=== PATIENT | male | born 1970 | race Caucasian/White ===

== ENCOUNTER 2019-10-30 21:35 | Emergency (ER) | payer OTHER, SELFPAY ==
[2019-10-30 22:17] VITALS: BP 149/93; PULSE 99; RESP 18; TEMP 36.9; O2SAT 96; BMI 24.0
--- NOTE | 2019-10-30 22:32 | W.ED.HA ---
HPI - Headache General: Chief Complaint: Headache Stated Complaint: ling/vomiting Time Seen by Provider: 10/30/19 22:31 History of Present Illness: Associated symptoms: Deny chest pain, fever(s), nausea, rash or vomiting Review of Systems Const: Denies: fever, chills or body aches Eyes: Denies: change in vision or blurry vision ENMT: Denies: throat pain or nasal congestion Card: Denies: chest pain or shortness of breath on exertion Resp: Denies: shortness of breath, productive cough or non-productive cough GI: Denies: abdominal pain, nausea or vomiting : Denies: difficulty urinating Musc: Reports: neck pain (chronic that leads to migranious type h/a); Denies: extremity pain Skin/Breast: Denies: rash Neuro: Reports: headache (has seen Dr. Wyman for these- usually shot and anti emetic/sleep med he); Denies: numbness in extremities or weakness in extremities Psych: Denies: anxiety or depression Elias/Lymph: Denies: easy bruising PFSH ED PFSH: Statuses (acute, chronic, etc) shown below reflect problem list status as previously entered and may not be historically accurate Social History Smoking and tobacco status: former smoker Physical Exam Const: COMMON NORMALS: no apparent distress, average body habitus and oriented x3 HENMT: COMMON NORMALS: normocephalic HEAD & SCALP: normal to inspection and normocephalic FACE & SINUS: normal facial exam Eye: COMMON NORMALS: conjunctivae normal GENERAL EYE: normal appearance of both eyes CONJUNCTIVA: Yes conjunctivae normal Neck/C-Spine: COMMON NORMALS: no JVD OTHER: tender to right side of neck Chest: COMMONS NORMALS: inspection of chest normal Resp: COMMON NORMALS: normal respiratory effort and clear to auscultation bilaterally AUSCULTATION: clear to auscultation bilaterally Cardio: COMMON NORMALS: no JVD, regular rate and regular rhythm RATE: regular rate RHYTHM: regular rhythm GI: COMMON NORMALS: normal to inspection, nondistended, normoactive bowel sounds Extremity: COMMON NORMALS: normal to inspection and full ROM Neuro: COMMON NORMALS: oriented x3 Course Vital Signs: Vital signs: Vital Signs Temperature 98.4 F 10/30/19 22:17 Pulse Rate 99 10/30/19 22:17 Respiratory Rate 18 10/30/19 22:17 Blood Pressure 149/93 10/30/19 22:17 Pulse Oximetry 96 10/30/19 22:17 Discharge Plan Discharge Patient Disposition: Home, Self-Care Clinical Impression: Headache, Tension headache Condition: Stable Prescriptions: No Action tramadol 50 mg Tablet 50 mg PO Q6H PRN (Reason: Pain) RF: 0 trazodone 100 mg Tablet 100 mg PO DAILY RF: 0 Referrals: Jamie Rebollar MD [Primary Care Provider] - Discharge Activity: Resume usual activity Patient Instructions: Acute Headache (ED) Activity Restrictions/Additional Instructions: zofran 8mg po prn Coding Level of Care Code ED Telephonic Nurse Case Manager for Alvarez Juárez
[2019-10-30] MEDS: ketorolac 60 mg/2 mL INJ IM (22:46)
[2019-10-30] MEDS: promethazine 25 mg Tablet PO (22:46)
== END 2019-10-30 22:52 | disposition home or self-care (01) ==
LOC: ER 23:58
PROVIDERS: Emergency Provider Nurse Practitioner Family; Family Provider Family Medicine; PCP Family Medicine
DX: G44.209 Tension-type headache, unspecified, not intractable (principal); Z87.891 Personal history of nicotine dependence
CPT/HCPCS: 96372; 99281; J1885; Q0169

== ENCOUNTER 2020-07-24 12:12 | Emergency (ER) | payer OTHER, SELFPAY ==
[2020-07-24] VITALS (14 sets, daily range): BP systolic 130–179; BP diastolic 79–113; PULSE 105–125; RESP 16–20; TEMP 36.7; O2SAT 95–99; BMI 24.0
--- NOTE | 2020-07-24 12:33 | CT_ITS ---
WS: [id number] CT ABDOMEN PELVIS TECHNIQUE: Contrast-enhanced CT of the abdomen and pelvis with coronal and sagittal reformatted image s. CLINICAL INFORMATION: abd pain COMPARISON: CT DLP: 576.[address] scans at [facility] use at least one of these dose optimization techniques: automat ed exposure control; mA and/or kV adjustment per patient size (includes targeted exams where dose is matched to clinical indication); or iterative reconstruction. FINDINGS: Slight hazy groundglass infiltrates in both lung bases is new since the CT July 30, 2019. Correlation for viral pneumonitis. No focal consolidation or significant pleural fluid. Mild diffuse thickening with induration and submucosal enhancement involving the entire colon extendi ng from the cecum to the sigmoid colon. This is more prominent involving the transverse colon diffuse ly. Findings likely due to colitis or inflammatory bowel disease. Terminal ileum appears normal. Mild diffuse fatty infiltration liver. Cholecystectomy clips. Normal portal vein and splenic vein. No rmal spleen. Small esophageal hiatal hernia. Thickening of the GE junction with submucosal enhancemen t involving the stomach. Findings can be seen with esophagitis and gastritis. Similar-appearing submu cosal enhancement involving the duodenal C-loop suspicious for duodenitis. Fatty atrophy of the pancreas.Normal caliber abdominal aorta. Normal renal parenchymal enhancement. N o hydronephrosis. Enlarged calcified prostate measuring 4.[address]/CT abdomen pelvis w con* [id number] IMPRESSION: 1. Slight hazy ground glass infiltrates in the lung bases. Recommend correlati on for viral pneumonitis. 2. Submucosal enhancement with mild thickening involving the distal esophagus, stomach and duodenum likely due to esophagitis/gastritis and duodenitis. 3. Mild diffuse thickening and induration with submucosal enhancement involvin g the colon worse involving the transverse colon suspicious for colitis or infl ammatory bowel disease. 4. Terminal ileum appears normal. 5. Normal renal parenchymal enhancement. No hydronephrosis. 6. Enlarged calcified prostate. Notified Jarrett Luis DO at 07/24/2020 2:07 PM.
[2020-07-24] MEDS: HYDROmorphone 1 mg/mL INJ 1 mL IVP (12:34)
--- NOTE | 2020-07-24 12:37 | ED_ITS ---
HPI - Abdominal Pain General: Chief Complaint: Abdominal Pain Stated Complaint: ABDOMINAL PAIN/ N/V Time Seen by Provider: 07/24/20 12:23 History of Present Illness: HPI narrative: 50-year-old male presents emergency room complaining of abdominal pain. Begins at the low back and radiates around to the suprapubic area he has had some dysuria urgency and frequency is also had subjective fever at home denies any respiratory problems complaining of severe pain pain does not radiate down into his legs. All began approximately 48 hours ago in addition to the dysuria is also having quite a bit of vomiting although he denies emesis or coffee-ground emesis. MD elicited complaint: abdominal pain Pertinent past history: other (Diabetes mellitus) Onset (ago): day(s) Pain Consistency: constant Location: Diffuse Severity: severe Quality: cramping Radiation: none Migration to: no migration Exacerbating factors: movement Relieving factors: rest Associated Symptoms: Reports anorexia, bloating, change in bowel habits, chills, GI cramping, diarrhea, fever(s), loose stools, nausea, poor appetite and vomi ting; Denies belching, change in stool character, coffee ground emesis, constipation, dyspepsia, dysuria, excessive flatus, heartburn, hematochezia, hematuria, hematemesis, fecal incontinence, melena and syncope Review of Systems Const: Reports: fever(s) and chills ENMT: Denies: throat pain, ear or mastoid pain, nasal discharge or nasal congestion Card: Denies: syncope Resp: Denies: dyspnea, productive cough or non-productive cough GI: Reports: nausea, vomiting, diarrhea, bloating, GI cramping and change in bowel habits; Denies: hematemesis, coffee ground emesis, heartburn, constipation, belching, excessive flatus, fecal incontinence, change in stool character, hematochezia or melena : Denies: dysuria or hematuria Skin/Breast: Denies: rash or pruritus PFSH ED PFSH: Medical History (Updated 07/26/20 @ 11:02 by Jarrett Luis DO) Diabetes mellitus Social History Smoking and tobacco status: former smoker Physical Exam Const: GENERAL APPEARANCE: cooperative HENMT: COMMON NORMALS: normocephalic, atraumatic and hearing grossly normal bilaterally HEAD & SCALP: normocephalic and atraumatic Eye: COMMON NORMALS: Equal, round and reactive pupils present, EOMs intact bilaterally, conjunctivae normal and no scleral icterus CONJUNCTIVA: Yes conjunctivae normal PUPIL: Yes Equal, round and reactive pupils present Neck/C-Spine: COMMON NORMALS: full ROM, no lymphadenopathy, supple and no JVD Lymph: LYMPHATIC: no lymphadenopathy noted and no lymphedema noted Resp: COMMON NORMALS: normal respiratory effort, No retractions and No use of accessory muscles AUSCULTATION: rhonchi Cardio: COMMON NORMALS: no JVD, regular rhythm and No murmurs present (Cardio) RATE: tachycardic RHYTHM: regular rhythm GI: COMMON NORMALS: Soft to palpation and No hepatosplenomegaly present AUSCULTATION: Yes normoactive bowel sounds PALPATION: Yes Soft to palpation, Yes Tenderness to palpation present (GI) (Diffuse nonspecific tenderness no guarding or rebound), No Guarding due to palpation present (GI) and Yes No hepatosplenomegaly present Extremity: COMMON NORMALS: normal to inspection, capillary refill normal, no clubbing, cyanosis or edema, no calf tenderness and no pedal edema Skin: COMMON NORMALS: no rashes or lesions noted GENERAL SKIN EXAM: no rashes or lesions noted Course Vital Signs: Vital signs: Vital Signs Temperature 98.1 F 07/24/20 12:14 Pulse Rate 109 H 07/24/20 18:45 Respiratory Rate 18 07/24/20 18:45 Blood Pressure 130/79 07/24/20 18:45 Pulse Oximetry 95 07/24/20 18:45 MDM - Abdominal Pain MDM Narrative: Medical decision making narrative: Patient is in DKA as well as having pulmonary emboli and COVID. We will go ahead and transfer him to a COVID unit we are unable to manage him at our facility because we do not have any beds available. Discussed with him and his . He was started on insulin drip and given IV fluids and bicarb due to his pH. We will anticoagulate as well. Lab Data: Attestation: I reviewed the patient's lab results. Labs: Lab Results 07/24/20 07/24/20 07/24/20 Range/Units 12:20 12:20 12:20 WBC 8.7 (4.0-10.0) 10^3/ uL RBC 5.32 H (4.1-5.3) 10^6/u L Hgb 16.3 (11.7-16.6) g/dL Hct 49.9 (42.0-52.0) % MCV 93.8 (80-94) fL MCH 30.6 (28.0-34.0) pg MCHC 32.7 (30.0-36.0) g/dL RDW 12.3 (12.1-15.1) % Plt Count 241 (130-400) 10^3/c mm MPV 10.2 (7.4-10.4) fL Neut % (Auto) 84.9 % Lymph % (Auto) 6.6 % Assumption % (Auto) 7.7 % Eos % (Auto) 0.0 % Baso % (Auto) 0.1 % Neut # (Auto) 7.38 (1.8-7.7) 10^3/u L Lymph # (Auto) 0.6 L (0.8-4.8) 10^3/u L Assumption # (Auto) 0.7 (0.2-0.9) 10^3/u L Eos # (Auto) 0.0 (0.0-0.8) 10^3/u L Baso # (Auto) 0.0 (0.0-0.1) 10^3/u L Nucleated RBC % (a uto) 0 % Nucleated RBCs # 0.0 /100WBC Fibrinogen 630 H (174-498) mg/dL D-Dimer 0.41 (0-0.59) ug/mIFE U Specimen Type Sample Site ABG pH (7.35-7.45) ABG pCO2 (35-45) mmHg ABG pO2 (80.0-100.0) mmH g ABG HCO3 (22-26) mmol/L ABG O2 Saturation ABG Base Excess (-2.0-2.0) mmol/ L Walter Test A-a O2 Gradient (5-10) mmHg Hematocrit (42-52) % Hgb O2 Saturation (95-100) % Carboxyhemoglobin (0.4-20.1) %THgb Methemoglobin (0.4-1.5) % Total Hemoglobin (14-18) g/dL Ionized Calcium (1.1-1.4) mmol/L O2 Delivery Device FiO2 % Train Dispatcher ID Sodium 135 L (136-145) mmol/L Potassium 4.5 (3.5-5.1) mmol/L Chloride 100 (98-107) mmol/L Carbon Dioxide 8 L* (22-29) mmol/L Anion Gap 31.5 H (5-19) BUN 13 (6-20) mg/dL Creatinine 1.1 (0.7-1.2) mg/dL GFR Calculation 70.9 L (90-130) mL/min Glucose 348 H (65-115) mg/dL POC Glucose (70-110) mg/dL Calculated Osmolal ity 294 (285-295) mOsm/k g Lactic Acid (0.5-2.2) mmol/L Calcium 9.3 (8.5-10.5) mg/dL Magnesium 2.0 (1.7-2.3) mg/dL Ferritin (30-400) ng/mL Total Bilirubin 0.5 (0.15-1.2) mg/dL AST 19 (0-40) U/L ALT 18 (0-41) U/L Alkaline Phosphata se 83 (40-130) IU/L Lactate Dehydrogen ase (135-225) U/L Creatine Kinase 37 L (39-308) U/L C-Reactive Protein (0.0-4.9) mg/L Total Protein 8.2 (6.6-8.7) g/dL Albumin 4.5 (3.5-5.2) g/dL Globulin 3.7 (1.3-4.6) g/dL Lipase 12 L (13-60) U/L Procalcitonin (0-0.5) ng/mL Urine Color (Yellow) Urine Appearance (CLEAR) Urine pH (5-7) Ur Specific Gravit y (1.005-1.030) Urine Protein (Negative) Urine Glucose (UA) (Normal) Urine Ketones (Negative) Urine Blood (Negative) Urine Nitrate (Negative) Urine Bilirubin (Negative) Urine Urobilinogen (Negative) mg/dL Ur Leukocyte Minerva ase (Negative) Urine RBC (0-2) /hpf Urine WBC (0-5) /hpf Ur Squamous Epith Cells (0-5) /hpf Amorphous Sediment Urine Bacteria (NONE) /hpf Salicylates (3-10) mg/dL Urine Opiates Scre en (Negative) ng/mL Acetaminophen (10-30) ug/mL Ur Barbiturates Sc reen (Negative) ng/mL Ur Phencyclidine S crn (Negative) ng/mL Ur Amphetamines Sc reen (Negative) ng/mL U Benzodiazepines Scrn (Negative) ng/mL Urine Cocaine Scre en (Negative) ng/mL U Marijuana (THC) Screen (Negative) ng/mL Ethyl Alcohol (0-10) mg/dL Serum Ketones Positive H (Negative) SARS-CoV-2 Ag (Rap id) (Negative) 07/24/20 07/24/20 07/24/20 Range/Units 12:20 12:20 12:53 WBC (4.0-10.0) 10^3/ uL RBC (4.1-5.3) 10^6/u L Hgb (11.7-16.6) g/dL Hct (42.0-52.0) % MCV (80-94) fL MCH (28.0-34.0) pg MCHC (30.0-36.0) g/dL RDW (12.1-15.1) % Plt Count (130-400) 10^3/c mm MPV (7.4-10.4) fL Neut % (Auto) % Lymph % (Auto) % Assumption % (Auto) % Eos % (Auto) % Baso % (Auto) % Neut # (Auto) (1.8-7.7) 10^3/u L Lymph # (Auto) (0.8-4.8) 10^3/u L Assumption # (Auto) (0.2-0.9) 10^3/u L Eos # (Auto) (0.0-0.8) 10^3/u L Baso # (Auto) (0.0-0.1) 10^3/u L Nucleated RBC % (a uto) % Nucleated RBCs # /100WBC Fibrinogen (174-498) mg/dL D-Dimer (0-0.59) ug/mIFE U Specimen Type Sample Site ABG pH (7.35-7.45) ABG pCO2 (35-45) mmHg ABG pO2 (80.0-100.0) mmH g ABG HCO3 (22-26) mmol/L ABG O2 Saturation ABG Base Excess (-2.0-2.0) mmol/ L Walter Test A-a O2 Gradient (5-10) mmHg Hematocrit (42-52) % Hgb O2 Saturation (95-100) % Carboxyhemoglobin (0.4-20.1) %THgb Methemoglobin (0.4-1.5) % Total Hemoglobin (14-18) g/dL Ionized Calcium (1.1-1.4) mmol/L O2 Delivery Device FiO2 % Train Dispatcher ID Sodium (136-145) mmol/L Potassium (3.5-5.1) mmol/L Chloride (98-107) mmol/L Carbon Dioxide (22-29) mmol/L Anion Gap (5-19) BUN (6-20) mg/dL Creatinine (0.7-1.2) mg/dL GFR Calculation (90-130) mL/min Glucose (65-115) mg/dL POC Glucose (70-110) mg/dL Calculated Osmolal ity (285-295) mOsm/k g Lactic Acid (0.5-2.2) mmol/L Calcium (8.5-10.5) mg/dL Magnesium (1.7-2.3) mg/dL Ferritin 1101 H (30-400) ng/mL Total Bilirubin (0.15-1.2) mg/dL AST (0-40) U/L ALT (0-41) U/L Alkaline Phosphata se (40-130) IU/L Lactate Dehydrogen ase 262 H (135-225) U/L Creatine Kinase (39-308) U/L C-Reactive Protein 54.0 H (0.0-4.9) mg/L Total Protein (6.6-8.7) g/dL Albumin (3.5-5.2) g/dL Globulin (1.3-4.6) g/dL Lipase (13-60) U/L Procalcitonin 0.11 (0-0.5) ng/mL Urine Color Straw (Yellow) Urine Appearance Clear (CLEAR) Urine pH 5 (5-7) Ur Specific Gravit y 1.025 (1.005-1.030) Urine Protein 1+ H (Negative) Urine Glucose (UA) 4+ H (Normal) Urine Ketones 3+ H (Negative) Urine Blood Neg (Negative) Urine Nitrate Negative (Negative) Urine Bilirubin Neg (Negative) Urine Urobilinogen Norm (Negative) mg/dL Ur Leukocyte Minerva ase Negative (Negative) Urine RBC Rare (0-2) /hpf Urine WBC Rare (0-5) /hpf Ur Squamous Epith Cells Rare (0-5) /hpf Amorphous Sediment Not Reportable Urine Bacteria Trace (NONE) /hpf Salicylates < 0.3 L (3-10) mg/dL Urine Opiates Scre en (Negative) ng/mL Acetaminophen < 5.0 L (10-30) ug/mL Ur Barbiturates Sc reen (Negative) ng/mL Ur Phencyclidine S crn (Negative) ng/mL Ur Amphetamines Sc reen (Negative) ng/mL U Benzodiazepines Scrn (Negative) ng/mL Urine Cocaine Scre en (Negative) ng/mL U Marijuana (THC) Screen (Negative) ng/mL Ethyl Alcohol < 10 (0-10) mg/dL Serum Ketones (Negative) SARS-CoV-2 Ag (Rap id) (Negative) 07/24/20 07/24/20 07/24/20 Range/Units 12:53 13:23 13:28 WBC (4.0-10.0) 10^3/ uL RBC (4.1-5.3) 10^6/u L Hgb (11.7-16.6) g/dL Hct (42.0-52.0) % MCV (80-94) fL MCH (28.0-34.0) pg MCHC (30.0-36.0) g/dL RDW (12.1-15.1) % Plt Count (130-400) 10^3/c mm MPV (7.4-10.4) fL Neut % (Auto) % Lymph % (Auto) % Assumption % (Auto) % Eos % (Auto) % Baso % (Auto) % Neut # (Auto) (1.8-7.7) 10^3/u L Lymph # (Auto) (0.8-4.8) 10^3/u L Assumption # (Auto) (0.2-0.9) 10^3/u L Eos # (Auto) (0.0-0.8) 10^3/u L Baso # (Auto) (0.0-0.1) 10^3/u L Nucleated RBC % (a uto) % Nucleated RBCs # /100WBC Fibrinogen (174-498) mg/dL D-Dimer (0-0.59) ug/mIFE U Specimen Type Arterial Sample Site Radial, right ABG pH 7.13 L* (7.35-7.45) ABG pCO2 17.1 L* (35-45) mmHg ABG pO2 109.0 H (80.0-100.0) mmH g ABG HCO3 5.6 L (22-26) mmol/L ABG O2 Saturation 97.9 ABG Base Excess -21.4 L (-2.0-2.0) mmol/ L Walter Test Pos A-a O2 Gradient 2.1 L (5-10) mmHg Hematocrit 48.4 (42-52) % Hgb O2 Saturation 97.0 (95-100) % Carboxyhemoglobin 0.4 (0.4-20.1) %THgb Methemoglobin 0.5 (0.4-1.5) % Total Hemoglobin 15.8 (14-18) g/dL Ionized Calcium 1.2 (1.1-1.4) mmol/L O2 Delivery Device Room air FiO2 21.0 % Train Dispatcher ID glc Sodium 138.0 (136-145) mmol/L Potassium 4.5 (3.5-5.1) mmol/L Chloride (98-107) mmol/L Carbon Dioxide (22-29) mmol/L Anion Gap (5-19) BUN (6-20) mg/dL Creatinine (0.7-1.2) mg/dL GFR Calculation (90-130) mL/min Glucose 336.0 H (65-115) mg/dL POC Glucose (70-110) mg/dL Calculated Osmolal ity (285-295) mOsm/k g Lactic Acid 1.9 (0.5-2.2) mmol/L Calcium (8.5-10.5) mg/dL Magnesium (1.7-2.3) mg/dL Ferritin (30-400) ng/mL Total Bilirubin (0.15-1.2) mg/dL AST (0-40) U/L ALT (0-41) U/L Alkaline Phosphata se (40-130) IU/L Lactate Dehydrogen ase (135-225) U/L Creatine Kinase (39-308) U/L C-Reactive Protein (0.0-4.9) mg/L Total Protein (6.6-8.7) g/dL Albumin (3.5-5.2) g/dL Globulin (1.3-4.6) g/dL Lipase (13-60) U/L Procalcitonin (0-0.5) ng/mL Urine Color (Yellow) Urine Appearance (CLEAR) Urine pH (5-7) Ur Specific Gravit y (1.005-1.030) Urine Protein (Negative) Urine Glucose (UA) (Normal) Urine Ketones (Negative) Urine Blood (Negative) Urine Nitrate (Negative) Urine Bilirubin (Negative) Urine Urobilinogen (Negative) mg/dL Ur Leukocyte Minerva ase (Negative) Urine RBC (0-2) /hpf Urine WBC (0-5) /hpf Ur Squamous Epith Cells (0-5) /hpf Amorphous Sediment Urine Bacteria (NONE) /hpf Salicylates (3-10) mg/dL Urine Opiates Scre en Negative (Negative) ng/mL Acetaminophen (10-30) ug/mL Ur Barbiturates Sc reen Negative (Negative) ng/mL Ur Phencyclidine S crn Negative (Negative) ng/mL Ur Amphetamines Sc reen Negative (Negative) ng/mL U Benzodiazepines Scrn Negative (Negative) ng/mL Urine Cocaine Scre en Negative (Negative) ng/mL U Marijuana (THC) Screen Negative (Negative) ng/mL Ethyl Alcohol (0-10) mg/dL Serum Ketones (Negative) SARS-CoV-2 Ag (Rap id) (Negative) 07/24/20 07/24/20 07/24/20 Range/Units 14:31 18:02 18:41 WBC (4.0-10.0) 10^3/ uL RBC (4.1-5.3) 10^6/u L Hgb (11.7-16.6) g/dL Hct (42.0-52.0) % MCV (80-94) fL MCH (28.0-34.0) pg MCHC (30.0-36.0) g/dL RDW (12.1-15.1) % Plt Count (130-400) 10^3/c mm MPV (7.4-10.4) fL Neut % (Auto) % Lymph % (Auto) % Assumption % (Auto) % Eos % (Auto) % Baso % (Auto) % Neut # (Auto) (1.8-7.7) 10^3/u L Lymph # (Auto) (0.8-4.8) 10^3/u L Assumption # (Auto) (0.2-0.9) 10^3/u L Eos # (Auto) (0.0-0.8) 10^3/u L Baso # (Auto) (0.0-0.1) 10^3/u L Nucleated RBC % (a uto) % Nucleated RBCs # /100WBC Fibrinogen (174-498) mg/dL D-Dimer (0-0.59) ug/mIFE U Specimen Type Sample Site ABG pH (7.35-7.45) ABG pCO2 (35-45) mmHg ABG pO2 (80.0-100.0) mmH g ABG HCO3 (22-26) mmol/L ABG O2 Saturation ABG Base Excess (-2.0-2.0) mmol/ L Walter Test A-a O2 Gradient (5-10) mmHg Hematocrit (42-52) % Hgb O2 Saturation (95-100) % Carboxyhemoglobin (0.4-20.1) %THgb Methemoglobin (0.4-1.5) % Total Hemoglobin (14-18) g/dL Ionized Calcium (1.1-1.4) mmol/L O2 Delivery Device FiO2 % Train Dispatcher ID Sodium (136-145) mmol/L Potassium (3.5-5.1) mmol/L Chloride (98-107) mmol/L Carbon Dioxide (22-29) mmol/L Anion Gap (5-19) BUN (6-20) mg/dL Creatinine (0.7-1.2) mg/dL GFR Calculation (90-130) mL/min Glucose (65-115) mg/dL POC Glucose 262 267 (70-110) mg/dL Calculated Osmolal ity (285-295) mOsm/k g Lactic Acid (0.5-2.2) mmol/L Calcium (8.5-10.5) mg/dL Magnesium (1.7-2.3) mg/dL Ferritin (30-400) ng/mL Total Bilirubin (0.15-1.2) mg/dL AST (0-40) U/L ALT (0-41) U/L Alkaline Phosphata se (40-130) IU/L Lactate Dehydrogen ase (135-225) U/L Creatine Kinase (39-308) U/L C-Reactive Protein (0.0-4.9) mg/L Total Protein (6.6-8.7) g/dL Albumin (3.5-5.2) g/dL Globulin (1.3-4.6) g/dL Lipase (13-60) U/L Procalcitonin (0-0.5) ng/mL Urine Color (Yellow) Urine Appearance (CLEAR) Urine pH (5-7) Ur Specific Gravit y (1.005-1.030) Urine Protein (Negative) Urine Glucose (UA) (Normal) Urine Ketones (Negative) Urine Blood (Negative) Urine Nitrate (Negative) Urine Bilirubin (Negative) Urine Urobilinogen (Negative) mg/dL Ur Leukocyte Minerva ase (Negative) Urine RBC (0-2) /hpf Urine WBC (0-5) /hpf Ur Squamous Epith Cells (0-5) /hpf Amorphous Sediment Urine Bacteria (NONE) /hpf Salicylates (3-10) mg/dL Urine Opiates Scre en (Negative) ng/mL Acetaminophen (10-30) ug/mL Ur Barbiturates Sc reen (Negative) ng/mL Ur Phencyclidine S crn (Negative) ng/mL Ur Amphetamines Sc reen (Negative) ng/mL U Benzodiazepines Scrn (Negative) ng/mL Urine Cocaine Scre en (Negative) ng/mL U Marijuana (THC) Screen (Negative) ng/mL Ethyl Alcohol (0-10) mg/dL Serum Ketones (Negative) SARS-CoV-2 Ag (Rap id) Positive H (Negative) Discharge Plan Discharge Patient Disposition: Xfer Other Clinical Impression: COVID-19 virus infection, Diabetes mellitus, DKA (diabetic ketoacidoses), Pulm onary embolism Referrals: Jamie Rebollar MD [Primary Care Provider] - Interventions: ED Discharge Assessment Last Done: 07/24/20 18:45 ED Charges Last Done: 07/24/20 18:45 Discharge Date/Time: 07/24/20 18:58 Coding Level of Care Code ED Skilled Nursing Professional for Alvarez Juárez
--- NOTE | 2020-07-24 12:40 | PC.NURSE ---
Pt given call light, placed on registered nurse cardiac telemetry and instructed to give urine sample when able. Pt at bedside.
[2020-07-24 12:47] LABS: Basophils % 0.1 %; Hematocrit 49.9 % (42.0-52.0); Hemoglobin 16.3 g/dL (11.7-16.6); Lymphocytes # 0.6 10^3/uL (0.8-4.8); Lymphocytes % 6.6 %; Mean Corpuscular HGB Conc 32.7 g/dL (30.0-36.0); Mean Corpuscular Hemoglobin 30.6 pg (28.0-34.0); Mean Corpuscular Volume 93.8 fL (80-94); Mean Platelet Volume 10.2 fL (7.4-10.4); Monocytes # 0.7 10^3/uL (0.2-0.9); Monocytes % 7.7 %; Neutrophils # 7.38 10^3/uL (1.8-7.7); Neutrophils % 84.9 %; Nucleated Red Blood Cells % 0 %; Platelet Count 241 10^3/cmm (130-400); Red Blood Count 5.32 10^6/uL (4.1-5.3); Red Cell Distribution Width 12.3 % (12.1-15.1); White Blood Count 8.7 10^3/uL (4.0-10.0)
[2020-07-24 12:58] LABS: Ketone (Acetest) Serum Positive (Negative)
[2020-07-24 13:06] LABS: Alanine Aminotransferase 18 U/L (0-41); Albumin Level 4.5 g/dL (3.5-5.2); Alkaline Phosphatase 83 IU/L (40-130); Anion Gap 31.5 (5-19); Aspartate Amino Transferase 19 U/L (0-40); Blood Urea Nitrogen 13 mg/dL (6-20); Calcium 9.3 mg/dL (8.5-10.5); Chloride 100 mmol/L (98-107); Creatine Phosphokinase 37 U/L (39-308); Globulin 3.7 g/dL (1.3-4.6); Glomerular Filtration Rate 70.9 mL/min (90-130); Glucose 348 mg/dL (65-115); Lipase 12 U/L (13-60); Osmolality Calculated 294 mOsm/kg (285-295); Potassium 4.5 mmol/L (3.5-5.1); Sodium 135 mmol/L (136-145); Total Bilirubin 0.5 mg/dL (0.15-1.2); Total Protein 8.2 g/dL (6.6-8.7)
[2020-07-24 13:10] LABS: Carbon Dioxide 8 mmol/L (22-29)
[2020-07-24] MEDS: sodium chloride 0.9% 1,000 ML 999 ML IV ×2 (13:25→14:45)
--- NOTE | 2020-07-24 13:25 | PC.NURSE ---
RT at bedside to draw ABG
[2020-07-24 13:38] LABS: Alveolar-Arterial Oxygen Gradi 2.1 mmHg (5-10); Arterial Blood Gas Hematocrit 48.4 % (42-52); Base Excess ABG -21.4 mmol/L (-2.0-2.0); Blood Gas Allen Test Pos; Blood Gas Operator Identificat glc; Blood Gas Sample Site Radial, right; Blood Gas Sample Type Arterial; Carboxyhemoglobin 0.4 %THgb (0.4-20.1); HCO3 ABG 5.6 mmol/L (22-26); Ionized Calcium Level - ABG 1.2 mmol/L (1.1-1.4); Methemoglobin 0.5 % (0.4-1.5); Oxygen Device ROOM AIR; Oxygen Saturation ABG 97.9; Potassium Level - ABG 4.5 mmol/L (3.5-5.0); Total Hemoglobin 15.8 g/dL (14-18)
[2020-07-24 13:39] LABS: ABG PCO2 17.1 mmHg (35-45); ABG PH Result 7.13 (7.35-7.45)
[2020-07-24 13:41] LABS: Specific Gravity, Urine 1.025 (1.005-1.030); Urine Appearance Clear (CLEAR); Urine Color Straw (Yellow); pH Urine 5 (5-7)
[2020-07-24 13:42] LABS: Add Urine Microscopic? YES; Bilirubin Urine Neg (Negative); Blood Urine Neg (Negative); Glucose Urine UA 4+ (Normal); Ketones Urine 3+ (Negative); Leukocyte Esterase Urine Negative (Negative); Nitrate Urine Negative (Negative); Protein Urine 1+ (Negative); Urobilinogen Urine Norm (Negative)
[2020-07-24 13:43] LABS: Bacteria Urine TRACE /hpf; RBC Urine RARE /hpf (0-2); Squamous Epithelial Cell Urine RARE /hpf (0-5); WBC Urine RARE /hpf (0-5)
[2020-07-24] MEDS: iohexol 300 mg/mL 100 mL Btl IV (13:43)
[2020-07-24 13:44] LABS: Add Urine Culture? No
--- NOTE | 2020-07-24 13:47 | PC.NURSE ---
Pt to CT
[2020-07-24 13:50] LABS: Lactic Sepsis W/Reflex 1.9 mmol/L (0.5-2.2)
--- NOTE | 2020-07-24 14:25 | PC.NURSE ---
Pt placed on COVID precautions pending rapid antigen test.
--- NOTE | 2020-07-24 14:26 | CT_ITS ---
WS: [id number] CTA OF THE CHEST WITH PULMONARY EMBOLISM PROTOCOL TECHNIQUE: High-resolution contrast enhanced CTA of the chest with coronal and sagittal reformatted i mages with pulmonary embolism protocol. MIP images are also reviewed. CLINICAL INFORMATION: dyspnea/tachypnea COMPARISON: None. DLP: 609.[address] scans at [facility] use at least one of these dose optimization techniques: automat ed exposure control; mA and/or kV adjustment per patient size (includes targeted exams where dose is matched to clinical indication); or iterative reconstruction. FINDINGS: Proximal main pulmonary arteries are normal. Filling defects in the left lateral upper lobe segmental and subsegmental pulmonary arteries consistent with pulmonary embolus. Normal caliber thoracic aorta. No mediastinal or hilar lymphadenopathy. Mild chronic emphysematous ch anges. Groundglass patchy infiltrates in both lower lobe suspicious for viral pneumonitis. No focal p neumonia or pleural fluid. Upper lungs are well aerated. Adrenal glands are normal. Cholecystectomy clips. Thickening at the GE junction and proximal stomach consistent with esophagitis and gastritis described on the CT abdomen pelvis. CT/CT angio chest PE protcl [id number] IMPRESSION: 1. Poor filling with filling defects in the segmental and subsegmental left up per lobe pulmonary artery consistent with acute pulmonary embolus. 2. Proximal main pulmonary arteries are normal. 3. Slight hazy ground glass infiltrates in both lower lobes suspicious for vir al pneumonitis. No focal consolidation or pleural fluid. 4. Prior cholecystectomy. 5. No mediastinal or hilar lymphadenopathy. Notified Jarrett Luis DO at 07/24/2020 3:21 PM.
[2020-07-24 14:29] LABS: D Dimer 0.41 ug/mIFEU (0-0.59)
[2020-07-24 14:33] LABS: Procalcitonin 0.11 ng/mL (0-0.5)
[2020-07-24] MEDS: morphine 4 mg/mL SDV 1 mL IVP (14:34)
[2020-07-24 14:37] LABS: Amphetamines Screen Urine Negative (Negative); Barbiturates Screen Urine Negative (Negative); Benzodiazepines Screen Urine Negative (Negative); Cocaine Screen Urine Negative (Negative); Opiate Screen Urine Negative (Negative); PCP Screen Urine Negative (Negative); THC Screen Urine Negative (Negative)
--- NOTE | 2020-07-24 14:43 | PC.NURSE ---
Pt swabbed for COVID.
[2020-07-24 14:44] LABS: Lactate Dehydrogenase 262 U/L (135-225)
[2020-07-24 14:47] LABS: Acetaminophen < 5.0 ug/mL (10-30); Alcohol Level < 10 mg/dL (0-10); Salicylate < 0.3 mg/dL (3-10)
[2020-07-24 14:49] LABS: Fibrinogen 630 mg/dL (174-498)
--- NOTE | 2020-07-24 14:52 | PC.NURSE ---
Pt to CT
[2020-07-24 14:56] LABS: Ferritin 1101 ng/mL (30-400)
[2020-07-24] MEDS: iodixanol 320 mg/mL 100mL Btl IV (14:59)
[2020-07-24 15:08] LABS: SARS Covid-2 Antigen Positive (Negative)
[2020-07-24] MEDS: heparin drip 25,000 UNIT/500 ML PREMIX 21.6 UNIT IV (16:25)
[2020-07-24] MEDS: sodium bicarbonate 150 MEQ in dextrose 5% 1,000 ML 100 MEQ IV (16:25)
[2020-07-24] MEDS: insulin regular-human 250 UNIT in sodium chloride 0.9% 250 ML IV (16:26)
[2020-07-24] MEDS: heparin 5,000 unit/mL INJ 1 mL 4000 UNIT IVP (16:27)
[2020-07-24] MEDS: insulin regular-human 100 units/1 mL 5 UNIT IVP (16:27)
--- NOTE | 2020-07-24 17:58 | PC.NURSE ---
Attempted to call report to Christy Benítez, was told nurse could not take report d/t recent pt admission. Was told nurse with call back.
[2020-07-24 18:06] LABS: Glucose Point of Care 262 mg/dL (70-110)
[2020-07-24 18:45] LABS: Glucose Point of Care 267 mg/dL (70-110)
== END 2020-07-24 18:58 | disposition other institution (70) ==
PROVIDERS: Emergency Provider Family Medicine; PCP Family Medicine
DX: U07.1 COVID-19 (principal); E11.10 Type 2 diabetes mellitus with ketoacidosis without coma; I26.99 Other pulmonary embolism without acute cor pulmonale; Z87.891 Personal history of nicotine dependence
CPT/HCPCS: 12345; 36415; 36416; 51702; 71275; 74177; 80051; 80053; 80306; 80307; 81001; 82009; 82550; 82728; 82810; 82962; 83605; 83615; 83690; 83735; 83986; 84145; 85025; 85378; 85384; 86140; 87040; 87426; 96365; 96366; 96367; 96368; 96375; 99284; 99285; J1170; J1644; J1815; J2270; J7030; J7050; Q9967

== ENCOUNTER → 2020-09-17 08:06 | Outpatient (BNVA) | payer OTHER, SELFPAY | PROVIDERS: PCP Family Medicine; Visit Provider Specialist | DX: R56.9 Unspecified convulsions (principal); Z87.891 Personal history of nicotine dependence | CPT/HCPCS: 95816 ==

== ENCOUNTER 2020-09-27 10:44 | Emergency (ER) | payer OTHER, SELFPAY ==
[2020-09-27 10:51] VITALS: BP 144/87; PULSE 102; RESP 20; TEMP 36.7; O2SAT 97; BMI 25.1
[2020-09-27 11:12] LABS: Basophils % 0.5 %; Eosinophils # 0.1 10^3/uL (0.0-0.8); Eosinophils % 1.8 %; Hematocrit 44.3 % (42.0-52.0); Hemoglobin 14.7 g/dL (11.7-16.6); Lymphocytes # 2.3 10^3/uL (0.8-4.8); Lymphocytes % 35.6 %; Mean Corpuscular HGB Conc 33.2 g/dL (30.0-36.0); Mean Corpuscular Hemoglobin 30.4 pg (28.0-34.0); Mean Corpuscular Volume 91.5 fL (80-94); Mean Platelet Volume 9.2 fL (7.4-10.4); Monocytes # 0.5 10^3/uL (0.2-0.9); Monocytes % 8.2 %; Neutrophils # 3.54 10^3/uL (1.8-7.7); Neutrophils % 53.7 %; Nucleated Red Blood Cells % 0 %; Platelet Count 304 10^3/cmm (130-400); Red Blood Count 4.84 10^6/uL (4.1-5.3); Red Cell Distribution Width 12.9 % (12.1-15.1); White Blood Count 6.6 10^3/uL (4.0-10.0)
--- NOTE | 2020-09-27 11:12 | CTR_ITS ---
PROCEDURE INFORMATION: Exam: CT Abdomen And Pelvis With Contrast Exam date and time: 09/27/2020 11:59 AM Age: 50 years old Clinical indication: Abdominal pain; Generalized; Additional info: HX colitis, severe ruq pain, recent covid infection TECHNIQUE: Imaging protocol: Computed tomography of the abdomen and pelvis with intravenous contrast. Radiation optimization: All CT scans at this facility use at least one of these dose optimization techniques: automated exposure control; mA and/or kV adjustment per patient size (includes targeted exams where dose is matched to clinical indication); or iterative reconstruction. Contrast material: VISI 320; Contrast volume: 95 ml; Contrast route: INTRAVENOUS (IV); COMPARISON: CT ABDOMEN/PELVIS 07/24/2020 1:36 PM RADIATION DOSE METRICS: Total DLP (mGy-cm): 568.23 FINDINGS: Liver: The liver is homogeneous and is not enlarged. Gallbladder and bile ducts: Prior cholecystectomy. No biliary ductal dilatation allowing for that. Pancreas: No pancreatic mass. No peripancreatic inflammation. No pancreatic ductal dilation. Spleen: The spleen is homogeneous and is not enlarged. Adrenal glands: No adrenal mass. Kidneys and ureters: No hydronephrosis, nephrolithiasis, or renal mass. Stomach and bowel: No bowel obstruction. There is wall thickening involving the ascending colon which could be due to colitis given the history. No diverticulitis. Appendix: The appendix has a normal caliber with no wall thickening. No periappendiceal stranding. Intraperitoneal space: No ascites or pneumoperitoneum. Vasculature: No abdominal aortic aneurysm. The mesenteric arteries are patent. The mesenteric, portal, and hepatic veins are patent. Lymph nodes: No pathologically enlarged lymph nodes. Urinary bladder: No urinary bladder calculus or wall thickening. Reproductive: The prostate is enlarged and indents/elevates the base of the urinary bladder. There is calcification of both vas deferens which can be associated with diabetes mellitus. Bones/joints: No acute osseous abnormality. Soft tissues: No acute soft tissue abnormality. CT/CT abdomen pelvis w con* [id number] IMPRESSION: 1. Possible colitis affecting the ascending colon. 2. Prior cholecystectomy. No biliary ductal dilatation. 3. No urinary tract calculus or obstruction. 4. Normal appendix. Radiation Dose CTDIVOL = (mGy): DLP = 568.23 (mGy-cm)
--- NOTE | 2020-09-27 11:14 | ED_ITS ---
HPI - Abdominal Pain General: Chief Complaint: Nausea/Vomiting/Diarrhea Stated Complaint: Nausea/Sent from for intestinal blockage Time Seen by Provider: 09/27/20 11:04 History of Present Illness: HPI narrative: Mr. Bhavesh Llanos 50-year-old pleasant gentleman who presents with right upper quadrant pain severe since this morning. Patient has been on the care of Dr. Rebollar since his Covid diagnosis and recent bout with colitis. Patient relates that over the last month he has had very unusual bowel movements more pellet-like than anything. Has had generalized abdominal pain but definitely worse this morning. He also has chills and does not feel good. Pain does go through to his back on the right side. Has just recently finished a course of metronidazole and ciprofloxacin. Blood sugars have been doing well since returning home from the hospital. He has had no higher than 150. MD elicited complaint: abdominal pain Pertinent past history: other (Colitis and Covid infection) Onset (ago): week(s) Pain Consistency: constant Location: RUQ Severity: severe Quality: stabbing and aching Migration to: no migration Context: recent antibiotic use Associated Symptoms: Reports change in stool character (Have become more pellet- like in shape), chills and nausea Review of Systems Narrative: Recent Covid infection and colitis. Patient was also in ketoacidosis during his hospital stay. Patient's pain in his abdomen is been progressively worsening over the last month and woke up this morning and very severe in the right upper quadrant of his abdomen. Patient states he also has had chills and changes bowel movements Const: Reports: chills Eyes: Denies: change in vision or blurry vision ENMT: Denies: throat pain or nasal congestion Card: Denies: chest pain or dyspnea on exertion Resp: Denies: dyspnea, productive cough or non-productive cough GI: Reports: nausea and change in stool character (Have become more pellet- like in shape) : Denies: difficulty urinating Musc: Denies: extremity pain Skin/Breast: Denies: rash Neuro: Denies: headache(s) Psych: Denies: anxiety or depression Elias/Lymph: Denies: easy bruising PFSH ED PFSH: Medical History (Updated 09/27/20 @ 13:21 by SUPRIYA Brock) Diabetes mellitus Social History Smoking and tobacco status: former smoker Second hand smoke exposure: No Smoking risk assessment/counseling performed?: No Alcohol intake: current Alcohol intake frequency: holidays/special occasions only Lives independently: Yes Household members: spouse Housing: House Marital status: service: No Current occupational status: employed History of recent travel: No Current gender identity: Male Physical Exam Const: COMMON NORMALS: no acute distress, average body habitus and patient oriented x3 HENMT: COMMON NORMALS: normocephalic HEAD & SCALP: normal to inspection and normocephalic FACE & SINUS: normal facial exam Eye: COMMON NORMALS: conjunctivae normal GENERAL EYE: appearance normal, both eyes and all related structures CONJUNCTIVA: Yes conjunctivae normal Neck/C-Spine: COMMON NORMALS: no JVD Chest: COMMONS NORMALS: normal inspection of the chest Resp: COMMON NORMALS: normal respiratory effort Cardio: COMMON NORMALS: no JVD, regular rate and regular rhythm RATE: regular rate RHYTHM: regular rhythm GI: COMMON NORMALS: Normal to inspection, nondistended, normoactive bowel sounds present PALPATION: Yes Tenderness to palpation present (GI) Details: RUQ Extremity: COMMON NORMALS: normal to inspection and full ROM Neuro: COMMON NORMALS: patient oriented x3 Psych: COMMON NORMALS: mental status grossly normal Course Vital Signs: Vital signs: Vital Signs Temperature 98.1 F 09/27/20 10:51 Pulse Rate 102 H 09/27/20 10:51 Respiratory Rate 18 09/27/20 11:25 Blood Pressure 144/87 09/27/20 10:51 Pulse Oximetry 97 09/27/20 10:51 MDM - Abdominal Pain MDM Narrative: Medical decision making narrative: Discussed case Dr. Mcgraw. Went over lab results and allergy results with patient. Discussed need for possible fiber in diet. Also discussed that could be related to the medications steroids and antibiotics he has been on he could have some gastritis going on that I would recommend doing [id number] Prilosec or Nexium which patient said he will do. Patient will follow-up Dr. Rebollar in 2 weeks. Differential Diagnosis: Differential diagnosis abdominal pain: Likely abdominal pain, constipation and gastroenteritis Lab Data: Labs: Lab Results 09/27/20 09/27/20 09/27/20 Range/Units 11:00 11:00 11:28 WBC 6.6 (4.0-10.0) 10^3/ uL RBC 4.84 (4.1-5.3) 10^6/u L Hgb 14.7 (11.7-16.6) g/dL Hct 44.3 (42.0-52.0) % MCV 91.5 (80-94) fL MCH 30.4 (28.0-34.0) pg MCHC 33.2 (30.0-36.0) g/dL RDW 12.9 (12.1-15.1) % Plt Count 304 (130-400) 10^3/c mm MPV 9.2 (7.4-10.4) fL Neut % (Auto) 53.7 % Lymph % (Auto) 35.6 % [place] % (Auto) 8.2 % Eos % (Auto) 1.8 % Baso % (Auto) 0.5 % Neut # (Auto) 3.54 (1.8-7.7) 10^3/u L Lymph # (Auto) 2.3 (0.8-4.8) 10^3/u L [place] # (Auto) 0.5 (0.2-0.9) 10^3/u L Eos # (Auto) 0.1 (0.0-0.8) 10^3/u L Baso # (Auto) 0.0 (0.0-0.1) 10^3/u L Nucleated RBC % (a uto) 0 % Nucleated RBCs # 0.0 /100WBC Sodium 139 (136-145) mmol/L Potassium 4.2 (3.5-5.1) mmol/L Chloride 102 (98-107) mmol/L Carbon Dioxide 26 (22-29) mmol/L Anion Gap 15.2 (5-19) BUN 9 (6-20) mg/dL Creatinine 0.7 (0.7-1.2) mg/dL GFR Calculation 119.4 (90-130) mL/min Glucose 137 H (65-115) mg/dL Calculated Osmolal ity 289 (285-295) mOsm/k g Calcium 9.5 (8.5-10.5) mg/dL Total Bilirubin 1.0 (0.15-1.2) mg/dL AST 20 (0-40) U/L ALT 22 (0-41) U/L Alkaline Phosphata se 48 (40-130) IU/L Total Protein 7.3 (6.6-8.7) g/dL Albumin 4.2 (3.5-5.2) g/dL Globulin 3.1 (1.3-4.6) g/dL Lipase 14 (13-60) U/L Urine Color Yellow (Yellow) Urine Appearance Clear (CLEAR) Urine pH 5 (5-7) Ur Specific Gravit y 1.010 (1.005-1.030) Urine Protein Neg (Negative) Urine Glucose (UA) Norm (Normal) Urine Ketones Negative (Negative) Urine Blood Neg (Negative) Urine Nitrate Negative (Negative) Urine Bilirubin Neg (Negative) Urine Urobilinogen Norm (Negative) mg/dL Ur Leukocyte Minerva ase Negative (Negative) Discharge Plan Discharge Patient Disposition: Home Clinical Impression: Abdominal pain Qualifiers: Abdominal location: right upper quadrant Qualified Code(s): R10.11 - Right upper quadrant pain Condition: Stable Prescriptions: New Zofran 4 mg tablet 4 mg PO TID PRN (Reason: nausea and vomiting) 3 Days Qty: 10 RF: 0 No Action metronidazole 500 mg tablet 500 mg PO TID RF: 0 ciprofloxacin HCl 250 mg tablet 200 mg PO BID RF: 0 insulin lispro [Humalog KwikPen Insulin] 100 unit/mL insulin pen 8 unit SUBCUT TID PRN (Reason: blood sugar) RF: 0 Basaglar KwikPen U-100 Insulin 100 unit/mL (3 mL) insulin pen 46 unit SUBCUT DAILY RF: 0 Eliquis 5 mg tablet 5 mg PO BID RF: 0 multivitamin Tablet 1 tab PO DAILY RF: 0 Ambien 10 mg Tablet 10 mg PO BEDTIME PRN (Reason: Sleep) RF: 0 Vitamin D3 25 mcg (1,000 unit) Tablet 25 mcg PO DAILY RF: 0 Discharge Orders: Discharge Order (Routine); Ordered 09/27/20 Ordered By: Amol Eason Referrals: Jamie Rebollar MD [Primary Care Provider] - Discharge Diet: Regular and Diabetic Discharge Activity: Increase activity as tolerated Patient Instructions: Abdominal Pain (ED) Activity Restrictions/Additional Instructions: Follow-up with medical provider as directed. Take medications as prescribed. Return to the ER or your medical provider if condition worsens. Please read and understand discharge instructions. If any questions ask please. I recommend trying fiber Gummies to help with bowel movements. To recommend trying Nexium or Prilosec for next couple weeks and follow-up with Dr. Rebollar after that. Did lon ferraro or Sen post symptoms with patient Coding Level of Care Code ED Patent Prosecution [employer] for [employer] Fwd Exam Comprehensive
[2020-09-27 11:25] VITALS: RESP 18
[2020-09-27] MEDS: morphine 4 mg/mL SDV 1 mL IVP (11:25)
[2020-09-27] MEDS: ondansetron 2 mg/ML SDV 2 mL 4 MG IVP (11:26)
[2020-09-27 11:47] LABS: Add Urine Microscopic? NO
[2020-09-27 11:52] LABS: Bilirubin Urine Neg (Negative); Blood Urine Neg (Negative); Glucose Urine UA Norm (Normal); Ketones Urine Negative (Negative); Leukocyte Esterase Urine Negative (Negative); Nitrate Urine Negative (Negative); Protein Urine Neg (Negative); Urine Appearance Clear (CLEAR); Urine Color Yellow (Yellow); Urobilinogen Urine Norm (Negative); pH Urine 5 (5-7)
[2020-09-27 12:01] LABS: Alanine Aminotransferase 22 U/L (0-41); Albumin Level 4.2 g/dL (3.5-5.2); Alkaline Phosphatase 48 IU/L (40-130); Anion Gap 15.2 (5-19); Aspartate Amino Transferase 20 U/L (0-40); Blood Urea Nitrogen 9 mg/dL (6-20); Calcium 9.5 mg/dL (8.5-10.5); Carbon Dioxide 26 mmol/L (22-29); Chloride 102 mmol/L (98-107); Globulin 3.1 g/dL (1.3-4.6); Glomerular Filtration Rate 119.4 mL/min (90-130); Glucose 137 mg/dL (65-115); Lipase 14 U/L (13-60); Osmolality Calculated 289 mOsm/kg (285-295); Potassium 4.2 mmol/L (3.5-5.1); Sodium 139 mmol/L (136-145); Total Protein 7.3 g/dL (6.6-8.7)
[2020-09-27] MEDS: iodixanol 320 mg/mL 100mL Btl IV (12:41)
--- NOTE | 2020-09-27 13:00 | PC.NURSE ---
patient ambulated with assist patient unsteady on feet
[2020-09-27 13:51] VITALS: BP 106/71; PULSE 99; RESP 16; O2SAT 94
== END 2020-09-27 13:51 | disposition home or self-care (01) ==
PROVIDERS: Emergency Medicine; Emergency Provider Nurse Practitioner Family; PCP Family Medicine
DX: R10.11 Right upper quadrant pain (principal); Z79.01 Long term (current) use of anticoagulants; Z79.4 Long term (current) use of insulin; E11.9 Type 2 diabetes mellitus without complications; Z87.891 Personal history of nicotine dependence
CPT/HCPCS: 12345; 74177; 80053; 81003; 83690; 85025; 96374; 96375; 99282; 99283; J2270; J2405; Q9967

== ENCOUNTER 2020-10-09 08:17 | Outpatient (CLI) | payer OTHER, SELFPAY ==
--- NOTE | 2020-10-09 | CT_ITS ---
WS: [id number] CT ABDOMEN CONTRAST TECHNIQUE: Contrast enhanced CT of the abdomen with coronal and sagittal reformatted images. CLINICAL INFORMATION: HX OF COLITIS COMPARISON: CT September 27, 2020, July 24, 2020, and July 30, 2019 DLP: 863.[address] scans at [facility] use at least one of these dose optimization techniques: automat ed exposure control; mA and/or kV adjustment per patient size (includes targeted exams where dose is matched to clinical indication); or iterative reconstruction. FINDINGS: Normal liver. Cholecystectomy clips. Spleen is normal. Lung bases are well aerated. Normal renal pare nchymal enhancement. Adrenal glands are normal. Normal renal parenchymal enhancement. No hydronephros is. Normal caliber abdominal aorta. Mild submucosal enhancement involving the terminal ileum and cecum can be seen with infectious or inf lammatory etiologies ileitis and colitis. Dense impacted stool in the cecum. Mild enhancement involvi ng the ascending colon is unchanged from previous. No other interval changes. CT/CT abdomen w con* [id number] IMPRESSION: 1. Mild submucosal enhancement involving the terminal ileum and cecum can be s een with infectious or inflammatory terminal ileitis and colitis. Dense impacte d stool in the cecum. 2. Previously described mild enhancement of the ascending colon is similar in appearance suspicious for mild colitis. 3. No other significant interval changes. 4. Prior cholecystectomy. 5. Normal caliber abdominal aorta.
[2020-10-09] MEDS: iohexol 300 mg/mL 50 mL Btl PO (09:30)
[2020-10-09] MEDS: iohexol 300 mg/mL 100 mL Btl IV (09:47)
== END 2020-10-09 08:18 | disposition home or self-care (01) ==
LOC: RADWPI 08:20
PROVIDERS: PCP Family Medicine; Visit Provider Nurse Practitioner Family
DX: Z87.19 Personal history of other diseases of the digestive system (principal); Z90.49 Acquired absence of other specified parts of digestive tract
CPT/HCPCS: 74160; Q9967

== ENCOUNTER 2020-10-28 09:14 | Outpatient (CLI) | payer OTHER, SELFPAY ==
--- NOTE | 2020-10-28 09:00 | CT_ITS ---
WS: [id number] Exam: CT angio chest PE protcl [id number] Date/Time of Exam: 10/28/2020 9:37 AM Reason For Exam: RESOLUTION OF PE DLP: 770.[address] scans at [facility] use at least one of these dose optimization techniques: automat ed exposure control; mA and/or kV adjustment per patient size (includes targeted exams where dose is matched to clinical indication); or iterative reconstruction. Comparison made to prior study 07/24/2020. Previously noted left upper lobe pulmonary emboli have resolved. No sign of acute pulmonary emboli. T he central pulmonary arteries are clear. The thoracic aorta is normal in caliber. The lungs are clear and fully expanded. No pleural or pericardial effusion. No significant lymphadenopathy in the chest. Bony structures are intact intact. The chest wall is unremarkable in appearance. CT/CT angio chest PE protcl [id number] IMPRESSION: 1. Resolved left upper lobe pulmonary emboli since previous exam. No acute or c hronic emboli identified on today's exam. 2. No pulmonary infiltrate, mass or lymphadenopathy.
[2020-10-28] MEDS: iohexol 350 mg/mL 100 mL Btl IV (10:00)
== END 2020-10-28 09:15 | disposition home or self-care (01) ==
LOC: RADWPI 09:20
PROVIDERS: PCP Family Medicine; Visit Provider Internal Medicine Pulmonary Disease
DX: G93.3 Postviral and related fatigue syndromes (principal); R42 Dizziness and giddiness; R53.81 Other malaise; U07.1 COVID-19
CPT/HCPCS: 71275; Q9967

== ENCOUNTER 2020-12-21 22:44 | Emergency (ER) | payer OTHER, SELFPAY ==
[2020-12-21 22:51] VITALS: BP 144/93; PULSE 103; RESP 25; TEMP 36.3; O2SAT 100; BMI 23.0
--- NOTE | 2020-12-21 23:04 | CTR_ITS ---
PROCEDURE INFORMATION: Exam: CT Head Without Contrast Exam date and time: 12/21/2020 11:08 PM Age: 50 years old Clinical indication: Altered mental status/memory loss; Confusion or disorientation TECHNIQUE: Imaging protocol: Computed tomography of the head without contrast. Radiation optimization: All CT scans at this facility use at least one of these dose optimization techniques: automated exposure control; mA and/or kV adjustment per patient size (includes targeted exams where dose is matched to clinical indication); or iterative reconstruction. COMPARISON: CT head wo con* [id number] 06/04/2018 9:37 AM RADIATION DOSE METRICS: Total DLP (mGy-cm): 774.86 FINDINGS: Brain: No evidence of acute infarct. No mass or mass effect. No intra axial hemorrhage. No extra axial fluid collection or hemorrhage. Cerebral ventricles: Symmetric and without enlargement. Bones/joints: No acute fracture. Paranasal sinuses: Visualized sinuses are well aerated. Mastoid air cells: Visualized mastoid air cells are well aerated. Soft tissues: No concerning abnormalities. CT/CT head wo con* [id number] IMPRESSION: No acute intracranial abnormality. Radiation Dose CTDIVOL = (mGy): DLP = 774.86 (mGy-cm)
--- NOTE | 2020-12-21 23:04 | XR_ITS ---
WS: [id number] Exam: XR chest 1V portable [id number] Date/Time of Exam: 12/21/2020 11:08 PM Reason For Exam: sob Comparison 03/31/2017. The lungs are clear and fully inflated. Normal cardiomediastinal structures and bony elements. Operat sherita fusion of the lower cervical spine with plate and screw fixation noted. XR/XR chest 1V portable [id number] IMPRESSION: 1. No acute cardiopulmonary finding. No change.
--- NOTE | 2020-12-21 23:05 | ECG_ITS ---
[facility] Test Date: 2020-12-21 Pat Name: Phi Perez Department: Room: Gender: Male [employer]: : 1970 Requested By: Apollo Thomas Order Number: [id number] Luis Daniel MD: Felecia Phillips M.D. Measurements Intervals [place] Rate: 82 P: 53 OR: 147 QRS: 43 QRSD: 98 T: 42 QT: 376 QTc: 440 Interpretive Statements SINUS RHYTHM Compared to ECG 06/05/2018 21:28:08 No significant changes Electronically Signed On 12-22-2020 5:49:46 METAL CHECKER by Felecia Phillips M.D. [id number]
--- NOTE | 2020-12-21 23:11 | ED_ITS ---
HPI - General Adult General: Chief complaint: General Medical Stated complaint: HYPERGLYCEMIA/CONFUSION Time Seen by Provider: 12/21/20 22:46 Source: patient Mode of arrival: ambulatory Limitations: no limitations History of Present Illness: HPI narrative: 50-year-old male that has a history of diabetes. Patient states that his blood sugars been running in the 400s today and has had some dyspnea along with some slight confusion. Patient is able answer all my questions. He has no altered mental status. He states he just has not felt well has had some dyspnea. Denies any chest pain or fever. Denies any vomiting but has had some nausea. Associated symptoms: Reports confusion, dyspnea and nausea; Deny chest pain or rash Review of Systems Const: Denies: fever(s), chills, body aches or change in appetite Eyes: Denies: blurry vision or eye discomfort ENMT: Denies: throat pain or dental pain Card: Denies: chest pain Resp: Reports: dyspnea GI: Reports: nausea : Denies: dysuria Musc: Denies: neck pain or back pain Skin/Breast: Denies: rash Neuro: Reports: confusion Psych: Denies: depression Elias/Lymph: Denies: easy bruising All/Imm: Denies: urticaria PFSH ED PFSH: Medical History (Updated 12/22/20 @ 00:25 by Apollo Thomas MD) Diabetes mellitus Social History Smoking and tobacco status: former smoker Second hand smoke exposure: No Smoking risk assessment/counseling performed?: No Alcohol intake: current Alcohol intake frequency: holidays/special occasions only Lives independently: Yes Household members: spouse Housing: House Marital status: service: No Current occupational status: employed History of recent travel: No Current gender identity: Male Physical Exam Const: COMMON NORMALS: no acute distress, patient oriented x3 and healthy ministerio earing HENMT: COMMON NORMALS: normocephalic and atraumatic HEAD & SCALP: normocephalic and atraumatic Eye: COMMON NORMALS: Equal, round and reactive pupils present and EOMs intact bilaterally PUPIL: Yes Equal, round and reactive pupils present Neck/C-Spine: COMMON NORMALS: full ROM and supple Chest: COMMONS NORMALS: normal inspection of the chest and normal palpation of entire chest wall Resp: COMMON NORMALS: normal respiratory effort, No retractions, No use of accessory muscles and clear to auscultation bilaterally AUSCULTATION: clear to auscultation bilaterally Cardio: COMMON NORMALS: regular rate, regular rhythm and No murmurs present (Cardio) RATE: regular rate RHYTHM: regular rhythm GI: COMMON NORMALS: Normal to inspection, nondistended, normoactive bowel sounds present, Soft to palpation, non-tender and no masses PALPATION: Yes Soft to palpation Extremity: COMMON NORMALS: normal to inspection and full ROM Neuro: COMMON NORMALS: patient oriented x3, moves all extremities and no focal motor deficits Psych: COMMON NORMALS: mental status grossly normal, Normal thought process present and cooperative THOUGHT PROCESS: Normal thought process present Skin: COMMON NORMALS: no rashes or lesions noted and no wounds GENERAL SKIN EXAM: no rashes or lesions noted Course Vital Signs: Vital signs: Vital Signs Temperature 97.3 F L 12/21/20 22:51 Pulse Rate 89 12/22/20 00:36 Respiratory Rate 18 12/22/20 00:36 Blood Pressure 135/86 12/22/20 00:36 Pulse Oximetry 97 12/22/20 00:36 MDM - General Adult MDM Narrative: Medical decision making narrative: Patient presents here with hyperglycemia. Patient's blood sugar is much improved after fluids. He feels improved as well. He states his breathing is improved and his confusion is resolved. His head CT and blood work otherwise here are all normal. He is stable for discharge and is to follow-up his PCP in 3 to 5 days return if worsening. Lab Data: Labs: Lab Results 12/21/20 12/21/20 12/21/20 Range/Units 23:10 23:10 23:10 WBC 6.1 (4.0-10.0) 10^3/ uL RBC 4.89 (4.1-5.3) 10^6/u L Hgb 14.6 (11.7-16.6) g/dL Hct 43.5 (42.0-52.0) % MCV 89.0 (80-94) fL MCH 29.9 (28.0-34.0) pg MCHC 33.6 (30.0-36.0) g/dL RDW 12.0 L (12.1-15.1) % Plt Count 289 (130-400) 10^3/c mm MPV 9.5 (7.4-10.4) fL Neut % (Auto) 45.5 % Lymph % (Auto) 41.7 % [place] % (Auto) 9.9 % Eos % (Auto) 1.8 % Baso % (Auto) 0.8 % Neut # (Auto) 2.75 (1.8-7.7) 10^3/u L Lymph # (Auto) 2.5 (0.8-4.8) 10^3/u L [place] # (Auto) 0.6 (0.2-0.9) 10^3/u L Eos # (Auto) 0.1 (0.0-0.8) 10^3/u L Baso # (Auto) 0.1 (0.0-0.1) 10^3/u L Nucleated RBC % (a uto) 0 % Nucleated RBCs # 0.0 /100WBC PT 14.50 (12.1-14.9) SECO NDS INR 1.09 (0.8-1.2) Sodium 136 (136-145) mmol/L Potassium 3.8 (3.5-5.1) mmol/L Chloride 99 (98-107) mmol/L Carbon Dioxide 26 (22-29) mmol/L Anion Gap 14.8 (5-19) BUN 17 (6-20) mg/dL Creatinine 0.7 (0.7-1.2) mg/dL GFR Calculation 119.4 (90-130) mL/min Glucose 300 H (65-115) mg/dL POC Glucose (70-110) mg/dL Calculated Osmolal ity 295 (285-295) mOsm/k g Calcium 9.1 (8.5-10.5) mg/dL Total Bilirubin 1.2 (0.15-1.2) mg/dL AST 10 (0-40) U/L ALT 12 (0-41) U/L Alkaline Phosphata se 64 (40-130) IU/L Total Protein 7.0 (6.6-8.7) g/dL Albumin 4.0 (3.5-5.2) g/dL Globulin 3.0 (1.3-4.6) g/dL Serum Ketones (Negative) 12/21/20 12/21/20 12/22/20 Range/Units 23:10 23:10 00:10 WBC (4.0-10.0) 10^3/ uL RBC (4.1-5.3) 10^6/u L Hgb (11.7-16.6) g/dL Hct (42.0-52.0) % MCV (80-94) fL MCH (28.0-34.0) pg MCHC (30.0-36.0) g/dL RDW (12.1-15.1) % Plt Count (130-400) 10^3/c mm MPV (7.4-10.4) fL Neut % (Auto) % Lymph % (Auto) % [place] % (Auto) % Eos % (Auto) % Baso % (Auto) % Neut # (Auto) (1.8-7.7) 10^3/u L Lymph # (Auto) (0.8-4.8) 10^3/u L [place] # (Auto) (0.2-0.9) 10^3/u L Eos # (Auto) (0.0-0.8) 10^3/u L Baso # (Auto) (0.0-0.1) 10^3/u L Nucleated RBC % (a uto) % Nucleated RBCs # /100WBC PT (12.1-14.9) SECO NDS INR (0.8-1.2) Sodium (136-145) mmol/L Potassium (3.5-5.1) mmol/L Chloride (98-107) mmol/L Carbon Dioxide (22-29) mmol/L Anion Gap (5-19) BUN (6-20) mg/dL Creatinine (0.7-1.2) mg/dL GFR Calculation (90-130) mL/min Glucose (65-115) mg/dL POC Glucose 328 H 197 H (70-110) mg/dL Calculated Osmolal ity (285-295) mOsm/k g Calcium (8.5-10.5) mg/dL Total Bilirubin (0.15-1.2) mg/dL AST (0-40) U/L ALT (0-41) U/L Alkaline Phosphata se (40-130) IU/L Total Protein (6.6-8.7) g/dL Albumin (3.5-5.2) g/dL Globulin (1.3-4.6) g/dL Serum Ketones Negative (Negative) Imaging Data^: CXR: Attestation: I personally reviewed and interpreted this imaging study as follows: Radiologist's impression: no acute abnormality CT Head: Attestation: I personally reviewed and interpreted this imaging study as follows: Radiologist's impression: [address] [address] [address] Scan Report Signed Patient: Phi Perez Unit #: [id number] : 1970 Age/Sex: 50 / M ADM Date: 12/21/20 Loc: ER Room/Bed: Attending Dr: Ordering Provider/Ordering MD: Apollo Thomas MD Date of Service: 12/21/20 Procedure(s): CT head wo con* [id number] Accession Number(s): [id number] Report Number: [id number] PROCEDURE INFORMATION: Exam: CT Head Without Contrast Exam date and time: 12/21/2020 11:08 PM Age: 50 years old Clinical indication: Altered mental status/memory loss; Confusion or disorientation TECHNIQUE: Imaging protocol: Computed tomography of the head without contrast. Radiation optimization: All CT scans at this facility use at least one of these dose optimization techniques: automated exposure control; mA and/or kV adjustment per patient size (includes targeted exams where dose is matched to clinical indication); or iterative reconstruction. COMPARISON: CT head wo con* [id number] 06/04/2018 9:37 AM RADIATION DOSE METRICS: Total DLP (mGy-cm): 774.86 FINDINGS: Brain: No evidence of acute infarct. No mass or mass effect. No intra axial hemorrhage. No extra axial fluid collection or hemorrhage. Cerebral ventricles: Symmetric and without enlargement. Bones/joints: No acute fracture. Paranasal sinuses: Visualized sinuses are well aerated. Mastoid air cells: Visualized mastoid air cells are well aerated. Soft tissues: No concerning abnormalities. CT/CT head wo con* [id number] IMPRESSION: No acute intracranial abnormality. EKG Data^: EKG 1: Attestation: I personally reviewed and interpreted this EKG as follows: EKG interpretation date: 12/21/20 EKG interpretation time: 23:25 Interpretation: nsr hr [address] or t wave abnormalities qrs 98 qtc 415 Computer generated interpretation: Head CT 12/21/20 23:04 IMPRESSION: No acute intracranial abnormality. Radiation Dose CTDIVOL = (mGy): DLP = 774.86 (mGy-cm) Discharge Plan Discharge Patient Disposition: Home Clinical Impression: Hyperglycemia, Confusion Condition: Stable Prescriptions: No Action prednisone 20 mg tablet 20 mg PO BID RF: 0 gabapentin 100 mg capsule 100 mg PO BID RF: 0 oxycodone-acetaminophen 10-325 mg tablet 1 tab PO Q4H PRNRF: 0 insulin lispro [Humalog KwikPen Insulin] 100 unit/mL insulin pen 8 unit SUBCUT TID PRN (Reason: blood sugar) RF: 0 Basaglar KwikPen U-100 Insulin 100 unit/mL (3 mL) insulin pen 46 unit SUBCUT DAILY RF: 0 Eliquis 5 mg tablet 5 mg PO BID RF: 0 multivitamin Tablet 1 tab PO DAILY RF: 0 Vitamin D3 25 mcg (1,000 unit) Tablet 25 mcg PO DAILY RF: 0 Discharge Orders: Discharge ED (Routine); Ordered 12/22/20 Ordered By: Apollo Thomas Referrals: Jamie Rebollar MD [Primary Care Provider] - 1-3 days Discharge Diet: Advance as tolerated Discharge Activity: Resume usual activity Patient Instructions: Diabetic Hyperglycemia (ED), Opioid Safety Coding Level of Care Code ED Chaser Helper for Chg Fwd Exam Comprehensive
[2020-12-21 23:16] VITALS: BP 151/101; PULSE 88; RESP 18; O2SAT 100
[2020-12-21 23:18] LABS: Basophils # 0.1 10^3/uL (0.0-0.1); Basophils % 0.8 %; Eosinophils # 0.1 10^3/uL (0.0-0.8); Eosinophils % 1.8 %; Hematocrit 43.5 % (42.0-52.0); Hemoglobin 14.6 g/dL (11.7-16.6); Lymphocytes # 2.5 10^3/uL (0.8-4.8); Lymphocytes % 41.7 %; Mean Corpuscular HGB Conc 33.6 g/dL (30.0-36.0); Mean Corpuscular Hemoglobin 29.9 pg (28.0-34.0); Mean Platelet Volume 9.5 fL (7.4-10.4); Monocytes # 0.6 10^3/uL (0.2-0.9); Monocytes % 9.9 %; Neutrophils # 2.75 10^3/uL (1.8-7.7); Neutrophils % 45.5 %; Nucleated Red Blood Cells % 0 %; Platelet Count 289 10^3/cmm (130-400); Red Blood Count 4.89 10^6/uL (4.1-5.3); White Blood Count 6.1 10^3/uL (4.0-10.0)
[2020-12-21 23:19] LABS: Glucose Point of Care 328 mg/dL (70-110)
[2020-12-21] MEDS: sodium chloride 0.9% 1,000 ML 999 ML IV (23:19)
[2020-12-21 23:27] LABS: INR 1.09 (0.8-1.2)
[2020-12-21 23:28] LABS: Ketone (Acetest) Serum Negative (Negative)
[2020-12-21 23:32] LABS: Alanine Aminotransferase 12 U/L (0-41); Alkaline Phosphatase 64 IU/L (40-130); Anion Gap 14.8 (5-19); Aspartate Amino Transferase 10 U/L (0-40); Blood Urea Nitrogen 17 mg/dL (6-20); Calcium 9.1 mg/dL (8.5-10.5); Carbon Dioxide 26 mmol/L (22-29); Chloride 99 mmol/L (98-107); Glomerular Filtration Rate 119.4 mL/min (90-130); Glucose 300 mg/dL (65-115); Osmolality Calculated 295 mOsm/kg (285-295); Potassium 3.8 mmol/L (3.5-5.1); Sodium 136 mmol/L (136-145); Total Bilirubin 1.2 mg/dL (0.15-1.2)
[2020-12-22 00:10] VITALS: BP 150/86; PULSE 92; RESP 18; O2SAT 98
[2020-12-22 00:20] LABS: Glucose Point of Care 197 mg/dL (70-110)
--- NOTE | 2020-12-22 00:29 | PC.NURSE ---
glucose 197
[2020-12-22 00:36] VITALS: BP 135/86; PULSE 89; RESP 18; O2SAT 97
== END 2020-12-22 00:39 | disposition home or self-care (01) ==
PROVIDERS: Emergency Provider Emergency Medicine; PCP Family Medicine
DX: R41.0 Disorientation, unspecified (principal); E11.65 Type 2 diabetes mellitus with hyperglycemia; Z79.4 Long term (current) use of insulin; Z79.01 Long term (current) use of anticoagulants; Z87.891 Personal history of nicotine dependence
CPT/HCPCS: 36416; 70450; 71045; 80053; 82009; 82962; 85025; 85610; 93005; 96360; 99284; J7030

== ENCOUNTER 2021-04-06 10:00 | Outpatient (CLI) | payer OTHER, SELFPAY ==
--- NOTE | 2021-04-06 10:28 | CT_ITS ---
WS: [id number] CT ABDOMEN PELVIS TECHNIQUE: Contrast-enhanced CT of the abdomen and pelvis with coronal and sagittal reformatted image s. CLINICAL INFORMATION: ABDOMINAL PAIN, LOOKING FOR AN ABSCESS COMPARISON: CT October 09, 2020 DLP: 1153.[address] scans at [facility] use at least one of these dose optimization techniques: automat ed exposure control; mA and/or kV adjustment per patient size (includes targeted exams where dose is matched to clinical indication); or iterative reconstruction. FINDINGS:Interval placement of biliary and pancreatic stents. Dilatation of proximal common bile duct measuring 10 mm with peripheral enhancement progressed compared to previous.. Recommend correlation for cholangitis and stent patency. Stent appears in good position. No evidence of acute pancreatitis. Prior cholecystectomy. Mild diffuse fatty infiltration liver. Normal portal vein and splenic vein. No rmal spleen. Small esophageal hiatal hernia. Lung bases are well aerated. Adrenal glands are normal. Normal renal parenchymal enhancement. No hydronephrosis. Normal caliber abdominal aorta. Sigmoid diverticulosis. No evidence of acute diverticulitis. No evidence of small or large bowel obst ruction. No evidence of pelvic or intra-abdominal abscess. Enlarged calcified prostate measuring 4.[address]/CT abdomen pelvis w con* [id number] IMPRESSION: 1. Prior cholecystectomy with interval placement of common bile duct and pancr eatic head stent. 2. Common bile duct dilatation measures 10 mm proximal to the stent with perip heral enhancement. This is progressed compared to previous and suspicious for o bstruction with cholangitis. Recommend gastroenterology stent evaluation for pa tency 3. No evidence of intra-abdominal abscess or drainable fluid collection. 4. Sigmoid diverticulosis. No evidence of acute diverticulitis. 5. Prominent enlarged prostate measuring 4.3 x 4.9 CM. Recommend correlation P SA. 6. Small esophageal hiatal hernia.
[2021-04-06] MEDS: iohexol 300 mg/mL 100 mL Btl IV (10:55)
== END 2021-04-06 10:01 | disposition home or self-care (01) ==
PROVIDERS: PCP Family Medicine; Visit Provider Family Medicine
DX: R10.11 Right upper quadrant pain (principal); D50.0 Iron deficiency anemia secondary to blood loss (chronic); K59.00 Constipation, unspecified; R63.4 Abnormal weight loss; K80.50 Calculus of bile duct without cholangitis or cholecystitis without obstruction; Z90.49 Acquired absence of other specified parts of digestive tract; N40.0 Benign prostatic hyperplasia without lower urinary tract symptoms; K57.30 Diverticulosis of large intestine without perforation or abscess without bleeding
CPT/HCPCS: 74177; Q9967

== ENCOUNTER → 2021-06-29 11:40 | Outpatient (BNVA) | payer OTHER, SELFPAY | PROVIDERS: PCP Family Medicine; Visit Provider Orthopaedic Surgery | DX: M54.2 Cervicalgia (principal); M54.9 Dorsalgia, unspecified | CPT/HCPCS: 72050; 73610 ==

== ENCOUNTER → 2021-07-28 12:05 | Outpatient (BNVA) | payer OTHER, SELFPAY | PROVIDERS: PCP Family Medicine; Referring Provider Orthopaedic Surgery; Visit Provider Specialist | DX: G56.03 Carpal tunnel syndrome, bilateral upper limbs (principal); R20.0 Anesthesia of skin; R20.2 Paresthesia of skin | CPT/HCPCS: 95910 ==

== ENCOUNTER → 2021-08-02 16:03 | Outpatient (BNVA) | payer OTHER, SELFPAY | PROVIDERS: PCP Family Medicine; Visit Provider Internal Medicine | DX: B94.8 Sequelae of other specified infectious and parasitic diseases (principal); E11.69 Type 2 diabetes mellitus with other specified complication; K86.9 Disease of pancreas, unspecified; R53.81 Other malaise | CPT/HCPCS: 80053; 82607; 82746; 83036; 83550; 84403; 84443; 84681; 85651; 86140 ==

== ENCOUNTER → 2021-09-30 09:28 | Outpatient (BNVA) | payer OTHER, SELFPAY | PROVIDERS: PCP Family Medicine; Visit Provider Internal Medicine | DX: Z01.812 Encounter for preprocedural laboratory examination (principal); Z20.822 Contact with and (suspected) exposure to COVID-19 | CPT/HCPCS: 87635 ==

== ENCOUNTER 2021-10-06 09:39 | Outpatient (CLI) | payer OTHER, SELFPAY ==
--- NOTE | 2021-10-06 09:51 | USCV_ITS ---
Phi Perez Age: 51 Gender: M : 1970 Exam Date: 10/06/2021 10:02 Ordering Phys: Pranay Mora MD Technologist: Exam Location: [facility] [place] Indication: POST COVID 19 CONDITION BP: 125 / 70 HR: 82 Rhythm: Sinus Technical Quality: Adequate MEASUREMENTS (Male / Female) Normal Values 2D ECHO LV Diastolic Diameter PLAX 4.2 cm 4.2 - 5.9 / 3.9 - 5.3 cm LV Systolic Diameter PLAX 2.5 cm IVS Diastolic Thickness 1.1 cm 0.6 - 1.0 / 0.6 - 0.9 cm IVS Systolic Thickness 1.5 cm LVPW Diastolic Thickness 1.1 cm 0.6 - 1.0 / 0.6 - 0.9 cm LVPW Systolic Thickness 1.4 cm LVOT Diameter 2.1 cm LV Ejection Fraction 2D Teich 72.9 % LV Ejection Fraction MOD 2C 66.3 % LV Ejection Fraction 2C AL 64.9 % LA Diameter 3.5 cm LA Width 3.3 cm LA Height 4.1 cm RA Width 3.4 cm RA Height 4.5 cm M-MODE Aortic Annulus Diameter 3.5 cm LA Ao Ratio MM 0.9 MV E Point Septal Separation 1.4 cm DOPPLER AV Peak Velocity 99.0 cm/s LVOT Peak Velocity 77.0 cm/s AV Area Cont Eq vti 2.5 cm squared AV Area Cont Eq pk 2.6 cm squared MV Area PHT 5.0 cm squared Mitral E to A Ratio 1.0 MV E' Velocity 34.5 cm/s Mitral E to MV E' Ratio 5.8 Mitral E to LV E' Lateral Ratio 5.6 Mitral E to LV E' Septal Ratio 5.9 TR Peak Velocity 103.0 cm/s TR Peak Gradient 4.2 mmHg TV Peak E Velocity 64.0 cm/s Right Atrial Pressure 3.0 mmHg Pulmonary Artery Systolic Pressu 7.2 mmHg FINDINGS Left Ventricle Normal left ventricular cavity size. Normal left ventricular systolic function. No regional wall motion abnormalities. Left ventricular ejection fraction is estimated at 65 %. Right Ventricle The right ventricle is normal in size and function. Right Atrium The right atrium is normal in size. Left Atrium The left atrium is normal in size. Mitral Valve Structurally normal mitral valve without significant stenosis or prolapse. There is no mitral regurgitation. Aortic Valve Structurally normal aortic valve without significant sclerosis or stenosis. There is no aortic regurgitation. Tricuspid Valve Structurally normal tricuspid valve without significant stenosis or regurgitation. Pulmonary artery systolic pressure is normal. Pulmonic Valve Structurally normal pulmonic valve without significant stenosis. There is no pulmonic regurgitation. Pericardium Normal pericardium without effusion. Aorta Normal ascending aorta dimension. CONCLUSIONS 1-Normal left ventricular cavity size. Normal left ventricular systolic function. No regional wall motion abnormalities. Left ventricular ejection fraction is estimated at 65 %. 2-No significant valve abnormalities. 3-There is no pericardial effusion. 4-Pulmonary artery systolic pressure is within normal limits. 5-Right atrial pressure is around 5 mm of mercury. 6-There are no prior echocardiogram studies to compare. Vinay Steward MD (Electronically Signed) Final Date: 06 October 2021 23:26 S
--- NOTE | 2021-10-06 13:19 | PFTS_ITS ---
Date of Study:10/06/21 Date of Dictation: 10/06/2021 MECHANICS: Postbronchodilator forced vital capacity (FVC) is reduced. Postbronchodilator forced expiratory volume in one second (FEV1) is moderately reduced. FEV1/FVC is reduced. There is no significant response to bronchodilators. FLOW VOLUME LOOP: Sloping of expiratory limb suggestive of airway obstruction . LUNG VOLUMES: Total lung capacity (TLC) is normal. Residual volume (RV) is normal. DIFFUSING CAPACITY FOR CARBON MONOXIDE: Normal . INTERPRETATION: The postbronchodilator spirometry is consistent with moderate obstruction. Lung volumes are normal. Gas transfer is normal. Clinical correlation is strongly recommended. MTDD
== END 2021-10-06 09:40 | disposition home or self-care (01) ==
LOC: RAD 09:45
PROVIDERS: PCP Internal Medicine; Visit Provider Internal Medicine
DX: B94.8 Sequelae of other specified infectious and parasitic diseases (principal)
CPT/HCPCS: 93306; 94060; 94726; 94729; J7611

== ENCOUNTER 2021-11-08 08:53 | Outpatient (CLI) | payer OTHER, SELFPAY ==
--- NOTE | 2021-11-08 08:45 | MR_ITS ---
WS: [id number] MRI CERVICAL SPINE NONCONTRAST TECHNIQUE: Sagittal T1, T2 and STIR imaging. Axial T2, gradient, and fiesta imaging. CLINICAL INFORMATION: M54.2 - Cervicalgia COMPARISON: MRI cervical FINDINGS: Prior postoperative changes C4-C6 anterior cervical fusion with C5 interbody fusion with corpectomy a nd strut graft. No high-grade central canal stenosis. Cord signal is normal. C2-C3: Mild left and no significant right foraminal narrowing. Spinal canal is patent. C3-C4: Tiny shallow central protrusion. Mild central canal stenosis. Slight contact of the cervical c ord. Mild left foraminal narrowing. Mild facet arthropathy. C4-C5: Postoperative changes ACDF. Mild bilateral bony foraminal narrowing. Spinal canal is patent. M ild facet arthropathy. C5-C6: Postoperative changes ACDF. Moderate left and mild right bony foraminal narrowing. Moderate fa cet arthropathy. Mild central canal stenosis. C6-C7: Minimal disc bulging with slight effacement of ventral thecal sac. Mild central canal stenosis . Mild left foraminal narrowing. C7-T1: Normal. Visualized brain stem structures: Normal. Prevertebral soft tissues: Normal. MR/MR cervical spin wo con* [id number] IMPRESSION: 1. Straightening of the normal cervical lordosis with stable appearing ACDF C4 -C6 with corpectomy at C5. 2. Disc bulging at C3-C4 with a shallow central protrusion slightly progressed compared to previous with mild central canal stenosis. No other significant in terval changes. 3. Mild central canal stenosis C3-C4, C5-C6, and C6-C7 unchanged from previous . 4. Mild to moderate bony foraminal narrowing worse at left C3-C4, left C5-C6, and left C6-C7.
== END 2021-11-08 08:54 | disposition home or self-care (01) ==
LOC: RADSHAW 08:57
PROVIDERS: PCP Internal Medicine; Visit Provider Orthopaedic Surgery
DX: M50.21 Other cervical disc displacement, high cervical region (principal); M48.02 Spinal stenosis, cervical region
CPT/HCPCS: 72141

== ENCOUNTER → 2021-11-25 11:07 | Outpatient (BNVA) | payer OTHER, SELFPAY | PROVIDERS: PCP Internal Medicine; Visit Provider Nurse Practitioner Family | DX: Z20.822 Contact with and (suspected) exposure to COVID-19 (principal); R68.89 Other general symptoms and signs | CPT/HCPCS: 87635; 87804 ==

== ENCOUNTER → 2022-01-19 10:14 | Outpatient (BNVA) | payer OTHER, SELFPAY | PROVIDERS: PCP Internal Medicine; Visit Provider Internal Medicine | DX: Z01.818 Encounter for other preprocedural examination (principal) | CPT/HCPCS: 87635 ==

== ENCOUNTER 2022-01-21 08:11 | Outpatient (CLI) | payer OTHER, SELFPAY ==
[2022-01-21 08:15] VITALS: BMI 23.7
--- NOTE | 2022-01-21 08:31 | NMCV_ITS ---
NM tristan perf SPECT r/s* [id number] Phi Perez Age: 51 Gender: M : 1970 Exam Date: 01/21/2022 08:31 Ordering Phys: Pranay Mora MD Technologist: SIOBHAN Garcia Exam Location: [facility] Indications: SYNCOPE STRESS TEST Please see separate stress test report in [facility] for full findings IMAGE PROTOCOL Rest/Stress 1 Lexiscan Day Radiopharmaceutical Dose (mCi) Administration Site Administered by Rest: Tc-99m 11.0 IV SIOBHAN Bartlett Sestamibi Stress:Tc-99m 32.6 IV SIOBHAN Bartlett Sestamibi Rest: 21-Jan-2022 60 Discovery 630 Stress: 21-Jan-2022 30 Discovery 630 0.4mg Lexiscan. Supine position only as patient was unable to lay prone. SPECT RESULTS Technical Quality: Excellent Raw Data Analysis: Normal Image Corrections: No attenuation or motion correction applied Summed Stress Score: 0 Summed Rest Score: 1 Summed Difference Score: 0 PERFUSION FINDINGS Very small sized perfusion abnormality of mild severity of mid inferior wall on rest images with improved tracer uptake in stress images. This is suggestive of attenuation artifact. FUNCTIONAL RESULTS (calculated via Gated SPECT) Stress Image LV EF (%): 50 Stress EDV (mL):126 TID: 1.09 Stress ESV (mL):63 FUNCTIONAL FINDINGS: The left ventricle is normal in size. Transient Ischemia Dilatation of 1.1. The left ventricular ejection fraction is mildly reduced with a value of 50%. There is mild reduced left ventricular wall thickening. No regional wall motion abnormality. IMPRESSIONS 1. Myocardial perfusion imaging is normal. 2. The left ventricular ejection fraction is mildly reduced with a value of 50%. 3. Mild global hypokinesis with no regional wall motion abnormality. 4. Normal EKG response to Lexiscan infusion. Refer to separate report for details. Felecia Phillips MD (Electronically Signed) Final Date: 22 January 2022 13:42 S
--- NOTE | 2022-01-21 08:31 | ECG_ITS ---
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 Interpretive Statements Name of study: Lexiscan stress test Indication: Syncope PROCEDURE: At the baseline, the blood pressure was 149/89 mmHg with a heart rate of 80 bpm. The electrocardiogram showed normal sinus rhythm, normal axis with normal ST and T's. The Lexiscan was infused over a period of 20 seconds. A total of 0.4 milligrams of Lexiscan was infused. The stress phase was continued for a total of 5 minutes. Heart rate at the end of the stress phase was 96 bpm with a blood pressure of 134/74 mmHg. The EKG at the peak infusion revealed sinus rhythm with no significant ST-T wave changes. Sestamibi was injected 20 seconds after the Lexiscan infusion. Blood pressure at the end of the recovery phase was 137/74 mmHg with a heart rate of 92 beats per minute. CONCLUSION: 1. Normal EKG response to LexiScan infusion. 2. No LexiScan induced chest pain or cardiac arrhythmia. 3. Normal blood pressure and heart rate response. 4. Sestamibi/sestamibi perfusion scan pending; see separate report. Electronically Signed On 01-22-2022 13:42:25 CDT by Felecia Phillips M.D. [id number]
[2022-01-21 10:16] VITALS: BP 137/74; PULSE 91
[2022-01-21] MEDS: regadenoson 0.4 Mg/5 ml Syringe IVP (10:16)
== END 2022-01-21 08:12 | disposition home or self-care (01) ==
LOC: CDL 08:11
PROVIDERS: PCP Internal Medicine; Visit Provider Internal Medicine
DX: R07.9 Chest pain, unspecified (principal); R55 Syncope and collapse
CPT/HCPCS: 78452; 93017; A9500; J2785

== ENCOUNTER 2022-02-08 06:54 | Emergency (ER) | payer OTHER, SELFPAY ==
[2022-02-08] VITALS (7 sets, daily range): BP systolic 118–145; BP diastolic 74–92; PULSE 70–82; RESP 15–96; TEMP 36.6; O2SAT 96–99; BMI 23.4
--- NOTE | 2022-02-08 07:00 | ECG_ITS ---
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 Measurements Intervals [place] Rate: 80 P: 18 [place]: 128 QRS: 30 QRSD: 93 T: 38 QT: 361 QTc: 418 Interpretive Statements SINUS RHYTHM Compared to ECG 12/21/2020 23:25:52 No significant changes Electronically Signed On 02-08-2022 18:38:36 CDT by Felecia Phillips M.D. [id number] f
--- NOTE | 2022-02-08 07:00 | XR_ITS ---
WS: [id number] PORTABLE CHEST HISTORY: chest pain COMPARISON: 12/19/2020 Lungs are clear and well expanded. No pleural effusion or pneumothorax. Cardiac size: Normal. Mediastinum/Aorta: Normal mediastinum. No osseous abnormality seen. Several surgical clips are noted within the RIGHT upper quadrant. XR/XR chest 1V portable [id number] IMPRESSION: Unremarkable portable chest.
--- NOTE | 2022-02-08 07:10 | ED_ITS ---
HPI - Chest Pain General: Chief Complaint: Chest Pain Stated Complaint: Chest pain/SOB Time Seen by Provider: 02/08/22 06:59 Source: patient Mode of arrival: ambulatory Limitations: no limitations History of Present Illness: 51-year-old male presents to the emergency room with complaints of chest discomfort. He said around 2 AM area have a shortness of breath with rapid heart rate. This is been an ongoing issue for some time he had a work-up through his primary care physician is also seen a flavor tank tender. 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 Approximately 3 weeks ago the patient had a Lexiscan sestamibi stress test which shows some attenuation artifact but no reversible ischemia, slightly reduced ejection fraction at 50%. Time patient is seen he is not tachycardic his oxygen sat arm percent on room air he actually appears to be hyperventilating he is otherwise stable. MD complaint: chest pain Onset (ago): hour(s) Timing of current episode: episodic Prior episodes: Yes Onset: during rest Pain location: left chest Pain radiation: none Severity: moderate Quality: aching and heaviness Relieving factors: nothing Context: history of DVT/PE Associated symptoms: Reports dyspnea, nausea and palpitations; Deny abdominal pain, diaphoresis, fever(s), leg edema, sense of impending doom, syncope or vomiting Treatment prior to arrival: none Risk Factors: Coronary artery disease risk factors: diabetes Review of Systems Const: Denies: fever(s) or diaphoresis ENMT: Denies: throat pain, ear or mastoid pain, nasal discharge or nasal congestion Card: Reports: palpitations; Denies: syncope Resp: Reports: dyspnea GI: Reports: nausea; Denies: abdominal pain or vomiting : Denies: flank pain, dysuria, urinary frequency or urinary urgency Skin/Breast: Denies: rash or pruritus PFSH ED PFSH: Medical History Diabetes mellitus Social History Smoking and tobacco status: never smoked Second hand smoke exposure: No Smoking risk assessment/counseling performed?: No Alcohol intake: current Alcohol intake frequency: holidays/special occasions only Lives independently: Yes Household members: spouse Housing: House Marital status: service: No Current occupational status: employed History of recent travel: No Current gender identity: Male Physical Exam Const: COMMON NORMALS: average body habitus, patient oriented x3 and healthy appearing GENERAL APPEARANCE: cooperative, comfortable and anxious ORIENTATION/CONSCIOUSNESS: Yes awake, Yes oriented to person, Yes oriented to place and Yes oriented to time HENMT: COMMON NORMALS: normocephalic, atraumatic and hearing grossly normal bilaterally HEAD & SCALP: normocephalic and atraumatic Neck/C-Spine: COMMON NORMALS: no JVD Resp: COMMON NORMALS: normal respiratory effort, No retractions, No use of accessory muscles and clear to auscultation bilaterally AUSCULTATION: clear to auscultation bilaterally Cardio: COMMON NORMALS: no JVD, regular rate, regular rhythm and No murmurs present (Cardio) RATE: regular rate RHYTHM: regular rhythm GI: COMMON NORMALS: Soft to palpation and No hepatosplenomegaly present AUSCULTATION: Yes normoactive bowel sounds PALPATION: Yes Soft to palpation, No Tenderness to palpation present (GI), No Guarding due to palpation present (GI) and Yes No hepatosplenomegaly present Extremity: COMMON NORMALS: normal to inspection, capillary refill normal, no clubbing, cyanosis or edema, no calf tenderness and no pedal edema Neuro: COMMON NORMALS: patient oriented x3 SENSORIUM/ORIENTATION: Yes oriented to person, Yes oriented to place and Yes oriented to time Skin: COMMON NORMALS: no rashes or lesions noted GENERAL SKIN EXAM: no rashes or lesions noted Course Vital Signs: Vital signs: Vital Signs Temperature 97.8 F 02/08/22 07:28 Pulse Rate 71 02/08/22 10:52 Respiratory Rate 18 02/08/22 10:52 Blood Pressure 138/81 02/08/22 10:52 Pulse Oximetry 96 02/08/22 10:52 MDM - Chest Pain Medical Decision Making EKG reviewed, shows a normal sinus rhythm with no signs of acute changes. Called and discussed with patient's primary Dr. Mora he has had extensive work-up on similar complaint. The only thing doing fine today at this point is that he has been hyperventilating on arrival was a hyperventilation is resolved his symptoms have resolved. CTA of his chest was negative recommend he stop the Eliquis given Ativan to use as needed follow-up with Dr. Mora. Medical Records I reviewed the patient's medical records. Lab Data I reviewed the patient's lab results. : 02/08/22 07:10 02/08/22 07:40 Radiology Impressions Chest X-Ray 02/08/22 07:00 IMPRESSION: Unremarkable portable chest. Chest CTA 02/08/22 07:17 IMPRESSION: 1. No pulmonary embolism. 2. No pneumonia. 3. Very mildly circumferentially thickened esophagus may be from esophagitis. 4. Air in the central liver. This is probably pneumobilia and related to prior cholecystectomy and prior common bile duct stent placement. 5. Mild LEFT heart enlargement. Laboratory Results WBC 6.0 10^3/uL (4.0-10.0) 02/08/22 07:10 RBC 4.93 10^6/uL (4.1-5.3) 02/08/22 07:10 Hgb 15.0 g/dL (11.7-16.6) 02/08/22 07:10 Hct 43.6 % (42.0-52.0) 02/08/22 07:10 MCV 88.4 fl (80-94) 02/08/22 07:10 MCH 30.4 pg (28.0-34.0) 02/08/22 07:10 MCHC 34.4 g/dL (30.0-36.0) 02/08/22 07:10 RDW 12.7 % (12.1-15.1) 02/08/22 07:10 Plt Count 301 10^3/cmm (130-400) 02/08/22 07:10 MPV 10.0 fL (7.4-10.4) 02/08/22 07:10 Neut % (Auto) 47.0 % 02/08/22 07:10 Lymph % (Auto) 40.6 % 02/08/22 07:10 Sauk % (Auto) 9.0 % 02/08/22 07:10 Eos % (Auto) 2.3 % 02/08/22 07:10 Baso % (Auto) 0.8 % 02/08/22 07:10 Neut # (Auto) 2.80 10^3/uL (1.8-7.7) 02/08/22 07:10 Lymph # (Auto) 2.4 10^3/uL (0.8-4.8) 02/08/22 07:10 [place] # (Auto) 0.5 10^3/uL (0.2-0.9) 02/08/22 07:10 Eos # (Auto) 0.1 10^3/uL (0.0-0.8) 02/08/22 07:10 Baso # (Auto) 0.1 10^3/uL (0.0-0.1) 02/08/22 07:10 Nucleated RBC % (auto) 0 % 02/08/22 07:10 Nucleated RBCs # 0.0 /100WBC 02/08/22 07:10 Specimen Type Arterial 02/08/22 07:19 Sample Site Radial, right 02/08/22 07:19 ABG pH 7.55 (7.35-7.45) H 02/08/22 07:19 ABG pCO2 25.5 mmHg (35-45) L 02/08/22 07:19 ABG pO2 101.0 mmHg (80.0-100.0) H 02/08/22 07:19 ABG HCO3 22.1 mmol/L (22-26) 02/08/22 07:19 ABG O2 Saturation 98.2 02/08/22 07:19 ABG Base Excess 1.3 mmol/L (-2.0-2.0) 02/08/22 07:19 Walter Test Pos 02/08/22 07:19 A-a O2 Gradient 1.9 mmHg (5-10) L 02/08/22 07:19 Hematocrit 45.6 % (42-52) 02/08/22 07:19 Hgb O2 Saturation 97.1 % (95-100) 02/08/22 07:19 Carboxyhemoglobin 0.5 %THgb (0.4-20.1) 02/08/22 07:19 Methemoglobin 0.6 % (0.4-1.5) 02/08/22 07:19 Total Hemoglobin 14.9 g/dL (14-18) 02/08/22 07:19 Sodium 137.0 mmol/L (131-143) 02/08/22 07:19 Potassium 4.0 mmol/L (3.5-5.0) 02/08/22 07:19 Glucose 362.0 mg/dL (70-115) H 02/08/22 07:19 Ionized Calcium 1.2 mmol/L (1.1-1.4) 02/08/22 07:19 O2 Delivery Device Room air 02/08/22 07:19 FiO2 21.0 % 02/08/22 07:19 Environmental Test Technician ID Ed 02/08/22 07:19 Sodium 135 mmol/L (136-145) L 02/08/22 07:40 Potassium 4.0 mmol/L (3.5-5.1) 02/08/22 07:40 Chloride 101 mmol/L (98-107) 02/08/22 07:40 Carbon Dioxide 23 mmol/L (22-29) 02/08/22 07:40 Anion Gap 15.0 (5-19) 02/08/22 07:40 BUN 12 mg/dL (6-20) 02/08/22 07:40 Creatinine 0.8 mg/dL (0.7-1.2) 02/08/22 07:40 GFR Calculation 101.9 mL/min (90-130) 02/08/22 07:40 Glucose 377 mg/dL (65-115) H 02/08/22 07:40 POC Glucose 343 mg/dL (70-110) H 02/08/22 07:16 Calculated Osmolality 295 mOsm/kg (285-295) 02/08/22 07:40 Calcium 9.0 mg/dL (8.5-10.5) 02/08/22 07:40 Total Bilirubin 1.2 mg/dL (0.15-1.2) 02/08/22 07:40 AST 16 U/L (0-40) 02/08/22 07:40 ALT 25 U/L (0-41) 02/08/22 07:40 Alkaline Phosphatase 75 IU/L (40-130) 02/08/22 07:40 Troponin T Baseline 14 ng/L (0-15) 02/08/22 07:40 Troponin T 120 Minute 12.64 ng/L (0-15) 02/08/22 09:37 Delta Troponin T -1.36 ABS# (0-10) L 02/08/22 09:37 Total Protein 6.6 g/dL (6.6-8.7) 02/08/22 07:40 Albumin 4.0 g/dL (3.5-5.2) 02/08/22 07:40 Globulin 2.6 g/dL (1.3-4.6) 02/08/22 07:40 Discharge Plan Discharge Patient Disposition: Home Clinical Impression: Acute hyperventilation syndrome Condition: Stable Prescriptions: New Ativan 1 mg tablet 1 mg PO Q6H PRN (Reason: anxiety) Qty: 14 0RF No Action Basaglar KwikPen U-100 Insulin 100 unit/mL (3 mL) insulin pen 20 unit SUBCUT BEDTIME 0RF celecoxib [Celebrex] 200 mg capsule 200 mg PO BID Qty: 60 0RF fluticasone propion-salmeterol [Advair Diskus] 500-50 mcg/dose blister with device 1 inh inhalation BID Qty: 60 6RF (DME) FreeStyle Kirill 2 Sensor Kit See Rx Instructions .Route Qty: 6 3RF Rx Instructions: As directed multivitamin Tablet 1 tab PO DAILY 0RF Humalog KwikPen Insulin 100 unit/mL insulin pen 5 unit SUBCUT BID PRN (Reason: blood sugar) 0RF metoprolol tartrate 25 mg tablet 25 mg PO .ONCE 0RF Discharge Orders: Discharge ED (Routine); Ordered 02/08/22 Ordered By: Jarrett Luis Referrals: Pranay Mora MD [Primary Care Provider] - Discharge Diet: Usual diet Discharge Activity: Resume usual activity Patient Instructions: Opioid Safety Coding Level of Care Code ED Outside Plant Engineer for Yvonneg Fwd Exam Comprehensive
[2022-02-08 07:14] LABS: Basophils # 0.1 10^3/uL (0.0-0.1); Basophils % 0.8 %; Eosinophils # 0.1 10^3/uL (0.0-0.8); Eosinophils % 2.3 %; Hematocrit 43.6 % (42.0-52.0); Lymphocytes # 2.4 10^3/uL (0.8-4.8); Lymphocytes % 40.6 %; Mean Corpuscular HGB Conc 34.4 g/dL (30.0-36.0); Mean Corpuscular Hemoglobin 30.4 pg (28.0-34.0); Mean Corpuscular Volume 88.4 fl (80-94); Monocytes # 0.5 10^3/uL (0.2-0.9); Nucleated Red Blood Cells % 0 %; Platelet Count 301 10^3/cmm (130-400); Red Blood Count 4.93 10^6/uL (4.1-5.3); Red Cell Distribution Width 12.7 % (12.1-15.1)
--- NOTE | 2022-02-08 07:17 | CT_ITS ---
WS: [id number] CT CHEST ANGIOGRAPHY WITH REFORMATS HISTORY: dyspnea TECHNIQUE: Contiguous axial images are obtained through the chest during arterial injection of intrav enous contrast. Images are reconstructed to evaluate the pulmonary arteries. MIP imaging also reviewe d. All CT scans at [facility] use at least one of these dose optimization techniques: automat ed exposure control; mA and/or kV adjustment per patient size (includes targeted exams where dose is matched to clinical indication); or iterative reconstruction. CONTRAST: Omnipaque 350; 79 mL IV. DLP: 568.72 mGy.cm COMPARISON: 10/28/2020 Excellent opacification of the pulmonary arteries. Normal size pulmonary artery. There are no filling defects. Very minimal atherosclerosis within the thoracic aorta. No aneurysm. There is slight enlarg ement of the LEFT heart chambers. No filling defect in the LEFT atrial appendage. No effusion. No per icardial or pleural effusion. Minimal groundglass attenuation posteriorly are dependent. No suspiciou s mass, pneumonia or nodule. Mildly thickened esophagus. Small mediastinal and hilar lymph nodes with out progression. Bilateral gynecomastia. Air within the central liver. This is probably probably pneumobilia. Patient is undergone prior devonte cystectomy and stents have been noted on a prior CT in the common bile duct and the pancreatic head. Very mildly thickened adrenal glands. Bone island in what is probably the T11 vertebral body. CT/CT angio chest PE protcl [id number] IMPRESSION: 1. No pulmonary embolism. 2. No pneumonia. 3. Very mildly circumferentially thickened esophagus may be from esophagitis. 4. Air in the central liver. This is probably pneumobilia and related to prior cholecystectomy and prior common bile duct stent placement. 5. Mild LEFT heart enlargement.
[2022-02-08 07:18] LABS: Glucose Point of Care 343 mg/dL (70-110)
[2022-02-08] MEDS: aspirin 81 mg Chew Tablet 324 MG PO (07:19)
[2022-02-08 07:29] LABS: ABG PCO2 25.5 mmHg (35-45); ABG PH Result 7.55 (7.35-7.45); Alveolar-Arterial Oxygen Gradi 1.9 mmHg (5-10); Arterial Blood Gas Hematocrit 45.6 % (42-52); Base Excess ABG 1.3 mmol/L (-2.0-2.0); Blood Gas Allen Test Pos; Blood Gas Sample Type Arterial; Carboxyhemoglobin 0.5 %THgb (0.4-20.1); HCO3 ABG 22.1 mmol/L (22-26); HGB O2 Sat 97.1 % (95-100); Ionized Calcium Level - ABG 1.2 mmol/L (1.1-1.4); Methemoglobin 0.6 % (0.4-1.5); Oxygen Saturation ABG 98.2; Total Hemoglobin 14.9 g/dL (14-18)
[2022-02-08 07:30] LABS: Blood Gas Operator Identificat ED; Blood Gas Sample Site Radial, right; Oxygen Device ROOM AIR
--- NOTE | 2022-02-08 07:34 | PC.NURSE ---
PCO2 low, placed NRB mask w/o flow per Dr. Luis request.
[2022-02-08] MEDS: iohexol 350 mg/mL 100 mL Btl IV (07:59)
[2022-02-08 08:11] LABS: Alanine Aminotransferase 25 U/L (0-41); Alkaline Phosphatase 75 IU/L (40-130); Aspartate Amino Transferase 16 U/L (0-40); Blood Urea Nitrogen 12 mg/dL (6-20); Carbon Dioxide 23 mmol/L (22-29); Chloride 101 mmol/L (98-107); Globulin 2.6 g/dL (1.3-4.6); Glomerular Filtration Rate 101.9 mL/min (90-130); Glucose 377 mg/dL (65-115); Osmolality Calculated 295 mOsm/kg (285-295); Sodium 135 mmol/L (136-145); Total Bilirubin 1.2 mg/dL (0.15-1.2); Total Protein 6.6 g/dL (6.6-8.7)
[2022-02-08 08:12] LABS: Troponin(5th) Baseline 14 ng/L (0-15)
--- NOTE | 2022-02-08 09:00 | ECG_ITS ---
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 Measurements Intervals [place] Rate: 69 P: 43 TX: 156 QRS: 26 QRSD: 102 T: 37 QT: 384 QTc: 412 Interpretive Statements SINUS RHYTHM Compared to ECG 02/08/2022 07:04:03 No significant changes Electronically Signed On 02-08-2022 18:43:04 CDT by Felecia Phillips M.D. [id number]
[2022-02-08 10:14] LABS: Troponin 5 2HR 12.64 ng/L (0-15)
[2022-02-08 10:23] LABS: Troponin 5 2HR Delta -1.36 ABS# (0-10)
--- NOTE | 2022-02-08 13:00 | ECG_ITS ---
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 Measurements Intervals [place] Rate: 70 P: 34 [place]: 157 QRS: 12 QRSD: 96 T: 33 QT: 385 QTc: 417 Interpretive Statements SINUS RHYTHM Compared to ECG 02/08/2022 08:52:24 No significant changes Electronically Signed On 02-08-2022 18:42:54 CDT by Felecia Phillips M.D. [id number]
== END 2022-02-08 11:00 | disposition home or self-care (01) ==
PROVIDERS: Emergency Provider Family Medicine; PCP Internal Medicine
DX: F45.8 Other somatoform disorders (principal); E11.9 Type 2 diabetes mellitus without complications; Z79.4 Long term (current) use of insulin; Z86.16 Personal history of COVID-19
CPT/HCPCS: 36415; 36416; 36600; 71045; 71275; 80051; 80053; 82330; 82805; 82962; 84484; 85025; 93005; 99284; Q9967

== ENCOUNTER 2022-11-22 09:30 | Emergency (ER) | payer OTHER, SELFPAY ==
[2022-11-22] VITALS (10 sets, daily range): BP systolic 126–145; BP diastolic 82–85; PULSE 99; RESP 16–20; TEMP 36.4; O2SAT 94–100
--- NOTE | 2022-11-22 10:25 | CT_ITS ---
WS: [id number] CT LUMBAR SPINE TECHNIQUE: Noncontrast CT of the lumbar spine with coronal and sagittal reformatted images. CLINICAL INFORMATION: low back pain going down left leg, left leg weakness COMPARISON: MRI 7 16,019 DLP: 600.[address] scans at [facility] use at least one of these dose optimization techniques: automated e xposure control; mA and/or kV adjustment per patient size (includes targeted exams where dose is matc hed to clinical indication); or iterative reconstruction. FINDINGS: Minimal lumbar curve. No acute compression. No high-grade central canal stenosis. Slight anterolisthe sis L4 on L5. Mild annular bulging L3-L4 and L4-L5. This is unchanged since MRI 2019. L1-L2: Normal. L2-L3: Normal. L3-L4: Mild annular bulging. Slight effacement of ventral thecal sac. Spinal canal foramen are patent . Mild facet arthropathy. Small LEFT foraminal protrusion slightly contacts the exiting LEFT L3 nerve root. L4-L5: Shallow RIGHT pericentral protrusion impinges the RIGHT articular recess and traversing RIGHT L5 nerve root. Mild RIGHT greater than LEFT L4-L5 foraminal narrowing impinges the exiting L4 nerve r oots bilaterally. This appears unchanged since the prior MRI. Shallow RIGHT pericentral protrusion ap pears slightly progressed compared to 2019. L5-S1: Normal. Visualized pelvic bony structures: Normal. Paravertebral soft tissues: Normal. Partially visualized sigmoid diverticulosis. CT/CT lumbar spine wo con* [id number] IMPRESSION: 1. Small LEFT foraminal protrusion L3-L4 slightly contacts the exiting LEFT L3 nerve root. Recommend correlation LEFT L3 nerve symptoms. This appears slightl y progressed since 2019. 2. Slightly progressed shallow RIGHT pericentral protrusion impinges the RIGHT subarticular recess and traversing RIGHT L5 nerve root. Mild RIGHT greater jurgen n LEFT L4-L5 foraminal narrowing impinges the exiting L4 nerve roots bilaterall y.
--- NOTE | 2022-11-22 10:26 | ED_ITS ---
HPI - Neck Pain/Injury General: Chief Complaint: Neck Pain/Injury Stated Complaint: low back pain/legs numb Time Seen by Provider: 11/22/22 09:48 History of Present Illness: Patient is a 52-year-old male that comes to the ED with low back pain and bilateral leg weakness. Past medical history of diabetes. Symptoms started approximately a week ago. Denies any recent falls, trauma or injuries. Symptoms initially started with some lower back pain that he thought were muscle spasms. His pain continued to progress. Last night his pain was worse and he was unable to get any sleep. Today he started developing a burning type sensation into his left leg. He then tried standing up this morning and he was having weakness and was struggling to ambulate. He noticed his right leg was weak as well and says he was having trouble pushing the gas and brake pedal on his car because of the weakness in his right leg. Pain worsens with certain movements and when he tries to ambulate. Denies any bladder or bowel incontinence. 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 Associated symptoms: Denies headache(s) or nausea Review of Systems Const: Denies: fever(s), chills or fatigue Eyes: Denies: change in vision or eye discomfort ENMT: Denies: throat pain, odynophagia, nasal discharge or nasal congestion Card: Denies: chest pain, palpitations, edema, swelling of feet/ankles, dyspnea on exertion or orthopnea Resp: Denies: dyspnea, productive cough or non-productive cough GI: Denies: abdominal pain, nausea, vomiting, diarrhea, constipation or hematochezia : Denies: flank pain, difficulty urinating, dysuria or hematuria Musc: Reports: back pain; Denies: neck pain or extremity swelling Skin/Breast: Denies: rash or new lesions Neuro: Denies: headache(s), numbness in extremities or weakness in extremities PFSH ED PFSH: Medical History (Updated 11/22/22 @ 12:48 by KIMBERLY Ashley) Cervical spondylosis with radiculopathy Diabetes mellitus Social History Smoking and tobacco status: never smoked Second hand smoke exposure: No Smoking risk assessment/counseling performed?: No Alcohol intake: current Alcohol intake frequency: holidays/special occasions only Lives independently: Yes Household members: spouse Housing: House Marital status: service: No Current occupational status: employed History of recent travel: No Current gender identity: Male Physical Exam Const: COMMON NORMALS: patient oriented x3 and alert GENERAL APPEARANCE: cooperative; not comfortable (Patient appears uncomfortable and in some pain.) HENMT: COMMON NORMALS: normocephalic HEAD & SCALP: normocephalic MOUTH: Normal oral and palatal mucosa present THROAT: posterior oropharynx normal and uvula midline Neck/C-Spine: COMMON NORMALS: supple GENERAL: Yes normal visual inspection Resp: COMMON NORMALS: normal respiratory effort, No retractions, No use of accessory muscles and clear to auscultation bilaterally AUSCULTATION: clear to auscultation bilaterally Cardio: COMMON NORMALS: regular rate, regular rhythm, S1 normal heart sound pr esent, S2 normal heart sound present, No gallops present (Cardio), No clicks present (Cardio), No murmurs present (Cardio) and Peripheral pulses 2+ throughout RATE: regular rate RHYTHM: regular rhythm HEART SOUNDS: S1 n ormal heart sound present and S2 normal heart sound present PERIPHERAL PULSES: Peripheral pulses 2+ throughout GI: COMMON NORMALS: Normal to inspection, nondistended, normoactive bowel sounds present, Soft to palpation, non-tender and no masses PALPATION: Yes Soft to palpation : COMMON NORMALS: Yes no CVA tenderness BLADDER/KIDNEY EXAM: Yes no CVA tenderness Back/Pelvis: COMMON NORMALS: no CVA tenderness LUMBAR SPINE/LOWER BACK: Yes paraspinal muscle tenderness Lumbar paraspinal muscle tenderness: bilateral, Yes straight leg raise positive right and Yes straight leg raise positive left OTHER: Patient's strength in bilateral legs is 5 out of 5. Extremity: COMMON NORMALS: normal to inspection Neuro: COMMON NORMALS: patient oriented x3 SENSORIUM/ORIENTATION: Yes alert GAIT: Yes Normal gait present Skin: GENERAL SKIN EXAM: dry skin Course Vital Signs: Vital signs: Vital Signs Temperature 97.6 F 11/22/22 09:41 Pulse Rate 99 11/22/22 09:41 Respiratory Rate 16 11/22/22 13:08 Blood Pressure 145/82 11/22/22 11:30 Pulse Oximetry 94 11/22/22 13:00 Oxygen Delivery Me thod 11/22/22 10:04 MDM - Neck Pain/Injury Medical Decision Making Patient is a 52-year-old male that comes to the ED with low back pain and bilateral leg weakness. Symptoms started approximately a week ago. Denies any recent falls, trauma or injuries. Symptoms initially started with some lower back pain that he thought were muscle spasms. His pain continued to progress. Last night his pain was worse and he was unable to get any sleep. Today he started developing a burning type sensation into his left leg. He then tried standing up this morning and he was having weakness and was struggling to ambu late. He noticed his right leg was weak as well and says he was having trouble pushing the gas and brake pedal on his car because of the weakness in his right leg. Pain worsens with certain movements and when he tries to ambulate. Denies any bladder or bowel incontinence. Vitals are stable. Patient's strength in the bilateral legs is 5 out of 5. He has positive straight leg raise bilaterally with paraspinal muscle tenderness bilaterally. Rest of exam is benign. Patient's blood glucose level was 485 and serum ketones are negative. Rest of CBC and CMP were unremarkable. CT lumbar spine shows some left and right foraminal protrusion around L3 and L4 nerve roots. These findings have s lightly progressed compared to MRI back in 2019. Patient's symptoms improved after giving IV morphine, muscle relaxer and steroid. Patient was also given a dose of insulin here in the ED. After IV insulin patient's blood glucose went down to 190. I placed an order with case management for patient referred to Dr. Nix for follow-up. He was given strict return to ED precautions. He was diagnosed with hyperglycemia, protrusion of intervertebral disc of lumbar sacral region and lumbar radiculopathy. He was discharged home with a muscle relaxer, NSAID and hydrocodone for acute pain. Patient understood and agreed with plan Lab Data I reviewed the patient's lab results. 11/22/22 10:00 11/22/22 10:00 Radiology Impressions Lumbar Spine CT 11/22/22 10:25 IMPRESSION: 1. Small LEFT foraminal protrusion L3-L4 slightly contacts the exiting LEFT L3 nerve root. Recommend correlation LEFT L3 nerve symptoms. This appears slightly progressed since 2019. 2. Slightly progressed shallow RIGHT pericentral protrusion impinges the RIGHT subarticular recess and traversing RIGHT L5 nerve root. Mild RIGHT greater than LEFT L4-L5 foraminal narrowing impinges the exiting L4 nerve roots bilaterally. Laboratory Results WBC 6.4 10^3/uL (4.0-10.0) 11/22/22 10:00 RBC 4.70 10^6/uL (4.1-5.3) 11/22/22 10:00 Hgb 14.1 g/dL (11.7-16.6) 11/22/22 10:00 Hct 42.4 % (42.0-52.0) 11/22/22 10:00 MCV 90.2 fl (80-94) 11/22/22 10:00 MCH 30.0 pg (28.0-34.0) 11/22/22 10:00 MCHC 33.3 g/dL (30.0-36.0) 11/22/22 10:00 RDW 12.3 % (12.1-15.1) 11/22/22 10:00 Plt Count 262 10^3/cmm (130-400) 11/22/22 10:00 MPV 10.2 fL (7.4-10.4) 11/22/22 10:00 Neut % (Auto) 59.0 % 11/22/22 10:00 Lymph % (Auto) 28.1 % 11/22/22 10:00 [place] % (Auto) 9.8 % 11/22/22 10:00 Eos % (Auto) 2.0 % 11/22/22 10:00 Baso % (Auto) 0.8 % 11/22/22 10:00 Neut # (Auto) 3.77 10^3/uL (1.8-7.7) 11/22/22 10:00 Lymph # (Auto) 1.8 10^3/uL (0.8-4.8) 11/22/22 10:00 [place] # (Auto) 0.6 10^3/uL (0.2-0.9) 11/22/22 10:00 Eos # (Auto) 0.1 10^3/uL (0.0-0.8) 11/22/22 10:00 Baso # (Auto) 0.1 10^3/uL (0.0-0.1) 11/22/22 10:00 Nucleated RBC % (auto) 0 % 11/22/22 10:00 Nucleated RBCs # 0.0 /100WBC 11/22/22 10:00 Sodium 135 mmol/L (136-145) L 11/22/22 10:00 Potassium 4.1 mmol/L (3.5-5.1) 11/22/22 10:00 Chloride 99 mmol/L (98-107) 11/22/22 10:00 Carbon Dioxide 25 mmol/L (22-29) 11/22/22 10:00 Anion Gap 15.1 (5-19) 11/22/22 10:00 BUN 14 mg/dL (6-20) 11/22/22 10:00 Creatinine 0.9 mg/dL (0.7-1.2) 11/22/22 10:00 GFR Calculation 88.6 mL/min (90-130) L 11/22/22 10:00 Glucose 485 mg/dL (65-115) H 11/22/22 10:00 POC Glucose 190 mg/dL (70-110) H 11/22/22 12:13 Calculated Osmolality 302 mOsm/kg (285-295) H 11/22/22 10:00 Calcium 8.8 mg/dL (8.5-10.5) 11/22/22 10:00 Serum Ketones Negative (Negative) 11/22/22 10:00 Discharge Plan Discharge Patient Disposition: Home Clinical Impression: Protrusion of intervertebral disc of lumbosacral region, Hyperglycemia, Lumbar radiculopathy Condition: Stable Prescriptions: New cyclobenzaprine 10 mg tablet 10 mg PO BID PRN (Reason: muscle spasm) Qty: 30 0RF Naprosyn 500 mg tablet 500 mg PO BID PRN (Reason: pain) Qty: 30 0RF No Action Basaglar KwikPen U-100 Insulin 100 unit/mL (3 mL) insulin pen 20 unit SUBCUT BEDTIME fluticasone propion-salmeterol [Advair Diskus] 500-50 mcg/dose blister with device 1 inh inhalation BID Qty: 60 6RF Proair Digihaler 90 mcg/actuation aero powdr breath act w/sensor 2 inh inhalation .Ut dictum Qty: 1 3RF Rx Instructions: 2 puffs immediately prior to exercise. valacyclovir [Valtrex] 1 gram tablet 1,000 mg PO Q8H Qty: 21 0RF (DME) FreeStyle Kirill 2 Sensor Kit See Rx Instructions .Route Qty: 6 3RF Rx Instructions: As directed celecoxib [Celebrex] 200 mg capsule 200 mg PO BID Qty: 60 0RF multivitamin Tablet 1 tab PO DAILY Humalog KwikPen Insulin 100 unit/mL insulin pen 5 unit SUBCUT BID PRN (Reason: blood sugar) Discharge Orders: Discharge ED (Routine); Ordered 11/22/22 Ordered By: Vicente Welsh Referrals: Saravanan Fuchs DO [Primary Care Provider] - Discharge Diet: Regular Discharge Activity: Limit activity as instructed Patient Instructions: Lumbar Radiculopathy (ED), Opioid Safety Activity Restrictions/Additional Instructions: Follow-up with medical provider as directed. Case management should be contacting you in the next several days to set up an appointment with Dr. Nix the orthospine specialist for follow-up. take medications as prescribed. Return to the ED immediately if symptoms worsen or you are having loss of control of bladder or bowels. Please read and understand discharge instructions. Thank you for choosing [facility] for your healthcare needs today. Ple ase realize this is an emergency room and that we are providing you with a medical screening exam and this may not be complete and all inclusive of all the testing and or work up that you may need to determine your ailment or severity of your illness. It is very important that you follow up as instructed or that you return to the Emergency Department should you have concerns or if your condition changes or worsens in any way. Coding Level of Care Code ED [employer] for [facility] Exam Comprehensive
[2022-11-22] MEDS: ondansetron 2 mg/ML SDV 2 mL 4 MG IVP (10:33)
[2022-11-22] MEDS: orphenadrine 30 mg/mL Inj 2 mL 60 MG IVP (10:33)
[2022-11-22] MEDS: morphine 4 mg/mL SDV 1 mL IVP ×2 (10:33→13:08)
[2022-11-22 10:36] LABS: Basophils # 0.1 10^3/uL (0.0-0.1); Basophils % 0.8 %; Eosinophils # 0.1 10^3/uL (0.0-0.8); Hematocrit 42.4 % (42.0-52.0); Hemoglobin 14.1 g/dL (11.7-16.6); Lymphocytes # 1.8 10^3/uL (0.8-4.8); Lymphocytes % 28.1 %; Mean Corpuscular HGB Conc 33.3 g/dL (30.0-36.0); Mean Corpuscular Volume 90.2 fl (80-94); Mean Platelet Volume 10.2 fL (7.4-10.4); Monocytes # 0.6 10^3/uL (0.2-0.9); Monocytes % 9.8 %; Neutrophils # 3.77 10^3/uL (1.8-7.7); Nucleated Red Blood Cells % 0 %; Platelet Count 262 10^3/cmm (130-400); Red Cell Distribution Width 12.3 % (12.1-15.1); White Blood Count 6.4 10^3/uL (4.0-10.0)
[2022-11-22 10:47] LABS: Anion Gap 15.1 (5-19); Blood Urea Nitrogen 14 mg/dL (6-20); Calcium 8.8 mg/dL (8.5-10.5); Carbon Dioxide 25 mmol/L (22-29); Chloride 99 mmol/L (98-107); Glomerular Filtration Rate 88.6 mL/min (90-130); Glucose 485 mg/dL (65-115); Osmolality Calculated 302 mOsm/kg (285-295); Potassium 4.1 mmol/L (3.5-5.1); Sodium 135 mmol/L (136-145)
[2022-11-22] MEDS: insulin regular-human 100 units/1 mL 10 UNIT IVP (11:01)
[2022-11-22 11:03] LABS: Ketone (Acetest) Serum Negative (Negative)
[2022-11-22 12:17] LABS: Glucose Point of Care 190 mg/dL (70-110)
--- NOTE | 2022-11-22 14:01 | DCPLANNER ---
Addendum entered by Naomi Gaytan 11/24/22 15:19: Patient had a follow up appointment scheduled with ortho - patient did attend appointment. Original Note: statistics manager had message to schedule a follow up appointment for patient with ortho. statistics manager sent patients information to the front office staff at ortho. patients information will be printed and reviewed. Clinic will call patient with appointment information.
== END 2022-11-22 13:15 | disposition home or self-care (01) ==
PROVIDERS: Emergency Provider Physician Assistant; PCP Family Medicine
DX: M51.16 Intervertebral disc disorders with radiculopathy, lumbar region (principal); E11.65 Type 2 diabetes mellitus with hyperglycemia; Z79.4 Long term (current) use of insulin
CPT/HCPCS: 36416; 72131; 80048; 82009; 82962; 85025; 96374; 96375; 96376; 99285; J1815; J2270; J2360; J2405; J2930

== ENCOUNTER → 2022-11-24 13:10 | Outpatient (BNVA) | payer OTHER, SELFPAY | PROVIDERS: PCP Family Medicine; Referring Provider Physician Assistant; Visit Provider Orthopaedic Surgery | DX: M54.50 Low back pain, unspecified (principal) | CPT/HCPCS: 72110 ==

== ENCOUNTER 2022-12-08 08:42 | Outpatient (CLI) | payer OTHER, SELFPAY ==
--- NOTE | 2022-12-08 08:45 | MR_ITS ---
WS: [id number] MRI LUMBAR SPINE NONCONTRAST HISTORY: pain and leg weakness, chronic low back pain with occasional LEFT leg numbness. COMPARISON: 05/14/2019, CT 11/22/2022 TECHNIQUE: Sagittal and axial multisequence imaging is submitted. Cervical fusion hardware. No cord compression. Normal lumbar alignment with no compression fractures or marrow edema. Mild disc desiccation at L3-4 and L4-5. Conus terminates normally at L1. L1-L2: Normal. L2-L3: Mild ligamentum flavum hypertrophy. Very mild narrowing of the LEFT foramen. No significant st enosis. L3-L4: Mild annular disc bulge with a central fissure. There is a very small central disc protrusion similar to the prior study. Mild effacement of the ventral thecal sac. Mild ligamentum flavum and fac et arthritis. Mild bilateral foraminal stenosis, LEFT greater than RIGHT with mild encroachment upon the LEFT exiting L3 nerve root. L4-L5: Mild to moderate annular disc bulging. RIGHT paracentral disc protrusion with asymmetric encro achment upon the thecal sac and traversing L5 nerve roots. Slightly greater contact on the RIGHT L5 n erve root as compared to the prior study. Mild bilateral foraminal stenosis. L5-S1: Normal. No paravertebral abnormality. MR/MR lumbar spine wo con* [id number] IMPRESSION: 1. No high-grade central or foraminal stenosis. 2. Small central disc protrusion at L3-4 is unchanged. 3. Bilateral foraminal stenosis at L3-4 is mild, slightly greater on the LEFT than the RIGHT with encroachment upon the LEFT exiting L3 nerve root. Minimal p rogression since the prior study. 4. RIGHT paracentral disc protrusion at L4-5 with mild progression of encroach ment on the RIGHT thecal sac and traversing RIGHT L5 nerve root. There is also mild bilateral foraminal stenosis at L4-5. 5. Very mild LEFT foraminal narrowing at L2-3.
== END 2022-12-08 08:43 | disposition home or self-care (01) ==
LOC: RAD 08:43
PROVIDERS: PCP Family Medicine; Visit Provider Orthopaedic Surgery
DX: R53.1 Weakness (principal); M51.26 Other intervertebral disc displacement, lumbar region; M48.061 Spinal stenosis, lumbar region without neurogenic claudication
CPT/HCPCS: 72148

== ENCOUNTER 2023-05-09 09:30 | Outpatient (CLI) | payer OTHER, SELFPAY | END 2023-05-09 09:31 | disposition home or self-care (01) | LOC: SLEEP 05-10 11:19 | PROVIDERS: PCP Family Medicine; Visit Provider Nurse Practitioner Family | DX: G47.10 Hypersomnia, unspecified (principal); G47.33 Obstructive sleep apnea (adult) (pediatric); G47.36 Sleep related hypoventilation in conditions classified elsewhere | CPT/HCPCS: G0399 ==

== ENCOUNTER 2023-05-28 15:17 | Observation (INO) | payer OTHER, SELFPAY ==
[2023-05-28 15:26] VITALS: BP 150/91; PULSE 101; RESP 16; TEMP 36.6; O2SAT 95; BMI 23.1
--- NOTE | 2023-05-28 15:28 | ECG_ITS ---
[facility] Test Date: 2023-05-28 Pat Name: Phi Perez Department: Room: Gender: Male [place] In: : 1970 Requested By: Alejo Gil Order Number: [id number] Luis Daniel MD: Jason Amaya M.D. Measurements Intervals [place] Rate: 101 P: 50 IA: 148 QRS: 6 QRSD: 106 T: 30 QT: 349 QTc: 453 Interpretive Statements SINUS TACHYCARDIA POSSIBLE LEFT ATRIAL ENLARGEMENT [-0.1mV P-WAVE IN V1/V2] Compared to ECG 02/08/2022 09:42:33 Sinus rhythm no longer present Electronically Signed On 05-29-2023 8:30:43 CDT by Jason Amaya M.D. [email or web address]
--- NOTE | 2023-05-28 15:30 | ED_ITS ---
HPI - General Adult General: Chief complaint: Headache Stated complaint: headache, chest pain Time Seen by Provider: 05/28/23 15:30 History of Present Illness: Mr. Perez is a 53-year-old gentleman with history of migraines and diabetes presenting to the emergency department for headache and chest pain. He reports noticing symptoms this morning with headache and left facial numbness. He has had nausea and unsteady feeling. He notes associated substernal chest pain as well. Overall course of symptoms has worsened. Worse when sitting upright and ambulating. No other specific changes in health, exacerbating, or alleviating factors identified. Onset (ago): hour(s) Severity: severe Relieving factors: none Associated symptoms: Reports chest pain, confusion, headache(s), malaise, nausea and vomiting Review of Systems General: Reports: 10 or more systems reviewed and unremarkable except in HPI and below Const: Reports: malaise Card: Reports: chest pain GI: Reports: nausea and vomiting Neuro: Reports: headache(s) and confusion PFSH ED PFSH: Medical History Cervical spondylosis with radiculopathy Diabetes mellitus Surgical History History of cholecystectomy Family History Mother Obesity Father Diabetes Obesity Social History Smoking and tobacco status: never smoked Second hand smoke exposure: No Smoking risk assessment/counseling performed?: No Alcohol intake: current Alcohol intake frequency: holidays/special occasions only Substance/Drug Use: never Lives independently: Yes Household members: spouse Housing: House Marital status: service: No Current occupational status: employed Do you think of yourself as: Straight/Heterosexual Current gender identity: Male Physical Exam Const: COMMON NORMALS: alert GENERAL APPEARANCE: cooperative, well developed and ill appearing HENMT: COMMON NORMALS: normocephalic and atraumatic HEAD & SCALP: normocephalic and atraumatic THROAT: posterior oropharynx normal Eye: COMMON NORMALS: conjunctivae normal CONJUNCTIVA: Yes conjunctivae normal SCLERA: sclerae normal Neck/C-Spine: COMMON NORMALS: supple GENERAL: Yes trachea midline Resp: COMMON NORMALS: clear to auscultation bilaterally EFFORT & INSPECTION: Yes able to speak in complete sentences AUSCULTATION: clear to auscultation bilaterally Cardio: COMMON NORMALS: regular rate and regular rhythm RATE: regular rate RHYTHM: regular rhythm GI: COMMON NORMALS: Soft to palpation PALPATION: Yes Soft to palpation and No Tenderness to palpation present (GI) Extremity: GENERAL: Yes normal exam except as noted and No edema Neuro: COMMON NORMALS: moves all extremities SENSORIUM/ORIENTATION: Yes alert and No Orientation impaired OTHER: Subjective left facial numbness, dysarthric speech and word finding difficulty as well as generalized instability. Chronic left-sided weakness with history of neck injury. Psych: COMMON NORMALS: mental status grossly normal and Normal thought process present THOUGHT PROCESS: Normal thought process present Course Vital Signs: Vital signs: Vital Signs Temperature 98.0 F 05/29/23 16:29 Pulse Rate 82 05/29/23 16:29 Respiratory Rate 17 05/29/23 16:29 Blood Pressure 148/89 05/29/23 16:29 Pulse Oximetry 96 05/29/23 16:29 Oxygen Delivery Me thod Room Air 05/29/23 15:41 MDM - General Adult Medical Decision Making 53-year-old gentleman presenting with headache and associated neurologic symptoms. Stroke activation called upon initial evaluation. Outside of tPA window. CT head with no hemorrhage or mass. CTA negative for large vessel occlusion. Discussed with [facility] stroke neurology and images were reviewed by them. EKG demonstrates sinus tachycardia with normal axis and intervals, no STEMI. Chest x-ray with no lobar consolidation or pneumothorax. Patient treated with medications for headache and IV fluids however only has mild resolution of some symptoms and not complete resolution of symptoms on milana ssessment. [facility] and my assessment are concerning for stroke outside of tPA window, patient requires further inpatient evaluation. The results of ED evaluation were discussed with the patient including plan for admission due to requirement for level of care not available if discharged to prevent significant worsening/deterioration. Patient agreeable with plan. Discussed with hospitalist service who was agreeable to admit patient. Medical Records I reviewed the patient's medical records. Lab Data I reviewed the patient's lab results. 05/28/23 17:00 05/28/23 17:00 Radiology Impressions Chest X-Ray 05/28/23 15:46 IMPRESSION: No acute findings. Head/Neck CTA 05/28/23 15:46 IMPRESSION: 1. Age appropriate supratentorial and infratentorial atrophy. 2. Mild chronic white matter microvascular ischemic disease. 3. No acute intracranial abnormality identified. 4. No acute intracranial vascular abnormality identified. ASSESSMENT: ASPECTS ([place] Stroke Program Early CT Score) is 10. IMPRESSION: 1. No acute extracranial vascular abnormality identified. 2. Postoperative changes as above. REFERENCES: NASCET CRITERIA. The degree of stenosis in the cervical segment of the internal carotid artery is based on NASCET criteria. Normal is no stenosis. Mild is less than 50% stenosis. Moderate is 50-69% stenosis. Severe is 70% to 99% stenosis. Total occlusion is no detectable patent lumen. ADDENDUM: 05/28/23 [id number] THIS REPORT CONTAINS FINDINGS THAT MAY BE CRITICAL TO PATIENT CARE. The findings were verbally communicated by me to Dr. Malvin Figueroa, via telephone conference at 5:03 PM CDT on 05/28/2023. The findings were acknowledged and understood. Head MRI 05/29/23 10:00 IMPRESSION: Some images degraded by motion artifact 1. No evidence of restricted diffusion to suggest acute ischemia. 2. Mild small vessel changes with mild parenchymal volume loss progressed compared to 2012. 3. No hemosiderin on susceptibly weighted images. 4. No other suspicious findings. Laboratory Results WBC 7.9 10^3/uL (4.0-10.0) 05/28/23 17:00 RBC 4.42 10^6/uL (4.1-5.3) 05/28/23 17:00 Hgb 13.4 g/dL (11.7-16.6) 05/28/23 17:00 Hct 39.4 % (42.0-52.0) L 05/28/23 17:00 MCV 89.1 fl (80-94) 05/28/23 17:00 MCH 30.3 pg (28.0-34.0) 05/28/23 17:00 MCHC 34.0 g/dL (30.0-36.0) 05/28/23 17:00 RDW 12.4 % (12.1-15.1) 05/28/23 17:00 Plt Count 251 10^3/cmm (130-400) 05/28/23 17:00 MPV 9.7 fL (7.4-10.4) 05/28/23 17:00 Neut % (Auto) 79.3 % 05/28/23 17:00 Lymph % (Auto) 12.3 % 05/28/23 17:00 Page % (Auto) 7.0 % 05/28/23 17:00 Eos % (Auto) 0.4 % 05/28/23 17:00 Baso % (Auto) 0.5 % 05/28/23 17:00 Neut # (Auto) 6.25 10^3/uL (1.8-7.7) 05/28/23 17:00 Lymph # (Auto) 1.0 10^3/uL (0.8-4.8) 05/28/23 17:00 Page # (Auto) 0.6 10^3/uL (0.2-0.9) 05/28/23 17:00 Eos # (Auto) 0.0 10^3/uL (0.0-0.8) 05/28/23 17:00 Baso # (Auto) 0.0 10^3/uL (0.0-0.1) 05/28/23 17:00 Nucleated RBC % (auto) 0 % 05/28/23 17:00 Nucleated RBCs # 0.0 /100WBC 05/28/23 17:00 PT 12.70 SECONDS (12.1-14.9) 05/28/23 17:00 INR 0.93 (0.8-1.2) 05/28/23 17:00 APTT 25.4 SECONDS (23.9-36.7) 05/28/23 17:00 Sodium 138 mmol/L (136-145) 05/28/23 17:00 Potassium 4.0 mmol/L (3.5-5.1) 05/28/23 17:00 Chloride 102 mmol/L (98-107) 05/28/23 17:00 Carbon Dioxide 23 mmol/L (22-29) 05/28/23 17:00 Anion Gap 17.0 (5-19) 05/28/23 17:00 BUN 14 mg/dL (6-20) 05/28/23 17:00 Creatinine 0.8 mg/dL (0.7-1.2) 05/28/23 17:00 GFR Calculation 101.1 mL/min (90-130) 05/28/23 17:00 Glucose 284 mg/dL (65-115) H 05/28/23 17:00 POC Glucose 261 mg/dL (70-110) H 05/28/23 16:37 Estimat Average Glucose 344 05/28/23 17:00 Hemoglobin A1c 13.6 % (4.0-6.0) H 05/28/23 17:00 Calculated Osmolality 297 mOsm/kg (285-295) H 05/28/23 17:00 Calcium 8.7 mg/dL (8.5-10.5) 05/28/23 17:00 Total Bilirubin 0.8 mg/dL (0.15-1.2) 05/28/23 17:00 AST 13 U/L (0-40) 05/28/23 17:00 ALT 15 U/L (0-41) 05/28/23 17:00 Alkaline Phosphatase 58 U/L (40-130) 05/28/23 17:00 Troponin T Baseline 21 ng/L (0-15) H 05/28/23 17:31 Total Protein 6.0 g/dL (6.6-8.7) L 05/28/23 17:00 Albumin 3.6 g/dL (3.5-5.2) 05/28/23 17:00 Globulin 2.4 g/dL (1.3-4.6) 05/28/23 17:00 Urine Color Straw (Yellow) 05/28/23 17:20 Urine Appearance Clear (CLEAR) 05/28/23 17:20 Urine pH 5 (5-7) 05/28/23 17:20 Ur Specific [place] 1.005 (1.005-1.030) 05/28/23 17:20 Urine Protein 1+ (Negative) H 05/28/23 17:20 Urine Glucose (UA) 4+ (Normal) H 05/28/23 17:20 Urine Ketones 2+ (Negative) H 05/28/23 17:20 Urine Blood Neg (Negative) 05/28/23 17:20 Urine Nitrate Negative (Negative) 05/28/23 17:20 Urine Bilirubin Neg (Negative) 05/28/23 17:20 Urine Urobilinogen Norm mg/dL (Negative) 05/28/23 17:20 Ur Leukocyte Esterase Negative (Negative) 05/28/23 17:20 Urine RBC None /hpf (0-2) 05/28/23 17:20 Urine WBC Rare /hpf (0-5) 05/28/23 17:20 Ur Squamous Epith Cells None /hpf (0-5) 05/28/23 17:20 Amorphous Sediment Not Reportable 05/28/23 17:20 Urine Bacteria Trace /hpf (NONE) 05/28/23 17:20 Nasal Influ A H1 2009 PCR Not detected (NOT DETECT) 05/28/23 17:32 Urine Opiates Screen Negative ng/mL (Negative) 05/28/23 17:20 Ur Barbiturates Screen Negative ng/mL (Negative) 05/28/23 17:20 Ur Phencyclidine Scrn Negative ng/mL (Negative) 05/28/23 17:20 Ur Amphetamines Screen Negative ng/mL (Negative) 05/28/23 17:20 U Benzodiazepines Scrn Negative ng/mL (Negative) 05/28/23 17:20 Urine Cocaine Screen Negative ng/mL (Negative) 05/28/23 17:20 U Marijuana (THC) Screen Negative ng/mL (Negative) 05/28/23 17:20 Ethyl Alcohol < 10 mg/dL (0-10) 05/28/23 17:00 Adenovirus (PCR) Not detected (NOT DETECT) 05/28/23 17:32 C. pneumoniae DNA (PCR) Not detected (NOT DETECT) 05/28/23 17:32 Coronavirus 229E (PCR) Not detected (NOT DETECT) 05/28/23 17:32 Human Metapneumovir PCR Not detected (NOT DETECT) 05/28/23 17:32 Influenza A (H1) PCR Not detected (NOT DETECT) 05/28/23 17:32 Influenza A (H3) PCR Not detected (NOT DETECT) 05/28/23 17:32 Influenza Type A (PCR) Not detected (NOT DETECT) 05/28/23 17:32 Influenza Type B (PCR) Not detected (NOT DETECT) 05/28/23 17:32 M. pneumoniae (PCR) Not detected (NOT DETECT) 05/28/23 17:32 Parainfluenza 1 (PCR) Not detected (NOT DETECT) 05/28/23 17:32 Parainfluenza 2 (PCR) Not detected (NOT DETECT) 05/28/23 17:32 Parainfluenza 3 (PCR) Not detected (NOT DETECT) 05/28/23 17:32 Parainfluenza 4 (PCR) Not detected (NOT DETECT) 05/28/23 17:32 RSV Type A (PCR) Not detected (NOT DETECT) 05/28/23 17:32 RSV Type B (PCR) Not detected (NOT DETECT) 05/28/23 17:32 Entero/Rhino (PCR) Not detected (NOT DETECT) 05/28/23 17:32 SARS-CoV-2 (PCR) Not detected (NOT DETECT) 05/28/23 17:32 Discharge Plan Discharge Patient Disposition: Admitted As Inpatient Admit Provider: Javy Hartley Clinical Impression: Suspected cerebrovascular accident (CVA) Condition: Stable Discharge Diet: Cardiac and Diabetic Discharge Activity: As per PT/OT instructions Coding Level of Care Code ED Digital Media Coordinator for Alvarez Juárez
--- NOTE | 2023-05-28 15:46 | XRR_ITS ---
PROCEDURE INFORMATION: Exam: XR Chest Exam date and time: 05/28/2023 4:20 PM Age: 53 years old Clinical indication: Pain; Chest pressure; Additional info: Cp TECHNIQUE: Imaging protocol: Radiologic exam of the chest. Views: 1 view. COMPARISON: CR XR chest 1V portable [id number] 02/08/2022 7:14 AM FINDINGS: Lungs: Unremarkable. No consolidation. Pleural spaces: Unremarkable. No pleural effusion. No pneumothorax. Heart/Mediastinum: Unremarkable. No cardiomegaly. Bones/joints: Unremarkable. XR/XR chest 1V portable [id number] IMPRESSION: No acute findings.
--- NOTE | 2023-05-28 15:46 | CTR_ITS ---
PROCEDURE INFORMATION: Exam: CTA Head Without And With Contrast, Arteriography Exam date and time: 05/28/2023 3:59 PM Age: 53 years old Clinical indication: Stroke-like symptoms; Other: Headache, L facial numbness TECHNIQUE: Imaging protocol: Computed tomographic angiography of the head without and with contrast. Exam focused on the arteries. 3D rendering (Not supervised by radiologist): MIP reconstructed images were created by the technologist. Radiation optimization: All CT scans at this facility use at least one of these dose optimization techniques: automated exposure control; mA and/or kV adjustment per patient size (includes targeted exams where dose is matched to clinical indication); or iterative reconstruction. Contrast material: OMNI 350; Contrast volume: 100 ml; Contrast route: INTRAVENOUS (IV); Other technique: STROKE PROTOCOL was implemented. REPORTING DATA: Count of CT and Cardiac NM exams in prior 12 months: This patient has received [address] and 0 known cardiac nuclear medicine studies in the 12 months prior to the current study. COMPARISON: CT head wo con* [id number] 12/21/2020 11:51 PM RADIATION DOSE METRICS: Total DLP (mGy-cm): 1102.96 FINDINGS: ANTERIOR CIRCULATION: Right internal carotid artery: Intracranial segment is patent with no significant stenosis or occlusion. No aneurysm. Right middle cerebral artery: No occlusion or significant stenosis. No aneurysm. Right anterior cerebral artery: No occlusion or significant stenosis. No aneurysm. Left internal carotid artery: Intracranial segment is patent with no significant stenosis. No aneurysm. Left middle cerebral artery: No occlusion or significant stenosis. No aneurysm. Left anterior cerebral artery: No occlusion or significant stenosis. No aneurysm. POSTERIOR CIRCULATION: Right vertebral artery: No occlusion or significant stenosis. No aneurysm. Left vertebral artery: No occlusion or significant stenosis. No aneurysm. Basilar artery: Small basilar artery secondary to bilateral predominately embryonic origin of the posterior cerebral arteries. No stenosis/occlusion. Right posterior cerebral artery: Predominately embryonic origin of the right posterior cerebral artery, normal variant. No stenosis/occlusion. Left posterior cerebral artery: Predominately embryonic origin of the left posterior cerebral artery, normal variant. No stenosis/occlusion. HEAD: Brain: Mild hypoattenuating foci are noted in the anterior lateral ventricular periventricular white matter bilaterally. No intracranial hemorrhage. No mass or acute cortical infarction identified. Ventricles: Prominence of the ventricular system and subarachnoid spaces is consistent with the patient's age of 53 years. Bones/joints: No acute abnormality. No acute fracture. Paranasal sinuses: Visualized sinuses are normal. No fluid levels. Mastoid air cells: Visualized mastoids are normal. No mastoid effusion. Soft tissues: Unremarkable. PROCEDURE INFORMATION: Exam: CTA Neck With Contrast Exam date and time: 05/28/2023 3:59 PM Age: 53 years old Clinical indication: Stroke-like symptoms; Other: Headache, L facial numbness TECHNIQUE: Imaging protocol: Computed tomographic angiography of the neck with contrast. 3D rendering (Not supervised by radiologist): MIP reconstructed images were created by the technologist. Radiation optimization: All CT scans at this facility use at least one of these dose optimization techniques: automated exposure control; mA and/or kV adjustment per patient size (includes targeted exams where dose is matched to clinical indication); or iterative reconstruction. Contrast material: OMNI 350; Contrast volume: 100 ml; Contrast route: INTRAVENOUS (IV); REPORTING DATA: Count of CT and Cardiac NM exams in prior 12 months: This patient has received [address] and 0 known cardiac nuclear medicine studies in the 12 months prior to the current study. COMPARISON: MR cervical spin wo con* [id number] 11/08/2021 9:23 AM RADIATION DOSE METRICS: Total DLP (mGy-cm): 1102.96 FINDINGS: Right common carotid artery: Right common carotid artery bifurcation calcified and noncalcified smooth plaque, less than 20% stenosis. Right internal carotid artery: Mild proximal right internal carotid artery smooth calcified and noncalcified plaque, less than 20% stenosis. Right external carotid artery: No occlusion or stenosis of the origin. Left common carotid artery: Mild left common carotid artery bifurcation calcified smooth plaque, less than 10% stenosis. Left internal carotid artery: No stenosis of the extracranial segment. No dissection or occlusion. Left external carotid artery: No occlusion or stenosis of the origin. Right vertebral artery: Small caliber right vertebral artery, normal variant. No occlusion. Left vertebral artery: Left vertebral artery dominance, a normal variant, no stenosis/occlusion. Soft tissues: Normal. No significant soft tissue swelling. Bones/joints: Anterior cervical discectomy and fusion has been performed at the C4-C5 and C5-C6 levels, with C5 vertebral body graft. The intervertebral body grafts are in good position. The metallic hardware appears intact and in good position. CT/CT angio headneck* [id number] IMPRESSION: 1. Age appropriate supratentorial and infratentorial atrophy. 2. Mild chronic white matter microvascular ischemic disease. 3. No acute intracranial abnormality identified. 4. No acute intracranial vascular abnormality identified. ASSESSMENT: ASPECTS ([place] Stroke Program Early CT Score) is 10. IMPRESSION: 1. No acute extracranial vascular abnormality identified. 2. Postoperative changes as above. REFERENCES: NASCET CRITERIA. The degree of stenosis in the cervical segment of the internal carotid artery is based on NASCET criteria. Normal is no stenosis. Mild is less than 50% stenosis. Moderate is 50-69% stenosis. Severe is 70% to 99% stenosis. Total occlusion is no detectable patent lumen.
[2023-05-28] MEDS: metoclopramide 5 mg/mL SDV 2 mL 10 MG IVP (15:58)
[2023-05-28] MEDS: iohexol 350 mg/mL 500 mL Btl (per mL) IV (16:29)
[2023-05-28 16:42] LABS: Glucose Point of Care 261 mg/dL (70-110)
[2023-05-28] MEDS: diphenhydrAMINE 50 mg/mL SDV 1mL 25 MG IVP (16:52)
[2023-05-28] MEDS: sodium chloride 0.9% 1,000 ML 999 ML IV (16:52)
[2023-05-28] MEDS: ketorolac 30 mg/mL INJ 15 MG IVP (16:53)
[2023-05-28 16:55] VITALS: BP 150/79; PULSE 90; RESP 14; O2SAT 97
[2023-05-28 17:14] LABS: Basophils % 0.5 %; Eosinophils % 0.4 %; Hematocrit 39.4 % (42.0-52.0); Hemoglobin 13.4 g/dL (11.7-16.6); Lymphocytes % 12.3 %; Mean Corpuscular Hemoglobin 30.3 pg (28.0-34.0); Mean Corpuscular Volume 89.1 fl (80-94); Mean Platelet Volume 9.7 fL (7.4-10.4); Monocytes # 0.6 10^3/uL (0.2-0.9); Neutrophils # 6.25 10^3/uL (1.8-7.7); Neutrophils % 79.3 %; Nucleated Red Blood Cells % 0 %; Platelet Count 251 10^3/cmm (130-400); Red Blood Count 4.42 10^6/uL (4.1-5.3); Red Cell Distribution Width 12.4 % (12.1-15.1); White Blood Count 7.9 10^3/uL (4.0-10.0)
--- NOTE | 2023-05-28 17:29 | ECG_ITS ---
[facility] Test Date: 2023-05-28 Pat Name: Phi Perez Department: Room: Gender: Male Mathematical Technician: : 1970 Requested By: Malvin Figueroa Order Number: [id number] Luis Daniel MD: Jason Amaya M.D. Measurements Intervals [place] Rate: 84 P: 59 W[place]: 156 QRS: 52 QRSD: 102 T: 12 QT: 385 QTc: 456 Interpretive Statements SINUS RHYTHM Compared to ECG 05/28/2023 15:24:14 Sinus tachycardia no longer present Electronically Signed On 05-29-2023 8:36:13 CDT by Jason Amaya M.D. [email or web address]
[2023-05-28 17:31] LABS: INR 0.93 (0.8-1.2)
[2023-05-28 17:32] LABS: Partial Thromboplastin Time 25.4 SECONDS (23.9-36.7)
[2023-05-28 17:40] LABS: Alanine Aminotransferase 15 U/L (0-41); Albumin Level 3.6 g/dL (3.5-5.2); Alkaline Phosphatase 58 U/L (40-130); Aspartate Amino Transferase 13 U/L (0-40); Blood Urea Nitrogen 14 mg/dL (6-20); Calcium 8.7 mg/dL (8.5-10.5); Carbon Dioxide 23 mmol/L (22-29); Chloride 102 mmol/L (98-107); Globulin 2.4 g/dL (1.3-4.6); Glomerular Filtration Rate 101.1 mL/min (90-130); Glucose 284 mg/dL (65-115); Osmolality Calculated 297 mOsm/kg (285-295); Sodium 138 mmol/L (136-145); Total Bilirubin 0.8 mg/dL (0.15-1.2)
[2023-05-28 17:49] LABS: Amphetamines Screen Urine Negative (Negative); Barbiturates Screen Urine Negative (Negative); Benzodiazepines Screen Urine Negative (Negative); Cocaine Screen Urine Negative (Negative); Opiate Screen Urine Negative (Negative); PCP Screen Urine Negative (Negative); THC Screen Urine Negative (Negative)
[2023-05-28 17:50] LABS: Add Urine Microscopic? YES; Bilirubin Urine Neg (Negative); Blood Urine Neg (Negative); Glucose Urine UA 4+ (Normal); Ketones Urine 2+ (Negative); Leukocyte Esterase Urine Negative (Negative); Nitrate Urine Negative (Negative); Protein Urine 1+ (Negative); Specific Gravity, Urine 1.005 (1.005-1.030); Urine Appearance Clear (CLEAR); Urine Color Straw (Yellow); Urobilinogen Urine Norm (Negative); WBC Urine RARE /hpf (0-5); pH Urine 5 (5-7)
[2023-05-28 17:51] LABS: Add Urine Culture? No; Bacteria Urine TRACE /hpf
[2023-05-28 17:54] LABS: Alcohol Level < 10 mg/dL (0-10)
[2023-05-28 18:03] LABS: Troponin(5th) Baseline 21 ng/L (0-15)
--- NOTE | 2023-05-28 18:47 | P.HP_ITS ---
Providers/Chief Complaint Admitting Physician: Javy Hartley MD Primary Care Provider: Saravanan Fuchs DO Chief Complaint: headache, chest pain History of Present Illness Phi Perez is a 53 year old male with a past medical history of insulin- dependent type 2 diabetes mellitus, history of migraine headaches, history of chronic cervical radiculopathy, who presents to [facility] due to left facial numbness, word finding difficulties, favoring the left side of his body. Patient tells me that this morning he woke up with a migraine, his migraine was quite severe, with his migraine he started noticing that he was having some word finding difficulty, some blurry vision, at times tunnel vision, he did not go to [employer], he tells me he stayed in bed almost all day, at roughly 2:30 PM start to notice that he had left facial numbness, so he decided to come to the emergency room, he actually drove to the hospital, he tells me that he was backing up traffic, as he was driving slow, he actually walked into the emergency room he tells me he felt unsteady on his feet, felt that he was leaning to the left, he also described nausea and episode of emesis with his headache, he denies any IV drug use, no history of NSAID use, is not on any blood thinners, he is NIH stroke scale on admission was 6, he was deemed outside of tPA window, Lesa was called neurology, his CTA CT head and neck had no acute findings, hospitalist team was called for admission, currently is alert oriented x3, his only complaint right now is a headache still to some degree has some word finding difficulty no slurring of words no facial droop, some numbness persists of the left side, he has not gotten up out of bed, but does have cerebellar signs, [id number] abnormal on the left, at bedside he tells me has type 2 diabetes mellitus but he rarely uses insulin, no history of hypertension, no history of CAD, no history of strokes in the past, he tells me he has chronic paresthesias, and twitching of his bilateral extremities, from his chronic neck pain, chronic back pain, but he has not noticed anything new in his lower extremities or in his arms, except that when he walked he felt like he was leaning to the left he felt unsteady on his feet, no new numbness Review of Systems Const: Denies: fever(s) or chills Eyes: Reports: blurry vision ENMT: Denies: throat pain Card: Denies: chest pain or palpitations Resp: Denies: dyspnea GI: Reports: nausea and vomiting; Denies: abdominal pain : Denies: flank pain or difficulty urinating Musc: Reports: neck pain and back pain Skin/Breast: Denies: rash Neuro: Reports: headache(s), lack of coordination, difficulty walking and difficulty communicating thoughts; Denies: numbness in extremities, weakness in extremities, dizziness or Slurred speech present Psych: Denies: anxiety Endo: Denies: polyuria or polydipsia Medications/Allergies Home Medications Medication Instructions Recorded Confirmed Last Taken Type multivitamin 1 tab PO DAILY 09/27/20 11/24/22 09/26/20 History flash glucose sensor (FreeStyle #6 ea 10/21/21 11/24/22 Unknown Rx Kirill 2 Sensor kit) insulin glargine 100 unit/mL (3 20 unit SUBCUT BEDTIME 11/25/21 11/24/22 02/07/22 History mL) subcutaneous pen (Basaglar KwikPen U-100 Insulin) fluticasone 500 mcg-salmeterol 50 1 inh inhalation BID #60 ea 12/27/21 11/24/22 Unknown Rx mcg/dose blistr powdr for inhalation (Advair Diskus) insulin lispro 100 unit/mL 5 unit SUBCUT BID PRN blood sugar 02/08/22 11/24/22 02/07/22 History subcutaneous pen (Humalog KwikPen (U-100) Insulin) celecoxib 200 mg capsule (Celebrex) 200 mg PO BID #60 caps 03/14/22 11/24/22 Unknown Rx albuterol sulfate 90 mcg/actuation 2 inh inhalation .Ut dictum #1 ea 07/14/22 11/24/22 Unknown Rx breath activated powder inhaler,sensor (Proair Digihaler) valacyclovir 1 gram tablet 1,000 mg PO Q8H #21 tabs 09/29/22 11/24/22 Unknown Rx (Valtrex) cyclobenzaprine 10 mg tablet 10 mg PO BID PRN muscle spasm #30 11/22/22 11/24/22 Unknown Rx tabs naproxen 500 mg tablet (Naprosyn) 500 mg PO BID PRN pain #30 tabs 11/22/22 11/24/22 Unknown Rx prednisone 20 mg tablet 20 mg PO DAILY #15 tabs 11/24/22 11/24/22 Unknown Rx Allergies Allergy/AdvReac Type Severity Reaction Status Date / Time No Known Allergies Allergy Verified 05/28/23 15:25 PFSH Acute PFSH: Medical History (Updated 05/28/23 @ 18:55 by Javy Hartley MD) Cervical spondylosis with radiculopathy Diabetes mellitus Surgical History (Updated 05/28/23 @ 18:53 by Javy Hartley MD) History of cholecystectomy Family History (Updated 05/28/23 @ 18:53 by Javy Hartley MD) Mother Obesity Father Diabetes Obesity Social History Smoking and tobacco status: never smoked Second hand smoke exposure: No Smoking risk assessment/counseling performed?: No Alcohol intake: current Alcohol intake frequency: holidays/special occasions only Substance/Drug Use: never Lives independently: Yes Household members: spouse Housing: House Marital status: service: No Current occupational status: employed Do you think of yourself as: Straight/Heterosexual Current gender identity: Male Vitals/I&O/Wt Last Vital Signs Temp 97.9 F 05/28/23 15:26 Pulse 90 05/28/23 16:55 Resp 14 05/28/23 16:55 BP 150/79 05/28/23 16:55 Pulse Ox 97 05/28/23 16:55 O2 Del Method Room Air 05/28/23 16:55 Weight last 48 hrs Weight 75.296 kg Physical Exam Const: COMMON NORMALS: no acute distress and patient oriented x3 GENERAL APPEARANCE: cooperative, well kempt and well developed HENMT: COMMON NORMALS: normocephalic and Normal external nose present HEAD & SCALP: normocephalic FACE & SINUS: normal facial exam NOSE: Normal external nose present Eye: COMMON NORMALS: EOMs intact bilaterally, conjunctivae normal and no scleral icterus CONJUNCTIVA: Yes conjunctivae normal PUPIL: Yes Equal, round and reactive pupils present Neck/C-Spine: COMMON NORMALS: full ROM, no lymphadenopathy, no meningeal sign s, no JVD, Thyroid normal and No carotid bruits THYROID: Thyroid normal Lymph: LYMPHATIC: no lymphadenopathy noted Chest: COMMONS NORMALS: normal inspection of the chest Resp: COMMON NORMALS: normal respiratory effort, No retractions, No use of accessory muscles and clear to auscultation bilaterally AUSCULTATION: clear to auscultation bilaterally Cardio: COMMON NORMALS: regular rate, regular rhythm, S1 normal heart sound present, S2 normal heart sound present, No murmurs present (Cardio) and Peripheral pulses 2+ throughout RATE: regular rate RHYTHM: regular rhythm HEART SOUNDS: S1 normal heart sound present and S2 normal heart sound present PERIPHERAL PULSES: Peripheral pulses 2+ throughout GI: COMMON NORMALS: Normal to inspection, nondistended, normoactive bowel sounds present, Soft to palpation and non-tender : BLADDER/KIDNEY EXAM: Yes no CVA tenderness Back/Pelvis: COMMON NORMALS: no CVA tenderness Extremity: COMMON NORMALS: normal to inspection, no calf tenderness and no pedal edema Neuro: COMMON NORMALS: patient oriented x3, CN's II-XII intact bilaterally, moves all extremities, no focal motor deficits and no sensory deficits noted OTHER: Does have word finding difficulties, left [id number] abnormal, reported paresthesias left face Psych: COMMON NORMALS: mental status grossly normal, cooperative and speech normal APPEARANCE: Yes well kempt SPEECH: Yes normal speech Skin: COMMON NORMALS: turgor normal and no jaundice GENERAL SKIN EXAM: turgor normal Data 05/28/23 17:00 05/28/23 17:00 A&P Assessment and plan (1) CVA (cerebral vascular accident): (2) Migraine: (3) Lumbar stenosis with neurogenic claudication: (4) Cervical spondylosis with radiculopathy: (5) Diabetes mellitus: Plan Acute CVA -[facility] -NIH stroke scale of admission 6 -Out of tPA window -Have significantly improved, still having migraine -CTA CT head and neck no acute findings Plan -Admit to [facility] -Neuro checks. ? NIH stroke scale. ? Aspirin, statin, IV fluids ? A1c, TSH, lipid panel. ? Telemetry monitoring. ? MRI of the head. ? Migraine improving, treat as needed. -PT OT, speech therapy eval, bedside swallow -Cardiac echo ? Full code. ? Lovenox for DVT prophylaxis. ? Type 2 diabetes mellitus, A1c, low-dose sliding scale. Attestations Medical Necessity Statement*: Patient requires hospitalization, outpatient with observation, for CVA, migraine Diagnoses CVA (cerebral vascular accident) I63.9 Migraine G43.909 Lumbar stenosis with neurogenic claudication M48.062 Cervical spondylosis with radiculopathy M47.22 Diabetes mellitus E11.9
[2023-05-28 19:28] LABS: Adenovirus Not Detected (NOT DETECT); Chlamydia Pneumoniae Not Detected (NOT DETECT); Coronavirus 229E,HKU1,NL63,OC4 Not Detected (NOT DETECT); Human Metapneumovirus Not Detected (NOT DETECT); Human Rhinovirus/Enterovirus Not Detected (NOT DETECT); Influenza A Not Detected (NOT DETECT); Influenza A H1 Not Detected (NOT DETECT); Influenza A H1-2009 Not Detected (NOT DETECT); Influenza A H3 Not Detected (NOT DETECT); Influenza B Not Detected (NOT DETECT); Mycoplasma Pneumoniae Not Detected (NOT DETECT); Parainfluenza Virus Type 1 Not Detected (NOT DETECT); Parainfluenza Virus Type 2 Not Detected (NOT DETECT); Parainfluenza Virus Type 3 Not Detected (NOT DETECT); Parainfluenza Virus Type 4 Not Detected (NOT DETECT); Respiratory Syncytial Virus A Not Detected (NOT DETECT); Respiratory Syncytial Virus B Not Detected (NOT DETECT); SARS-COV-2 Not Detected (NOT DETECT)
[2023-05-28 19:30] VITALS: BP 150/79; PULSE 90; RESP 14; TEMP 36.6; O2SAT 97
[2023-05-28 19:34] VITALS: BP 150/88; PULSE 90; RESP 16; TEMP 36.7; O2SAT 95
[2023-05-28 20:11] LABS: Troponin 5 2HR 20.93 ng/L (0-15); Troponin 5 2HR Delta -0.07 ABS# (0-10)
[2023-05-28] MEDS: ondansetron 2 mg/ML SDV 2 mL 4 MG IVP (20:12)
[2023-05-28] MEDS: pantoprazole 40 mg SDV IVP (20:16)
[2023-05-28] MEDS: sodium chloride 0.9% 1,000 ML 75 ML IV (20:16)
[2023-05-28 21:11] LABS: Cholesterol 8 mg/dL (0-200); Triglycerides 9 mg/dL (0-150)
[2023-05-28 21:26] LABS: Glucose Point of Care 221 mg/dL (70-110)
[2023-05-28] MEDS: enoxaparin 40 mg/0.4 mL Syringe SUBCUT (21:37)
[2023-05-28] MEDS: atorvastatin 40 mg Tablet PO (21:38)
[2023-05-28] MEDS: aspirin 81 mg EC Tablet PO (21:38)
[2023-05-28 21:47] LABS: Chol HDL Ratio 0.12 mg/dL (1.0-5.00); HDL Cholesterol 67 mg/dL (60-100); LDL Cholesterol Calculated -61 mg/dL (50-129); Thyroid Stimulating Hormone 0.84 uIU/mL (0.27-4.20)
--- NOTE | 2023-05-28 21:47 | ECG_ITS ---
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 Measurements Intervals [place] Rate: 86 P: 46 CT: 159 QRS: 9 QRSD: 105 T: 32 QT: 377 QTc: 453 Interpretive Statements SINUS RHYTHM Compared to ECG 05/28/2023 17:29:09 No significant changes Electronically Signed On 05-29-2023 8:35:53 CDT by Jason Amaya M.D. [id number]
[2023-05-28 21:48] LABS: LDL HDL Ratio -0.91 RATIO (0.00-3.22)
[2023-05-28 22:00] VITALS: PULSE 85
[2023-05-28 23:39] VITALS: O2SAT 95
[2023-05-29] VITALS (7 sets, daily range): BP systolic 119–151; BP diastolic 64–93; PULSE 82–89; RESP 16–19; TEMP 36.4–37.1; O2SAT 94–98
[2023-05-29 00:28] LABS: Troponin 5 6HR 19.92 ng/L (0-15)
[2023-05-29 00:30] LABS: Troponin 5 6HR Delta -1.08 ng/L (0-12)
[2023-05-29 00:44] LABS: Estmated Average Glucose 344; Hemoglobin A1C 13.6 % (4.0-6.0)
[2023-05-29 06:42] LABS: Glucose Point of Care 222 mg/dL (70-110)
[2023-05-29] MEDS: aspirin 81 mg EC Tablet PO (08:46)
[2023-05-29] MEDS: sodium chloride 0.9% 1,000 ML 75 ML IV (08:46)
[2023-05-29] MEDS: insulin lispro 100 unit/1 mL SUBCUT ×2 (08:46→11:44)
--- NOTE | 2023-05-29 10:00 | MR_ITS ---
WS: [id number] MRI HEAD WITHOUT CONTRAST TECHNIQUE: Sagittal T1, T2 axial, T2 axial FLAIR, axial and coronal T1 images, axial susceptibility w eighted imaging, axial diffusion weighted images, and coronal T2 images were obtained. CLINICAL INFORMATION: cva COMPARISON: CT December 21, 2020 and MRI 2012 FINDINGS: No evidence of restricted diffusion to suggest acute ischemia. Ventricular system and basal cisterns are patent. Mild small vessel changes. Mild parenchymal volume loss. Normal posterior fossa. Normal v ascular flow voids at the skull base. No extra-axial fluid collections. No evidence of mass or mass e ffect. Paranasal sinuses are well aerated. Mastoid air cells well aerated. Normal posterior nasopharynx and parapharyngeal fat. Normal optic chiasm and pituitary infundibulum. Mild symmetric atrophy temporal lobes and hippocampal formations. No hemosiderin on the susceptibly weighted images. MR/MR head wo con* [id number] IMPRESSION: Some images degraded by motion artifact 1. No evidence of restricted diffusion to suggest acute ischemia. 2. Mild small vessel changes with mild parenchymal volume loss progressed comp ared to 2012. 3. No hemosiderin on susceptibly weighted images. 4. No other suspicious findings.
[2023-05-29 11:06] LABS: Glucose Point of Care 246 mg/dL (70-110)
[2023-05-29 11:20] LABS: Magnesium 1.9 mg/dL (1.7-2.3)
--- NOTE | 2023-05-29 13:56 | PM.DCS ---
Discharge Providers Date of Admission: 05/28/23 17:59 Date of Discharge: May 29, 2023 Attending Provider at Admission: Javy Hartley MD Attending Provider at Discharge: Wilfred Mckeon Primary Care Provider: Saravanan Fuchs DO Diagnoses at Discharge Discharge Diagnosis (1) CVA (cerebral vascular accident): Status: Acute (2) Migraine: Status: Acute (3) Lumbar stenosis with neurogenic claudication: Status: Acute (4) Cervical spondylosis with radiculopathy: Status: Acute (5) Diabetes mellitus: Status: Acute Reason for Visit Reason for Visit: headache, chest pain Hospital Course Hospital Course Pleasant 53-year-old gentleman with history of insulin dependent diabetes, complex migraine, chronic cervical radiculopathy, was placed in observation after presenting with left-sided facial numbness, word finding difficulty, favoring left side of his body. He woke up with a migraine which reportedly was quite severe but he has had worse in the past, noticed word finding difficulty, blurry vision, at times tunnel vision, stated home, in the afternoon started experiencing left-sided facial numbness so decided to come into emergency department. [place] unsteady on his feet when he was walking into the emergency department. Was assessed for possible CVA, found outside tPA window. CT head without bleed or large CVA. CTA head and neck unremarkable. While in the hospital assessed additionally with noncontrast MRI brain, which showed no evidence of CVA. Mild parenchymal volume loss. Overnight treated symptomatically also for his migraine, received Zofran, Reglan, Toradol, Benadryl, magnesium, IV hydration. Today he is feeling better with resolving headache, still mild hazy feeling and mild residual headache, resolving left-sided facial numbness but with some still lingering left cheek paresthesia, improved now only minimally blurry vision, slightly worse on the right which she states is also his weaker I usually. Minimal residual word finding difficulty, otherwise is fluent and eloquent. Reports minimal worsening usual weakness on the left side. Reports chronic weakness historically, but this was slightly worse for the episode yesterday. Discussed with him cannot exclude TIA, although suspected hemiplegic migraine, which still increases his risk of CVA. Discussed consideration of continuing aspirin, statin for now. He also has diabetes would benefit from statin continuation. A1c noted 13.6, will need additional optimization of diabetes control. Blood pressures noted intermittently elevated, up to 151/93 early afternoon. He is started on losartan in addition due to diabetes and to help control blood pressures. Asked to continue monitoring glucose, blood pressures to help with continued optimization of control. 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 Asked to see an crossing watchman for additional assessment due to underlying diabetes, worse visual acuity in the right eye. Insulin dose is adjusted up, please follow-up continue to adjust to obtain better glycemic control. Echocardiogram was obtained as part of routine work-up, results pending, please follow-up with him. Please also follow-up his renal function. Physical Exam Narrative: Awake, alert. Symptoms significantly improved. Feeling of mild haze . Resolving left-sided headache. Slightly worse than usual weakness left lower extremity. Improving now minimal word finding difficulty. Resolving left-sided facial numbness, mild paresthesia on the left cheek. Nausea resolved. No vomiting. Const: COMMON NORMALS: patient oriented x3 and alert GENERAL APPEARANCE: cooperative ORIENTATION/CONSCIOUSNESS: Yes awake HENMT: COMMON NORMALS: oropharynx normal Neck/C-Spine: COMMON NORMALS: no JVD Resp: COMMON NORMALS: normal respiratory effort and clear to auscultation bilaterally AUSCULTATION: clear to auscultation bilaterally Cardio: COMMON NORMALS: no JVD, regular rhythm, S1 normal heart sound present, S2 normal heart sound present and No murmurs present (Cardio) RHYTHM: regular rhythm HEART SOUNDS: S1 normal heart sound present and S2 normal heart sound present GI: COMMON NORMALS: Normal to inspection, nondistended, normoactive bowel sounds present, Soft to palpation and non-tender PALPATION: Yes Soft to palpation Extremity: COMMON NORMALS: no joint enlargement and no pedal edema Neuro: COMMON NORMALS: patient oriented x3 and moves all extremities SENSORIUM/ORIENTATION: Yes alert OTHER: He is awake and alert, readily responsive. Eloquent, fluent speech, minimal word finding difficulty (1 episode). No difficulty following directions. No difficulty tracking. No nystagmus. Visual contreras intact to confrontation. States right eye is his weak eye . Skin: COMMON NORMALS: no rashes or lesions noted GENERAL SKIN EXAM: no rashes or lesions noted Discharge Data Studies Completed and Pending Completed Studies During Hospitalization Category Date Time Status CT angio headneck* [id number] Stat Cat Scan 05/28/23 15:46 Completed XR chest 1V portable [id number] Stat Exams 05/28/23 15:46 Completed MR head wo con* [id number] Routine MRI 05/29/23 10:00 Completed Pending at discharge Category Date Time Status CV. echo complete* [id number] Routine Ultrasound 05/29/23 19:58 Taken Radiology Impressions Chest X-Ray 05/28/23 15:46 IMPRESSION: No acute findings. Head/Neck CTA 05/28/23 15:46 IMPRESSION: 1. Age appropriate supratentorial and infratentorial atrophy. 2. Mild chronic white matter microvascular ischemic disease. 3. No acute intracranial abnormality identified. 4. No acute intracranial vascular abnormality identified. ASSESSMENT: ASPECTS ([place] Stroke Program Early CT Score) is 10. IMPRESSION: 1. No acute extracranial vascular abnormality identified. 2. Postoperative changes as above. REFERENCES: NASCET CRITERIA. The degree of stenosis in the cervical segment of the internal carotid artery is based on NASCET criteria. Normal is no stenosis. Mild is less than 50% stenosis. Moderate is 50-69% stenosis. Severe is 70% to 99% stenosis. Total occlusion is no detectable patent lumen. ADDENDUM: 05/28/23 [id number] THIS REPORT CONTAINS FINDINGS THAT MAY BE CRITICAL TO PATIENT CARE. The findings were verbally communicated by me to Dr. Malvin Figueroa, via telephone conference at 5:03 PM CDT on 05/28/2023. The findings were acknowledged and understood. Head MRI 05/29/23 10:00 IMPRESSION: Some images degraded by motion artifact 1. No evidence of restricted diffusion to suggest acute ischemia. 2. Mild small vessel changes with mild parenchymal volume loss progressed compared to 2012. 3. No hemosiderin on susceptibly weighted images. 4. No other suspicious findings. Laboratory Results WBC 7.9 10^3/uL (4.0-10.0) 05/28/23 17:00 RBC 4.42 10^6/uL (4.1-5.3) 05/28/23 17:00 Hgb 13.4 g/dL (11.7-16.6) 05/28/23 17:00 Hct 39.4 % (42.0-52.0) L 05/28/23 17:00 MCV 89.1 fl (80-94) 05/28/23 17:00 MCH 30.3 pg (28.0-34.0) 05/28/23 17:00 MCHC 34.0 g/dL (30.0-36.0) 05/28/23 17:00 RDW 12.4 % (12.1-15.1) 05/28/23 17:00 Plt Count 251 10^3/cmm (130-400) 05/28/23 17:00 MPV 9.7 fL (7.4-10.4) 05/28/23 17:00 Neut % (Auto) 79.3 % 05/28/23 17:00 Lymph % (Auto) 12.3 % 05/28/23 17:00 Sully % (Auto) 7.0 % 05/28/23 17:00 Eos % (Auto) 0.4 % 05/28/23 17:00 Baso % (Auto) 0.5 % 05/28/23 17:00 Neut # (Auto) 6.25 10^3/uL (1.8-7.7) 05/28/23 17:00 Lymph # (Auto) 1.0 10^3/uL (0.8-4.8) 05/28/23 17:00 Sully # (Auto) 0.6 10^3/uL (0.2-0.9) 05/28/23 17:00 Eos # (Auto) 0.0 10^3/uL (0.0-0.8) 05/28/23 17:00 Baso # (Auto) 0.0 10^3/uL (0.0-0.1) 05/28/23 17:00 Nucleated RBC % (auto) 0 % 05/28/23 17:00 Nucleated RBCs # 0.0 /100WBC 05/28/23 17:00 PT 12.70 SECONDS (12.1-14.9) 05/28/23 17:00 INR 0.93 (0.8-1.2) 05/28/23 17:00 APTT 25.4 SECONDS (23.9-36.7) 05/28/23 17:00 Sodium 138 mmol/L (136-145) 05/28/23 17:00 Potassium 4.0 mmol/L (3.5-5.1) 05/28/23 17:00 Chloride 102 mmol/L (98-107) 05/28/23 17:00 Carbon Dioxide 23 mmol/L (22-29) 05/28/23 17:00 Anion Gap 17.0 (5-19) 05/28/23 17:00 BUN 14 mg/dL (6-20) 05/28/23 17:00 Creatinine 0.8 mg/dL (0.7-1.2) 05/28/23 17:00 GFR Calculation 101.1 mL/min (90-130) 05/28/23 17:00 Glucose 284 mg/dL (65-115) H 05/28/23 17:00 POC Glucose 246 mg/dL (70-110) H 05/29/23 11:02 Estimat Average Glucose 344 05/28/23 17:00 Hemoglobin A1c 13.6 % (4.0-6.0) H 05/28/23 17:00 Calculated Osmolality 297 mOsm/kg (285-295) H 05/28/23 17:00 Calcium 8.7 mg/dL (8.5-10.5) 05/28/23 17:00 Magnesium 1.9 mg/dL (1.7-2.3) 05/29/23 10:41 Total Bilirubin 0.8 mg/dL (0.15-1.2) 05/28/23 17:00 AST 13 U/L (0-40) 05/28/23 17:00 ALT 15 U/L (0-41) 05/28/23 17:00 Alkaline Phosphatase 58 U/L (40-130) 05/28/23 17:00 Troponin T Baseline 21 ng/L (0-15) H 05/28/23 17:31 Troponin T 120 Minute 20.93 ng/L (0-15) H 05/28/23 19:42 Delta Troponin T -0.07 ABS# (0-10) L 05/28/23 19:42 Troponin T Hi Sens 6Hr 19.92 ng/L (0-15) H 05/28/23 23:58 Troponin T Hi Sens 6Hr Delta -1.08 ng/L (0-12) L 05/28/23 23:58 Total Protein 6.0 g/dL (6.6-8.7) L 05/28/23 17:00 Albumin 3.6 g/dL (3.5-5.2) 05/28/23 17:00 Globulin 2.4 g/dL (1.3-4.6) 05/28/23 17:00 Triglycerides 9 mg/dL (0-150) 05/28/23 19:42 Cholesterol 8 mg/dL (0-200) 05/28/23 19:42 LDL Cholesterol, Calc -61 mg/dL (50-129) L 05/28/23 19:42 HDL Cholesterol 67 mg/dL (60-100) 05/28/23 19:42 LDL/HDL Ratio -0.91 RATIO (0.00-3.22) L 05/28/23 19:42 Cholesterol/HDL Ratio 0.12 mg/dL (1.0-5.00) L 05/28/23 19:42 TSH 0.84 uIU/mL (0.27-4.20) 05/28/23 19:42 Urine Color Straw (Yellow) 05/28/23 17:20 Urine Appearance Clear (CLEAR) 05/28/23 17:20 Urine pH 5 (5-7) 05/28/23 17:20 Ur Specific [place] 1.005 (1.005-1.030) 05/28/23 17:20 Urine Protein 1+ (Negative) H 05/28/23 17:20 Urine Glucose (UA) 4+ (Normal) H 05/28/23 17:20 Urine Ketones 2+ (Negative) H 05/28/23 17:20 Urine Blood Neg (Negative) 05/28/23 17:20 Urine Nitrate Negative (Negative) 05/28/23 17:20 Urine Bilirubin Neg (Negative) 05/28/23 17:20 Urine Urobilinogen Norm mg/dL (Negative) 05/28/23 17:20 Ur Leukocyte Esterase Negative (Negative) 05/28/23 17:20 Urine RBC None /hpf (0-2) 05/28/23 17:20 Urine WBC Rare /hpf (0-5) 05/28/23 17:20 Ur Squamous Epith Cells None /hpf (0-5) 05/28/23 17:20 Amorphous Sediment Not Reportable 05/28/23 17:20 Urine Bacteria Trace /hpf (NONE) 05/28/23 17:20 Nasal Influ A H1 2009 PCR Not detected (NOT DETECT) 05/28/23 17:32 Urine Opiates Screen Negative ng/mL (Negative) 05/28/23 17:20 Ur Barbiturates Screen Negative ng/mL (Negative) 05/28/23 17:20 Ur Phencyclidine Scrn Negative ng/mL (Negative) 05/28/23 17:20 Ur Amphetamines Screen Negative ng/mL (Negative) 05/28/23 17:20 U Benzodiazepines Scrn Negative ng/mL (Negative) 05/28/23 17:20 Urine Cocaine Screen Negative ng/mL (Negative) 05/28/23 17:20 U Marijuana (THC) Screen Negative ng/mL (Negative) 05/28/23 17:20 Ethyl Alcohol < 10 mg/dL (0-10) 05/28/23 17:00 Adenovirus (PCR) Not detected (NOT DETECT) 05/28/23 17:32 C. pneumoniae DNA (PCR) Not detected (NOT DETECT) 05/28/23 17:32 Coronavirus 229E (PCR) Not detected (NOT DETECT) 05/28/23 17:32 Human Metapneumovir PCR Not detected (NOT DETECT) 05/28/23 17:32 Influenza A (H1) PCR Not detected (NOT DETECT) 05/28/23 17:32 Influenza A (H3) PCR Not detected (NOT DETECT) 05/28/23 17:32 Influenza Type A (PCR) Not detected (NOT DETECT) 05/28/23 17:32 Influenza Type B (PCR) Not detected (NOT DETECT) 05/28/23 17:32 M. pneumoniae (PCR) Not detected (NOT DETECT) 05/28/23 17:32 Parainfluenza 1 (PCR) Not detected (NOT DETECT) 05/28/23 17:32 Parainfluenza 2 (PCR) Not detected (NOT DETECT) 05/28/23 17:32 Parainfluenza 3 (PCR) Not detected (NOT DETECT) 05/28/23 17:32 Parainfluenza 4 (PCR) Not detected (NOT DETECT) 05/28/23 17:32 RSV Type A (PCR) Not detected (NOT DETECT) 05/28/23 17:32 RSV Type B (PCR) Not detected (NOT DETECT) 07/30/23 17:32 Entero/Rhino (PCR) Not detected (NOT DETECT) 05/28/23 17:32 SARS-CoV-2 (PCR) Not detected (NOT DETECT) 05/28/23 17:32 Vitals Last Vital Signs Temp 97.5 F L 05/29/23 11:40 Pulse 89 05/29/23 11:40 Resp 16 05/29/23 11:40 BP 151/93 05/29/23 11:40 Pulse Ox 98 05/29/23 11:40 O2 Del Method Room Air 05/29/23 11:40 Discharge Plan Discharge Patient Disposition: Home Condition: Stable Prescriptions: New losartan 25 mg tablet 25 mg PO DAILY Qty: 90 0RF aspirin 81 mg Tablet,Delayed Release (Dr/Ec) 81 mg PO DAILY Qty: 90 0RF atorvastatin 40 mg Tablet 40 mg PO BEDTIME Qty: 90 0RF Continued (DME) FreeStyle Kirill 2 Sensor Kit See Rx Instructions .Route Qty: 6 3RF Rx Instructions: As directed Changed Basaglar KwikPen U-100 Insulin 100 unit/mL (3 mL) insulin pen 22 unit SUBCUT BEDTIME Qty: 15 0RF insulin lispro [Humalog KwikPen Insulin] 100 unit/mL insulin pen 7 unit SUBCUT BID PRN (Reason: blood sugar) Qty: 15 0RF Discharge Orders: Discharge Order (Routine); Ordered 05/29/23 Ordered By: Wilfred Mckeon Referrals: [facility] [Provider Group] - 1 week (DM, R eye decreased acuity) Steffi Jimenez MD [Physician] - 1 week (Hemiplegic migraine, poss TIA, focal abnormalities) Riley Flanagan MD [Physician] - 06/08/23 3:45 pm Saravanan Fuchs DO [Primary Care Provider] - 4-7 days Discharge Diet: Cardiac and Diabetic Discharge Activity: As per PT/OT instructions Patient Instructions: Losartan (By mouth), Insulin Glargine (By injection), Insulin Lispro (By injection), Transient Ischemic Attack (GEN), Migraine Headache (GEN), Hypertension (GEN), What to Do if Your Blood Sugar is Low (GEN), Diabetes and Nutrition (GEN) Activity Restrictions/Additional Instructions: Please follow-up with your primary doctor for reassessment after an episode with focal neurologic abnormalities, possible TIA, 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 Please note as discussed hemiplegic migraine increases your risk of stroke as well. Please continue to optimize risk factors of cardiovascular disease. Your diabetes is not optimally controlled, hemoglobin A1c is 13.6. Please continue to work with your primary doctor to optimize control. Maintain consistent carbohydrate diet. Your insulin dose for now is increased mildly to 22 units long-acting insulin and up to 7 units short acting. Continue to monitor blood glucose, increase long-acting insulin gradually by no more than 1-2 units/day to target blood glucose levels of around 150 for now. Avoid glucose levels less than 100. If blood glucose in the morning is less than 80, decrease long-acting insulin dose by 30-50%. If your blood sugar is less than 70 at any point, please take sugary snacks, recheck every 15 minutes until it starts to improve above 100. If not improving after several rechecks, or if you are feeling faint, sleepy, or any other concerning symptoms seek medical attention immediately. Continue to monitor blood pressures 3 times daily, write down values to help optimize control of hypertension. You are started on losartan to help control blood pressures and protect your kidneys with diabetes. Continue to work with your primary doctor to optimize blood pressure control. Have your primary doctor follow-up your kidney function at next visit to assess for transient increase in creatinine which may occur with ARB or SUAD inhibitors. Please follow-up with ophthalmology for assessment of your eyes especially with poorly controlled diabetes and decreased visual acuity in your right eye. Seek attention of crossing watchman immediately in case experiencing any progressive loss of vision, flashing lights, eye pain or any other concerning symptoms. Your echocardiogram has been taken but results are not available yet. Please follow-up with your primary doctor to review the results of the echo. Similarly in case of recurrence of migraine with focal neurologic deficit seek medical attention without delay since as discussed it may be difficult to tell it from a stroke requiring treatment within the short window. Please follow-up with neurology. Avoiding NSAIDs as they may increase your risk of stroke, including naproxen, meloxicam, etc. Discharge Attestations Time Spent in Discharge Care*: greater than 30 min Quality Metrics Clinical Quality Measures [ Cerebrovascular Accident { Contraindication to Antithrombotic: None; antithrombotic prescribed; Contraindication to Anticoagulation: Overlap treatment not indicated; Contraindication to Statin: None; Statin prescribed;}] Coding Level of Care Code 04680 Total time (in minutes) for Discharge: 60 Diagnoses CVA (cerebral vascular accident) I63.9 Migraine G43.909 Lumbar stenosis with neurogenic claudication M48.062 Cervical spondylosis with radiculopathy M47.22 Diabetes mellitus E11.9
--- NOTE | 2023-05-29 19:58 | USCV_ITS ---
Phi Perez Age: 53 Gender: M : 1970 Exam Date: 05/29/2023 06:31 Ordering Phys: Javy Hartley MD Technologist: UCHE Exam Location: [facility] – [place] Indication: CVSA BP: 138 / 86 HR: 86 Rhythm: Sinus Technical Quality: Adequate MEASUREMENTS (Male / Female) Normal Values 2D ECHO LVOT Diameter 2.0 cm LV Ejection Fraction MOD 2C 60.9 % LV Ejection Fraction 2C AL 60.6 % LA Diameter 2.6 cm LA Width 3.3 cm LA Height 3.7 cm RA Width 2.6 cm RA Height 4.3 cm Aorta at Sinotubular Diameter 2.9 cm IVC Diameter 1.4 cm M-MODE Aortic Annulus Diameter 3.6 cm LA Ao Ratio MM 0.6 MV E Point Septal Separation 0.7 cm DOPPLER AV Peak Velocity 108.0 cm/s LVOT Peak Velocity 90.0 cm/s AV Area Cont Eq vti 3.2 cm squared AV Area Cont Eq pk 2.7 cm squared MV Peak Velocity 84.0 cm/s MV Area PHT 3.3 cm squared Mitral E to A Ratio 1.1 MV E' Velocity 48.0 cm/s Mitral E to MV E' Ratio 8.0 Mitral E to LV E' Lateral Ratio 6.9 Mitral E to LV E' Septal Ratio 9.4 TR Peak Velocity 153.5 cm/s TR Peak Gradient 9.4 mmHg TR Mean Velocity 118.3 cm/s TR Mean Gradient 6.3 mmHg TR Velocity Time Integral 39.9 cm TV Peak E Velocity 54.0 cm/s Right Atrial Pressure 3.0 mmHg Pulmonary Artery Systolic Pressu 12.4 mmHg PV Peak Velocity 101.0 cm/s RV Acceleration Time 0.1 s RV Ejection Time 0.3 s RV AcT/ET 0.5 FINDINGS Left Ventricle Normal left ventricular size and systolic function, EF 61 %. No regional wall motion abnormalities. Right Ventricle The right ventricle is normal in size and function. Right Atrium The right atrium is normal in size. Left Atrium The left atrium is normal in size. Mitral Valve No gross abnormalities noted Aortic Valve No gross abnormalities noted Tricuspid Valve No gross abnormalities noted Pulmonic Valve No gross abnormalities noted Pericardium No pericardial effusion. Aorta The ascending aorta, upper limit of normal size IVC The inferior vena cava appears normal. CONCLUSIONS Normal left ventricular size and systolic function, EF 61 %. No regional wall motion abnormalities. Normal cardiac chamber sizes No gross valvular abnormalities. No intracardiac masses. No pericardial effusion. Compared to the study from 10/06/2021, there may not be a significant change. Dr Pretty Cortes MD FAC (Electronically Signed) Final Date: 29 May 2023 19:55 S
== END 2023-05-29 16:00 | disposition home or self-care (01) ==
LOC: ER 18:28 → MEDSURG 05-29 07:07
PROVIDERS: Admitting Provider Family Medicine; Emergency Provider Emergency Medicine; PCP Family Medicine; Visit Provider Internal Medicine
DX: G43.909 Migraine, unspecified, not intractable, without status migrainosus (principal); M48.062 Spinal stenosis, lumbar region with neurogenic claudication; M47.22 Other spondylosis with radiculopathy, cervical region; E11.9 Type 2 diabetes mellitus without complications; Z79.4 Long term (current) use of insulin; R00.0 Tachycardia, unspecified; R20.0 Anesthesia of skin; R07.9 Chest pain, unspecified
CPT/HCPCS: 36415; 36416; 70496; 70498; 70551; 71045; 80053; 80061; 80306; 80307; 81001; 82962; 83036; 83735; 84443; 84484; 85025; 85610; 85730; 87486; 87581; 87633; 92523; 92610; 93005; 93306; 94664; 96361; 96372; 96374; 96375; 97110; 97161; 97165; 97530; 99285; C9113; G0378; J1200; J1650; J1815; J1885; J2405; J2765; J3475; J7030; Q9967

== ENCOUNTER → 2023-06-07 11:17 | Outpatient (BNVA) | payer OTHER, SELFPAY | PROVIDERS: PCP Family Medicine; Referring Provider Internal Medicine; Visit Provider Specialist | DX: H53.8 Other visual disturbances (principal); R41.89 Other symptoms and signs involving cognitive functions and awareness; R51.9 Headache, unspecified; E11.65 Type 2 diabetes mellitus with hyperglycemia; Z79.4 Long term (current) use of insulin; G47.33 Obstructive sleep apnea (adult) (pediatric); I10 Essential (primary) hypertension; Z82.3 Family history of stroke | CPT/HCPCS: 99205 ==

== ENCOUNTER 2024-01-30 19:18 | Emergency (ER) | payer OTHER, SELFPAY ==
[2024-01-30 19:21] VITALS: BP 160/96; PULSE 124; RESP 16; TEMP 36.9; O2SAT 98; BMI 23.4
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
[2024-01-30 20:05] VITALS: BP 150/85; PULSE 113; O2SAT 95
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
[2024-01-30] MEDS: ondansetron 4 MG Tablet PO (20:19)
[2024-01-30] MEDS: promethazine 25 mg Tablet PO (21:04)
[2024-01-30 21:08] VITALS: BP 150/85; RESP 18
== END 2024-01-30 21:00 | disposition home or self-care (01) ==
PROVIDERS: Emergency Provider Emergency Medicine; PCP Family Medicine
DX: S00.83XA Contusion of other part of head, initial encounter (principal); S80.02XA Contusion of left knee, initial encounter; Z79.82 Long term (current) use of aspirin; Z79.4 Long term (current) use of insulin; E11.9 Type 2 diabetes mellitus without complications; V03.90XA Pedestrian on foot injured in collision with car, pick-up truck or van, unspecified whether traffic or nontraffic accident, initial encounter
CPT/HCPCS: 70450; 70486; 73562; 99284; Q0162; Q0169

== ENCOUNTER → 2024-07-04 08:51 | Outpatient (BNVA) | payer OTHER, SELFPAY | PROVIDERS: PCP Family Medicine; Visit Provider Family Medicine | DX: R07.9 Chest pain, unspecified (principal); R06.00 Dyspnea, unspecified; E11.69 Type 2 diabetes mellitus with other specified complication; K86.9 Disease of pancreas, unspecified; R53.81 Other malaise; R07.89 Other chest pain; R60.9 Edema, unspecified; E03.9 Hypothyroidism, unspecified; M19.90 Unspecified osteoarthritis, unspecified site | CPT/HCPCS: 80053; 82607; 83036; 84156; 84443; 85025; 85651 ==

== ENCOUNTER 2024-09-28 05:37 | Emergency (ER) | payer OTHER, SELFPAY ==
[2024-09-28] VITALS (10 sets, daily range): BP systolic 148–187; BP diastolic 90–114; PULSE 77–94; RESP 20; TEMP 36.6; O2SAT 93–98; BMI 22.3
--- NOTE | 2024-09-28 05:57 | CTR_ITS ---
PROCEDURE INFORMATION: Exam: CT Head Without Contrast Exam date and time: 09/28/2024 6:15 AM Age: 54 years old Clinical indication: Stroke-like symptoms; Lt upper extremity and lt lower extremity weakness; Additional info: Symptoms of acute stroke TECHNIQUE: Imaging protocol: Computed tomography of the head without contrast. Radiation optimization: All CT scans at this facility use at least one of these dose optimization techniques: automated exposure control; mA and/or kV adjustment per patient size (includes targeted exams where dose is matched to clinical indication); or iterative reconstruction. Other technique: STROKE PROTOCOL was implemented. COMPARISON: CT head wo con* [id number] 01/30/2024 7:46 PM RADIATION DOSE METRICS: Total DLP (mGy-cm): 1055.38 FINDINGS: Brain: Normal. No hemorrhage. Unremarkable white matter. No mass effect. Cerebral ventricles: Stable prominence of the ventricles. Paranasal sinuses: Visualized sinuses are unremarkable. No fluid levels. Mastoid air cells: Visualized mastoid air cells are well aerated. Bones: Unremarkable. No acute fracture. Soft tissues: Unremarkable. CT/CT head thrombolytic [id number] IMPRESSION: No acute intracranial findings. ASSESSMENT: ASPECTS ([place] Stroke Program Early CT Score) is 10.
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
[2024-09-28 06:28] LABS: Basophils # 0.1 10^3/uL (0.0-0.1); Basophils % 0.9 %; Eosinophils # 0.1 10^3/uL (0.0-0.8); Eosinophils % 2.2 %; Lymphocytes # 1.8 10^3/uL (0.8-4.8); Lymphocytes % 31.5 %; Mean Corpuscular HGB Conc 34.5 g/dL (30-55); Mean Corpuscular Hemoglobin 30.2 pg (27-33); Mean Corpuscular Volume 87.6 fl (82-101); Mean Platelet Volume 10.3 fL (7.4-10.4); Monocytes # 0.6 10^3/uL (0.2-0.9); Monocytes % 10.2 %; Neutrophils # 3.17 10^3/uL (1.8-7.7); Neutrophils % 54.9 %; Nucleated Red Blood Cells % 0 %; Platelet Count 271 10^3/cmm (157-399); Red Blood Count 4.34 10^6/uL (3.85-5.65); Red Cell Distribution Width 11.9 % (12.1-15.1); White Blood Count 5.78 10^3/uL (3.29-11.43)
[2024-09-28 06:42] LABS: Alanine Aminotransferase 14 U/L (0-41); Albumin Level 3.6 g/dL (3.5-5.2); Alkaline Phosphatase 61 U/L (40-130); Aspartate Amino Transferase 14 U/L (0-40); Blood Urea Nitrogen 30 mg/dL (6-20); Calcium 8.7 mg/dL (8.5-10.5); Carbon Dioxide 23 mmol/L (22-29); Chloride 99 mmol/L (98-107); Creatinine Clr Calc Pharmacy 80.5816; Globulin 2.7 g/dL (1.3-4.6); Glomerular Filtration Rate 69.8 mL/min (90-130); Glucose 370 mg/dL (65-115); Osmolality Calculated 299 mOsm/kg (285-295); Sodium 134 mmol/L (136-145); Total Bilirubin 0.6 mg/dL (0.15-1.2); Total Protein 6.3 g/dL (6.6-8.7)
[2024-09-28 06:45] LABS: Partial Thromboplastin Time 26.9 SECONDS (23.9-36.7)
[2024-09-28 07:10] LABS: Glucose Point of Care 411 mg/dL (70-110)
[2024-09-28] MEDS: ondansetron 2 mg/ML SDV 2 mL 4 MG IVP (07:10)
[2024-09-28] MEDS: dexamethasone 10 mg/mL INJ IVP (07:10)
[2024-09-28] MEDS: ketorolac 30 mg/mL INJ IVP (07:10)
[2024-09-28] MEDS: orphenadrine 30 mg/mL Inj 2 mL 60 MG IVP (07:10)
--- NOTE | 2024-09-28 07:21 | PC.NURSE ---
Took over patient's care at 7am from AKOSUA Turner assistant shift supervisor nurse.
[2024-09-28 07:33] LABS: Bilirubin Urine Negative (Negative); Blood Urine Negative (Negative); Glucose Urine UA 3+ (Normal); Ketones Urine Trace (Negative); Leukocyte Esterase Urine Negative (Negative); Nitrate Urine Negative (Negative); Protein Urine 2+ (Negative); Specific Gravity, Urine 1.029 (1.005-1.030); Urine Appearance Clear (CLEAR); Urine Color Yellow (Yellow); Urobilinogen Urine 0.2 mg/dL (Negative); pH Urine 5.5 (5-7)
--- NOTE | 2024-09-28 07:35 | ECG_ITS ---
[facility] Test Date: 2024-09-28 Pat Name: Phi Perez Department: Room: Gender: Male Client Program Manager: : 1970 Requested By: Isaias Zhang Order Number: [id number] Cary MD: Jason Amaya M.D. Measurements Intervals [place] Rate: 82 P: 70 AR: 149 QRS: 46 QRSD: 102 T: 57 QT: 383 QTc: 448 Interpretive Statements SINUS RHYTHM Compared to ECG 05/28/2023 22:00:08 No significant changes Electronically Signed On 09-28-2024 10:23:02 INVOICE CONTROL CLERK by Jason Amaya M.D. [email or web address]
[2024-09-28 07:36] LABS: Add Urine Microscopic? YES; Bacteria Urine None Seen /hpf; Hyaline Casts Urine 3.27 /lpf; RBC Urine 0-2 /hpf (0-2); Squamous Epithelial Cell Urine 0-5 /hpf (0-5); WBC Urine 0-5 /hpf (0-5)
[2024-09-28 07:39] LABS: Amphetamines Screen Urine Negative (Negative); Barbiturates Screen Urine Negative (Negative); Benzodiazepines Screen Urine Negative (Negative); Cocaine Screen Urine Negative (Negative); Opiate Screen Urine Negative (Negative); PCP Screen Urine Negative (Negative); THC Screen Urine Negative (Negative)
[2024-09-28] MEDS: insulin lispro 100 unit/1 mL 7 UNIT SUBCUT (07:52)
[2024-09-28] MEDS: insulin glargine 100 units/1 mL 40 UNIT SUBCUT (07:58)
[2024-09-28 08:32] LABS: Glucose Point of Care 342 mg/dL (70-110)
== END 2024-09-28 09:11 | disposition home or self-care (01) ==
PROVIDERS: Emergency Medicine; Emergency Provider Family Medicine; PCP Family Medicine
DX: M54.2 Cervicalgia (principal); M79.602 Pain in left arm; M79.605 Pain in left leg; V89.2XXA Person injured in unspecified motor-vehicle accident, traffic, initial encounter; Z79.4 Long term (current) use of insulin; E11.9 Type 2 diabetes mellitus without complications
CPT/HCPCS: 36416; 70450; 72125; 80053; 80306; 81001; 82962; 85025; 85610; 85730; 93005; 96372; 96374; 96375; 99285; J1100; J1815; J1885; J2360; J2405

== ENCOUNTER 2024-10-14 15:23 | Outpatient (CLI) | payer OTHER, SELFPAY ==
[2024-10-14 15:51] LABS: Basophils # 0.1 10^3/uL (0.0-0.1); Basophils % 0.7 %; Eosinophils # 0.1 10^3/uL (0.0-0.8); Eosinophils % 0.9 %; Hematocrit 40.9 % (37-53); Lymphocytes # 1.5 10^3/uL (0.8-4.8); Lymphocytes % 19.2 %; Mean Corpuscular HGB Conc 34.2 g/dL (30-55); Mean Corpuscular Hemoglobin 29.9 pg (27-33); Mean Corpuscular Volume 87.4 fl (82-101); Monocytes # 0.5 10^3/uL (0.2-0.9); Monocytes % 6.6 %; Neutrophils # 5.53 10^3/uL (1.8-7.7); Neutrophils % 71.9 %; Nucleated Red Blood Cells % 0 %; Platelet Count 302 10^3/cmm (157-399); Red Blood Count 4.68 10^6/uL (3.85-5.65); Red Cell Distribution Width 12.2 % (12.1-15.1); White Blood Count 7.69 10^3/uL (3.29-11.43)
[2024-10-14 16:27] LABS: Alanine Aminotransferase 18 U/L (0-41); Albumin Level 3.7 g/dL (3.5-5.2); Alkaline Phosphatase 74 U/L (40-130); Anion Gap 16.3 (5-19); Aspartate Amino Transferase 14 U/L (0-40); Blood Urea Nitrogen 28 mg/dL (6-20); Calcium 8.8 mg/dL (8.5-10.5); Carbon Dioxide 24 mmol/L (22-29); Chloride 97 mmol/L (98-107); Chol HDL Ratio 4.18 mg/dL (1.0-5.00); Cholesterol 284 mg/dL (0-200); Globulin 2.9 g/dL (1.3-4.6); Glomerular Filtration Rate 45.3 mL/min (90-130); HDL Cholesterol 68 mg/dL (60-100); LDL Cholesterol Calculated 173 mg/dL (50-129); LDL HDL Ratio 2.54 RATIO (0.00-3.22); Osmolality Calculated 305 mOsm/kg (285-295); Potassium 4.3 mmol/L (3.5-5.1); Prostate Specific Antigen Scr 2.93 ng/mL (0-4); Sodium 133 mmol/L (136-145); Testosterone Total 479.5 ng/dL (193-740); Total Bilirubin 1.1 mg/dL (0.15-1.2); Total Protein 6.6 g/dL (6.6-8.7); Triglycerides 215 mg/dL (0-150)
[2024-10-14 16:35] LABS: Estmated Average Glucose 338; Hemoglobin A1C 13.4 % (4.0-6.0)
[2024-10-14 16:40] LABS: Glucose 526 mg/dL (65-115)
[2024-10-14 17:42] LABS: Follicle Stimulating Hormone 5.7 mIU/mL (1.5-12.4); Luteinizing Hormone 7.5 mIU/mL (1.7-8.6)
[2024-10-15 10:24] LABS: C-Peptide 3.07 ng/mL (0.80-3.85)
[2024-10-17 14:04] LABS: Vit D 1,25 (Oh)2, Total 31 pg/mL (18-72); Vit D2 1,25 (Oh)2 <8 pg/mL; Vit D3 1,25 (Oh)2 31 pg/mL
== END 2024-10-14 15:24 | disposition home or self-care (01) ==
LOC: LAB 15:26
PROVIDERS: PCP Family Medicine; Visit Provider Internal Medicine
DX: R79.89 Other specified abnormal findings of blood chemistry (principal); E11.69 Type 2 diabetes mellitus with other specified complication
CPT/HCPCS: 36415; 80053; 80061; 82652; 83001; 83002; 83036; 84402; 84403; 84446; 84590; 84597; 84681; 85025; 86337; 86341; G0103

== ENCOUNTER 2025-01-01 08:09 | Emergency (ER) | payer OTHER, SELFPAY ==
--- NOTE | 2025-01-01 08:11 | XR_ITS ---
WS: [id number] XR chest 1V portable [id number] REASON FOR EXAM: sob FINDINGS: Considering the difference in inspiratory effort, mild current examination is unchanged compared to 05/28/2023. There is mild to moderate tortuosity and ectasia of the thoracic aorta. Normal heart size. Calcified granulomatous disease bilaterally. No acute pulmonary parenchymal or pleural abnormality. XR/XR chest 1V portable [id number] IMPRESSION: Stable chest without acute abnormality.
--- NOTE | 2025-01-01 08:13 | ECG_ITS ---
[facility] Test Date: 2025-01-01 Pat Name: Phi Perez Department: Room: Gender: Male Sales Vice President: : 1970 Requested By: Apollo Thomas Order Number: [id number] Luis Daniel MD: Jason Amaya M.D. Measurements Intervals [place] Rate: 89 P: 1 ME: 161 QRS: 48 QRSD: 106 T: 3 QT: 398 QTc: 486 Interpretive Statements SINUS RHYTHM PROBABLE INFERIOR MYOCARDIAL INFARCTION , PROBABLY OLD [35 ms Q WAVE IN II/aVF] Compared to ECG 09/28/2024 07:35:13 Myocardial infarct finding now present Electronically Signed On 01-04-2025 18:09:25 VAMP CUT OUT WORKER by Jason Amaya M.D. [id number] [id number]
[2025-01-01 08:18] VITALS: BP 192/118; PULSE 89; RESP 18; TEMP 36.8; O2SAT 99; BMI 23.7
--- NOTE | 2025-01-01 08:20 | PC.NURSE ---
glucose 47 via FS, Dr. Thomas notified. pt provided sandwich and orange juice. verbal orders for D10.
--- NOTE | 2025-01-01 08:22 | ED_ITS ---
HPI - General Adult 2 General: Chief complaint: General Medical Stated complaint: low blood sugar, SOB, confusion, sweating Time Seen by Provider: 01/01/25 08:10 Source: patient Mode of arrival: ambulatory Limitations: no limitations History of Present Illness: 54-year-old male has a history of diabet es states that he has been have a hard time keeping his blood sugar at a normal level it has been running low states woke up this morning very short of breath diaphoretic with some altered mental status. Patient's blood sugar here is 46. He has not eaten this morning. Able answer some questions but is lethargic Associated symptoms: Reports dyspnea; Deny chest pain, headache(s), nausea, rash or vomiting Related Data Home Medications ?Medication ?Instructions ?Recorded ?Confirmed amoxicillin 875 mg-potassium 1 tab PO BID 01/01/2503/23 clavulanate 125 mg tablet Previous Rx's ?Medication ?Instructions ?Recorded insulin degludec 100 unit/mL (3 100 unit SUBCUT DAILY #90 mL 11/05/24 mL) subcutaneous pen (Tresiba FlexTouch U-100 insulin) insulin lispro 100 unit/mL 30 unit (0.3 mL) SUBCUT TID #30 mL 11/08/24 subcutaneous pen (Humalog KwikPen (U-100) Insulin) apixaban 5 mg tablet (Eliquis) 5 mg PO BID #60 tabs apixaban 5 mg tablet (Eliquis) 10 mg (2 x 5 mg) PO BID 7 days #28 01/01/25 tabs Allergies Allergy/AdvReac Type Severity Reaction Status Date / Time No Known Allergies Allergy Verified 11/19/24 13:12 Review of Systems 2 Const: Reports: fatigue; Denies: fever(s), chills, body aches or change in appetite Eyes: Denies: blurry vision or eye discomfort ENMT: Denies: throat pain or dental pain Card: Denies: chest pain Resp: Reports: dyspnea GI: Denies: abdominal pain, nausea, vomiting or diarrhea Musc: Denies: neck pain or back pain Skin/Breast: Denies: rash Neuro: Denies: headache(s) PFSH ED 2 PFSH: Medical History Cervical spondylosis with radiculopathy Diabetes mellitus Surgical History History of cholecystectomy Family History Mother Obesity Father Diabetes Obesity Social History Smoking and tobacco/nicotine status: never used tobacco/nicotine Second hand smoke exposure: No Alcohol intake: current Alcohol intake frequency: holidays/special occasions only Substance/Drug Use: never Lives independently: Yes Household members: spouse Housing: House Marital status: service: No Current occupational status: employed Do you think of yourself as: Straight/Heterosexual Current gender identity: Male Physical Exam 2 Const: COMMON NORMALS: no acute distress, patient oriented x3 and healthy appearing HENMT: COMMON NORMALS: normocephalic and atraumatic HEAD & SCALP: n ormocephalic and atraumatic Eye: COMMON NORMALS: Equal, round and reactive pupils present and EOMs intact bilaterally PUPIL: Yes Equal, round and reactive pupils present Neck/C-Spine: COMMON NORMALS: full ROM and supple Chest: COMMONS NORMALS: normal inspection of the chest Resp: COMMON NORMALS: normal respiratory effort, No retractions, No use of accessory muscles and clear to auscultation bilaterally AUSCULTATION: clear to auscultation bilaterally Cardio: COMMON NORMALS: regular rate, regular rhythm and No murmurs present (Cardio) RATE: regular rate RHYTHM: regular rhythm GI: COMMON NORMALS: Normal to inspection, nondistended, normoactive bowel sounds present, Soft to palpation, non-tender and no masses PALPATION: Yes Soft to palpation Extremity: COMMON NORMALS: normal to inspection and full ROM Neuro: COMMON NORMALS: patient oriented x3, moves all extremities and no focal motor deficits Psych: COMMON NORMALS: mental status grossly normal, Normal thought process present and cooperative THOUGHT PROCESS: Normal thought process present Skin: COMMON NORMALS: no rashes or lesions noted and no wounds GENERAL SKIN EXAM: no rashes or lesions noted Course 2 Vital Signs: Vital signs: Vital Signs Temperature 98.2 F 01/01/25 08:18 Pulse Rate 98 01/01/25 12:03 Respiratory Rate 18 01/01/25 08:18 Blood Pressure 148/82 01/01/25 12:03 Pulse Oximetry 98 01/01/25 12:03 Oxygen Delivery Me thod Room Air 01/01/25 11:30 MDM - General Adult Medical Decision Making Patient presents here with hypoglycemia he is much improved here after blood sugar stabilized and did observe him he has had stable glucose here he had some dyspnea CTA did show some small pulm emboli he has a history of this but is no longer on thinners we will restart his blood thinners he has no signs of heart strain he stable for discharge and form needs to follow-up with PCP within a week. Return if worsening. Medical Records I reviewed the patient's medical records. Lab Data I reviewed the patient's lab results. 01/01/25 08:23 01/01/25 08:23 Radiology Impressions Chest X-Ray 01/01/25 08:11 IMPRESSION: Stable chest without acute abnormality. Chest CTA 01/01/25 08:59 IMPRESSION: 1. A few scattered bilateral subsegmental lower lobe pulmonary emboli. No central pulmonary emboli. 2. No pneumonia. 3. Mild LEFT heart enlargement. LEFT ventricle enlargement appears greater as compared to 2021. 4. Prior cholecystectomy with pneumobilia. 5. Mildly reactive hilar lymphadenopathy. Laboratory Results WBC 6.12 10^3/uL (3.29-11.43) 01/01/25 08:23 RBC 4.64 10^6/uL (3.85-5.65) 01/01/25 08:23 Hgb 13.90 g/dL (11.27-16.99) 01/01/25 08:23 Hct 42.4 % (37-53) 01/01/25 08:23 MCV 91.4 fl (82-101) 01/01/25 08:23 MCH 30.0 pg (27-33) 01/01/25 08:23 MCHC 32.8 g/dL (30-55) 01/01/25 08:23 RDW 13.1 % (12.1-15.1) 01/01/25 08:23 Plt Count 346 10^3/cmm (157-399) 01/01/25 08:23 MPV 9.3 fL (7.4-10.4) 01/01/25 08:23 Neut % (Auto) 58.5 % 01/01/25 08:23 Lymph % (Auto) 29.7 % 01/01/25 08:23 [place] % (Auto) 9.5 % 01/01/25 08:23 Eos % (Auto) 1.6 % 01/01/25 08:23 Baso % (Auto) 0.5 % 01/01/25 08:23 Neut # (Auto) 3.58 10^3/uL (1.8-7.7) 01/01/25 08:23 Lymph # (Auto) 1.8 10^3/uL (0.8-4.8) 01/01/25 08:23 [place] # (Auto) 0.6 10^3/uL (0.2-0.9) 01/01/25 08:23 Eos # (Auto) 0.1 10^3/uL (0.0-0.8) 01/01/25 08:23 Baso # (Auto) 0.0 10^3/uL (0.0-0.1) 01/01/25 08:23 Nucleated RBC % (auto) 0 % 01/01/25 08: Nucleated RBCs # 0.0 /100WBC 01/01/25 08:23 Sodium 143 mmol/L (136-145) 01/01/25 08:23 Potassium 3.6 mmol/L (3.5-5.1) 01/01/25 08:23 Chloride 105 mmol/L (98-107) 01/01/25 08:23 Carbon Dioxide 27 mmol/L (22-29) 01/01/25 08:23 Anion Gap 14.6 (5-19) 01/01/25 08:23 BUN 25 mg/dL (6-20) H 01/01/25 08:23 Creatinine 1.1 mg/dL (0.7-1.2) 01/01/25 08:23 GFR Calculation 69.8 mL/min (90-130) L 01/01/25 08:23 Glucose 44 mg/dL (65-115) L 01/01/25 08:23 POC Glucose 121 mg/dL (70-110) H 01/01/25 11:31 Calculated Osmolality 297 mOsm/kg (285-295) H 01/01/25 08:23 Calcium 9.5 mg/dL (8.5-10.5) 01/01/25 08:23 Total Bilirubin 0.7 mg/dL (0.15-1.2) 01/01/25 08:23 AST 20 U/L (0-40) 01/01/25 08:23 ALT 18 U/L (0-41) 01/01/25 08:23 Alkaline Phosphatase 63 U/L (40-130) 01/01/25 08:23 Troponin T Baseline 24 ng/L (0-15) H 01/01/25 08:23 Troponin T 120 Minute 21.74 ng/L (0-15) H 01/01/25 10:50 Delta Troponin T -2.26 ABS# (0-10) L 01/01/25 10:50 Total Protein 6.5 g/dL (6.6-8.7) L 01/01/25 08:23 Albumin 4.0 g/dL (3.5-5.2) 01/01/25 08:23 Globulin 2.5 g/dL (1.3-4.6) 01/01/25 08:23 No radiology studies performed this visit EKG Data EKG 1: I personally reviewed and interpreted this EKG as follows: EKG interpretation date: 01/01/25 EKG interpretation time: 08:13 Interpretation: nsr hr [address] elevation qrs 106 qtc 445 Computer generated interpretation: Chest X-Ray 01/01/25 08:11 IMPRESSION: Stable chest without acute abnormality. Chest CTA 01/01/25 08:59 IMPRESSION: 1. A few scattered bilateral subsegmental lower lobe pulmonary emboli. No central pulmonary emboli. 2. No pneumonia. 3. Mild LEFT heart enlargement. LEFT ventricle enlargement appears greater as compared to 2021. 4. Prior cholecystectomy with pneumobilia. 5. Mildly reactive hilar lymphadenopathy. Discharge Plan Discharge Patient Disposition: Home Clinical Impression: Hyperglycemia, Pulmonary emboli Condition: Stable Prescriptions: New Eliquis 5 mg tablet 10 mg PO BID 7 Days Qty: 28 0RF Eliquis 5 mg tablet 5 mg PO BID Qty: 60 0RF Rx Instructions: start after first week loading dose No Action insulin degludec [Tresiba FlexTouch U-100] 100 unit/mL (3 mL) insulin pen 100 unit SUBCUT DAILY Qty: 90 1RF Rx Instructions: follow Dr Pillai recommendation insulin lispro [Humalog KwikPen Insulin] 100 unit/mL insulin pen 30 unit SUBCUT TID Qty: 30 1RF amoxicillin-pot clavulanate 875-125 mg tablet 1 tab PO BID Discharge Orders: Discharge ED (Routine); Ordered 01/01/25 Ordered By: Apollo Thomas Referrals: Riley Flanagan MD [Primary Care Provider] - 1-3 days Discharge Diet: Advance as tolerated Discharge Activity: Resume usual activity Patient Instructions: Hypoglycemia, Pulmonary Embolism (ED) Print Language: Citizen Of [place] Coding Level of Care Code ED 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
[2025-01-01] MEDS: dextrose 10% 250 ML 1000 ML IV (08:24)
--- NOTE | 2025-01-01 08:40 | PC.NURSE ---
glucose 135 via FS
--- NOTE | 2025-01-01 08:40 | PC.NURSE ---
fsbs @ 0801 reads 135
[2025-01-01 08:42] LABS: Basophils % 0.5 %; Eosinophils # 0.1 10^3/uL (0.0-0.8); Eosinophils % 1.6 %; Hematocrit 42.4 % (37-53); Lymphocytes # 1.8 10^3/uL (0.8-4.8); Lymphocytes % 29.7 %; Mean Corpuscular HGB Conc 32.8 g/dL (30-55); Mean Corpuscular Volume 91.4 fl (82-101); Mean Platelet Volume 9.3 fL (7.4-10.4); Monocytes # 0.6 10^3/uL (0.2-0.9); Monocytes % 9.5 %; Neutrophils # 3.58 10^3/uL (1.8-7.7); Neutrophils % 58.5 %; Nucleated Red Blood Cells % 0 %; Platelet Count 346 10^3/cmm (157-399); Red Blood Count 4.64 10^6/uL (3.85-5.65); Red Cell Distribution Width 13.1 % (12.1-15.1); White Blood Count 6.12 10^3/uL (3.29-11.43)
--- NOTE | 2025-01-01 08:59 | CT_ITS ---
WS: [id number] CT CHEST ANGIOGRAPHY WITH REFORMATS HISTORY: sob TECHNIQUE: Contiguous axial images are obtained through the chest during arterial injection of intravenous contrast. Images are reconstructed to evaluate the pulmonary arteries. MIP imaging also reviewed. All CT scans at [facility] use at least one of these dose optimization techniques: automated exposure control; mA and/or kV adjustment per patient size (includes targeted exams where dose is matched to clinical indication); or iterative reconstruction. CONTRAST: Omnipaque 350; 100 mL IV. DLP: 338.15 mGy.cm COMPARISON: 02/08/2022 Good opacification of the central pulmonary arteries. Beginning in the segmental branches and the subsegmental branches the opacification is limited. There are several filling defects in the pulmonary arteries beginning in the subsegmental branches of the lower lobes. The exact extent of the embolic disease is difficult to determine due to the poor opacification. Lung volumes are decreased. No pulmonary infarct. No pneumonia, mass or nodule. No mediastinal or hilar adenopathy. Mild LEFT heart enlargement. No RIGHT heart strain. No pericardial or pleural effusion. Mildly prominent and probably reactive hilar lymph nodes measuring up to 9 mm. Mild bilateral gynecomastia. Small hiatal hernia. Reidentified is pneumobilia which was seen on the prior CT also. Prior cholecystectomy. T12 sclerotic focus is stable. This is likely a bone island. CT/CT angio chest PE protcl [id number] IMPRESSION: 1. A few scattered bilateral subsegmental lower lobe pulmonary emboli. No cent ral pulmonary emboli. 2. No pneumonia. 3. Mild LEFT heart enlargement. LEFT ventricle enlargement appears greater as compared to 2021. 4. Prior cholecystectomy with pneumobilia. 5. Mildly reactive hilar lymphadenopathy.
[2025-01-01 09:08] LABS: Glucose Point of Care 135 mg/dL (70-110)
[2025-01-01 09:09] LABS: Alanine Aminotransferase 18 U/L (0-41); Alkaline Phosphatase 63 U/L (40-130); Anion Gap 14.6 (5-19); Aspartate Amino Transferase 20 U/L (0-40); Blood Urea Nitrogen 25 mg/dL (6-20); Calcium 9.5 mg/dL (8.5-10.5); Carbon Dioxide 27 mmol/L (22-29); Chloride 105 mmol/L (98-107); Creatinine Clr Calc Pharmacy 82.5517; Globulin 2.5 g/dL (1.3-4.6); Glomerular Filtration Rate 69.8 mL/min (90-130); Glucose 44 mg/dL (65-115); Osmolality Calculated 297 mOsm/kg (285-295); Potassium 3.6 mmol/L (3.5-5.1); Sodium 143 mmol/L (136-145); Total Bilirubin 0.7 mg/dL (0.15-1.2); Total Protein 6.5 g/dL (6.6-8.7); Troponin(5th) Baseline 24 ng/L (0-15)
[2025-01-01 09:21] VITALS: BP 148/84; PULSE 96; O2SAT 96
[2025-01-01] MEDS: hyDRALAzine 20 mg/mL INJ 1 mL 10 MG IVP (09:28)
[2025-01-01 09:55] LABS: Glucose Point of Care 85 mg/dL (70-110)
--- NOTE | 2025-01-01 10:18 | ECG_ITS ---
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 [email or web address]
[2025-01-01 10:29] LABS: Glucose Point of Care 86 mg/dL (70-110)
[2025-01-01 11:23] LABS: Troponin 5 2HR 21.74 ng/L (0-15)
[2025-01-01 11:24] LABS: Troponin 5 2HR Delta -2.26 ABS# (0-10)
[2025-01-01 11:30] VITALS: BP 122/78; PULSE 98; O2SAT 96
[2025-01-01 11:37] LABS: Glucose Point of Care 121 mg/dL (70-110)
--- NOTE | 2025-01-01 11:37 | PC.NURSE ---
glucose 121 via FS @1130
[2025-01-01 12:03] VITALS: BP 148/82; PULSE 98; O2SAT 98
== END 2025-01-01 12:04 | disposition home or self-care (01) ==
PROVIDERS: Emergency Provider Emergency Medicine; PCP Family Medicine
DX: E11.65 Type 2 diabetes mellitus with hyperglycemia (principal); I26.99 Other pulmonary embolism without acute cor pulmonale; Z79.4 Long term (current) use of insulin
CPT/HCPCS: 36415; 36416; 71045; 71275; 80053; 82962; 84484; 85025; 93005; 96374; 99285; J0360; J7799

== ENCOUNTER 2025-03-25 09:19 | Outpatient (CLI) | payer OTHER, SELFPAY ==
--- NOTE | 2025-03-25 09:31 | USCV_ITS ---
Phi Perez Age: 54 Gender: M : 1970 Exam Date: 03/25/2025 09:53 Ordering Phys: Riley Flanagan MD Technologist: [place] [facility] [place]: cardio myopathy BP: 150 / 80 HR: 86 Rhythm: Sinus Technical Quality: Adequate MEASUREMENTS (Male / Female) Normal Values 2D ECHO LV Diastolic Diameter PLAX 5.2 cm 4.2 - 5.9 / 3.9 - 5.3 cm IVS Diastolic Thickness 1.3 cm 0.6 - 1.0 / 0.6 - 0.9 cm IVS Systolic Thickness 1.9 cm LVPW Diastolic Thickness 1.4 cm 0.6 - 1.0 / 0.6 - 0.9 cm LVPW Systolic Thickness 1.9 cm LVOT Diameter 2.0 cm LV Ejection Fraction 2D Teich 45.5 % LV Ejection Fraction MOD 4C 35.7 % LV Ejection Fraction MOD 2C 53.1 % LV Ejection Fraction 2C AL 54.3 % LA Diameter 3.9 cm RA Systolic Volume 4C AL 42.6 ml RA Systolic Volume 4C MOD 38.5 ml Aorta at Sinotubular Diameter 3.1 cm IVC Diameter 1.5 cm M-MODE LA Ao Ratio MM 1.4 AV Cusp Separation MM 2.8 cm DOPPLER AV Peak Velocity 96.0 cm/s LVOT Peak Velocity 65.0 cm/s AV Area Cont Eq vti 2.5 cm squared AV Area Cont Eq pk 2.1 cm squared MV Peak Velocity 101.0 cm/s MV Area PHT 6.3 cm squared Mitral E to A Ratio 0.7 TV Peak Velocity 174.5 cm/s TR Peak Velocity 190.0 cm/s TR Peak Gradient 14.4 mmHg TV Peak E Velocity 75.0 cm/s PV Peak Velocity 91.0 cm/s FINDINGS Left Ventricle Moderately increased left ventricular cavity size. Severely decreased left ventricular systolic function. Left ventricular ejection fraction is estimated at 35 %. Global left ventricular hypokinesis.Grade III/IV diastolic dysfunction (restrictive filling pattern), severely elevated filling pressures. Right Ventricle The right ventricle is normal in size and function. Right Atrium The right atrium is normal in size. Left Atrium The left atrium is normal in size. Mitral Valve Structurally normal mitral valve without significant stenosis or prolapse. There is no mitral regurgitation. Aortic Valve Structurally normal aortic valve without significant sclerosis or stenosis. There is no aortic regurgitation. Tricuspid Valve Structurally normal tricuspid valve without significant stenosis or regurgitation. Pulmonary artery systolic pressure is normal. Pulmonic Valve Structurally normal pulmonic valve without significant stenosis. There is no pulmonic regurgitation. Pericardium Normal pericardium without effusion. Aorta Normal ascending aorta dimension. IVC The inferior vena cava appears normal. CONCLUSIONS Moderately increased left ventricular cavity size. Severely decreased left ventricular systolic function. Left ventricular ejection fraction is estimated at 35 %. Global left ventricular hypokinesis.Grade III/IV diastolic dysfunction (restrictive filling pattern), severely elevated filling pressures. There is no pericardial effusion. No significant valve abnormalities. Right atrial pressure is around 5 mm of mercury. Vinay Steward MD (Electronically Signed) Final Date: 26 Mar 2025 18:35 S
== END 2025-03-25 09:20 | disposition home or self-care (01) ==
LOC: RAD 09:23
PROVIDERS: PCP Family Medicine; Visit Provider Electrodiagnostic Medicine
DX: I11.9 Hypertensive heart disease without heart failure (principal); R93.1 Abnormal findings on diagnostic imaging of heart and coronary circulation
CPT/HCPCS: 93306

== ENCOUNTER 2025-06-19 07:07 | Emergency (ER) | payer OTHER, SELFPAY ==
[2025-06-19 07:28] VITALS: BP 159/91; PULSE 87; RESP 18; TEMP 36.4; O2SAT 99
--- NOTE | 2025-06-19 07:40 | ED_ITS ---
HPI - Abdominal Pain 2 General: Chief Complaint: Abdominal Pain Stated Complaint: L Upper ABD Extreme Pain Liver area Time Seen by Provider: 06/19/25 07:10 History of Present Illness: 55 yo male presents to the ED with LUQ a bdominal pain that started yesterday around 6 PM. He states he has experienced associated nausea and vomiting. He denies diarrhea, constipation, fever, chills, dysuria, blood in his stool or vomit. The pain does not radiate anywhere. He has not taken anything for the pain. He states that he had similar episodes of LUQ pain in 2019 and 2020; he underwent ERCP in 2019 and had stents placed both times. Associated Symptoms: Denies chills, dysuria and fever(s) Related Data Home Medications ?Medication ?Instructions ?Recorded ?Confirmed metoprolol succinate 25 mg mg PO 03/14/25 06/12/25 tablet,extended release 24 hr Previous Rx's ?Medication ?Instructions ?Recorded apixaban 5 mg tablet (Eliquis) 5 mg PO BID #60 tabs blood-glucose sensor (Dexcom G7 #9 ea 01/20/25 Sensor device) insulin degludec 100 unit/mL (3 45 unit (0.45 mL) SUBC UT DAILY #15 05/12/25 mL) subcutaneous pen (Tresiba mL FlexTouch U-100 insulin) empagliflozin 10 mg tablet 10 mg PO DAILY #90 tabs (Jardiance) Allergies Allergy/AdvReac Type Severity Reaction Status Date / Time No Known Allergies Allergy Verified 03/13/25 14:18 Review of Systems 2 Const: Denies: fever(s) or chills Card: Denies: chest pain Resp: Denies: dyspnea GI: Denies: abdominal pain : Denies: dysuria, urinary frequency or urinary urgency Musc: Denies: neck pain or back pain Skin/Breast: Denies: rash PFSH ED 2 PFSH: Medical History Cervical spondylosis with radiculopathy Diabetes mellitus Surgical History History of cholecystectomy Family History Mother Obesity Father Diabetes Obesity Social History Smoking and tobacco/nicotine status: never used tobacco/nicotine Second hand smoke exposure: No Alcohol intake: current Alcohol intake frequency: holidays/special occasions only Substance/Drug Use: never Lives independently: Yes Household members: spouse Housing: House Marital status: service: No Current occupational status: employed Do you think of yourself as: Straight/Heterosexual Current gender identity: Male Physical Exam 2 Const: GENERAL APPEARANCE: cooperative ORIENTATION/CONSCIOUSNESS: Yes awake, Yes oriented to person, Yes oriented to place and Yes oriented to time HENMT: COMMON NORMALS: normocephalic, atraumatic and hearing grossly normal bilaterally HEAD & SCALP: normocephalic and atraumatic Resp: COMMON NORMALS: normal respiratory effort, No retractions, No use of accessory muscles and clear to auscultation bilaterally AUSCULTATION: clear to auscultation bilaterally Cardio: COMMON NORMALS: regular rate, regular rhythm and No murmurs present (Cardio) RATE: regular rate RHYTHM: regular rhythm GI: COMMON NORMALS: Soft to palpation and No hepatosplenomegaly present A USCULTATION: Yes normoactive bowel sounds PALPATION: Yes Soft to palpation, No Tenderness to palpation present (GI), No Guarding due to palpation present (GI) and Yes No hepatosplenomegaly present Extremity: COMMON NORMALS: normal to inspection, capillary refill normal, no clubbing, cyanosis or edema, no calf tenderness and no pedal edema Neuro: SENSORIUM/ORIENTATION: Yes oriented to person, Yes oriented to place and Yes oriented to time Skin: COMMON NORMALS: no rashes or lesions noted GENERAL SKIN EXAM: no rashes or lesions noted Course 2 Vital Signs: Vital signs: Vital Signs Temperature 97.5 F L 06/19/25 07:28 Pulse Rate 84 06/19/25 11:06 Respiratory Rate 16 06/19/25 10:28 Blood Pressure 172/81 06/19/25 11:06 Pulse Oximetry 98 06/19/25 11:06 Oxygen Delivery Me thod Room Air 06/19/25 09:25 MDM - Abdominal Pain Medical Decision Making CT does not show any signs of acute pathology. Gallbladder ultrasound did not show any dilation of the common bile duct liver and pancreas were normal on the CT. No leukocytosis no hyperbilirubinemia or transaminitis. He does have a large amount of retained stool suspect a lot of his symptoms are from constipation recommend laxatives until has adequate results. Offered prescription laxatives (lactulose) patient states he had other medicines at home he would use. Medical Records I reviewed the patient's medical records. Lab Data I reviewed the patient's lab results. 06/19/25 07:44 06/19/25 07:44 Labs/Radiology: Radiology Impressions Abdomen Ultrasound 06/19/25 08:21 IMPRESSION: Prior cholecystectomy. Normal common bile duct. No abnormality identified. Abdomen/Pelvis CT 06/19/25 09:20 IMPRESSION: 1. No acute abdominal or pelvic abnormalities identified. 2. Pneumobilia, status post cholecystectomy. 3. Previously noted common bile duct and pancreatic duct stents have been removed. 4. No common bile duct dilatation. 5. Moderate diffuse constipation with more inspissated fecal material in the distal colon. 6. Prostate gland enlargement. 7. No renal obstruction. 8. Mild cardiomegaly. Laboratory Results WBC 6.13 10^3/uL (3.29-11.43) 06/19/25 07:44 RBC 3.80 10^6/uL (3.85-5.65) L 06/19/25 07:44 Hgb 11.50 g/dL (11.27-16.99) 06/19/25 07:44 Hct 34.3 % (37-53) L 06/19/25 07:44 MCV 90.3 fl (82-101) 06/19/25 07:44 MCH 30.3 pg (27-33) 06/19/25 07:44 MCHC 33.5 g/dL (30-55) 06/19/25 07:44 RDW 13.0 % (12.1-15.1) 06/19/25 07:44 Plt Count 281 10^3/cmm (157-399) 06/19/25 07:44 MPV 9.5 fL (7.4-10.4) 06/19/25 07:44 Neut % (Auto) 55.2 % 06/19/25 07:44 Lymph % (Auto) 29.9 % 06/19/25 07:44 [place] % (Auto) 10.3 % 06/19/25 07:44 Eos % (Auto) 3.3 % 06/19/25 07:44 Baso % (Auto) 1.0 % 06/19/25 07:44 Neut # (Auto) 3.39 10^3/uL (1.8-7.7) 06/19/25 07:44 Lymph # (Auto) 1.8 10^3/uL (0.8-4.8) 06/19/25 07:44 [place] # (Auto) 0.6 10^3/uL (0.2-0.9) 06/19/25 07:44 Eos # (Auto) 0.2 10^3/uL (0.0-0.8) 06/19/25 07:44 Baso # (Auto) 0.1 10^3/uL (0.0-0.1) 06/19/25 07:44 Nucleated RBC % (auto) 0 % 06/19/25 07:44 Nucleated RBCs # 0.0 /100WBC 06/19/25 07:44 Sodium 143 mmol/L (136-145) 06/19/25 07:44 Potassium 4.0 mmol/L (3.5-5.1) 06/19/25 07:44 Chloride 109 mmol/L (98-107) H 06/19/25 07:44 Carbon Dioxide 25 mmol/L (22-29) 06/19/25 07:44 Anion Gap 13.0 (5-19) 06/19/25 07:44 BUN 29 mg/dL (6-20) H 06/19/25 07:44 Creatinine 1.5 mg/dL (0.7-1.2) H 06/19/25 07:44 GFR Calculation 48.6 mL/min (90-130) L 06/19/25 07:44 Glucose 79 mg/dL (65-115) 06/19/25 07:44 Calculated Osmolality 301 mOsm/kg (285-295) H 06/19/25 07:44 Calcium 8.6 mg/dL (8.5-10.5) 06/19/25 07:44 Total Bilirubin 0.6 mg/dL (0.15-1.2) 06/19/25 07:44 AST 20 U/L (0-40) 06/19/25 07:44 ALT 20 U/L (0-41) 06/19/25 07:44 Alkaline Phosphatase 52 U/L (40-130) 06/19/25 07:44 Total Protein 6.2 g/dL (6.6-8.7) L 06/19/25 07:44 Albumin 3.5 g/dL (3.5-5.2) 06/19/25 07:44 Globulin 2.7 g/dL (1.3-4.6) 06/19/25 07:44 Lipase 22 U/L (13-60) 06/19/25 07:44 Urine Color Yellow (Yellow) 06/19/25 07:49 Urine Appearance Clear (CLEAR) 06/19/25 07:49 Urine pH 5.5 (5-7) 06/19/25 07:49 Ur Specific [place] 1.019 (1.005-1.030) 06/19/25 07:49 Urine Protein 3+ (Negative) A 06/19/25 07:49 Urine Glucose (UA) Trace (Normal) H 06/19/25 07:49 Urine Ketones Negative (Negative) 06/19/25 07:49 Urine Blood Trace (Negative) A 06/19/25 07:49 Urine Nitrate Negative (Negative) 06/19/25 07:49 Urine Bilirubin Negative (Negative) 06/19/25 07:49 Urine Urobilinogen 0.2 mg/dL (Negative) 06/19/25 07:49 Ur Leukocyte Esterase Negative (Negative) 06/19/25 07:49 Urine RBC 0-2 /hpf (0-2) 06/19/25 07:49 Urine WBC 0-5 /hpf (0-5) 06/19/25 07:49 Ur Squamous Epith Cells 0-5 /hpf (0-5) 06/19/25 07:49 Amorphous Sediment Not Reportable 06/19/25 07:49 Urine Bacteria None seen /hpf (NONE) 06/19/25 07:49 Hyaline Casts 3.30 /lpf 06/19/25 07:49 All radiology interpretation(s) finalized by discharge Discharge Plan Discharge Patient Disposition: Home Clinical Impression: Constipation, Abdominal pain Condition: Stable Prescriptions: No Action Jardiance 10 mg tablet 10 mg PO DAILY Qty: 90 0RF metoprolol succinate 25 mg tablet extended release 24 hr PO (DME) Dexcom G7 Sensor Device See Rx Instructions .Route Qty: 9 1RF Rx Instructions: change sensor every 10 days insulin degludec [Tresiba FlexTouch U-100] 100 unit/mL (3 mL) insulin pen 45 unit SUBCUT DAILY Qty: 15 0RF Rx Instructions: follow Dr Pillai recommendation Eliquis 5 mg tablet 5 mg PO BID Qty: 60 0RF Rx Instructions: start after first week loading dose Discharge Orders: Discharge ED (Routine); Ordered 06/19/25 Ordered By: Jarrett Luis Referrals: Riley Flanagan MD [Primary Care Provider, Family Practice] Patient Instructions: Abdominal Pain (ED), Opioid Safety, Pain Management, Patient Portal & Kinza Instructions Activity Restrictions/Additional Instructions: [facility] It is very important that you follow up as instructed or that you return to the Emergency Department should you have concerns or if your condition changes or worsens in any way. You were seen in the emergency room with complaints of abdominal pain there is no sign of dilation of the common bile duct on either the ultrasound or the CT. The CT showed a large amount of retained stool in the colon but no other acute abnormalities. Incidentally noted your creatinine is mildly elevated it has been slightly elevated in the past you should follow-up with your primary care doctor and they can monitor this. 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
[2025-06-19 07:43] VITALS: BP 157/88; PULSE 83; RESP 16; O2SAT 98
[2025-06-19 07:56] LABS: Hematocrit 34.3 % (37-53); Hemoglobin 11.50 g/dL (11.27-16.99); Mean Corpuscular HGB Conc 33.5 g/dL (30-55); Mean Corpuscular Hemoglobin 30.3 pg (27-33); Mean Corpuscular Volume 90.3 fl (82-101); Nucleated Red Blood Cells % 0 %; Platelet Count 281 10^3/cmm (157-399); Red Blood Count 3.80 10^6/uL (3.85-5.65); White Blood Count 6.13 10^3/uL (3.29-11.43)
[2025-06-19 08:01] LABS: Glucose Urine UA Trace (Normal); Nitrate Urine Negative (Negative); Specific Gravity, Urine 1.019 (1.005-1.030)
[2025-06-19 08:06] LABS: Add Urine Microscopic? YES
[2025-06-19 08:16] LABS: Alanine Aminotransferase 20 U/L (0-41); Albumin Level 3.5 g/dL (3.5-5.2); Alkaline Phosphatase 52 U/L (40-130); Anion Gap 13.0 (5-19); Aspartate Amino Transferase 20 U/L (0-40); Blood Urea Nitrogen 29 mg/dL (6-20); Calcium 8.6 mg/dL (8.5-10.5); Carbon Dioxide 25 mmol/L (22-29); Chloride 109 mmol/L (98-107); Creatinine Clr Calc Pharmacy 62.8326; Globulin 2.7 g/dL (1.3-4.6); Glucose 79 mg/dL (65-115); Lipase 22 U/L (13-60); Osmolality Calculated 301 mOsm/kg (285-295); Potassium 4.0 mmol/L (3.5-5.1); Sodium 143 mmol/L (136-145); Total Protein 6.2 g/dL (6.6-8.7)
--- NOTE | 2025-06-19 08:21 | US_ITS ---
WS: [id number] RIGHT UPPER QUADRANT ULTRASOUND HISTORY: Abdominal pain history of common bile duct stenosis COMPARISON: 09/22/2020 Liver: 14.0 cm in length. Normal size liver and echogenicity. No bile duct dilatation or mass. Portal Vein: Normal hepatopetal flow with monophasic waveform. Gallbladder: Prior cholecystectomy. CBD: 0.3 cm Pancreas: Partially described by bowel gas. Head and tail are not visualized. Right kidney: 10.2 cm in length. Normal size and echogenicity. No hydronephrosis or mass. Aorta and IVC: Unremarkable abdominal aorta and IVC. No ascites. US/US abdomen limited [id number] IMPRESSION: Prior cholecystectomy. Normal common bile duct. No abnormality identified.
--- NOTE | 2025-06-19 09:20 | CT_ITS ---
WS: [id number] CT ABDOMEN AND PELVIS NONCONTRAST HISTORY: Abdominal pain, LEFT lower quadrant pain. TECHNIQUE: Imaging performed through the abdomen and pelvis. Coronal and sagittal reformats are submitted. All CT scans at [facility] use at least one of these dose optimization techniques: automated exposure control; mA and/or kV adjustment per patient size (includes targeted exams where dose is matched to clinical indication); or iterative reconstruction. DLP: 612.23 mGy.cm COMPARISON: 04/06/2021 Lower thorax: Lung bases are clear. Mild cardiomegaly. Small hiatal hernia. Liver: Normal size liver. Pneumobilia. Previously described pancreatic duct and common bile duct stent has been removed. Gallbladder: Gallbladder has been surgically removed. Surgical clips are noted in the gallbladder fossa. Pancreas: Normal size and attenuation. Normal pancreatic duct. No pancreatitis or mass. Spleen: Normal. Adrenal glands: Normal. No mass. Right kidney: Normal size kidney with no mass or hydronephrosis. Left kidney: Normal size kidney with no mass or hydronephrosis. Aorta: Mild atherosclerosis abdominal aorta with no aneurysm. No free fluid, intraperitoneal air or significant lymphadenopathy. GI tract: Nondistended stomach. No small bowel obstruction. Moderate diffuse constipation. Normal appendix. Inspissated fecal material towards the rectum. No diverticulitis. Abdominal wall: Negative. No hernia. Pelvis: Nondistended bladder. Prostate gland is slightly enlarged encroaching into the bladder with central and peripheral calcifications. Osseous structures: Unremarkable. CT/CT abdomen pelvis wo con [id number] IMPRESSION: 1. No acute abdominal or pelvic abnormalities identified. 2. Pneumobilia, status post cholecystectomy. 3. Previously noted common bile duct and pancreatic duct stents have been sandy josselin. 4. No common bile duct dilatation. 5. Moderate diffuse constipation with more inspissated fecal material in the d istal colon. 6. Prostate gland enlargement. 7. No renal obstruction. 8. Mild cardiomegaly.
[2025-06-19 09:25] VITALS: BP 174/94; PULSE 84; RESP 16; O2SAT 99
--- NOTE | 2025-06-19 10:08 | DCPLANNER ---
faxed urology referral and pushed images to christine sim
[2025-06-19 10:28] VITALS: BP 179/80; PULSE 80; RESP 16; O2SAT 93
[2025-06-19 11:06] VITALS: BP 172/81; PULSE 84; O2SAT 98
== END 2025-06-19 11:07 | disposition home or self-care (01) ==
PROVIDERS: Emergency Provider Family Medicine; PCP Family Medicine
DX: K59.00 Constipation, unspecified (principal); R10.12 Left upper quadrant pain; Z79.01 Long term (current) use of anticoagulants; Z79.82 Long term (current) use of aspirin; E11.9 Type 2 diabetes mellitus without complications
CPT/HCPCS: 74176; 76705; 80053; 81001; 83690; 85025; 99284

== ENCOUNTER 2025-06-25 08:08 | Outpatient (CLI) | payer OTHER, SELFPAY ==
--- NOTE | 2025-06-25 08:15 | US_ITS ---
WS: [id number] RENAL ULTRASOUND HISTORY: kidney disease COMPARISON: 06/19/2025 and 09/22/2020 TECHNIQUE: 2-D and color Doppler imaging of the kidney submitted. Right kidney: 10.0 cm x 6.5 cm x 5.5 cm. Cortex: 1.3 cm Normal echogenicity with no hydronephrosis or mass. Left kidney: 9.7 cm x 4.6 cm x 5.5 cm. Cortex: 1.4 cm Normal echogenicity with no hydronephrosis or mass. Aorta: Normal. Urinary Bladder: Normal distention. Mildly enlarged prostate gland measures 3.8 x 2.8 x 2.7 cm. US/US renal BI* [id number] IMPRESSION: 1. Normal size kidneys. 2. No hydronephrosis or renal mass.
== END 2025-06-25 08:09 | disposition home or self-care (01) ==
LOC: RAD 08:10
PROVIDERS: PCP Family Medicine; Visit Provider Internal Medicine
DX: Z86.39 Personal history of other endocrine, nutritional and metabolic disease (principal); E11.9 Type 2 diabetes mellitus without complications; N40.0 Benign prostatic hyperplasia without lower urinary tract symptoms
CPT/HCPCS: 76770

== ENCOUNTER 2025-10-16 06:12 | Inpatient (IN) | payer OTHER, SELFPAY ==
[2025-10-16] VITALS (36 sets, daily range): BP systolic 105–172; BP diastolic 69–103; PULSE 74–81; RESP 15–35; TEMP 36.4–36.7; O2SAT 91–99; BMI 24.8
--- OUTSIDE RECORDS SUMMARY | 2025-10-16 06:16 | XMS_ITS | Continuity of Care Document ---
Author Organization ASHLEY Nash Kapoor [facility], [place], [facility] ([facility]) Address [address] [place] [address] Care Team Providers Care Air Operations Manager Name Role Phone TED FLANAGAN Primary Care Provider Unavailabl e Assessment No assessment recorded. Plan of Treatment Reminders Order Date Submit Date Provider Last Modified By Organization Details Last Modified Time Details Appointments None recorded. Lab None recorded. Referral None recorded. Procedures None recorded. Surgeries None recorded. Imaging None recorded. Medication Orders doxycycline hyclate 100 mg capsule 2024 025 [facility], [address], [place], [address], 16:38:04 prednisone 20 mg tablet 2024 025 [facility], [address], [place], [address], 16:41:20 benzonatate 200 mg capsule 2024 025 [facility], [address], [place], [address], 10:38:56 Patient TargetsNo targets recorded. Patient InstructionsNo instructions recorded. Reason for Referral None Reported. Results Created Date Observation Date Name Description Value Unit Range Abnormal Flag Note LastModifiedBy Organization Detail LastModifiedTime 09/08/20 25 09/08/2025 CBC WBC 7.1 x10 4.5-10 .5 Not Available [facility] [address] [facility] [address], [place], [address], 09/08/2025 10:35:11 09/08/20 25 09/08/2025 CBC RBC 4.10 x10 4.30-5 .90 low Not Available [facility] [address] [facility] [address], [place], [address], 09/08/2025 10:35:11 09/08/20 25 09/08/2025 CBC HGB 12.2 g/dL 13.5-1 8.0 low Not Available [facility] [address] [facility] [address], [place], [address], 09/08/2025 10:35:11 09/08/20 25 09/08/2025 CBC HCT 37.6 % 35.0-6 0.0 Not Available [facility] [address] [facility] [address], [place], [address], 09/08/2025 10:35:11 09/08/20 25 09/08/2025 CBC MCV 91.7 fL 80.0-9 9.9 Not Available [facility] [address] [facility] [address], [place], [address], 09/08/2025 10:35:11 09/08/20 25 09/08/2025 CBC MCH 29.7 pg 27.0-3 2.0 Not Available [facility] [address] [facility], [place], [address], 09/08/2025 10:35:11 09/08/20 25 09/08/2025 CBC MCHC 32.4 g/dL 32.0-3 6.0 Not Available [facility] [address] [facility], [place], [address], 09/08/2025 10:35:11 09/08/20 25 09/08/2025 CBC RDW 13.8 % 11.5-1 4.5 Not Available [facility] [address] [facility], [place], [address], 09/08/2025 10:35:11 09/08/20 25 09/08/2025 CBC plt 289.1 x10 150.0- 451.0 Not Available [facility] [address] [facility] [address], [place], [address], 09/08/2025 10:35:11 09/08/20 25 09/08/2025 CBC lymphocytes % 25.4 % 20.0-5 0.0 Not Available [facility] [address] [facility] [address], [place], [address], 09/08/2025 10:35:11 09/08/20 25 09/08/2025 CBC granulcytes % 61.7 % 30.0-7 0.0 Not Available [facility] [address] [facility], [place], [address], 09/08/2025 10:35:11 09/08/20 25 09/08/2025 CBC monocytes % 9.4 % 2.0-16 .0 Not Available [facility] [address] [facility], [place], [address], 09/08/2025 10:35:11 09/08/20 25 09/08/2025 CBC granulcytes# 4.4 x10 Not Elvia ilable [facility] [address] [facility] [address], [place], [address], 09/08/2025 10:35:11 09/08/20 25 09/08/2025 CBC lymphocytes # 1.8 x10 Not Available [facility] [address] [facility] 1, [place], [address], 09/08/2025 10:35:11 09/08/20 25 09/08/2025 CBC monocytes # 0.7 x10 Not Avai lable [facility] [address] [facility], [place], [address], 09/08/2025 10:35:11 09/08/20 25 09/08/2025 CMP (MALE ) glucose 107.0 mg/dL 60.0-9 9.0 high Not Available [facility] [address] [facility], [place], [address], 09/08/2025 11:28:07 09/08/20 25 09/08/2025 CMP (MALE ) BUN (blood urea nitrogen) 33.0 mg/dL 10.0-2 6.0 high Not Available [facility] [address] [facility], [place], [address], 09/08/2025 11:28:07 09/08/20 25 09/08/2025 CMP (MALE ) creatinine (serum) 1.9 mg/dL 0.4-1. 5 high Not Available [facility] [address] [facility], [place], [address], 09/08/2025 11:28:07 09/08/20 25 09/08/2025 CMP (MALE ) BUN/creatini ne ratio 17.37 ratio Not Available [facility] [address] [facility], [place], [address], 09/08/2025 11:28:07 09/08/20 25 09/08/2025 CMP (MALE ) eGFR calculated 39.3 Not Available [facility] [address] [facility], [place], [address], 09/08/2025 11:28:07 09/08/20 25 09/08/2025 CMP (MALE ) total protein 6.5 g/dL 6.0-8. 5 Not Available [facility] [address] [facility] [address], [place], [address], 09/08/2025 11:28:07 09/08/20 25 09/08/2025 CMP (MALE ) total bilirubin 1.0 mg/dL 0.2-1. 3 Not Available [facility] [address] [facility] [address], [place], [address], 09/08/2025 11:28:07 09/08/20 25 09/08/2025 CMP (MALE ) albumin 3.3 g/dL 3.5-5. 5 low Not Available [facility] [address] [facility] [address], [place], [address], 09/08/2025 11:28:07 09/08/20 25 09/08/2025 CMP (MALE ) globulin 3.2 calc Not Available [facility] [address] [facility] [address], [place], [address], 09/08/2025 11:28:07 09/08/20 25 09/08/2025 CMP (MALE ) AST (SGOT) 27.0 U/L 0.0-46 .0 Not Available [facility] [address] [facility] [address], [place], [address], 09/08/2025 11:28:07 09/08/20 25 09/08/2025 CMP (MALE ) altv (SGPT) 19.0 U/L 13.0-6 9.0 normal Not Available [facility] [address] [facility] [address], [place], [address], 09/08/2025 11:28:07 09/08/20 25 09/08/2025 CMP (MALE ) A/G ratio 1.0 ratio Not Available [facility] [address] [facility] [address], [place], [address], 09/08/2025 11:28:07 09/08/20 25 09/08/2025 CMP (MALE ) ALP phos 50.0 U/L 30.0-1 40.0 normal Not Available [facility] [address] [facility] [address], [place], [address], 09/08/2025 11:28:07 09/08/20 25 09/08/2025 CMP (MALE ) calcium 9.1 mg/dL 8.4-10 .5 Not Available [facility] [address] [facility] [address], [place], [address], 09/08/2025 11:28:07 09/08/20 25 09/08/2025 CMP (MALE ) sodium 140.0 mmol/ L 136.0- 145.0 Not Available [facility] [address] [facility] 1, [place], [address], 09/08/2025 11:28:07 09/08/20 25 09/08/2025 CMP (MALE ) potassium 4.3 mmol/ L 3.5-5. 1 Not Available [facility] [address] [facility] 1, [place], [address], 09/08/2025 11:28:07 09/08/20 25 09/08/2025 CMP (MALE ) chloride 109.0 mmol/ L 98.0-1 10.0 normal Not Available [facility] [address] [facility] [address], [place], [address], 09/08/2025 11:28:07 09/08/20 25 09/08/2025 CMP (MALE ) C02 29.0 mmol/ L 22.0-3 1.0 Not Available [facility] [address] [facility] [address], [place], [address], 09/08/2025 11:28:07 09/08/20 25 09/08/2025 CMP (MALE ) anion gap 2.0 calc Not Available [facility] [address] [facility], [place], [address], 09/08/2025 11:28:07 09/08/2009/08/2025 CMP (MALE ) osmolality 296.4 calc Not Available [facility] [address] [facility] 1, [place], [address], 09/08/2025 11:28:07 09/08/2009/08/2025 respi rator y patho gens DNA and RNA panel , PCR, nasop haryn x Covid negati ve Not Available [facility] ([facility]) [address] [place] [address], [phone], 09/08/2025 09:59:51 09/08/20 25 09/08/2025 respi rator y patho gens DNA and RNA panel , PCR, nasop haryn x Rhinovirus negati ve Not Available [facility] ([facility]) [address] [place] [address], [phone], 09/08/2025 09:59:51 09/08/20 25 09/08/2025 respi rator y patho gens DNA and RNA panel , PCR, nasop haryn x Influenza A negati ve Not Available [facility] ([facility]) [address] [place] [address], [phone], 09/08/2025 09:59:51 09/08/2009/08/2025 respi rator y patho gens DNA and RNA panel , PCR, nasop haryn x Influenza B negati ve Not Available [facility] ([facility]) [address] [place] [address], [phone], 09/08/2025 09:59:51 09/08/20 25 09/08/2025 respi rator y patho gens DNA and RNA panel , PCR, nasop haryn x RSV negati ve Not Available [facility] ([facility]) [address] [place], [address], 09/08/2025 09:59:51 09/05/20 25 09/05/2025 XR, chest , 2 view No observ ation record ed. [facility] ([facility]) [address] [place], [address], 09/06/2025 11:24:49 09/09/20 25 09/05/2025 XR, chest , 2 view No observ ation record ed. [facility] ([facility]) [address] [place], [address], 09/09/2025 12:09:17 Result Notes None recorded. Problems Name Problem SNOMED Code Status Onset Date Resolution Date Notes Provider Name and Address Organization Details Recorded Time History of surgery 375777032 Active 2019 Eye surgery; Correct vision; 09/30/20 20 10:49AM by Bhumika Sharma, Office Visit; Promoted ; acuity set as *; [facility] 3 14:22:00 Disorder due to type 2 diabetes mellitus 538222917 Completed 201906/07/2023 DM II; 09/30/20 20 10:49AM by Bhumika Sharma, Office Visit; Promoted ; acuity set as *; [facility] heart [facility] 3 14:22:07 Type 2 diabetes mellitus 52153880 Active 2022 H[facility] heart [facility] 3 15:31:13 Migraine 76177212 Active 2022 [facility]DEN heart [facility] 3 15:31:22 Opioid dependen ce 02996439 Active 2022 HAYDEN heart [facility] 3 17:31:26 Pulmonar y embolism 53213156 Active 2022 HAYDEN heart, [facility] 3 17:32:01 Insomnia 052735408 Active 2022 HAYDEN heart, [facility] 3 17:32:13 Chronic neck pain 61637435484 07 Active 2022 Ted Flanagan MD [address] [place] [address], [address], [facility] 3 14:10:48 Fatigue 61960830 Active 2022 HAYDEN heart, [facility] 3 15:31:26 Cervical radiculo stephanie 24736910 Active 2022 HAYDEN heart [facility] 3 14:22:37 Cardiome fide due to hyperten zack 716002653 Active 2024 Julio heart [facility] 5 13:25:55 [facility] hyperten zack 21174112 Active 2024 Julio heart [facility] 5 13:25:59 Near syncope 621921705 Active 2024 Julio heart [facility] 5 13:26:14 Chronic kidney disease stage 3A 314705662 Active 2024 Ted Flanagan MD [address] [place] [address], [address], [facility] 5 09:57:18 Posterio r rhinorrh ea 71375759 Active 2024 Ted Flanagan MD [address] [place] [address], [address], [facility] 09:57:39 Anemia 830633700 Active 2024 Ted Flanagan MD [address] [place] [address], [address], [facility] 09:58:10 Acute pharyngi tis 865656081 Active 2024 Ted Flanagan MD [address] [place] [address], [address], [facility], [place] 09:59:40 Melena 7994004 Active 2024 Ted Flanagan MD [address] [place] [address], [address], [facility] [place] 10:05:20 Obstruct sherita sleep apnea syndrome 12914839 Active 2024 Ted Flanagan MD [address] [place] [address], [address], [facility] 10:57:21 Problem Notes None recorded. Procedures Surgical History Date Name Laterality Status Provider Name and Address Organization Details Recorded Time 03/25/20 25 echocardiography completed SAULO BOWMAN [facility] [place] 10/08/2025 15:00:58 10/30/19 21 exploratory laparotomy completed Julio Quiros [facility] [place] 01/27/2025 09:56:05 10/30/19 18 procedure on neck [facility]/27[facility]2025 09:55:44 10/30/19 08 cholecystectomy completed Julio Quiros [facility] [place] 01/28/2025 13:26:51 Imaging Results None recorded. Procedure Notes None recorded. Medical Equipment None Reported. Allergies No known drug allergies Medications Name Sig Start Date Stop Date Status Note LastModified by Organization Details LastModified Time cyclobenz aprine 10 mg tablet TAKE 1 TABLET BY MOUTH THREE TIMES DAILY 01/27 completed Not Available Not Available Not Available amoxicill in 500 mg capsule TAKE 1 CAPSULE BY MOUTH THREE TIMES DAILY TIL GONE 01/27 completed Not Available Not Available Not Available atorvasta tin 40 mg tablet TAKE ONE TABLET BY MOUTH at bedtime 01/27 completed Not Available Not Available Not Available doxycycli ne hyclate 100 mg capsule TAKE 1 CAPSULE BY MOUTH TWICE DAILY FOR 10 DAYS 10/14 completed Not Available Not Available Not Available benzonata te 200 mg capsule TAKE 1 CAPSULE BY MOUTH THREE TIMES DAILY NEEDED active Not Available Not Available No t Available metoprolo l succinate ER 50 mg tablet,ex tended release 24 hr Take 1 tablet every day by oral route. 2024 active Not Available Not Available Not Avai lable valacyclo vir 1 gram tablet TAKE 1 TABLET BY MOUTH EVERY 8 HOURS 03/16 completed Not Available Not Available Not Available prednison e 20 mg tablet TAKE 2 TABLETS BY MOUTH ONCE DAILY FOR 5 DAYS 10/14 completed Not Available Not Available Not Available aspirin 81 mg tablet,de layed release TAKE ONE TABLET BY MOUTH DAILY 01/27 completed Not Available Not Available Not Available meloxicam 7.5 mg tablet TAKE 1 TABLET BY MOUTH EVERY DAY NEEDED 01/27 completed Not Available Not Available Not Available alprazola m 0.25 mg tablet Take 1 tablet twice a day by oral route. 03/20 completed Not Available Not Available Not Available trazodone 100 mg tablet Take 1 tablet every day by oral route at bedtime. 03/16 completed Not Available Not Available Not Available hydrocodo ne 7.5 mg-acetam inophen 325 mg tablet 03/16 completed Not Available Not Available Not Available pantopraz ole 40 mg tablet,de layed release Take 1 tablet every day by oral route for 30 days. 09/08 completed Not Available Not Available Not Available losartan 25 mg tablet TAKE ONE TABLET BY MOUTH DAILY 01/27 completed Not Available Not Available Not Available metoprolo l succinate ER 25 mg tablet,ex tended release 24 hr TAKE 1 TABLET BY MOUTH EVERY DAY active Not Available Not Available No t Available zolpidem 10 mg tablet Take 1 tablet every day by oral route at bedtime. 03/20 completed Not Available Not Available Not Available albuterol sulfate HFA 90 mcg/actua tion aerosol inhaler Inhale 2 puffs every 4 hours by inhalati on route as needed for 7 days. 09/28 completed Not Available Not Available Not Available naproxen 500 mg tablet TAKE 1 TABLET BY MOUTH TWICE DAILY NEEDED 03/16 completed Not Available Not Available Not Available amoxicill in 875 mg-potass ium clavulana te 125 mg tablet TAKE 1 TABLET BY MOUTH TWICE DAILY 10/05 completed Not Available Not Available Not Available oxycodone 5 mg tablet TAKE 1 TABLET BY MOUTH EVERY 4 HOURS NEEDED 04/09 completed Not Available Not Available Not Available insulin lispro (U-100) 100 unit/mL subcutane ous pen INJECT 30 UNITS SUBCUTAN EOUSLY THREE TIMES DAILY; Follow doctors recomend ations 10/14 completed Not Available Not Available Not Available lactulose 10 gram/15 mL oral solution two times daily 01/27 completed Recorded 09/30/20 20 11:53AM by Jamie Rebollar MD, Office Visit; Refill Quantity : 1800; Millilit er; Not Available Not Available Not Available insulin lispro 4 units in the evening 09/05 completed Not Available Not Available Not Available Augmentin 10/08 completed Not Available Not Available Not Available alprazola m two times daily, as needed 06/02 completed Recorded 02/13/20 21 12:56PM by Jamie Rebollar MD, Refill Request; Refill Quantity : 40; Tablet; Not Available Not Available Not Available prednison e 10/08 completed Not Available Not Available Not Available Trazodone at bedtime 01/27 completed Recorded 08/19/20 20 8:27AM by Bhumika Sharma, Office Visit; Refill Quantity : 30; Tablet; Not Available Not Available Not Available Pen Needle as directed with prefille d insulin pens 09/08 completed RM/CC; 9; Recorded 08/31/20 20 3:55PM by Justina Arroyo LPN (Authori gilma through Jamie Rebollar MD), Annotsarah on/Adden dum; Refill Quantity : 100; QS; Not Available Not Available Not Available quetiapin e 50 mg tablet Take 1 tablet every day by oral route at bedtime for 90 days. 09/08 completed Not Available Not Available Not Available FeroSul 325 mg (65 mg iron) tablet TAKE 1 TABLET BY MOUTH every other DAY 10/14 completed Not Available Not Available Not Available Lantus Solostar U-100 Insulin 100 unit/mL (3 mL) subcutane ous pen Inject 45 units every day by subcutan eous route. 2024 active 22 units daily 10/14/20 25,tresi ba generic not availabl e- tresiba brand not covered by [employer] Not Available Not Available Not Available OneTouch Verio test strips three times daily 09/14 completed RM/CC; 9; Recorded 01/28/20 21 10:26AM by Justina Arroyo LPN (Authori gilma through Jamie Rebollar MD), Ricardo on/Adden dum; Refill Quantity : 100; Strip; Not Available Not Available Not Available lactulose 10 gram/15 mL (15 mL) oral solution Take 30 mL twice a day by oral route. 03/16 completed Not Available Not Available Not Available Eliquis 5 mg tablet TAKE 1 TABLET BY MOUTH TWICE DAILY active Not Available Not Available No t Available Eliquis two times daily 06/02 completed RM/CC; 9; Recorded 12/31/19 21 8:24AM by Justina Arroyo LPN (Authori gilma through Jamie Rebollar MD), Ricardo on/Adden dum; Refill Quantity : 60; Tablet; Not Available Not Available Not Available Jardiance 10 mg tablet TAKE 1 TABLET BY MOUTH EVERY DAY active Not Available Not Available No t Available Tresiba FlexTouch U-100 insulin 100 unit/mL (3 mL) subcutane ous pen INJECT 45 UNITS SUBCUTAN EOUSLY DAILY 04/09 completed Not Available Not Available Not Available Basaglar KwikPen U-100 Insulin daily 10/08 completed Please supply pen needles and alcohol swabs.; Recorded 08/19/20 20 8:27AM by Bhumika Sharma, Office Visit; Refill Quantity : 5; Pre-fill ed Pen Syringe; Not Available Not Available Not Available Dexcom G7 Fire Control Technician B USE DIRECTED TO CHECK BLOOD GLUCOSE active Not Available Not Available No t Available Dexcom G7 Sensor device CHANGE SENSOR EVERY 10 DAYS active Not Available Not Available No t Available Vitals Date Recorded Body height Body mass index (BMI) Body weight Oxygen saturation Heart rate Body temperature Systolic And Diastolic Provider Name and Address Organization Details Last Updated DateTime 5 180.34 cm 26.8 kg/m2 78442.7 4 g 98 % 88 /min 98.1 [degF] 142/80 mm[Hg] Saulo Bruner [facility] 5 10:03:01 Social History Question Answer Notes LastModified by Path.To Details LastModified Time Tobacco Smoking Status Never Smoker Julio heart [facility] 01/27/2025 09:52:03 What Is Your Level Of Caffeine Consumption? Heavy Information not available 09/08/2025 Do You Or Have You Ever Used Marijuana? Never Used [email or web address] Information not available 09/08/2025 What Was The Date Of Your Most Recent Tobacco Screening? 10/05/2025 [email or web address] Information not available 10/05/2025 Sex: Unknown Functional Status Question Answer Note LastModified by Path.To Details LastModified Time Do you use any illicit or recreational drugs? No [email or web address] Information not available 01/27/2025 What is your level of alcohol consumption? None [email or web address] Information not available 01/27/2025 Mental Status None recorded. Family History Relationship Description Onset Age of this Age Resolved Age Notes LastModified by Organization Details LastModified Time Father Diabetes mellitus Not available 2024 09:57:07 Father Heart disease [email or web address] Not available 2024 09:57:15 Medical History No medical history recorded. Immunizations Vaccine Type Date Status Note Provider Nam e and Address Organization Details Recorded Time Tdap 5 completed Wendy heart, [facility] 04/09/2025 11:21:21 COVID-19, mRNA, LNP-S, PF, 30 mcg/0.3 mL dose 1 completed HAYDEN heart, [facility] 06/08/2023 09:28:48 COVID-19, mRNA, LNP-S, PF, 30 mcg/0.3 mL dose 1 completed HAYDEN CHICASG una [facility] 06/08/2023 09:28:48 Influenza, split virus, trivalent, PF 5 completed Not Available [facility] 10/14/2025 15:24:50 zoster recombinant 5 completed Not Available [facility] 10/14/2025 15:24:50 Tdap 3 completed Golden Paulino MD [address] [place] [address], [phone], [facility] 03/18/2023 17:05:01 Past Encounters Encounter ID Performer Location Encounter Start Date Encounter Closed Date Diagnosis/Indication Diagnosis SNOMED-CT Code Diagnosis ICD10 Code Diagnosis IMO Codes Diagnosis Note [id number] SUPRIYA FLETCHER [facility] ([facility]) [address] [place] [phone] 09/05/2025 08:36:02 09/05/2025 13:51:08 Hemoglobin below reference range 026550795 D64.9 [id number] Will request lab results. Discussed needing GI workup due to issues. Follow up with Dr Flanagan on Monday. Dyspnea 409451459 R06.02 [id number] Will send to radiology. Follow up on Monday with Dr Flanagan. If patient has shortness of breath over the weekend, go to ER for further evaluation and treatment. [id number] Ted Flanagan MD [facility] ([facility]) [address] [place] [phone] 09/08/2025 09:26:48 09/08/2025 10:11:48 Chronic kidney disease stage 3A 102810637 N18.31 61613238 - Recheck renal function. - Monitor blood pressure. - Avoid nephrotoxi c agents. Posterior rhinorrhea 758 13521 R09.82 876727 - Evaluate for allergies; consider antihistam ine. Anemia 760042769 D64.9 [id number] - Obtain repeat CBC. - Continue iron supplement ation. Acute pharyngitis 790359 003 J02.9 [id number] Melena 4443309 K92.1 7672 - Consider gastroente rological investigat ion. - Stool occult blood testing. Obstructiv e sleep apnea syndrome 65072013 G47.33 - Discuss Inspire device with Dr. Ramirez- Follow sleep specialist linsey montilla. [id number] DIEGO RUBY APRN [facility] ([facility]) [address] [place] [id number] 09/14/2025 17:31:08 09/15/2025 16:59:15 Wheezing 72371752 R06.2 19881 Post-infec tious disorder 731487418 G93.31 [id number] SUPRIYA FLETCHER [facility] ([facility]) [address] [place] [id number] 10/05/2025 09:56:58 10/06/2025 11:51:11 Acute bronchitis 36600747 J20.9 65565006 Increase po fluids. Rest. Return to clinic with any new or worsening symptoms. Health Concerns Section Related Observation LastModified by Organization Detai ls LastModified Time None Recorded Concern Status LastModified by Organization Details LastModified Time None Recorded Payers Encounter Date Sequence Insurance Name Policy Number Policy Dhaliwal Covered Member ID Dhaliwal Member ID Guarantor Name 10/05/2025 1 [id number] - [facility] - [employer] ([employer]) [id number] Rhonda Perez [id number] Phi Perez Notes Date Note Type Note Provider Name and Address Organization Details Recorded Time 10/05/2025 text/html ROS as noted in the HPI Walk inAugmentin prescribed on 09/21 & prednisone have not helped his symptoms x2-3 weeks. Patient complains of continued SOB, and coughing. Patient states that the prednisone helped more than anything. Has been having a productive cough with brown sputum. Was given albuterol inhaler at time of last visit. ALLAN BECK MILL CRANE OPERATOR [address] [place] [address], [phone], [facility], [place] 10/05/2025 14:45:24
--- OUTSIDE RECORDS SUMMARY | 2025-10-16 06:17 | XMS_ITS | Encounter Summary ---
Author Organization [facility] Address [address] [place] [address] Care Team Providers Care Leaf Conditioner Helper Name Role Phone Edwin Ugalde MD Primary Care Provider Atilio smith Encounter Details Date Type Department Care Team (Late st Contact Info) Description 09/27/[address] 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
--- OUTSIDE RECORDS SUMMARY | 2025-10-16 06:17 | XMS_ITS | Continuity of Care Document ---
Author Organization [facility] [place], [place], [facility] ([facility]) Address [address] [place] [address] Care Team Providers Care Assistant Fitness Manager Name Role Phone TED FLANAGAN Primary Care Provider Unavailabl e Assessment No assessment recorded. Plan of Treatment Reminders Order Date Submit Date Provider Last Modified By Organization Details Last Modified Time Details Appointments None recorded. Lab None recorded. Referral None recorded. Procedures None recorded. Surgeries None recorded. Imaging XR, chest, 2 view [address] ([facility]), [address] [place], [address], 13:51:08 Medication Orders ferrous sulfate 325 mg (65 mg iron) tablet [address], [address], 16:21:23 pantoprazol e 40 mg tablet,nahomy yed release [address] [facility], [address] [place] [address], [address], 10:53:13 Patient TargetsNo targets recorded. Patient InstructionsNo instructions recorded. Reason for Referral None Reported. Results Created Date Observation Date Name Description Value Unit Range Abnormal Flag Note LastModifiedBy Organization Detail LastModifiedTime 09/05/20 25 09/05/2025 XR, chest , 2 view No observ ation record ed. [facility] ([facility]) [address] [place], [address], 09/06/2025 11:24:49 09/09/20 25 09/05/2025 XR, chest , 2 view No observ ation record ed. [facility] ([facility]) [address] [place], [address], 09/09/2025 12:09:17 Result Notes None recorded. Problems Name Problem SNOMED Code Status Onset Date Resolution Date Notes Provider Name and Address Organization Details Recorded Time History of surgery 301076532 Active 2019 Eye surgery; Correct vision; 09/30/20 10:49AM by Bhumika Sharma, Office Visit; Promoted ; acuity set as *; HAYDEN heart [facility] 3 14:22:00 Disorder due to type 2 diabetes mellitus 170384610 Completed 201906/07/2023 DM II; 09/30/20 20 10:49AM by Bhumika Sharma, Office Visit; Promoted ; acuity set as *; [facility]DEN heart [facility] 3 14:22:07 Type 2 diabetes mellitus 19583443 Active 2022 [facility] 3 15:31:13 Migraine 05451320 Active 2022 HAYDEN heart [facility] 3 15:31:22 Opioid dependen ce 38943871 Active 2022 [facility]DEN heart [facility] 3 17:31:26 Pulmonar y embolism 59946378 Active 2022 [facility]AYDEN heart [facility] 3 17:32:01 Insomnia 453663981 Active 2022 [facility]DEN heart, [facility] 3 17:32:13 Chronic neck pain 49447134150 07 Active 2022 Ted Flanagan MD [address] [place] [address], [phone], [facility] 3 14:10:48 Fatigue 42120159 Active 2022 [facility], [facility] 3 15:31:26 Cervical radiculo stephanie 93108468 Active 2022 [facility], [facility] 3 14:22:37 Cardiome fide due to hyperten zack 383886690 Active 2024 Julio heart [facility] 5 13:25:55 [facility] hyperten zack 22945647 Active 2024 Julio heart [facility] 5 13:25:59 Near syncope 173289942 Active 2024 Julio heart [facility] 5 13:26:14 Chronic kidney disease stage 3A 106767586 Active 2024 Ted Flanagan MD [address] [place] [address], [phone], [facility] 5 09:57:18 Posterio r rhinorrh ea 62646194 Active 2024 Ted Flanagan MD [address] [place] [address], [phone], [facility] 5 09:57:39 Anemia 669598086 Active 2024 Ted Flanagan MD [address] [place] [address], [phone], [facility], [place] 09:58:10 Acute pharyngi tis 161009785 Active 2024 Ted Flanagan MD [address] [place] [address], [phone], [facility], [place] 09:59:40 Melena 9208623 Active 2024 Ted Flanagan MD [address] [place] [address], [phone], [facility], [place] 10:05:20 Obstruct sherita sleep apnea syndrome 37674773 Active 2024 Ted Flanagan MD [address] [place] [address], [phone], [facility] 10:57:21 Problem Notes None recorded. Procedures Surgical History Date Name Laterality Status Provider Name and Address Organization Details Recorded Time 03/25/20 25 echocardiography completed [facility] 10/08/2025 15:00:58 10/30/19 21 [facility] 09:56:05 10/30/19 18 [facility]25 09:55:44 10/30/19 08 [facility]/28[facility]2025 13:26:51 Imaging Results None recorded. Procedure [...] two times daily 01/27 completed Recorded 09/30/20 11:53AM by Jamie Rebollar MD, Office Visit; [...] pens 09/08 completed RM/CC; 9; Recorded 08/31/20 3:55PM by Justina Arroyo LPN (Authori gilma through Jamie Rebollar MD), Annotati on/Adden dum; Refill Quantity : 100; QS; [...] availabl e- tresiba brand not covered by [employer] e Not Available Not Available Not Available OneTouch Verio test strips three times daily 09/14 completed RM/CC; 9; Recorded 01/28/20 21 10:26AM by Justina Arroyo LPN (Authori gilma through Jamie Rebollar MD), Annotati on/Adden dum; Refill Quantity : 100; Strip; [...] daily 06/02 completed RM/CC; 9; Recorded 12/31/19 8:24AM by Justina Arroyo LPN (Authori gilma through Jamie Rebollar MD), Annotati on/Adden dum; Refill Quantity : 60; Tablet; [...] pen needles and alcohol swabs.; Recorded 08/19/20 8:27AM by Bhumika Sharma, Office Visit; Refill Quantity : 5; Pre-fill ed Pen Syringe; Not Available Not Available Not Available Dexcom G7 Hogshead Wrecker USE DIRECTED TO CHECK BLOOD GLUCOSE active Not Available Not Available No t Available Dexcom G7 Sensor device CHANGE SENSOR EVERY 10 DAYS active Not Available Not Available No t Available Vitals Date Recorded Body height Body mass index (BMI) Body weight Oxygen saturation Heart rate Respiratory rate Body temperature Systolic And Diastolic Provider Name and Address Organization Details Last Updated DateTime 5 180.34 cm 26.9 kg/m2 44924.3 3 g 96 % 80 /min 16 /min 98.2 [degF] 130/70 mm[Hg] Lauryn Wilson [facility] 5 08:44:05 Social History Question Answer Notes LastModified by [employer] Details LastModified Time Tobacco Smoking Status Never [facility]oker [facility] 01/27/2025 09:52:03 What Is Your Level Of Caffeine Consumption? Heavy [email or web address] Information not available 09/08/2025 Do You Or Have You Ever Used Marijuana? Never Used [email or web address] Information not available 09/08/2025 What Was The Date Of Your Most Recent Tobacco Screening? 10/05/2025 [email or web address] Information not available 10/05/2025 Sex: Unknown Functional Status Question Answer Note LastModified by [employer] Details LastModified Time Do you use any illicit or recreational drugs? No [email or web address] Information not available 01/27/2025 What is your level of alcohol consumption? None [email or web address] Information not available 01/27/2025 Mental Status None recorded. Family History Relationship Description Onset Age of this Age Resolved Age Notes LastModified by Organization Details LastModified Time Father Diabetes mellitus [email or web address] Not available 2024 09:57:07 Father Heart disease [email or web address] Not available 2024 09:57:15 Medical History No medical history recorded. Immunizations Vaccine Type Date Status Note Provider Nam e and Address Organization Details Recorded Time Tdap 5 completed Wendy heart [facility] 04/09/2025 11:21:21 COVID-19, mRNA, LNP-S, PF, 30 mcg/0.3 mL dose 1 completed HAYDEN heart [facility] 06/08/2023 09:28:48 COVID-19, mRNA, LNP-S, PF, 30 mcg/0.3 mL dose 1 completed HAYDEN heart [facility] 06/08/2023 09:28:48 Influenza, split virus, trivalent, PF 5 completed Not Available [facility] 10/14/2025 15:24:50 zoster recombinant 5 completed Not Available [facility] 10/14/2025 15:24:50 Tdap 3 completed Golden Paulino MD [address] [place] [address], [phone], [facility] 03/18/2023 17:05:01 Past Encounters Encounter ID Performer Location Encounter Start Date Encounter Closed Date Diagnosis/Indication Diagnosis SNOMED-CT Code Diagnosis ICD10 Code Diagnosis IMO Codes Diagnosis Note [id number] SUPRIYA FLETCHER [facility] ([facility]) [address] [place] [phone] 09/05/2025 08:36:02 09/05/2025 13:51:08 Hemoglobin below reference range 717715691 D64.9 [id number] Will request lab results. Discussed needing GI workup due to issues. Follow up with Dr Flanagan on Monday. Dyspnea 136548748 R06.02 [id number] Will send to radiology. Follow up on Monday with Dr Flanagan. If patient has shortness of breath over the weekend, go to ER for further evaluation and treatment. Health Concerns Section Related Observation LastModified by Organization Detai ls LastModified Time None Recorded Concern Status LastModified by Organization Details LastModified Time None Recorded Payers Encounter Date Sequence Insurance Name Policy Number Policy Dhaliwal Covered Member ID Dhaliwal Member ID Guarantor Name 09/05/[address] [employer] [id number] Rhonda Perez [id number] Phi Perez Notes Date Note Type Note Provider Name and Address Organization Details Recorded Time 09/05/2025 text/html ROS as noted in the HPI walk in patientpatient is here today for lab work follow up, patient got a phone call from that his hemoglobin was 10 and he needed to see his PCP who is out of the office today. Patient complains of dark stools, as well as some shortness of breath (like he needs to take a deep breath and remember to breathe). Hx of Eliquis use due to PE. ALLAN BECK, SUPRIYA [address] [place] [address], [phone], [facility] 09/05/2025 13:41:46
--- OUTSIDE RECORDS SUMMARY | 2025-10-16 06:17 | XMS_ITS | Clinical Summary ---
Author Organization [facility] [place] Address [address] [place] [address] Phone Care Team Providers Care Erector Operator Name Role Phone Edwin Ugalde MD Primary Care Provider Unavai lable Allergies No known active allergies Medications ALPRAZolam (XANAX) 0.25 mg tablet TK 1 T PO BID PRN USE ONLY WHEN ABSOLUTELY NECESSARY FOR ANXIETY 0 Active oxyCODONE-aceta minophen (PERCOCET) 10-325 mg Tablet 0 Active Eliquis 5 mg tablet Take 5 mg by mouth 2 times daily. 0 Active Basaglar KwikPen U-100 Insulin 100 unit/mL (3 mL) pen syringe INJECT 40 UNITS BEFORE BREAKFAST AND 5 UNITS AT AT BEDTIME DIRECTED 0 Active insulin lispro (HumaLOG) 100 unit/mL pen syringe INJECT 8 UNITS BEFORE MEALS OR DIRECTED 0 Active pregabalin (LYRICA) 50 mg Capsule TAKE 1 CAPSULE BY MOUTH TWICE DAILY FOR NERVE PAIN 0 Active metoprolol tartrate (LOPRESSOR) 25 mg tablet Take 25 mg by mouth 2 times daily. Active morphine 15 mg tablet,oral only,extnd release Take 15 mg by mouth. 1 tablet twice daily Active dicyclomine (BENTYL) 10 mg capsule Take 1 Capsule (10 mg) by mouth 4 times daily. 120 Capsule 1 1 Active Active Problems No known active problems Family History Medical History Relation Name Comments Hypertension Father Hypertension Mother Colon Cancer Neg Hx Relation Name Status Comments Father Alive Mother Alive Social History Tobacco Use Types Packs/Day Years Used Date Smoking Tobacco: Never Smokeless Tobacco: Never Alcohol Use Standard Drinks/Week Comments Not Currently 0 (1 standard drink = 0.6 oz pur e alcohol) Sex and Gender Information Value Date Recorded Sex Assigned at Not on file Legal Sex Male 5:14 AM MOSS PICKER Gender Identity Not on file Sexual Orientation Not on file Last Filed Vital Signs Vital Sign Reading Time Taken Comments Blood Pressure 114/78 01/20/2021 7:29 AM CDT Pulse 90 01/20/2021 7:29 AM CDT Temperature - - Respiratory Rate 18 11/11/2020 1:19 PM MOSS PICKER Oxygen Saturation 97% 11/11/2020 1:19 PM MOSS PICKER Inhaled Oxygen Concentration - - Weight 75.1 kg (165 lb 9.6 oz) 01/20/2021 7:29 A M CDT Height 180.3 cm (5' 11 ) 01/20/2021 7:29 AM CDT Body Mass Index 23.1 01/20/2021 7:29 AM CDT Plan of Treatment Health Maintenance Due Date Last Done Comments DTAP/TDAP/TD VACCINES (1 - Tdap) 1989 HEPATITIS B VACCINES (1 of 3 - 19+ 3-dose series) 1989 FIT-DNA Q 3 years 2015 FIT/FOBT Q 1 year 2015 Flex Sig/CT Colonography Q 5 years 2015 ZOSTER VACCINE (1 of 2) 2020 INFLUENZA VACCINE (#1) 2025 COLORECTAL SCREENING 11/11/2030 11/11/2020, 11/11/19 21 Colorectal Cancer Screening 11/11/2030 Procedures Procedure Name Priority Date/Time Associated Diagnosis Comments COLONOSCOPY REPORT 11/11/2020 1: 00 PM MOSS PICKER from Last 3 Months or Most Recently Relevant to Health Maintenance Results * COLONOSCOPY REPORT (11/11/2020 1:00 PM MOSS PICKER) Narrative Procedure Note Ellis Malin MD - 11/11/2020 12:59 PM CST [facility] GI Patient Name: Phi Perez Procedure Date: 11/11/2020 Date of : 1970 Admit Type: Outpatient Age: 50 Attending MD: Ellis Malin , Procedure: Colonoscopy Indications: Change in bowel habits, right sided abd pain and FH of Crohns disease Providers: Ellis Malin Referring MD: Medicines: Monitored Anesthesia Care Complications: No immediate complications. Procedure: Pre-Anesthesia Assessment: - Young Harris Protocol: - Pre-procedure Verification: Prior to the procedure, the patient's identity was verified by full name and date of . The patient's identity was verified on all pertinent medical records, including History and Physical and pre-anesthesia assessment. Also prior to the procedure, a History and Physical was performed, and patient medications, allergies and sensitivities were reviewed. The patient's tolerance of previous anesthesia was reviewed. The risks and benefits of the procedure and the sedation options and risks were discussed with the patient. All questions were answered and informed consent was obtained. - Time-Out: Prior to the start of the procedure, the patient's identification, proposed procedure, accurate signed consent, correctly labeled images and records, and need for prophylactic antibiotics were verified by the physician and the nurse in the endoscopy suite. - Prior to the procedure, a History and Physical was performed, and patient medications, allergies and sensitivities were reviewed. The patient's tolerance of previous anesthesia was reviewed. - The risks and benefits of the procedure and the sedation options and risks were discussed with the patient. All questions were answered and informed consent was obtained. After I obtained informed consent, the scope was passed under direct vision. Throughout the procedure, the patient's blood pressure, pulse, and oxygen saturations were monitored continuously. The Colonoscope was introduced through the anus and advanced to 15 cm into the ileum. The colonoscopy was performed with ease. The patient tolerated the procedure well. The quality of the bowel preparation was adequate. Estimated Blood Loss: Estimated blood loss was minimal. Findings: The perianal and digital rectal examinations were normal. Pertinent negatives include normal sphincter tone, no palpable rectal lesions and no anal lesion or abnormality. Internal hemorrhoids were found during retroflexion. The hemorrhoids were small. A few small-mouthed diverticula were found in the sigmoid colon and in the descending colon. The ascending colon and cecum appeared normal. Biopsies for histology were taken with a cold forceps from the right colon for evaluation of microscopic colitis. The terminal ileum appeared normal. Biopsies were taken with a cold forceps for histology. No inflammation noted, multiple cold biopsies obatined from the right colon and terminal ileum. Impression: - Internal hemorrhoids. - Moderate diverticulosis in the sigmoid colon and in the descending colon. - The ascending colon and cecum are normal. Biopsied. - The examined portion of the ileum was normal. Biopsied. Recommendation: - Patient has a contact number available for emergencies. The signs and symptoms of potential delayed complications were discussed with the patient. Return to normal activities tomorrow. Written discharge instructions were provided to the patient. - Resume previous diet. - Continue present medications. follow up with Dr Garcias as previously planned. Ellis Malin, 11/11/2020 12:59:30 PM Number of Addenda: 0 Note Initiated On: 11/11/2020 12:23 PM Scope Withdrawal Time 0 hours 13 minutes 55 seconds Scope In: 12:28:23 PM Scope Out: 12:50:13 PM [address] [place], [place] Ellis Malin MD GI PROCEDURE ORDERABLES Final Re sult from Last 3 Months or Most Recently Relevant to Health Maintenance Insurance [place] [employer] [facility] OA PLUS Care Teams Erector Operator Relationship Specialty Start Date End Date Edwin Ugalde MD PCP - General Internal Medicine 12/18/20
--- OUTSIDE RECORDS SUMMARY | 2025-10-16 06:17 | XMS_ITS | Clinical Summary ---
Author Organization [facility] Address [address] [facility] Attn: [place] [address] Care Team Providers Care Food And Nutrition Supervisor Name Role Phone Edwin Ugalde MD Primary Care Provider Unavai lable Allergies No known active allergies Medications metoprolol tartrate (LOPRESSOR) 25 mg tablet Take 25 mg by mouth 2 times daily. 1 Active morphine 15 mg tablet,oral only,extnd release Take 15 mg by mouth. 1 tablet twice daily 1 Active insulin glargine (Basaglar KwikPen U-100 Insulin) 100 unit/mL pen syringe INJECT 40 UNITS BEFORE BREAKFAST AND 5 UNITS AT AT BEDTIME DIRECTED 0 Active insulin lispro (HumaLOG) 100 unit/mL pen syringe INJECT 8 UNITS BEFORE MEALS OR DIRECTED 0 Active apixaban (Eliquis) 5 mg tablet Take 5 mg by mouth 2 times daily. 0 Active pregabalin (LYRICA) 50 mg Capsule TAKE 1 CAPSULE BY MOUTH TWICE DAILY FOR NERVE PAIN 0 Active ALPRAZolam (XANAX) 0.25 mg tablet TK 1 T PO BID PRN USE ONLY WHEN ABSOLUTELY NECESSARY FOR ANXIETY 0 Active oxyCODONE-aceta minophen (PERCOCET) 10-325 mg Tablet 0 Active dicyclomine (BENTYL) 10 mg capsule Take 1 Capsule (10 mg) by mouth 4 times daily. 120 Capsule 1 03/24/202 1 Active Family History Medical History Relation Name Comments [...] at Not on file Legal Sex Male 12:38 AM DIET ASSISTANT Gender Identity Not on file Sexual Orientation Not on file Last Filed Vital Signs Vital Sign Reading Time Taken Comments Blood Pressure 114/78 01/20/2021 7:29 AM CDT Pulse 90 01/20/2021 7:29 AM CDT Temperature - - Respiratory Rate 18 11/11/2020 1:19 PM DIET ASSISTANT Oxygen Saturation - - Inhaled Oxygen Concentration - - Weight 75.1 kg (165 lb 9.6 oz) 01/20/2021 7:29 A M CDT Height 180.3 cm (5' 11 ) 01/20/2021 7:29 AM CDT Body Mass Index 23.1 01/20/2021 7:29 AM CDT Plan of Treatment Health Maintenance Due Date Last Done Comments DTAP/TDAP/TD VACCINES (1 - Tdap) 1989 HEPATITIS B VACCINES (1 of 3 - 19+ 3-dose series) 02/1989 FIT-DNA Q 3 years 2015 FIT/FOBT Q 1 year 2015 Flex Sig/CT Colonography Q 5 years 2015 ZOSTER VACCINE (1 of 2) 2020 INFLUENZA VACCINE (#1) 2025 COLORECTAL SCREENING 11/11/2030 11/11/2020 Colorectal Cancer Screening 11/11/2030 Procedures Procedure Name Priority Date/Time Associated Diagnosis Comments COLONOSCOPY REPORT 11/11/2020 12 :59 PM DIET ASSISTANT from Last 3 Months or Most Recently Relevant to Health Maintenance Results * COLONOSCOPY REPORT (11/11/2020 12:59 PM DIET ASSISTANT) Narrative Procedure Note Ellis Malin MD - 11/11/2020 12:59 PM CST Procedures signed by Ellis Malin MD at 11/11/2020 12:59 PM Author: Ellis Malin MD Service: -- Author Type: Physician Filed: 11/11/2020 12:59 PM Date of Service: 11/11/2020 12:59 PM Status:Signed Manager Helpdesk: Ellis Malin MD (Physician) Procedure Orders 1. COLONOSCOPY REPORT [[id number]] ordered by Ellis Malin MD at [facility] Patient Name: Phi Perez Procedure Date: 11/11/2020 Date of : 1970 Admit Type: Outpatient Age: 50 Attending MD: Ellis Malin , Procedure: Colonoscopy Indications: Change in bowel habits, right sided abd pain and FH of Crohns disease Providers: Ellis Malin Referring MD: Medicines: Monitored Anesthesia Care Complications: No immediate complications. Procedure: Pre-Anesthesia Assessment: - [place] Protocol: - Pre-procedure Verification: Prior to the [...] 12:28:23 PM Scope Out: 12:50:13 PM [address] [place] Ellis Malin MD GI PROCEDURE ORDERABLES Edited R esult - Final from Last 3 Months or Most Recently Relevant to Health Maintenance Insurance [employer] H[employer] Care Teams Food And Nutrition Supervisor Relationship Specialty Start Date End Date Edwin Ugalde MD PCP - General Internal Medicine 12/18/20
--- OUTSIDE RECORDS SUMMARY | 2025-10-16 06:17 | XMS_ITS | Continuity of Care Document ---
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 He had recurrent blood clots January or February this year. He had an echo in February. He is concerned he would like to have oxygen at home to help. Discussed with him getting a smart watch or something similar to record his readings. He has been wearing a pulse oximeter at night and has noticed it has been in the low 70s. He will continue to sleep with the head of his bed elevated to help with sats. Not available 10/08/2025 15:26:06 Plan of Treatment Reminders Order Date Submit Date Provider Last Modified By Organization Details Last Modified Time Details Appointments None recorded. Lab None recorded. Referral pulmonologi st referral 2024 025 [email or web address] 2 Hilton Datadeena CALLE, [address] [place], [address], 16:24:07 Procedures None recorded. Surgeries None recorded. Imaging None recorded. Medication Orders None recorded. Patient TargetsNo targets recorded. Patient Instructions Encounter Date Encounter Id Patient Instructions Last Modified By Organization Details Last Modified Time 10/08/2025 [id number] Call or return for questions or concerns. Not available 10/08/2025 15:27:42 Reason for Referral Rn Transition Referral for P ersistent cough Referring Physician: Honey Merlos, Family Medicine, Encounter Date: 10/08/2025 Results Created Date Observation Date Name Description Value Unit Range Abnormal Flag Note LastModifiedBy Organization Detail LastModifiedTime 09/08/2009/08/2025 CBC WBC 7.1 x10 4.5-10 .5 Not Available [facility] [address], [place], [address], 09/08/2025 10:35:11 09/08/2009/08/2025 CBC RBC 4.10 x10 4.30-5 .90 low Not Available [facility] [address], [place], [address], 09/08/2025 10:35:11 09/08/20 25 09/08/2025 CBC HGB 12.2 g/dL 13.5-1 8.0 low Not Available [facility] [address], [place], [address], 09/08/2025 10:35:11 09/08/2009/08/2025 CBC HCT 37.6 % 35.0-6 0.0 Not Available [facility] [address] [place] [address], [place], [address], 09/08/2025 10:35:11 09/08/2009/08/2025 CBC MCV 91.7 fL 80.0-9 9.9 Not Available [facility] [address] [facility] [address], [place], [address], 09/08/2025 10:35:11 09/08/2009/08/2025 CBC MCH 29.7 pg 27.0-3 2.0 Not Available [facility] [address] [facility] [address], [place], [address], 09/08/2025 10:35:11 09/08/20 25 09/08/2025 CBC MCHC 32.4 g/dL 32.0-3 6.0 Not Available [facility] [address] [facility], [place], [address], 09/08/2025 10:35:11 09/08/20 25 09/08/2025 CBC RDW 13.8 % 11.5-1 4.5 Not Available [facility] [address] [facility] [address] [facility] 1, [place], [address], 09/08/2025 10:35:11 09/08/20 25 09/08/2025 CBC plt 289.1 x10 150.0- 451.0 Not Available [facility] [address] [place] [address] [facility] 1, [place], [address], 09/08/2025 10:35:11 09/08/20 25 09/08/2025 CBC lymphocytes % 25.4 % 20.0-5 0.0 Not Available [facility] [address] [place] [address] [facility] 1, [place], [address], 09/08/2025 10:35:11 09/08/20 25 09/08/2025 CBC granulcytes % 61.7 % 30.0-7 0.0 Not Available [facility] [address] [place] [facility], [place], [address], 09/08/2025 10:35:11 09/08/20 25 09/08/2025 CBC monocytes % 9.4 % 2.0-16 .0 Not Available [place] [facility] [address] [place] [address] [facility] 1, [place], [address], 09/08/2025 10:35:11 09/08/20 25 09/08/2025 CBC granulcytes# 4.4 x10 Not Elvia ilable [facility] [address] [place] [address] [facility] 1, [place], [address], 09/08/2025 10:35:11 09/08/20 25 09/08/2025 CBC lymphocytes # 1.8 x10 Not Available [facility] [address] [place] [facility], [place], [address], 09/08/2025 10:35:11 09/08/20 25 09/08/2025 CBC monocytes # 0.7 x10 Not Avai lable [facility] [address] [place] [facility], [place], [address], 09/08/2025 10:35:11 09/08/20 25 09/08/2025 CMP (MALE ) glucose 107.0 mg/dL 60.0-9 9.0 high Not Available [facility] [address] [facility], [place], [address], 09/08/2025 11:28:07 09/08/20 25 09/08/2025 CMP (MALE ) BUN (blood urea nitrogen) 33.0 mg/dL 10.0-2 6.0 high Not Available [facility] [address] [facility] 1, [place], [address], 09/08/2025 11:28:07 09/08/20 25 09/08/2025 CMP (MALE ) creatinine (serum) 1.9 mg/dL 0.4-1. 5 high Not Available [facility] [address] [facility] 1, [place], [address], 09/08/2025 11:28:07 09/08/20 25 09/08/2025 CMP (MALE ) BUN/creatini ne ratio 17.37 ratio Not Available [facility] [address] [facility], [place], [address], 09/08/2025 11:28:07 09/08/20 25 09/08/2025 CMP (MALE ) eGFR calculated 39.3 Not Available [place] [facility] [address] [facility] 1, [place], [address], 09/08/2025 11:28:07 09/08/2009/08/2025 CMP (MALE ) total protein 6.5 g/dL 6.0-8. 5 Not Available [facility] [address] [place] [facility], [place], [address], 09/08/2025 11:28:07 09/08/20 25 09/08/2025 CMP (MALE ) total bilirubin 1.0 mg/dL 0.2-1. 3 Not Available [facility] [address] [place] [facility], [place], [address], 09/08/2025 11:28:07 09/08/2009/08/2025 CMP (MALE ) albumin 3.3 g/dL 3.5-5. 5 low Not Available [facility] [address] [place] [facility], [place], [address], 09/08/2025 11:28:07 09/08/20 25 09/08/2025 CMP (MALE ) globulin 3.2 calc Not Available [facility] [address] [place] [facility], [place], [address], 09/08/2025 11:28:07 09/08/20 25 09/08/2025 CMP (MALE ) AST (SGOT) 27.0 U/L 0.0-46 .0 Not Available [facility] [address] [place] [address] [facility] 1, [place], [address], 09/08/2025 11:28:07 09/08/20 25 09/08/2025 CMP (MALE ) altv (SGPT) 19.0 U/L 13.0-6 9.0 normal Not Available [facility] [address] [facility] Yadira [facility] 1, [place], [address], 09/08/2025 11:28:07 09/08/20 25 09/08/2025 CMP (MALE ) A/G ratio 1.0 ratio Not Available [facility] [address] [facility] 1, [place], [address], 09/08/2025 11:28:07 09/08/20 25 09/08/2025 CMP (MALE ) ALP phos 50.0 U/L 30.0-1 40.0 normal Not Available [facility] [address] [facility] 1, [place], [address], 09/08/2025 11:28:07 09/08/20 25 09/08/2025 CMP (MALE ) calcium 9.1 mg/dL 8.4-10 .5 Not Available [facility] [address] [facility] 1, [place], [address], 09/08/2025 11:28:07 09/08/20 25 09/08/2025 CMP (MALE ) sodium 140.0 mmol/ L 136.0- 145.0 Not Available [facility] [address] [facility] 1, [place], [address], 09/08/2025 11:28:07 09/08/20 25 09/08/2025 CMP (MALE ) potassium 4.3 mmol/ L 3.5-5. 1 Not Available [facility] [address] [facility] 1, [place], [address], 09/08/2025 11:28:07 09/08/20 25 09/08/2025 CMP (MALE ) chloride 109.0 mmol/ L 98.0-1 10.0 normal Not Available [facility] [address] [facility] 1, [place], [address], 09/08/2025 11:28:07 09/08/20 25 09/08/2025 CMP (MALE ) C02 29.0 mmol/ L 22.0-3 1.0 Not Available [facility] [address] [facility] [address], [place], [address], 09/08/2025 11:28:07 09/08/2009/08/2025 CMP (MALE ) anion gap 2.0 calc Not Available [facility] [address] [facility] [address], [place], [address], 09/08/2025 11:28:07 09/08/2009/08/2025 CMP (MALE ) osmolality 296.4 calc Not Available [facility] [address] [facility] [address], [place], [address], 09/08/2025 11:28:07 09/08/2009/08/2025 respi rator y patho gens DNA and RNA panel , PCR, nasop haryn x Covid negati ve Not Available [facility] ([facility]) [address] [place] [address], [address], 09/08/2025 09:59:51 09/08/2009/08/2025 respi rator y patho gens DNA and RNA panel , PCR, nasop haryn x Rhinovirus negati ve Not Available [facility] ([facility]) [address] [place] [address], [address], 09/08/2025 09:59:51 09/08/2009/08/2025 respi rator y patho gens DNA and RNA panel , PCR, nasop haryn x Influenza A negati ve Not Available [facility] ([facility]) [address] [place] [address], [address], 09/08/2025 09:59:51 09/08/2009/08/2025 respi rator y patho gens DNA and RNA panel , PCR, nasop haryn x Influenza B negati ve Not Available [facility] ([facility]) [address] [place] [address], [address], 09/08/2025 09:59:51 09/08/20 25 09/08/2025 respi rator y patho gens DNA and RNA panel , PCR, nasop haryn x RSV negati ve Not Available [facility] ([facility]) [address] [place], [address], 09/08/2025 09:59:51 09/09/20 25 09/05/2025 XR, chest , 2 view No observ ation record ed. HERMINIO [facility] ([facility]) [address] [place], [address], 09/09/2025 12:09:17 Result Notes None recorded. Problems Name Problem SNOMED Code Status Onset Date Resolution Date Notes Provider Name and Address Organization Details Recorded Time History of surgery 161536031 Active 2019 Eye surgery; Correct vision; 09/30/20 20 10:49AM by Bhumika Sharma, Office Visit; Promoted ; acuity set as *; [facility] 3 14:22:00 Disorder due to type 2 diabetes mellitus 230396059 Completed 201906/07/2023 DM II; 09/30/20 20 10:49AM by Bhumika Sharma, Office Visit; Promoted ; acuity set as *; [facility] 3 14:22:07 Type 2 diabetes mellitus 35609758 Active 2022 H[facility]DEN heart [facility] 3 15:31:13 Migraine 37935297 Active 2022 [facility]DEN heart [facility] 3 15:31:22 Opioid dependen ce 26820600 Active 2022 HAYDEN heart [facility] 3 17:31:26 Pulmonar y embolism 99114842 Active 2022 HAYDEN heart, [facility] 3 17:32:01 Insomnia 820813666 Active 2022 [facility] 3 17:32:13 Chronic neck pain 92929739680 07 Active 2022 Ted Flanagan MD [address] [place] [address], [address], [facility] 3 14:10:48 Fatigue 77080316 Active 2022 [facility] 3 15:31:26 Cervical radiculo stephanie 84448519 Active 2022 HAYDEN heart, [facility] 3 14:22:37 Cardiome fide due to hyperten zack 175288049 Active 2024 Julio heart [facility] 5 13:25:55 [facility] l hyperten zack 36018795 Active 2024 Julio heart [facility] 5 13:25:59 Near syncope 488785515 Active 2024 Julio heart [facility] 5 13:26:14 Chronic kidney disease stage 3A 098811385 Active 2024 Ted Flanagan MD [address] [place] [address], [address], [facility] 5 09:57:18 Posterio r rhinorrh ea 32035752 Active 2024 Ted Flanagan MD [address] [place] [address], [address], [facility] 09:57:39 Anemia 464579542 Active 2024 Ted Flanagan MD [address] [place] [address], [address], [facility], LAveryLGena 09:58:10 Acute pharyngi tis 767321462 Active 2024 Ted Flanagan MD [address] [place] [address], [address], [facility], Joy 09:59:40 Melena 2110052 Active 2024 Ted Flanagan MD [address] [place] [address], [address], [facility], Joy 10:05:20 Obstruct sherita sleep apnea syndrome 49662324 Active 2024 Ted Flanagan MD [address] [place] [address], [address], [facility], AlvinoLGena 10:57:21 Problem Notes None recorded. Procedures Surgical History Date Name Laterality Status Provider Name and Address Organization Details Recorded Time 03/25/20 25 echocardiography completed [facility] 10/08/2025 15:00:58 10/30/19 21 exploratory laparotomy completed [facility]iros [facility] 01/27/2025 09:56:05 10/30/19 18 procedure on neck completed [facility] 01/27/2025 09:55:44 10/30/19 08 cholecystectomy completed [facility] 01/28/2025 13:26:51 Imaging Results None recorded. 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 5 14:44:11 Social History Question Answer Notes LastModified by [employer] Details LastModified Time Tobacco Smoking Status Never Smoker Julio heart [facility] 01/27/2025 09:52:03 What Is Your Level Of Caffeine Consumption? Heavy [email or web address] Information not available 09/08/2025 Do You Or Have You Ever Used Marijuana? Never Used [email or web address] Information not available 09/08/2025 What Was The Date Of Your Most Recent Tobacco Screening? 10/05/2025 [email or web address] Information not available 10/05/2025 Sex: Unknown Functional Status Question Answer Note LastModified by [employer] Details LastModified Time Do you use any illicit or recreational drugs? No [email or web address] Information not available 01/27/2025 What is your level of alcohol consumption? None [email or web address] Information not available 01/27/2025 Mental Status None recorded. Family History Relationship Description Onset Age of this Age Resolved Age Notes LastModified by Organization Details LastModified Time Father Diabetes mellitus Not available 2024 09:57:07 Father Heart disease [email or web address] Not available 2024 09:57:15 Medical History No medical history recorded. Immunizations Vaccine Type Date Status Note Provider Nam e and Address Organization Details Recorded Time Tdap 5 completed Wendy Wood null, [facility] 04/09/2025 11:21:21 COVID-19, mRNA, LNP-S, PF, 30 mcg/0.3 mL dose 1 completed HAYDEN CHICASJean Paul heart [facility] 06/08/2023 09:28:48 COVID-19, mRNA, LNP-S, PF, 30 mcg/0.3 mL dose 1 completed HAYDEN CHICASJean Paul heart [facility] 06/08/2023 09:28:48 Influenza, split virus, trivalent, PF 5 completed Not Available [facility] 10/14/2025 15:24:50 zoster recombinant 5 completed Not Available [facility] 10/14/2025 15:24:50 Tdap 3 completed Golden Paulino MD [address] [place] [address], [address] 03/18/2023 17:05:01 Past Encounters Encounter ID Performer Location Encounter Start Date Encounter Closed Date Diagnosis/Indication Diagnosis SNOMED-CT Code Diagnosis ICD10 Code Diagnosis IMO Codes Diagnosis Note [id number] Ted Flanagan MD [facility] ([facility]) [address] [place] [phone] 09/08/2025 09:26:48 09/08/2025 10:11:48 Chronic kidney disease stage 3A 906504061 N18.31 75206028 - Recheck renal function. - Monitor blood pressure. - Avoid nephrotoxi c agents. Posterior rhinorrhea 758 61558 R09.82 618101 - Evaluate for allergies; consider antihistam ine. Anemia 722305000 D64.9 65807486 - Obtain repeat CBC. - Continue iron supplement ation. Acute pharyngitis 245288 003 J02.9 [id number] Melena 1242272 K92.1 7672 - Consider gastroente rological investigat ion. - Stool occult blood testing. Obstructiv e sleep apnea syndrome 37788432 G47.33 - Discuss Inspire device with Dr. Ramirez- Follow sleep specialist linsey montilla. [id number] DIEGO RUBY APRN [facility] ([facility]) [address] [place] [address] 09/14/2025 17:31:08 09/15/2025 16:59:15 Wheezing 88029418 R06.2 77202 Post-infec tious disorder 579800115 G93.31 [id number] ALLAN BECK [facility] ([facility]) [address] [place] [address] 10/05/2025 09:56:58 10/06/2025 11:51:11 Acute bronchitis 70880537 J20.9 70879087 Increase po fluids. Rest. Return to clinic with any new or worsening symptoms. [id number] HONEY MERLOS [facility] ([facility]) [address] [place] [phone] 10/08/2025 14:20:42 10/08/2025 15:40:15 Persistent cough 292579561 R05.3 096709 Obstructiv e sleep apnea syndrome 88586658 G47.33 038608 He hasn't tolerated CPAP. He has an appt to see Dr. Ramirez for Inspire. Decreased cardiac ejection fraction 2991260443 37749 R93.[address] Amaya in October, He will see about getting on the cancellati on list. Hypoxia 044350711 G47.34 [id number] Health Concerns Section Related Observation LastModified by Organization Detai ls LastModified Time None Recorded Concern Status LastModified by Organization Details LastModified Time None Recorded Payers Encounter Date Sequence Insurance Name Policy Number Policy Dhaliwal Covered Member ID Dhaliwal Member ID Guarantor Name 10/08/2025 1 [id number] - [facility] - [employer] (PPO) [id number] Rhonda Perez [id number] Phi Perez
--- OUTSIDE RECORDS SUMMARY | 2025-10-16 06:17 | XMS_ITS | Patient Health Record ---
Author Organization [facility] Address [address] [facility] [address] [place] [address] Care Team Providers Care Clinical Services Specialist Name Role Phone Saravanan Fuchs DO Primary Care Provider Unavailabl e AISLINN CALLE, ELLYN Unavailable [phone] Heather CALLE, Jose C Unavailable Unavailable Reason For Referral No Information Plan Of Treatment Pending Test Test Name Order Date Endoscopic Retrograde Cholangiopancreato graphy (ERCP) 05/12/2021 Insurance Providers Payer Name Payer Address Payer Phone Subscriber Number Group Number Insured Name Patient Relationship to Insured Coverage Start Date Coverage End Date [employer] [address] [place] [address] [id number] Phi Perez Self - patient is the insured
--- OUTSIDE RECORDS SUMMARY | 2025-10-16 06:17 | XMS_ITS | Encounter Summary ---
Author Organization [facility] Address [address] [place] [address] Care Team Providers Care Cheese Specialist Name Role Phone Edwin Uglade MD Primary Care Provider Atilio smith Encounter Details Date Type Department Care Team (Latest Contact Info) Description 12/20/2006 Outpatient [facility] [place] [address] [facility] [address] [place] [phone] Natividad Lozano MD NO ADDRESS ON FILE Other and Unspecified Hyperlipidemia (Primary Dx); Allergic Rhinitis, Cause Unspecified; Anxiety State, Unspecified; Other Malaise and Fatigue Social History Tobacco Use Types Packs/Day Years Used Date Smoking Tobacco: Never Assessed Sex and Gender Information Value Date Recorded Sex Assigned at Not on file Legal Sex Male 5:14 AM [employer] Gender Identity Not on file Sexual Orientation Not on file documented as of this encounter Plan of Treatment Not on file documented as of this encounter Visit Diagnoses Diagnosis Other and unspecified hyperlipidemia- Primary Allergic rhinitis, cause unspecified Anxiety state, unspecified Other malaise and fatigue documented in this encounter Care Teams Cheese Specialist Relationship Specialty Start Date End Date Edwin Ugalde MD PCP - General Internal Medicine 12/18/20 documented as of this encounter
--- OUTSIDE RECORDS SUMMARY | 2025-10-16 06:17 | XMS_ITS | Encounter Summary ---
Author Organization [facility] Address [address] [place] [address] Care Team Providers Care Line Installer Repairer Name Role Phone Edwin Ugalde MD Primary Care Provider Atilio smith Encounter Details Date Type Department Care Team (Latest Contact Info) Description 03/21/2007 Outpatient [facility] [place] [address] [facility] [address] [place] [phone] Natividad Lozano MD NO ADDRESS ON FILE Allergic Rhinitis, Cause Unspecified (Primary Dx) Social History Tobacco Use Types Packs/Day Years Used Date Smoking Tobacco: Never Assessed Sex and Gender Information Value Date Recorded Sex Assigned at Not on file 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
--- OUTSIDE RECORDS SUMMARY | 2025-10-16 06:17 | XMS_ITS | Continuity of Care Document ---
Author Organization ASHLEY Duncan [facility] [place], [place], [facility] ([facility]) Address [address] [address] Care Team Providers Care Infection Prevention Specialist Name Role Phone TED FLANAGAN Primary Care Provider Unavailabl e Assessment Encounter Date Assessment Date Assessment LastModified by Organization Details LastModified Time 09/08/2025 09/08/2025 55-year-old male with a history of chronic kidney disease stage 3A, presenting with concerns regarding anemia, melena, and difficulties managing sleep apnea. The reported tarry stools and lab findings of low hemoglobin and platelets are of concern for potential underlying gastrointestinal bleeding. His sleep apnea is poorly managed with CPAP, warranting consideration of alternative therapies. [email or web address] Not available 09/08/2025 10:09:30 Plan of Treatment Reminders Order Date Submit Date Provider Last Modified By Organization Details Last Modified Time Details Appointments None recorded. Lab fecal occult blood, immunoassay , stool 2024 025 dickase [facility] ([facility]), [address] [place] [address], [phone], 10:05:32 respiratory pathogens DNA and RNA panel, PCR, nasopharynx 2024 025 [facility] ([facility]), [address] [place] [address], [phone], 10:46:47 CBC 2024 025 [facility], [address] [place] [address] Yadira, [address], [place], [address], 10:35:11 CMP, serum or plasma 2024 025 HERMINIO [facility], [address], [address], [place], [address], 11:28:08 Referral None recorded. Procedures None recorded. Surgeries None recorded. Imaging None recorded. Medication Orders None recorded. Patient TargetsNo targets recorded. Patient Instructions Encounter Date Encounter Id Patient Instructions Last Modified By Organization Details Last Modified Time 09/08/2025 [id number] - Monitor for symptoms of bleeding such as dark stools or easy bruising. - Continue prescribed iron supplements. - Avoid NSAIDs like ibuprofen. - Follow-up with lab testing as discussed. - Continue using your CPAP machine as tolerated, and consider discussing the Inspire device with your sleep doctor. - Contact the office if symptoms worsen or if you notice new symptoms. [email or web address] Not available 09/08/2025 10:09:33 I discussed with the patient the concerns related to his anemia, possible gastrointestinal bleeding as indicated by melena, and his chronic kidney condition. We reviewed the importance of rechecking lab values to further evaluate his low hemoglobin and platelet levels. I addressed the benefits and risks of continuing his current medications and the potential necessity of avoiding nephrotoxic drugs due to his kidney disease. I also discussed options for managing his poorly controlled sleep apnea, including the potential use of an Inspire device. The patient was agreeable to the proposed management plan, including further lab assessments, and was counseled on monitoring for signs of bleeding or worsening symptoms. Follow-up appointments and continued collaboration with specialists will be necessary to manage these conditions effectively. [email or web address] Not available 09/08/2025 10:09:33 Reason for Referral None Reported. Results Created Date Observation Date Name Description Value Unit Range Abnormal Flag Note LastModifiedBy Organization Detail LastModifiedTime 09/08/2009/08/2025 CBC WBC 7.1 x10 4.5-10 .5 Not Available [facility] [address], [place], [address], 09/08/2025 10:35:11 09/08/202025 CBC RBC 4.10 x10 4.30-5 .90 low Not Available [facility] [address] [facility] 1, [place], [address], 09/08/2025 10:35:11 09/08/20 25 09/08/2025 CBC HGB 12.2 g/dL 13.5-1 8.0 low Not Available [facility] [address] [facility] 1, [place], [address], 09/08/2025 10:35:11 09/08/20 25 09/08/2025 CBC HCT 37.6 % 35.0-6 0.0 Not Available [facility] [address] [facility] 1, [place], [address], 09/08/2025 10:35:11 09/08/20 25 09/08/2025 CBC MCV 91.7 fL 80.0-9 9.9 Not Available [facility] [address] [facility] 1, [place], [address], 09/08/2025 10:35:11 09/08/20 25 09/08/2025 CBC MCH 29.7 pg 27.0-3 2.0 Not Available [facility] [address] [facility] 1, [place], [address], 09/08/2025 10:35:11 09/08/20 25 09/08/2025 CBC MCHC 32.4 g/dL 32.0-3 6.0 Not Available [facility] [address] [facility], [place], [address], 09/08/2025 10:35:11 09/08/20 25 09/08/2025 CBC RDW 13.8 % 11.5-1 4.5 Not Available [facility] [address] [facility], [place], [address], 09/08/2025 10:35:11 09/08/20 25 09/08/2025 CBC plt 289.1 x10 150.0- 451.0 Not Available [facility] [address] [facility], [place], [address], 09/08/2025 10:35:11 09/08/20 25 09/08/2025 CBC lymphocytes % 25.4 % 20.0-5 0.0 Not Available [facility] [address] [facility] 1, [place], [address], 09/08/2025 10:35:11 09/08/20 25 09/08/2025 CBC granulcytes % 61.7 % 30.0-7 0.0 Not Available [facility] [address] [facility], [place], [address], 09/08/2025 10:35:11 09/08/20 25 09/08/2025 CBC monocytes % 9.4 % 2.0-16 .0 Not Available [facility] [address] [facility], [place], [address], 09/08/2025 10:35:11 09/08/20 25 09/08/2025 CBC granulcytes# 4.4 x10 Not Elvia ilable [facility] [address] [facility] 1, [place], [address], 09/08/2025 10:35:11 09/08/20 25 09/08/2025 CBC lymphocytes # 1.8 x10 Not Available [facility] [address] [facility], [place], [address], 09/08/2025 10:35:11 09/08/20 25 09/08/2025 CBC monocytes # 0.7 x10 Not Avai lable [facility] [address] [facility], [place], [address], 09/08/2025 10:35:11 09/08/20 25 09/08/2025 CMP (MALE ) glucose 107.0 mg/dL 60.0-9 9.0 high Not Available [facility] [address] [facility], [place], [address], 09/08/2025 11:28:07 09/08/20 25 09/08/2025 CMP (MALE ) BUN (blood urea nitrogen) 33.0 mg/dL 10.0-2 6.0 high Not Available [facility] [address] [facility], [place], [address], 09/08/2025 11:28:07 09/08/20 25 09/08/2025 CMP (MALE ) creatinine (serum) 1.9 mg/dL 0.4-1. 5 high Not Available [facility] [address] [facility] [address], [place], [address], 09/08/2025 11:28:07 09/08/20 25 09/08/2025 CMP (MALE ) BUN/creatini ne ratio 17.37 ratio Not Available [facility] [address] [facility] [address], [place], [address], 09/08/2025 11:28:07 09/08/20 25 09/08/2025 CMP (MALE ) eGFR calculated 39.3 Not Available [facility] [address] [facility] [address], [place], [address], 09/08/2025 11:28:07 09/08/20 25 09/08/2025 CMP (MALE ) total protein 6.5 g/dL 6.0-8. 5 Not Available [facility] [address] [facility] [address], [place], [address], 09/08/2025 11:28:07 09/08/20 25 09/08/2025 CMP (MALE ) total bilirubin 1.0 mg/dL 0.2-1. 3 Not Available [facility] [address] [facility], [place], [address], 09/08/2025 11:28:07 09/08/20 25 09/08/2025 CMP (MALE ) albumin 3.3 g/dL 3.5-5. 5 low Not Available [facility] [address] [facility], [place], [address], 09/08/2025 11:28:07 09/08/20 25 09/08/2025 CMP (MALE ) globulin 3.2 calc Not Available [facility] [address] [facility] 1, [place], [address], 09/08/2025 11:28:07 09/08/20 25 09/08/2025 CMP (MALE ) AST (SGOT) 27.0 U/L 0.0-46 .0 Not Available [facility] [address] [facility] 1, [place], [address], 09/08/2025 11:28:07 09/08/20 25 09/08/2025 CMP (MALE ) altv (SGPT) 19.0 U/L 13.0-6 9.0 normal Not Available [facility] [address] [facility] [address], [place], [address], 09/08/2025 11:28:07 09/08/20 25 09/08/2025 CMP (MALE ) A/G ratio 1.0 ratio Not Available [facility] [address] [facility] 1, [place], [address], 09/08/2025 11:28:07 09/08/20 25 09/08/2025 CMP (MALE ) ALP phos 50.0 U/L 30.0-1 40.0 normal Not Available [facility] [address] [facility] [address], [place], [address], 09/08/2025 11:28:07 09/08/20 25 09/08/2025 CMP (MALE ) calcium 9.1 mg/dL 8.4-10 .5 Not Available [facility] [address] [facility], [place], [address], 09/08/2025 11:28:07 09/08/20 25 09/08/2025 CMP (MALE ) sodium 140.0 mmol/ L 136.0- 145.0 Not Available [facility] [address] [facility] 1, [place], [address], 09/08/2025 11:28:07 09/08/20 25 09/08/2025 CMP (MALE ) potassium 4.3 mmol/ L 3.5-5. 1 Not Available [facility] [address] [facility] 1, [place], [address], 09/08/2025 11:28:07 09/08/20 25 09/08/2025 CMP (MALE ) chloride 109.0 mmol/ L 98.0-1 10.0 normal Not Available [facility] [address] [facility], [place], [address], 09/08/2025 11:28:07 09/08/20 25 09/08/2025 CMP (MALE ) C02 29.0 mmol/ L 22.0-3 1.0 Not Available [facility] [address] [facility] 1, [place], [address], 09/08/2025 11:28:07 09/08/20 25 09/08/2025 CMP (MALE ) anion gap 2.0 calc Not Available [facility] [address] [facility], [place], [address], 09/08/2025 11:28:07 09/08/20 25 09/08/2025 CMP (MALE ) osmolality 296.4 calc Not Available [facility] [address] [place] [address] 1, [place], [address], 09/08/2025 11:28:07 09/08/2009/08/2025 respi rator y patho gens DNA and RNA panel , PCR, nasop haryn x Covid negati ve Not Available [facility] ([facility]) [address] [place], [address], 09/08/2025 09:59:51 09/08/2009/08/2025 respi rator y patho gens DNA and RNA panel , PCR, nasop haryn x Rhinovirus negati ve Not Available [facility] ([facility]) [address] [place], [address], 09/08/2025 09:59:51 09/08/2009/08/2025 respi rator y patho gens DNA and RNA panel , PCR, nasop haryn x Influenza A negati ve Not Available [facility] ([facility]) [address] [place] [address], [phone], 09/08/2025 09:59:51 09/08/2009/08/2025 respi rator y patho gens DNA and RNA panel , PCR, nasop haryn x Influenza B negati ve Not Available [facility] ([facility]) [address] [place] [address], [phone], 09/08/2025 09:59:51 09/08/2009/08/2025 respi rator y patho gens DNA and RNA panel , PCR, nasop haryn x RSV negati ve Not Available [facility] ([facility]) [address] [place], [address], 09/08/2025 09:59:51 09/05/20 25 09/05/2025 XR, chest , 2 view No observ ation record ed. [facility] ([facility]) [address] [place], [address], 09/06/2025 11:24:49 09/09/20 25 09/05/2025 XR, chest , 2 view No observ ation record ed. [facility] ([facility]) [address] [place], [address], 09/09/2025 12:09:17 Result Notes None recorded. Problems Name Problem SNOMED Code Status Onset Date Resolution Date Notes Provider Name and Address Organization Details Recorded Time History of surgery 361161220 Active 2019 Eye surgery; Correct vision; 09/30/20 20 10:49AM by Bhumika Sharma, Office Visit; Promoted ; acuity set as *; [facility] 3 14:22:00 Disorder due to type 2 diabetes mellitus 391632767 Completed 201906/07/2023 DM II; 09/30/20 20 10:49AM by Bhumika Sharma, Office Visit; Promoted ; acuity set as *; [facility] 3 14:22:07 Type 2 diabetes mellitus 88045841 Active 2022 [facility] 3 15:31:13 Migraine 09547832 Active 2022 H[facility]DEN heart [facility] 3 15:31:22 Opioid dependen ce 20835332 Active 2022 HAYDEN heart [facility] 3 17:31:26 Pulmonar y embolism 47853487 Active 2022 [facility] heart [facility] 3 17:32:01 Insomnia 076554917 Active 2022 HAYDEN heart, [facility] 3 17:32:13 Chronic neck pain 36516169497 07 Active 2022 Ted Flanagan MD [address] [place], [address], [facility] 3 14:10:48 Fatigue 51293969 Active 2022 HAYDEN SONAM heart, [facility] 3 15:31:26 Cervical radiculo stephanie 40072077 Active 2022 HAYDEN heart, [facility] 3 14:22:37 Cardiome fide due to hyperten zack 555577609 Active 2024 Julio heart [facility] 5 13:25:55 [facility] l hyperten zack 29840205 Active 2024 Julio heart [facility] 5 13:25:59 Near syncope 167228005 Active 2024 Julio heart [facility] 5 13:26:14 Chronic kidney disease stage 3A 047045833 Active 2024 Ted Flanagan MD [address] [place] [address], [address], [facility] 5 09:57:18 Posterio r rhinorrh ea 65625233 Active 2024 eTd Flanagan MD [address] [place] [address], [address], [facility] 5 09:57:39 Anemia 576850157 Active 2024 Ted Flanagan MD [address] [place] [address], [phone], [facility], [place] 09:58:10 Acute pharyngi tis 167056267 Active 2024 Ted Flanagan MD [address] [place] [address], [phone], [facility], [place] 09:59:40 Melena 4053860 Active 2024 Ted Flanagan MD [address] [place] [address], [phone], [facility], [place] 10:05:20 Obstruct sherita sleep apnea syndrome 37940244 Active 2024 Ted Flanagan MD [address] [place] [address], [address], [facility], Joy 10:57:21 Problem Notes None recorded. Procedures Surgical History Date Name Laterality Status Provider Name and Address Organization Details Recorded Time 03/25/20 25 echocardiography [facility]08/2025 15:00:58 10/30/19 21 exploratory laparotomy completed [facility] 01/27/2025 09:56:05 10/30/19 18 procedure on neck completed [facility] 01/27/2025 09:55:44 10/30/19 08 [facility] 13:26:51 Imaging Results None recorded. Procedure [...] availabl e- tresiba brand not covered by [employer] Not Available Not Available Not Available OneTouch Verio test strips three times daily 09/14 completed RM/CC; 9; Recorded 01/28/20 21 10:26AM by Justina Arroyo LPN (Authori gilma through Jmaie Rebollar MD), Annotati on/Adden dum; Refill Quantity [...] Available Not Available Not Available Dexcom G7 Angle Furnaceman USE DIRECTED TO CHECK BLOOD GLUCOSE active Not Available Not Available No t Available Dexcom G7 Sensor device CHANGE SENSOR EVERY 10 DAYS active Not Available Not Available No t Available Vitals Date Recorded Body height Body mass index (BMI) Body weight Body temperature Respiratory rate Heart rate Oxygen saturation Systolic And Diastolic Provider Name and Address Organization Details Last Updated DateTime 5 180.34 cm 26.9 kg/m2 59454.8 9 g 97.5 [degF] 20 /min 81 /min 99 % 132/82 mm[Hg] Jenniffer Delfino [facility] 5 09:33:16 Social History Question Answer Notes LastModified by nDreams Details LastModified Time Tobacco Smoking Status Never [facility]oker [facility] 01/27/2025 09:52:03 What Is Your Level Of Caffeine Consumption? Heavy [email or web address] Information not available 09/08/2025 Do You Or Have You Ever Used Marijuana? Never Used [email or web address] Information not available 09/08/2025 What Was The Date Of Your Most Recent Tobacco Screening? 10/05/2025 [email or web address] Information not available 10/05/2025 Sex: Unknown Functional Status Question Answer Note LastModified by nDreams Details LastModified Time Do you use any illicit or recreational drugs? No [email or web address] Information not available 01/27/2025 What is your level of alcohol consumption? None [email or web address] Information not available 01/27/2025 Mental Status None recorded. Family History Relationship Description Onset Age of this Age Resolved Age Notes LastModified by Organization Details LastModified Time Father Diabetes mellitus [email or web address] Not available 2024 09:57:07 Father Heart disease [email or web address] Not available 2024 09:57:15 Medical History No medical history recorded. Immunizations Vaccine Type Date Status Note Provider Nam e and Address Organization Details Recorded Time Tdap 5 completed Wendy heart [facility] 04/09/2025 11:21:21 COVID-19, mRNA, LNP-S, PF, 30 mcg/0.3 mL dose 1 completed HAYDEN heart [facility] 06/08/2023 09:28:48 COVID-19, mRNA, LNP-S, PF, 30 mcg/0.3 mL dose 1 completed HAYDEN heart [facility] 06/08/2023 09:28:48 Influenza, split virus, trivalent, PF 5 completed Not Available [facility] 10/14/2025 15:24:50 zoster recombinant 5 completed Not Available [facility] 10/14/2025 15:24:50 Tdap 3 completed Golden Paulino MD [address] [place] [address], [phone], [facility] 03/18/2023 17:05:01 Past Encounters Encounter ID Performer Location Encounter Start Date Encounter Closed Date Diagnosis/Indication Diagnosis SNOMED-CT Code Diagnosis ICD10 Code Diagnosis IMO Codes Diagnosis Note [id number] SUPRIYA FLETCHER [facility] ([facility]) [address] [place] [phone] 09/05/2025 08:36:02 09/05/2025 13:51:08 Hemoglobin below reference range 987387902 D64.9 [id number] Will request lab results. Discussed needing GI workup due to issues. Follow up with Dr Flanagan on Monday. Dyspnea 884632539 R06.02 [id number] Will send to radiology. Follow up on Monday with Dr Flanagan. If patient has shortness of breath over the weekend, go to ER for further evaluation and treatment. [id number] Ted Flanagan MD [facility] ([facility]) [address] [place] [phone] 09/08/2025 09:26:48 09/08/2025 10:11:48 Chronic kidney disease stage 3A 076526733 N18.31 44222813 - Recheck renal function. - Monitor blood pressure. - Avoid nephrotoxi c agents. Posterior rhinorrhea 368 26368 R09.82 212559 - Evaluate for allergies; consider antihistam ine. Anemia 850095392 D64.9 77070509 - Obtain repeat CBC. - Continue iron supplement ation. Acute pharyngitis 829599 003 J02.9 [id number] Melena 5794149 K92.1 7672 - Consider gastroente rological investigat ion. - Stool occult blood testing. Obstructiv e sleep apnea syndrome 32969738 G47.33 - Discuss Inspire device with Dr. Ramirez- Follow sleep specialist recommenda tions. Health Concerns Section Related Observation LastModified by Organization Detai ls LastModified Time None Recorded Concern Status LastModified by Organization Details LastModified Time None Recorded Payers Encounter Date Sequence Insurance Name Policy Number Policy Dhaliwal Covered Member ID Dhaliwal Member ID Guarantor Name 09/08/[address] [place] [address] [facility] [employer] [employer] [id number] Rhonda Ballardd [id number] Phi Perez Notes Date Note Type Note Provider Name and Address Organization Details Recorded Time 09/08/2025 text/html The patient is a 55-year-old male presenting with concerns regarding his chronic kidney disease, anemia, and melena. He reports recent lab results indicating low platelet and hemoglobin levels, prompting iron supplementation. The patient has persistent cough and sinus drainage that have lasted several months. He experiences fatigue, decreased exercise tolerance, and describes dark, tarry stools over recent months. He notes easy bruising and has been advised to seek further evaluation. The patient also reports challenges in managing his sleep apnea with CPAP therapy. - Labs indicate low hemoglobin and platelets. - Reported history of dark, tarry stools. Ted Flanagan MD [address] [place] [address], [phone], [facility] 09/08/2025 10:57:33
--- OUTSIDE RECORDS SUMMARY | 2025-10-16 06:17 | XMS_ITS | Data Portability ---
Author Organization [facility]SH[facility], [facility] Address [address] [facility] [address] [place] [address] Care Team Providers Care Home Health Speech Therapist Name Role Phone SHELLYTED GARCIA Primary Care Provider Unavailabl e Assessment Encounter [...] alternative therapies. [email or web address] Not available 09/08/2025 10:09:30 10/08/2025 10/08/2025 Patient reports he was suffering [...] occult blood, immunoassay , stool 2024 025 [email or web address] [facility] ([facility]), [address] [place], [address], 10:05:32 respiratory pathogens DNA and RNA panel, PCR, nasopharynx 2024 [facility] ([facility]), [address] [place], [address], 10:46:47 CBC 2024 025 [facility], [address] [place] [address], [address], 10:35:11 CMP, serum or plasma 2024 025 [facility], [address] [place] [address], [address], 11:28:[address] referral 2024 astrange 2 Hilton Ordonez MD, [address] [place] [address], [address], 16:24:07 Procedures None recorded. Surgeries None recorded. Imaging None recorded. Medication Orders doxycycline hyclate 100 mg capsule 2024 [facility], [address], [place], [address], 16:38:04 prednisone 20 mg tablet 2024 [facility], [address], [place], [address], 16:41:20 benzonatate 200 mg capsule 2024 025 [facility], [address], [place], [address], 10:38:56 albuterol sulfate HFA 90 mcg/actuati on aerosol inhaler 2024 025 [facility], [address] [place], [address], 05:01:14 Patient TargetsNo targets recorded. Patient Instructions Encounter Date Encounter Id Patient Instructions Last Modified By Organization Details Last Modified Time 09/08/2025 [id number] - Monitor for symptoms of bleeding such [...] conditions effectively. [email or web address] Not available 09/08/2025 10:09:33 09/14/2025 [id number] Follow up for worsening or changes [email or web address] Not available 09/14/2025 18:10:08 10/08/2025 [id number] Call or return f or questions or concerns. 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2 g/dL 13.5-1 8.0 low Not Available [facility] [address] [facility], [place], [address], 09/08/2025 10:35:11 09/08/20 25 09/08/2025 CBC HCT 37.6 % 35.0-6 0.0 Not Available [facility] [address] [facility] 1, [place], [address], 09/08/2025 10:35:11 09/08/20 25 09/08/2025 CBC MCV 91.7 fL 80.0-9 9.9 Not Available [facility] [address] [facility] 1, [place], [address], 09/08/2025 10:35:11 09/08/20 25 09/08/2025 CBC MCH 29.7 pg 27.0-3 2.0 Not Available [facility] [address] [facility] [address], [place], [address], 09/08/2025 10:35:11 09/08/20 25 09/08/2025 CBC MCHC 32.4 g/dL 32.0-3 6.0 Not Available [facility] [address] [facility] 1, [place], [address], 09/08/2025 10:35:11 09/08/20 25 09/08/2025 CBC RDW 13.8 % 11.5-1 4.5 Not Available [facility] [address] [facility], [place], [address], 09/08/2025 10:35:11 09/08/20 25 09/08/2025 CBC plt 289.1 x10 150.0- 451.0 Not Available [facility] [address] [facility] 1, [place], [address], 09/08/2025 10:35:11 09/08/20 25 09/08/2025 CBC lymphocytes % 25.4 % 20.0-5 0.0 Not Available [facility] [address] [facility], [place], [address], 09/08/2025 10:35:11 09/08/20 25 09/08/2025 CBC granulcytes % 61.7 % 30.0-7 0.0 Not Available [facility] [address] [facility] 1, [place], [address], 09/08/2025 10:35:11 09/08/20 25 09/08/2025 CBC monocytes % 9.4 % 2.0-16 .0 Not Available [facility] [address] [facility] 1, [place], [address], 09/08/2025 10:35:11 09/08/20 25 09/08/2025 CBC granulcytes# 4.4 x10 Not Elvia ilable [facility] [address] [facility] 1, [place], [address], 09/08/2025 10:35:11 09/08/20 25 09/08/2025 CBC lymphocytes # 1.8 x10 Not Available [facility] [address] [facility] 1, [place], [address], 09/08/2025 10:35:11 09/08/20 25 09/08/2025 CBC monocytes # 0.7 x10 Not Avai lable [facility] [address] [facility], [place], [address], 09/08/2025 10:35:11 09/08/20 25 09/08/2025 CMP (MALE ) glucose 107.0 mg/dL 60.0-9 9.0 high Not Available [facility] [address] [facility], [place], [address], 09/08/2025 11:28:07 09/08/20 25 09/08/2025 CMP (MALE ) BUN (blood urea nitrogen) 33.0 mg/dL 10.0-2 6.0 high Not Available [facility] [address] [facility], [place], [address], 09/08/2025 11:28:07 09/08/20 25 09/08/2025 CMP (MALE ) creatinine (serum) 1.9 mg/dL 0.4-1. 5 high Not Available [facility] [address] [facility], [place], [address], 09/08/2025 11:28:07 09/08/20 25 09/08/2025 CMP (MALE ) BUN/creatini ne ratio 17.37 ratio Not Available [facility] [address] [facility], [place], [address], 09/08/2025 11:28:07 09/08/20 25 09/08/2025 CMP (MALE ) eGFR calculated 39.3 Not Available [facility] [address] [facility], [place], [address], 09/08/2025 11:28:07 09/08/20 25 09/08/2025 CMP (MALE ) total protein 6.5 g/dL 6.0-8. 5 Not Available [facility] [address] [facility], [place], [address], 09/08/2025 11:28:07 09/08/20 25 09/08/2025 CMP (MALE ) total bilirubin 1.0 mg/dL 0.2-1. 3 Not Available [facility] [address] [facility], [place], [address], 09/08/2025 11:28:07 09/08/20 25 09/08/2025 CMP (MALE ) albumin 3.3 g/dL 3.5-5. 5 low Not Available [facility] [address] [facility], [place], [address], 09/08/2025 11:28:07 09/08/20 25 09/08/2025 CMP (MALE ) globulin 3.2 calc Not Available [facility] [address] [facility], [place], [address], 09/08/2025 11:28:07 09/08/20 25 09/08/2025 CMP (MALE ) AST (SGOT) 27.0 U/L 0.0-46 .0 Not Available [facility] [address] [facility], [place], [address], 09/08/2025 11:28:07 09/08/20 25 09/08/2025 CMP (MALE ) altv (SGPT) 19.0 U/L 13.0-6 9.0 normal Not Available [facility] [address] [facility], [place], [address], 09/08/2025 11:28:07 09/08/20 25 09/08/2025 CMP (MALE ) A/G ratio 1.0 ratio Not Available [facility] [address] [facility] 1, [place], [address], 09/08/2025 11:28:07 09/08/20 25 09/08/2025 CMP (MALE ) ALP phos 50.0 U/L 30.0-1 40.0 normal Not Available [facility] [address] [facility] 1, [place], [address], 09/08/2025 11:28:07 09/08/20 25 09/08/2025 CMP (MALE ) calcium 9.1 mg/dL 8.4-10 .5 Not Available [facility] [address] [facility] 1, [place], [address], 09/08/2025 11:28:07 09/08/2009/08/2025 CMP (MALE ) sodium 140.0 mmol/ L 136.0- 145.0 Not Available [facility] [address] [facility] 1, [place], [address], 09/08/2025 11:28:07 09/08/20 25 09/08/2025 CMP (MALE ) potassium 4.3 mmol/ L 3.5-5. 1 Not Available [facility] [address] [facility] 1, [place], [address], 09/08/2025 11:28:07 09/08/20 25 09/08/2025 CMP (MALE ) chloride 109.0 mmol/ L 98.0-1 10.0 normal Not Available [facility] [address] [facility] 1, [place], [address], 09/08/2025 11:28:07 09/08/20 25 09/08/2025 CMP (MALE ) C02 29.0 mmol/ L 22.0-3 1.0 Not Available [facility] [address] [facility] 1, [place], [address], 09/08/2025 11:28:07 09/08/20 25 09/08/2025 CMP (MALE ) anion gap 2.0 calc Not Available [facility] [address] [facility] [address], [place], [address], 09/08/2025 11:28:07 09/08/2009/08/2025 CMP (MALE ) osmolality 296.4 calc Not Available [facility] [address] [facility] [address], [place], [address], 09/08/2025 11:28:07 09/08/2009/08/2025 respi rator y patho gens DNA and RNA panel , PCR, nasop haryn x Covid negati ve Not Available [facility] ([facility]) [address] [place] [address], [address], 09/08/2025 09:59:51 09/08/20 25 09/08/2025 respi rator y patho gens DNA and RNA panel , PCR, nasop haryn x Rhinovirus negati ve Not Available [facility] ([facility]) [address] [place] [address], [address], 09/08/2025 09:59:51 09/08/20 25 09/08/2025 respi rator y patho gens DNA and RNA panel , PCR, nasop haryn x Influenza A negati ve Not Available [facility] ([facility]) [address] [place] [address], [address], 09/08/2025 09:59:51 09/08/2009/08/2025 respi rator y patho gens DNA and RNA panel , PCR, nasop haryn x Influenza B negati ve Not Available [facility] ([facility]) [address] [place] [address], [address], 09/08/2025 09:59:51 09/08/20 25 09/08/2025 respi rator y patho gens DNA and RNA panel , PCR, nasop haryn x RSV negati ve Not Available [facility] ([facility]) [address] [place], [address], 09/08/2025 09:59:51 09/05/20 25 09/05/2025 XR, chest , 2 view No observ ation record ed. [facility] ([facility]) [address] [place], [address], 09/06/2025 11:24:49 09/09/20 25 09/05/2025 XR, chest , 2 view No observ ation record ed. [facility] ([facility]) [address] [place], [address], 09/09/2025 12:09:17 Result Notes None recorded. Problems Name Problem SNOMED Code Status Onset Date Resolution Date Notes Provider Name and Address Organization Details Recorded Time History of surgery 924760527 Active 2019 Eye surgery; Correct vision; 09/30/20 20 10:49AM by Bhumika Sharma, Office Visit; Promoted ; acuity set as *; [facility] 3 14:22:00 Disorder due to type 2 diabetes mellitus 004034578 Completed 201906/07/2023 DM II; 09/30/20 20 10:49AM by Bhumika Sharma, Office Visit; Promoted ; acuity set as *; [facility] 3 14:22:07 Type 2 diabetes mellitus 55462295 Active 2022 [facility] heart [facility] 3 15:31:13 Migraine 19321006 Active 2022 [facility] heart [facility] 3 15:31:22 Opioid dependen ce 09892573 Active 2022 [facility] heart [facility] 3 17:31:26 Pulmonar y embolism 08494605 Active 2022 HAYDEN heart, [facility] 3 17:32:01 Insomnia 164603784 Active 2022 HAYDEN SONAMJean Paul heart, [facility] 3 17:32:13 Chronic neck pain 42706678386 07 Active 2022 Ted Flanagan MD [address] [place] [address], [phone], [facility] 3 14:10:48 Fatigue 48586215 Active 2022 HAYDEN heart, [facility] 3 15:31:26 Cervical radiculo stephanie 75835217 Active 2022 HAYDEN heart, [facility] 3 14:22:37 Cardiome fide due to hyperten zack 628309211 Active 2024 Julio heart [facility] 5 13:25:55 [facility] hyperten zack 34236227 Active 2024 Julio heart [facility] 5 13:25:59 Near syncope 829834728 Active 2024 Julio heart [facility] 5 13:26:14 Chronic kidney disease stage 3A 591410268 Active 2024 Ted Flanagan MD [address] [place] [address], [phone], [facility] 5 09:57:18 Posterio r rhinorrh ea 57532441 Active 2024 Ted Flanagan MD [address] [place] [address], [phone], [facility] 09:57:39 Anemia 332358130 Active 2024 Ted Flanagan MD [address] [place] [address], [phone], [facility] 09:58:10 Acute pharyngi tis 104232029 Active 2024 Ted Flanagan MD [address] [place] [address], [phone], [facility] 09:59:40 Melena 5706029 Active 2024 Ted Flanagan MD [address] [place] [address], [phone], [facility] 10:05:20 Obstruct sherita sleep apnea syndrome 24680722 Active 2024 Ted Flanagan MD [address] [place] [address], [address], [facility] 10:57:21 Problem Notes None recorded. Procedures Surgical History Date Name Laterality Status Provider Name and Address Organization Details Recorded Time 03/25/20 25 echocardiography completed SAULO BOWMAN [facility] 10/08/2025 15:00:58 10/30/19 21 exploratory laparotomy completed Julio Quiros [facility] 01/27/2025 09:56:05 10/30/19 18 procedure on neck [facility] 01/27/2025 09:55:44 10/30/19 08 cholecystectomy completed Julio Quiros [facility] 01/28/2025 13:26:51 Imaging Results None recorded. 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 5 09:33:16 Date Recorded Body height Body mass index (BMI) Body weight Oxygen saturation Heart rate Body temperature Systolic And Diastolic Provider Name and Address Organization Details Last Updated DateTime 5 180.34 cm 26.9 kg/m2 68914.3 3 g 97 % 83 /min 98.1 [degF] 168/102 mm[Hg] [facility] 5 17:37:55 Date Recorded Body height Body mass index (BMI) Body weight Oxygen saturation Heart rate Body temperature Systolic And Diastolic Provider Name and Address Organization Details Last Updated DateTime 5 180.34 cm 26.8 kg/m2 67805.7 4 g 98 % 88 /min 98.1 [degF] 142/80 mm[Hg] Saulo [facility] 5 10:03:01 Date Recorded Body height Body mass index (BMI) Body weight Oxygen saturation Heart rate Systolic And Diastolic Provider Name and Address Organization Details Last Updated DateTime 5 180.34 cm 27.2 kg/m2 42817.5 1 g 97 % 86 /min 148/90 mm[Hg] SAULO BOWMAN [facility] 5 14:44:11 Date Recorded Body height Body mass index (BMI) Body weight Body temperature Respiratory rate Oxygen saturation Heart rate Systolic And Diastolic Provider Name and Address Organization Details Last Updated DateTime 5 180.34 cm 27.5 kg/m2 54511.1 3 g 97.4 [degF] 18 /min 97 % 80 /min 138/84 mm[Hg] Jenniffer [facility]ino [facility] 15:40:04 Social History Question Answer Notes LastModified by [employer] Details LastModified Time Tobacco Smoking Status Never Smoker [facility]io [facility] 01/27/2025 09:52:03 What Is Your Level Of Caffeine Consumption? Heavy [email or web address] Information not available 09/08/2025 Do You Or Have You Ever Used Marijuana? Never Used [email or web address] Information not available 09/08/2025 What Was The Date Of Your Most Recent Tobacco Screening? 10/05/2025 [email or web address] Information not available 10/05/2025 Sex: Unknown Functional Status Question Answer Note LastModified by [email or web address] Pikhub Details LastModified Time Do you use any illicit or recreational drugs? No [email or web address] Information not available 01/27/2025 What is your level of alcohol consumption? None [email or web address] Information not available 01/27/2025 Mental Status None recorded. Family History Relationship Description Onset Age of this Age Resolved Age Notes LastModified by Organization Details LastModified Time Father Diabetes mellitus [email or web address] Not available 2024 09:57:07 Father Heart disease [email or web address] Not available 2024 09:57:15 Medical History No medical history recorded. Immunizations Vaccine Type Date Status Note Provider Nam e and Address Organization Details Recorded Time Tdap 5 completed [facility] 04/09/2025 11:21:21 COVID-19, mRNA, LNP-S, PF, 30 mcg/0.3 mL dose 1 completed [facility] 06/08/2023 09:28:48 COVID-19, mRNA, LNP-S, PF, 30 mcg/0.3 mL dose 1 completed [facility] 06/08/2023 09:28:48 Influenza, split virus, trivalent, PF 5 completed Not Available [facility] 10/14/2025 15:24:50 zoster recombinant 5 completed Not Available [facility] 10/14/2025 15:24:50 Tdap 3 completed Golden Paulino MD [address] [place] [address], [phone], [facility] 03/18/2023 17:05:01 Past Encounters Encounter ID Performer Location Encounter Start Date Encounter Closed Date Diagnosis/Indication Diagnosis SNOMED-CT Code Diagnosis ICD10 Code Diagnosis IMO Codes Diagnosis Note [id number] ROSELYN COON [facility] ([facility]) [address] [place] [phone] 03/16/2023 08:59:11 03/16/2023 09:46:21 Administration of tetanus vaccine 229801846 Z23 Tetanus updated today. Sleep ara carl disturbance 40794522 G47.9 Encouraged patient to establish with a PCP to follow these results. Change in skin lesion 39 5826148 L98.9 Referral sent to dermatolog y per patient request. Discussed with patient that this could be removed in officer, however, patient wishes to be evaluated by dermatolog y. Chronic neck pain 268767 7505 107 M54.2 Start meloxicam daily today. Discussed with patient that this is something that should be followed with a PCP. Patient would like some oxycodones to take on his trip to [place] in case of severe neck pain. Discussed with patient that I could not prescribe this, however, I would send a request to Dr. Rebollar, who is his prior PCP. [id number] Ted Flanagan MD [facility] ([facility]) [address] [place] [phone] 03/20/2023 11:31:46 03/20/2023 14:24:59 Type 2 diabetes mellitus 18573230 E11.9 check a1c. continue current insulin and diet. May change medication s based on results. Fatigue 21327490 R53.83 check labs and treat/eval uate abnormalit ies. Chronic neck pain 466031 8090 107 M54.2 continue daily exercise/s tretches. PRN meds. Cervical radiculopathy 13168736 M54.12 Patient did not tolerate gabapentin or amitriptyl ine well....we will continue with supportive care at this time. [id number] Ted Flanagan MD [facility] ([facility]) [address] [place] [phone] 06/16/2023 09:43:18 06/24/2023 17:15:25 Type 2 diabetes mellitus 20079705 E11.9 Discussed the importance of following diabetic diet. Educated the patient on disease process. Discussed adjusting insulin until glucose goal is reached. [id number] SUPRIYA MARQUES [facility] ([facility]) [address] [place] [phone] 12/30/2024 08:32:55 12/30/2024 10:33:52 Fatigue 05761359 R53.83 Acute uppe r respiratory infection 21810987 J06.9 Covid, flu negative. BS 146. Hx of PE but no hypoxia or tachycardi a today. No lower ext swelling present during exam. Discussed to treat as upper resp infection now. will start antibiotic , have pt push fluids and monitor blood sugar at home. States he's picking up the next insulin monitor today. If pt develops worsening symptoms then return or f/u in ER [id number] Ted Flanagan MD [facility] ([facility]) [address] [place] [id number] 01/27/2025 09:40:13 01/27/2025 10:35:05 Adult health examination 517664699 Z00.01 Cervical radiculopathy 16416532 M54.12 Patient did not tolerate gabapentin or amitriptyl ine well....we will continue with supportive care at this time. Chronic neck pain 389639 3787 107 M54.2 continue daily exercise/s tretches. PRN meds. Type 2 carmine betes mellitus 17413401 E11.9 Discussed the importance of following diabetic diet. Continue to follow-up with endocrinol reshma. The patient has been decreasing insulin due to hypoglycem ia. Pulmonary embolism 47439 003 I26.99 Patient has had unprovoked pulmonary embolism without any known underlying disease process to contribute to this. Continue Eliquis and he will likely need to stay on this lifelong. Recommend evaluation for underlying A-fib as a potential cause. Cardiomega ly due to hypertension 903561621 I11.9 The patient has noted cardiomega ly on imaging. Will obtain echo for further evaluation . Essential hypertension 90593309 I10 His blood pressure is elevated. Recommend beta-block er given its effect on afterload and possible paroxysmal A-fib. Near syncope 973170910 R 55 Patient needs to be further evaluated with event monitor. Recommend 30-day event monitor as we want to evaluate completely for possible A-fib. [id number] SUPRIYA FLETCHER [facility] ([facility]) [address] [place] [id number] 04/07/2025 08:03:41 04/07/2025 08:53:30 Insomnia 820242805 G47.09 [id number] Discussed patient situation with Dr Flanagan. Will start on Seroquel and have follow up with Dr Flanagan on Monday. Patient agrees to plan. RTC with any new or worsening symptoms. [id number] Ted Flanagan MD [facility] ([facility]) [address] [place] [phone] 04/09/2025 09:29:13 04/09/2025 10:38:25 Insomnia 062080936 G47.09 Patient has responded well to quetiapine . Counseled the patient on sleep hygiene and concern about potential bipolar. Active immunization 3387 9002 Z23 21399972 [id number] SUPRIYA FLETCHER [facility] ([facility]) [address] [place], [place] [phone] 09/05/2025 08:36:02 09/05/2025 13:51:08 Hemoglobin below reference range 141427183 D64.9 [id number] Will request lab results. Discussed needing GI workup due to issues. Follow up with Dr Flanagan on Monday. Dyspnea 280124933 R06.02 [id number] Will send to radiology. Follow up on Monday with Dr Flanagan. If patient has shortness of breath over the weekend, go to ER for further evaluation and treatment. [id number] Ted Flanagan MD [facility] ([facility]) [address] [place] [phone] 09/08/2025 09:26:48 09/08/2025 10:11:48 Chronic kidney disease stage 3A 998410598 N18.31 07937106 - Recheck renal function. - Monitor blood pressure. - Avoid nephrotoxi c agents. Posterior rhinorrhea 758 71081 R09.82 066257 - Evaluate for allergies; consider antihistam ine. Anemia 473153280 D64.9 [id number] - Obtain repeat CBC. - Continue iron supplement ation. Acute pharyngitis 842191 003 J02.9 [id number] Melena [id number] K92.1 7672 - Consider gastroente rological investigat ion. - Stool occult blood testing. Obstructiv e sleep apnea syndrome 25142711 G47.33 - Discuss Inspire device with Dr. Ramirez- Follow sleep specialist linsey mnotilla. [id number] DIEGO RUBY APRN [facility] ([facility]) [address] [place] [id number] 09/14/2025 17:31:08 09/15/2025 16:59:15 Wheezing [id number] R06.2 [id number] Post-infec tious disorder 476702595 G93.31 [id number] SUPRIYA FLETCHER [facility] ([facility]) [address] [place] [address] 5 10/05/2025 09:56:58 10/06/2025 11:51:11 Acute bronchitis 52330932 J20.9 [id number] Increase po fluids. Rest. Return to clinic with any new or worsening symptoms. [id number] HONEY MERLOS GAME AUTHOR [facility] ([facility]) [address] [place] [address]9877-140 5 10/08/2025 14:20:42 10/08/2025 15:40:15 Persistent cough 740601971 R05.3 488661 Obstructiv e sleep apnea syndrome 75632071 G47.33 432020 He hasn't tolerated CPAP. He has an appt to see Dr. Ramirez for Inspire. Decreased cardiac ejection fraction [id number] 27026 R93.[id number] Amaya in October, He will see about getting on the cancellati on list. Hypoxia 342502976 G47.34 [id number] Ted Flanagan MD [facility] ([facility]) [address] [place] [address] 10/14/2025 15:24:35 10/14/2025 16:32:28 Essential hypertension 50089994 I10 Blood pressure elevations addressed by increasing metoprolol dosage, prioritizi ng cardiologi teri follow-up. Pulmonary embolism 28957 003 I26.99 Maintain current anticoagul ation therapy. Type 2 carmine betes mellitus 38979691 E11.9 Continue diabetes management , emphasizin g controlled diet and medication optimizati on. Chronic ki dney disease stage 3A 453571698 N18.31 Monitor kidney function, ensuring proper follow-up and adjustment of medication s. Heart fail ure with reduced ejection fraction 427818350 I50.20 Monitor cardiac function increase metoprolol dosage to manage heart failure symptoms, possible introducti on of Entresto after cardiology consultati on. Obstructiv e sleep apnea syndrome 83217698 G47.33 Continue on-track for treatment post-speci alist evaluation to aid in reduction of nocturnal symptoms. Health Concerns Section Related Observation LastModified by Organization Detai ls LastModified Time None Recorded Concern Status LastModified by Organization Details LastModified Time None Recorded Advance Directives Directive None Recorded Payers Insurance Date Sequence Insurance Name Policy Number Policy Dhaliwal Covered Member ID Dhaliwal Member ID Guarantor Name 09/05/2025 1 [employer] [id number] Phi Vera Perez [id number] Phi Vera Perez 09/05/[address] [employer]) [id number] Rhonda Perez [id number] Phi Perez Notes Date Note Type Note [...] of dark, tarry stools. Ted Flanagan MD [address] [place], [address], [facility] 09/08/2025 10:57:33 09/14/2025 text/html Walk inSaw Dr. Flanagan last week on 09/08/25. Drainage x2 weeks. Now chest tightening and breathing difficulties with wheezing. DIEGO RUBY APRN [address] [place] [address], [phone], [facility] 09/14/2025 18:10:20 10/05/2025 text/html ROS as noted in the HPI Walk inAugmentin prescribed on 09/21 & prednisone have not helped his symptoms x2-3 weeks. Patient complains of continued SOB, and coughing. Patient states that the prednisone helped more than anything. Has been having a productive cough with brown sputum. Was given albuterol inhaler at time of last visit. SUPRIYA FLETCHER [address] [place], [address], [facility] 10/05/2025 14:45:24 10/14/2025 text/html The patient is a 55-year-old male presenting with concerns about his heart health. He previously underwent an echocardiogram in February that revealed a low ejection fraction, prompting a diagnosis of congestive heart failure. Communication breakdowns delayed further medical review of the results, leaving his heart function unmanaged. Recently, he has experienced exacerbated symptoms, including leg swelling and difficulty breathing when supine. There is concern about the interplay of untreated obstructive sleep apnea, diabetes, pulmonary embolism history, and kidney disease impacting his cardiac health. - Echocardiogram: Low ejection fraction of 35%. - Prior test reports suggest presence of pulmonary embolism. Not Available Not Available Not Available
--- OUTSIDE RECORDS SUMMARY | 2025-10-16 06:17 | XMS_ITS | Continuity of Care Document ---
Author Organization ASHLEY - Nash Kapoor [facility] Nubia, LAida, [facility] ([facility]) Address [address] [place] [address] Care Team Providers Care Peripatologist Name Role Phone TED FLANAGAN Primary Care Provider Unavailabl e Assessment No assessment recorded. Plan of Treatment Reminders Order Date Submit Date Provider Last Modified By Organization Details Last Modified Time Details Appointments None recorded. Lab None recorded. Referral None recorded. Procedures None recorded. Surgeries None recorded. Imaging None recorded. Medication Orders albuterol sulfate HFA 90 mcg/actuat ion aerosol inhaler 2024 025 [facility] [place], [facility], [address], 05:01:14 Patient TargetsNo targets recorded. Patient Instructions Encounter Date Encounter Id Patient Instructions Last Modified By Organization Details Last Modified Time 09/14/2025 [id number] Follow up for worsening or changes [email or web address] Not available 09/14/2025 18:10:08 Reason for Referral None Reported. Results Created Date Observation Date Name Description Value Unit Range Abnormal Flag Note LastModifiedBy Organization Detail LastModifiedTime 09/08/2009/08/2025 CBC WBC 7.1 x10 4.5-10 .5 Not Available [facility] [address] [place] [facility], [place], [address], 09/08/2025 10:35:11 09/08/20 25 09/08/2025 CBC RBC 4.10 x10 4.30-5 .90 low Not Available [facility] [address] [facility] 1, [place], [address], 09/08/2025 10:35:11 09/08/20 25 09/08/2025 CBC HGB 12.2 g/dL 13.5-1 8.0 low Not Available [facility] [address] [facility], [place], [address], 09/08/2025 10:35:11 09/08/20 25 09/08/2025 CBC HCT 37.6 % 35.0-6 0.0 Not Available [facility] [address] [facility], [place], [address], 09/08/2025 10:35:11 09/08/20 25 09/08/2025 CBC MCV 91.7 fL 80.0-9 9.9 Not Available [facility] [address] [facility], [place], [address], 09/08/2025 10:35:11 09/08/20 25 09/08/2025 CBC MCH 29.7 pg 27.0-3 2.0 Not Available [facility] [address] [facility] 1, [place], [address], 09/08/2025 10:35:11 09/08/20 25 09/08/2025 CBC MCHC 32.4 g/dL 32.0-3 6.0 Not Available [facility] [address] [facility], [place], [address], 09/08/2025 10:35:11 09/08/20 25 09/08/2025 CBC RDW 13.8 % 11.5-1 4.5 Not Available [facility] [address] [facility] 1, [place], [address], 09/08/2025 10:35:11 09/08/20 25 09/08/2025 CBC plt 289.1 x10 150.0- 451.0 Not Available [facility] [address] [facility], [place], [address], 09/08/2025 10:35:11 09/08/20 25 09/08/2025 CBC lymphocytes % 25.4 % 20.0-5 0.0 Not Available [facility] [address] [facility], [place], [address], 09/08/2025 10:35:11 09/08/20 25 09/08/2025 CBC granulcytes % 61.7 % 30.0-7 0.0 Not Available [facility] [address] [facility], [place], [address], 09/08/2025 10:35:11 09/08/20 25 09/08/2025 CBC monocytes % 9.4 % 2.0-16 .0 Not Available [facility] [address] [facility], [place], [address], 09/08/2025 10:35:11 09/08/20 25 09/08/2025 CBC granulcytes# 4.4 x10 Not Elvia ilable [facility] [address] [facility], [place], [address], 09/08/2025 10:35:11 09/08/20 25 09/08/2025 CBC lymphocytes # 1.8 x10 Not Available [facility] [address] [facility] 1, [place], [address], 09/08/2025 10:35:11 09/08/20 25 09/08/2025 CBC monocytes # 0.7 x10 Not Avai lable [facility] [address] [facility] 1, [place], [address], 09/08/2025 10:35:11 11/10/09/08/2025 CMP (MALE ) glucose 107.0 mg/dL 60.0-9 9.0 high Not Available [facility] [address] [facility], [place], [address], 09/08/2025 11:28:07 09/08/20 25 09/08/2025 CMP (MALE ) BUN (blood urea nitrogen) 33.0 mg/dL 10.0-2 6.0 high Not Available [facility] [address] [facility], [place], [address], 09/08/2025 11:28:07 09/08/20 25 09/08/2025 CMP (MALE ) creatinine (serum) 1.9 mg/dL 0.4-1. 5 high Not Available [facility] [address] [facility], [place], [address], 09/08/2025 11:28:07 09/08/20 25 09/08/2025 CMP (MALE ) BUN/creatini ne ratio 17.37 ratio Not Available [facility] [address] [facility] 1, [place], [address], 09/08/2025 11:28:07 09/08/20 25 09/08/2025 CMP (MALE ) eGFR calculated 39.3 Not Available [facility] [address] [facility], [place], [address], 09/08/2025 11:28:07 09/08/20 25 09/08/2025 CMP (MALE ) total protein 6.5 g/dL 6.0-8. 5 Not Available [facility] [address] [place] [facility], [place], [address], 09/08/2025 11:28:07 09/08/20 25 09/08/2025 CMP (MALE ) total bilirubin 1.0 mg/dL 0.2-1. 3 Not Available [facility] [address] [facility] [place] [address], [place], [address], 09/08/2025 11:28:07 09/08/20 25 09/08/2025 CMP (MALE ) albumin 3.3 g/dL 3.5-5. 5 low Not Available [facility] [address] [facility] 1, [place], [address], 09/08/2025 11:28:07 09/08/20 25 09/08/2025 CMP (MALE ) globulin 3.2 calc Not Available [facility] [address] [place] [facility], [place], [address], 09/08/2025 11:28:07 09/08/20 25 09/08/2025 CMP (MALE ) AST (SGOT) 27.0 U/L 0.0-46 .0 Not Available [facility] [address] [facility] 1, [place], [address], 09/08/2025 11:28:07 09/08/20 25 09/08/2025 CMP (MALE ) altv (SGPT) 19.0 U/L 13.0-6 9.0 normal Not Available [facility] [address] [facility] 1, [place], [address], 09/08/2025 11:28:07 09/08/20 25 09/08/2025 CMP (MALE ) A/G ratio 1.0 ratio Not Available [facility] [address] [place] [facility] 1, [place], [address], 09/08/2025 11:28:07 09/08/20 25 09/08/2025 CMP (MALE ) ALP phos 50.0 U/L 30.0-1 40.0 normal Not Available [facility] [address] [facility] 1, [place], [address], 09/08/2025 11:28:07 09/08/20 09/08/2025 CMP (MALE ) calcium 9.1 mg/dL 8.4-10 .5 Not Available [facility] [address] [facility], [place], [address], 09/08/2025 11:28:07 09/08/20 25 09/08/2025 CMP (MALE ) sodium 140.0 mmol/ L 136.0- 145.0 Not Available [facility] [address] [facility], [place], [address], 09/08/2025 11:28:07 09/08/2009/08/2025 CMP (MALE ) potassium 4.3 mmol/ L 3.5-5. 1 Not Available [facility] [address] [facility], [place], [address], 09/08/2025 11:28:07 09/08/20 25 09/08/2025 CMP (MALE ) chloride 109.0 mmol/ L 98.0-1 10.0 normal Not Available [facility] [address] [facility], [place], [address], 09/08/2025 11:28:07 09/08/20 25 09/08/2025 CMP (MALE ) C02 29.0 mmol/ L 22.0-3 1.0 Not Available [facility] [address] [facility], [place], [address], 09/08/2025 11:28:07 09/08/20 25 09/08/2025 CMP (MALE ) anion gap 2.0 calc Not Available [facility] [address] [facility] 1, [place], [address], 09/08/2025 11:28:07 09/08/20 25 09/08/2025 CMP (MALE ) osmolality 296.4 calc Not Available [facility] [address] [facility] [place], [address], 09/08/2025 11:28:07 09/08/2009/08/2025 respi rator y patho gens DNA and RNA panel , PCR, nasop haryn x Covid negati ve Not Available [facility] ([facility]) [address] [place], [address], 09/08/2025 09:59:51 09/08/20 25 09/08/2025 respi rator y patho gens DNA and RNA panel , PCR, nasop haryn x Rhinovirus negati ve Not Available [facility] ([facility]) [address] [place], [address], 09/08/2025 09:59:51 09/08/20 25 09/08/2025 respi rator y patho gens DNA and RNA panel , PCR, nasop haryn x Influenza A negati ve Not Available [facility] ([facility]) [address] [place], [address], 09/08/2025 09:59:51 09/08/2009/08/2025 respi rator y patho gens DNA and RNA panel , PCR, nasop haryn x Influenza B negati ve Not Available [facility] ([facility]) [address] [place] [address], [address], 09/08/2025 09:59:51 09/08/2009/08/2025 respi rator y patho gens DNA and RNA panel , PCR, nasop haryn x RSV negati ve Not Available [facility] ([facility]) [address] [place], [address], 09/08/2025 09:59:51 09/05/20 25 09/05/2025 XR, chest , 2 view No observ ation record ed. HERMINIO [facility] ([facility]) [address] [place], [address], 09/06/2025 11:24:49 09/09/20 25 09/05/2025 XR, chest , 2 view No observ ation record ed. HERMINIO [facility] ([facility]) [address] [place], [address], 09/09/2025 12:09:17 Result Notes None recorded. Problems Name Problem SNOMED Code Status Onset Date Resolution Date Notes Provider Name and Address Organization Details Recorded Time History of surgery 929978991 Active 2019 Eye surgery; Correct vision; 09/30/20 20 10:49AM by Bhumika Sharma, Office Visit; Promoted ; acuity set as *; HAYDEN heart [facility] 3 14:22:00 Disorder due to type 2 diabetes mellitus 426786617 Completed 201906/07/2023 DM II; 09/30/20 20 10:49AM by Bhumika Sharma, Office Visit; Promoted ; acuity set as *; HAYDEN heart [facility] 3 14:22:07 Type 2 diabetes mellitus 54877868 Active 2022 HAYDEN heart [facility] 3 15:31:13 Migraine 35224612 Active 2022 HAYDEN heart [facility] 3 15:31:22 Opioid dependen ce 61555560 Active 2022 HAYDEN heart [facility] 3 17:31:26 Pulmonar y embolism 53128742 Active 2022 HAYDEN heart [facility] 3 17:32:01 Insomnia 041456466 Active 2022 HAYDEN heart [facility] 3 17:32:13 Chronic neck pain 77915301247 07 Active 2022 Ted Flanagan MD [address] [place] [address], [phone], [facility] 3 14:10:48 Fatigue 00247748 Active 2022 HAYDEN heart [facility] 3 15:31:26 Cervical radiculo stephanie 04117383 Active 2022 HAYDEN heart [facility] 3 14:22:37 Cardiome fide due to hyperten zack 686038678 Active 2024 Julio heart [facility] 5 13:25:55 Essentia l hyperten zack 47476754 Active 2024 Julio heart [facility] 5 13:25:59 Near syncope 067759215 Active 2024 Julio heart [facility] 5 13:26:14 Chronic kidney disease stage 3A 685447802 Active 2024 Ted Flanagan MD [address] [place] [address], [phone], [facility] 5 09:57:18 Posterio r rhinorrh ea 72134597 Active 2024 Ted Flanagan MD [address] [place] [address], [address], [facility] 5 09:57:39 Anemia 308330377 Active 2024 Ted Flanagan MD [address] [place] [address], [address], [facility] 09:58:10 Acute pharyngi tis 490065989 Active 2024 Ted Flanagan MD [address] [place] [address], [phone], [facility] 09:59:40 Melena 4366157 Active 2024 Ted Flanagan MD [address] [place] [address], [phone], [facility] 10:05:20 Obstruct sherita sleep apnea syndrome 53684798 Active 2024 Ted Flanagan MD [address] [place] [address], [phone], [facility], [facility] 10:57:21 Problem Notes None recorded. Procedures Surgical History Date Name Laterality Status Provider Name and Address Organization Details Recorded Time 03/25/20 25 echocardiography completed SAULO BOWMAN [facility] 10/08/2025 15:00:58 10/30/19 21 exploratory laparotomy completed [facility] 01/27/2025 09:56:05 10/30/19 18 procedure on neck completed Julio [facility] 01/27/2025 09:55:44 10/30/19 08 cholecystectomy completed [facility] 01/28/2025 13:26:51 Imaging Results None recorded. Procedure [...] daily, as needed 06/02 completed Recorded 02/13/20 12:56PM by Jamie Rebollar MD, Refill Request; Refill Quantity : 40; Tablet; Not Available Not Available Not Available prednison e 10/08 completed Not Available Not Available Not Available Trazodone at bedtime 01/27 completed Recorded 08/19/20 8:27AM by Bhumika Sharma, Office [...] availabl e- [facility] Not Available Not Available Not Available OneTouch Verio test strips three times daily 09/14 completed RM/CC; 9; Recorded 01/28/20 21 10:26AM by Justina Arroyo LPN (Authori reshmad through Jamie Rebollar MD), Annotati on/Adden dum; [...] Available Not Available Not Available 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 Heavy [email or web address] Information not available 09/08/2025 Do You Or Have You Ever Used Marijuana? Never Used [email or web address] Information not available 09/08/2025 What Was The Date Of Your Most Recent Tobacco Screening? 10/05/2025 [email or web address] Information not available 10/05/2025 Sex: Unknown Functional Status Question Answer Note LastModified by Organizat ion Details LastModified Time Do you use any illicit or recreational drugs? No [email or web address] Information not available 01/27/2025 What is your level of alcohol consumption? None Information not available 01/27/2025 Mental Status None recorded. Family History Relationship Description Onset Age of this Age Resolved Age Notes LastModified by Organization Details LastModified Time Father Diabetes mellitus [email or web address] Not available 2024 09:57:07 Father Heart disease [email or web address] Not available 2024 09:57:15 Medical History No medical history recorded. Immunizations Vaccine Type Date Status Note Provider Nam e and Address Organization Details Recorded Time Tdap 5 completed Wendy heart [facility] 04/09/2025 11:21:21 COVID-19, mRNA, LNP-S, PF, 30 mcg/0.3 mL dose 1 completed HAYDEN heart [facility] 06/08/2023 09:28:48 COVID-19, mRNA, LNP-S, PF, 30 mcg/0.3 mL dose 1 completed HAYDEN heart [facility], [place] 06/08/2023 09:28:48 Influenza, split virus, trivalent, PF 5 completed Not Available [facility] 10/14/2025 15:24:50 zoster recombinant 5 completed Not Available [facility] 10/14/2025 15:24:50 Tdap 3 completed Golden Paulino MD [address] [place] [address], [address], [facility], Joy 03/18/2023 17:05:01 Past Encounters Encounter ID Performer Location Encounter Start Date Encounter Closed Date Diagnosis/Indication Diagnosis SNOMED-CT Code Diagnosis ICD10 Code Diagnosis IMO Codes Diagnosis Note [id number] SUPRIYA FLETCHER [facility] ([facility]) [address] [place] [address] 09/05/2025 08:36:02 09/05/2025 13:51:08 Hemoglobin below reference range 482512199 D64.9 [id number] Will request lab results. Discussed needing GI workup due to issues. Follow up with Dr Flanagan on Monday. Dyspnea 995068010 R06.02 [id number] Will send to radiology. Follow up on Monday with Dr Flanagan. If patient has shortness of breath over the weekend, go to ER for further evaluation and treatment. [id number] Ted Flanagan MD [facility] ([facility]) [address] [place] [address] 09/08/2025 09:26:48 09/08/2025 10:11:48 Chronic kidney disease stage 3A 013109220 N18.31 18141613 - Recheck renal function. - Monitor blood pressure. - Avoid nephrotoxi c agents. Posterior rhinorrhea 758 42678 R09.82 087394 - Evaluate for allergies; consider antihistam ine. Anemia 870777462 D64.9 81429885 - Obtain repeat CBC. - Continue iron supplement ation. Acute pharyngitis 159011 003 J02.9 [id number] Melena 2300085 K92.1 7672 - Consider gastroente rological investigat ion. - Stool occult blood testing. Obstructiv e sleep apnea syndrome 23767295 G47.33 - Discuss Inspire device with Dr. Ramirez- Follow sleep specialist linsey montilla. [id number] DIEGO RUBY APRN [facility] ([facility]) [address] [place] [address] 09/14/2025 17:31:08 09/15/2025 16:59:15 Wheezing 60248390 R06.2 98181 Post-infec tious disorder 782352527 G93.31 [id number] Health Concerns Section Related Observation LastModified by Organization Detai ls LastModified Time None Recorded Concern Status LastModified by Organization Details LastModified Time None Recorded Payers Encounter Date Sequence Insurance Name Policy Number Policy Dhaliwal Covered Member ID Dhaliwal Member ID Guarantor Name 09/14/[address] - [facility] - [employer] ([employer]) [id number] Rhonda Perez [id number] Phi Perez Notes Date Note Type Note Provider Name and Address Organization Details Recorded Time 09/14/2025 text/html Walk inSaw Dr. Flanagan last week on 09/08/25. Drainage x2 weeks. Now chest tightening and breathing difficulties with wheezing. DIEGO RUBY APRN [address] [place] [address], [phone], [facility] - Nash [facility]oor [facility] 09/14/2025 18:10:20
--- NOTE | 2025-10-16 06:18 | ECG_ITS ---
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
--- NOTE | 2025-10-16 06:25 | W.ED.CHESTPA ---
HPI - Chest Pain General: Chief Complaint: Chest Pain Stated Complaint: SOB / chest pain Time Seen by Provider: 10/16/25 06:23 History of Present Illness: 55-year-old male with a history of pulmonary embolism cardiomyopathy diabetes mellitus chronic kidney disease presents to the emergency room with a complaint of chest pain. He said chest pain and shortness of breath intermittently overnight. Reviewing his chart he had a stress test in August 2022 which showed some attenuation artifact but nothing significantly concerning. He developed COVID and has had difficult problems since then he is a known diabetic. He had diagnosis of pulmonary emboli earlier this year and December. In February of this year he had an echocardiogram that showed an ejection fraction of 30% in the last 3 weeks he is progressively noticing increasing orthopnea decreasing exercise tolerance. He has had to sleep in a chair or has been using pillows to prop himself up at night. By doing this he is able to slightly delay the onset of PND for a couple of hours. He had recently been prescribed oxygen to help with his complaints of shortness of breath overnight. He has also noticed development of intermittent lower extremity edema. Over the last few weeks with his complaint shortness of breath he has been on a couple course of antibiotics and steroids none of which seem to have helped. They also recently had started him on metoprolol. He had noticed his blood pressure fluctuated quite a bit at home it several times having very elevated blood pressures it improved with metoprolol and his heart rate improved from being chronically tachycardic over 100 into the 80s but despite this he developed worsening symptoms. He has not previously had an angiogram. Tonight at 1 point he got very short of breath and got up and syncopized collapsed to the floor found himself on the floor. He was able to get back up and ambulate presents to the emergency room this morning with persistent left-sided chest pain and shortness of breath. Chest pain radiates into his left shoulder. According to the most recent echo in February of this year he has no valvular disease. Associated symptoms: Reports dyspnea; Deny abdominal pain or fever(s) Related Data Home Medications ?Medication ?Instructions ?Recorded ?Confirmed metoprolol succinate 25 mg 50 mg PO DAILY 03/14/25 10/16/25 tablet,extended release 24 hr insulin degludec 100 unit/mL (3 22 unit SUBCUT DAILY 10/16/25 10/16/25 mL) subcutaneous pen (Tresiba FlexTouch U-100 insulin) Previous Rx's ?Medication ?Instructions ?Recorded apixaban 5 mg tablet (Eliquis) 5 mg PO BID #60 tabs 01/01/25 blood-glucose sensor (Dexcom G7 #9 ea 01/20/25 Sensor device) empagliflozin 10 mg tablet 10 mg PO DAILY #90 tabs 06/13/25 (Jardiance) Allergies Allergy/AdvReac Type Severity Reaction Status Date / Time No Known Allergies Allergy Verified 03/13/25 14:18 Review of Systems Const: Denies: fever(s) or chills Card: Reports: chest pain, edema and swelling of feet/ankles Resp: Reports: dyspnea GI: Denies: abdominal pain : Denies: dysuria, urinary frequency or urinary urgency Musc: Reports: extremity swelling; Denies: neck pain or back pain Skin/Breast: Denies: rash PFSH ED PFSH: Medical History Cervical spondylosis with radiculopathy Diabetes mellitus Surgical History History of cholecystectomy Family History Mother Obesity Father Diabetes Obesity Social History Smoking and tobacco/nicotine status: never used tobacco/nicotine Second hand smoke exposure: No Alcohol intake: current Alcohol intake frequency: holidays/special occasions only Substance/Drug Use: never Lives independently: Yes Household members: spouse Housing: House Marital status: service: No Current occupational status: employed Do you think of yourself as: Straight/Heterosexual Current gender identity: Male Physical Exam Const: COMMON NORMALS: no acute distress GENERAL APPEARANCE: cooperative and comfortable ORIENTATION/CONSCIOUSNESS: Yes awake, Yes oriented to person, Yes oriented to place and Yes oriented to time HENMT: COMMON NORMALS: normocephalic, atraumatic and hearing grossly normal bilaterally HEAD & SCALP: normocephalic and atraumatic Resp: COMMON NORMALS: normal respiratory effort, No retractions, No use of accessory muscles and clear to auscultation bilaterally AUSCULTATION: clear to auscultation bilaterally Cardio: COMMON NORMALS: regular rate, regular rhythm and No murmurs present (Cardio) RATE: regular rate RHYTHM: regular rhythm GI: COMMON NORMALS: Soft to palpation and No hepatosplenomegaly present AUSCULTATION: Yes normoactive bowel sounds PALPATION: Yes Soft to palpation, No Tenderness to palpation present (GI), No Guarding due to palpation present (GI) and Yes No hepatosplenomegaly present Extremity: COMMON NORMALS: normal to inspection, capillary refill normal, no clubbing, cyanosis or edema, no calf tenderness and no pedal edema Neuro: SENSORIUM/ORIENTATION: Yes oriented to person, Yes oriented to place and Yes oriented to time Skin: COMMON NORMALS: no rashes or lesions noted GENERAL SKIN EXAM: no rashes or lesions noted Course Vital Signs: Vital signs: Vital Signs Temperature 97.5 F L 10/18/25 09:32 Pulse Rate 75 10/18/25 09:55 Respiratory Rate 16 10/18/25 09:55 Blood Pressure 144/82 10/18/25 09:55 Pulse Oximetry 95 10/18/25 09:55 Oxygen Delivery Me thod Room Air 10/18/25 09:55 Oxygen Flow Rate 10 10/18/25 09:32 MDM - Chest Pain Medical Decision Making Medical decision making Social determinants: None I reviewed the patient's medical record. Reviewed previous CTA of the chest previous Lexiscan sestamibi stress test and echocardiogram done earlier this year. Old records are being requested from his primary care doctor's office as well as an emergency room visit at [facility] in [place] in April or May of this year I reviewed the patient's current home meds. Alternate historians: Significant other who is also physician Differential diagnosis: Congestive heart failure, pneumonia, acute coronary syndrome, right heart failure from pulmonary embolism, pulmonary embolism Lab Review: Initial troponin 66 given appearance of chest x-ray think this is likely heart strain from congestive heart failure. Chest x-ray does show significant cardiomegaly and signs of congestive heart failure concurrent with his reported symptoms. BNP 5610. Patient has a mild acute on chronic renal failure with a creatinine of 1.8. Hemoglobin is 10 white count is normal. Imaging: Chest x-ray shows cardiomegaly with small left-sided pleural effusion increased vascular markings consistent with congestive heart failure. Assessment of risk Level of risk: High Hospitalization considerations: Based on history alone patient will be admitted Reexamination: Mild improvement improvement of chest discomfort with nitro Assessment and plan: Based on history alone patient obviously will require hospitalization he is in acute decompensated heart failure which has been progressively worsening last couple of weeks. Unfortunately he has acute on chronic kidney failure that has been progressively worsening as well reviewing his old records. Concern for possible worsening of DVT causing some of the symptoms however I feel it is more likely that this is related to coronary artery disease he has multiple risk factors. He will require an angiogram during his hospital stay we did not repeat a CTA of his chest as I do not think his kidneys could tolerate the dye load of a CTA and then evaluation in the cardiac Order Desk Caller. Patient was heparinized and started on nitro. He had improvement of his chest discomfort with IV nitro. His breathing did slightly improve as well. We did give him a low-dose of Lasix with good increase in urine output. Discussed the case with cardiology as well as hospitalist. Will admit. Dr. Amaya was kind enough to see the patient in the emergency room. At this time with his pain improving and his second troponin not showing a significant delta he is not recommending immediate cardiac cath but will try to stabilize his kidney function and congestive heart failure first. Further complicating his care is reports that earlier this year some terminal and around April or May at a hospital in [place] patient had a hemoglobin in the range of 8. He was having melanotic stools at that time. He was given iron supplementation but did not have any endoscopy to further evaluate he has continued to be on his Eliquis regularly since then up until admission to the emergency room today. Reviewed all this with the patient he is agreeable to plan. We discussed any questions he had as well as concerns. Medical Records CTA chest CT/CT angio chest PE protcl [id number] IMPRESSION: 1. A few scattered bilateral subsegmental lower lobe pulmonary emboli. No central pulmonary emboli. 2. No pneumonia. 3. Mild LEFT heart enlargement. LEFT ventricle enlargement appears greater as compared to 2021. 4. Prior cholecystectomy with pneumobilia. 5. Mildly reactive hilar lymphadenopathy. Dictated By: Melissa Staples DO Signed By: Melissa Staples DO Signed Date/Time 01/01/25 3455 Lexiscan sestamibi stress test PERFUSION FINDINGS Very small sized perfusion abnormality of mild severity of mid inferior wall on rest images with improved tracer uptake in stress images. This is suggestive of attenuation artifact. FUNCTIONAL RESULTS (calculated via Gated SPECT) Stress Image LV EF (%): 50 Stress EDV (mL):126 TID: 1.09 Stress ESV (mL):63 FUNCTIONAL FINDINGS: The left ventricle is normal in size. Transient Ischemia Dilatation of 1.1. The left ventricular ejection fraction is mildly reduced with a value of 50%. There is mild reduced left ventricular wall thickening. No regional wall motion abnormality. IMPRESSIONS 1. Myocardial perfusion imaging is normal. 2. The left ventricular ejection fraction is mildly reduced with a value of 50%. 3. Mild global hypokinesis with no regional wall motion abnormality. 4. Normal EKG response to Lexiscan infusion. Refer to separate report for details. Felecia Phillips MD (Electronically Signed) Final Date: 22 January 2022 Echocardiogram CONCLUSIONS Moderately increased left ventricular cavity size. Severely decreased left ventricular systolic function. Left ventricular ejection fraction is estimated at 35 %. Global left ventricular hypokinesis.Grade III/IV diastolic dysfunction (restrictive filling pattern), severely elevated filling pressures. There is no pericardial effusion. No significant valve abnormalities. Right atrial pressure is around 5 mm of mercury. Vinay Steward MD (Electronically Signed) Final Date: 26 Mar 2025 18:35 DD/ 0923 Lab Data 10/18/25 02:33 10/18/25 02:33 Radiology Impressions Chest X-Ray 10/16/25 06:52 IMPRESSION: 1. Small left-sided pleural effusion. 2. Cardiomegaly. Renal Ultrasound 10/16/25 09:51 IMPRESSION: Normal renal ultrasound. Chest CT 10/17/25 09:12 IMPRESSION: 1. Ill-defined consolidation in the left lung base may represent infiltrate in the correct clinical setting. 2. Ill-defined ground-glass opacities dependently in bilateral lower lobes favor atelectasis, though atypical infection is not excluded. 3. Moderate bilateral pleural effusions. Laboratory Results WBC 7.41 10^3/uL (3.29-11.43) 10/16/25 06:32 RBC 3.73 10^6/uL (3.85-5.65) L 10/16/25 06:32 Hgb 10.90 g/dL (11.27-16.99) L 10/16/25 06:32 Hct 33.5 % (37-53) L 10/16/25 06:32 MCV 89.8 fl (82-101) 10/16/25 06:32 MCH 29.2 pg (27-33) 10/16/25 06:32 MCHC 32.5 g/dL (30-55) 10/16/25 06:32 RDW 13.3 % (12.1-15.1) 10/16/25 06:32 Plt Count 278 10^3/cmm (157-399) 10/16/25 06:32 MPV 10.2 fL (7.4-10.4) 10/16/25 06:32 Neut % (Auto) 51.3 % 10/16/25 06:32 Lymph % (Auto) 17.3 % 10/16/25 06:32 [place] % (Auto) 8.6 % 10/16/25 06:32 Eos % (Auto) 21.2 % 10/16/25 06:32 Baso % (Auto) 1.2 % 10/16/25 06:32 Neut # (Auto) 3.80 10^3/uL (1.8-7.7) 10/16/25 06:32 Lymph # (Auto) 1.3 10^3/uL (0.8-4.8) 10/16/25 06:32 Woodruff # (Auto) 0.6 10^3/uL (0.2-0.9) 10/16/25 06:32 Eos # (Auto) 1.6 10^3/uL (0.0-0.8) H 10/16/25 06:32 Baso # (Auto) 0.1 10^3/uL (0.0-0.1) 10/16/25 06:32 Nucleated RBC % (auto) 0 % 10/16/25 06:32 Nucleated RBCs # 0.0 /100WBC 10/16/25 06:32 Sodium 141 mmol/L (136-145) 10/16/25 06:32 Potassium 3.8 mmol/L (3.5-5.1) 10/16/25 06:32 Chloride 105 mmol/L (98-107) 10/16/25 06:32 Carbon Dioxide 28 mmol/L (22-29) 10/16/25 06:32 Anion Gap 11.8 (5-19) 10/16/25 06:32 BUN 19 mg/dL (6-20) 10/16/25 06:32 Creatinine 1.8 mg/dL (0.7-1.2) H 10/16/25 06:32 GFR Calculation 39.4 mL/min (90-130) L 10/16/25 06:32 Glucose 197 mg/dL (65-115) H 10/16/25 06:32 Calculated Osmolality 300 mOsm/kg (285-295) H 10/16/25 06:32 Calcium 8.7 mg/dL (8.5-10.5) 10/16/25 06:32 Total Bilirubin 0.8 mg/dL (0.15-1.2) 10/16/25 06:32 AST 14 U/L (0-40) 10/16/25 06:32 ALT 20 U/L (0-41) 10/16/25 06:32 Alkaline Phosphatase 58 U/L (40-130) 10/16/25 06:32 Troponin T Baseline 66 ng/L (0-15) H 10/16/25 06:32 Troponin T 60 Minute 66.33 ng/L (0-15) H 10/16/25 07:26 Delta Troponin T 0.33 ABS# (0-10) 10/16/25 07:26 NT-Pro-B Natriuret Pep 5610 pg/mL (0-125) H 10/16/25 06:32 Total Protein 6.0 g/dL (6.6-8.7) L 10/16/25 06:32 Albumin 3.4 g/dL (3.5-5.2) L 10/16/25 06:32 Globulin 2.6 g/dL (1.3-4.6) 10/16/25 06:32 All radiology interpretation(s) finalized by discharge EKG Data EKG 1: I personally reviewed and interpreted this EKG as follows: Interpretation: EKG 10/16/2025 6:18 AM sinus rhythm rate of 75 HI interval 165 QTc 426[address] No acute ST elevation. Compared to EKG 01/01/2025 no significant change noted EKG 2: I personally reviewed and interpreted this EKG as follows: Interpretation: EKG 10/16/2025 7:38 AM sinus rhythm rate of 75. [place] 160 QTc 449 nonspecific T wave changes. Compared to EKG done earlier same day no significant change Critical Care Time Critical Care Time: Critical Care Time: Yes Total Critical Care Time: 45 Attestation: The high probability of a clinically significant, sudden or life threatening deterioration of the patient's cardiovascular renal system(s) required my full and direct attention, intervention and personal management. The critical care time is as shown. This time is in addition to time spent performing any reported procedures but includes the following: [x] Data and vital sign review and interpretation [x] Patient assessment, examination and intervention [x] Documentation [x] Medication orders and management Discharge Plan Discharge Patient Disposition: Admitted As Inpatient Admit Provider: Josef Aguilera Clinical Impression: Acute CHF, History of pulmonary embolism, Diabetes mellitus, Acute kidney injury superimposed on CKD, Cardiomyopathy, Unstable angina pectoris, Anemia Condition: Stable Coding Level of Care Code ED Direct Marketing Manager for Chg Fwd Heart Score HEART Score Components History: Highly Suspicious EKG: Normal Age: 45-64 yrs Risk Factors: >/=3 Risk Factors Troponin: Baseline Trop >45 ng/L HEART Score RESULT HEART Score: 7
--- NOTE | 2025-10-16 06:52 | XRR_ITS ---
PROCEDURE INFORMATION: Exam: XR Chest Exam date and time: 10/16/2025 6:58 AM Age: 55 years old Clinical indication: Other: Chest pain TECHNIQUE: Imaging protocol: Radiologic exam of the chest. Views: 1 view. COMPARISON: CR XR chest 2V* [id number] 09/05/2025 8:26 AM FINDINGS: Lungs: Pulmonary vessels are within normal limits. Right lung is clear. Pleural spaces: Small left-sided pleural effusion. Heart/Mediastinum: Cardiomegaly is seen. Bones/joints: Prior surgical changes of the lower cervical spine. XR/XR chest 1V portable [id number] IMPRESSION: 1. Small left-sided pleural effusion. 2. Cardiomegaly.
[2025-10-16 06:57] LABS: Hematocrit 33.5 % (37-53); Hemoglobin 10.90 g/dL (11.27-16.99); Mean Corpuscular HGB Conc 32.5 g/dL (30-55); Mean Corpuscular Hemoglobin 29.2 pg (27-33); Mean Corpuscular Volume 89.8 fl (82-101); Nucleated Red Blood Cells % 0 %; Platelet Count 278 10^3/cmm (157-399); Red Blood Count 3.73 10^6/uL (3.85-5.65); White Blood Count 7.41 10^3/uL (3.29-11.43)
[2025-10-16] MEDS: nitroglycerin drip 50 MG/250 ML PREMIX IV (07:01)
[2025-10-16 07:02] LABS: Troponin(5th) Baseline 66 ng/L (0-15)
--- NOTE | 2025-10-16 07:03 | PC.NURSE ---
THIS NURSE ASSUMED CARE @ 5475.
[2025-10-16 07:08] LABS: Alanine Aminotransferase 20 U/L (0-41); Albumin Level 3.4 g/dL (3.5-5.2); Alkaline Phosphatase 58 U/L (40-130); Anion Gap 11.8 (5-19); Aspartate Amino Transferase 14 U/L (0-40); Blood Urea Nitrogen 19 mg/dL (6-20); Calcium 8.7 mg/dL (8.5-10.5); Carbon Dioxide 28 mmol/L (22-29); Chloride 105 mmol/L (98-107); Globulin 2.6 g/dL (1.3-4.6); Glucose 197 mg/dL (65-115); Osmolality Calculated 300 mOsm/kg (285-295); Potassium 3.8 mmol/L (3.5-5.1); Sodium 141 mmol/L (136-145); Total Protein 6.0 g/dL (6.6-8.7)
[2025-10-16 07:12] LABS: NT Pro B Type Natriuretic Pept 5610 pg/mL (0-125)
--- NOTE | 2025-10-16 07:23 | ECG_ITS ---
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1970 Requested By: Jarrett Shen Order Number: [id number] Reading MD: RAVI RAMIREZ Measurements Intervals [place]le Rate: 75 P: 32 NV: 160 QRS: -18 QRSD: 106 T: -8 QT: 400 QTc: 449 Interpretive Statements SINUS RHYTHM POSSIBLE LEFT ATRIAL ENLARGEMENT [-0.1mV P-WAVE IN V1/V2] POSSIBLE LEFT VENTRICULAR HYPERTROPHY [VOLTAGE CRITERIA PLUS LAE OR QRS WIDENING] NONSPECIFIC T-WAVE ABNORMALITY Compared to ECG 10/16/2025 06:18:24 No significant changes Electronically Signed On 10-22-2025 21:09:30 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
--- NOTE | 2025-10-16 08:05 | PC.NURSE ---
Increased nitroglycerin drip by 2.5MCG per Dr. Luis verbal order
[2025-10-16] MEDS: pantoprazole 40 mg SDV 80 MG IVP (08:45)
[2025-10-16] MEDS: FUROsemide 10 mg/mL SDV 4mL 40 MG IVP (08:45)
--- NOTE | 2025-10-16 09:04 | PC.PHAR ---
Pt states he has been out of Jardiance 10mg for a week, but should be taking. Metoprolol Succ. 25mg ER was increased to 2 tablets or (50mg) daily on Monday10/14/25.
--- NOTE | 2025-10-16 09:18 | PC.NURSE ---
PATIENT WISHES TO REMAIN IN PERSONAL CLOTHES.
--- NOTE | 2025-10-16 09:23 | PM.HP ---
Providers/Chief Complaint Admitting Physician: Josef Aguilera MD Primary Care Provider: Riley Flanagan MD Chief Complaint: SOB / chest pain History of Present Illness Phi Perez is a 55 year old male with history of diabetes, cerebrovascular accident in 2022, recurrent pulmonary embolism on anticoagulation, chronic kidney disease (stage 3A), severe obstructive sleep apnea (untreated), and prior difficult COVID-19 course presents after collapsing overnight with worsening shortness of breath. Over the past 3?3.5 weeks, reports progressive cough, nausea, weakness, and dyspnea that has become severe. Endorses exertional dyspnea, orthopnea, and paroxysmal nocturnal dyspnea; intermittent lower extremity edema. Left-sided chest pain associated with dyspnea occurred around the time of the syncopal event. Reports recurrent dark, tarry stools beginning ~6?7 weeks ago; hemoglobin previously 8.6 at an outside facility and received an iron infusion, then iron tablets (ran out ~1.5?2 weeks ago). Continues to note intermittent dark stools, last episode on Monday; no hematemesis or hemoptysis. Nausea is frequent; vomiting occurs after prolonged coughing fits; no hematuria or rashes. Blood pressure has been labile (historically very high, sometimes lower), and heart rate previously persistently >100 but improved into the 80s on metoprolol. Recently prescribed home oxygen for nocturnal use. Severe obstructive sleep apnea previously diagnosed; CPAP intolerant and planning consultation after the new year. Echo in February reportedly showed global left ventricular hypokinesis, grade 3 diastolic dysfunction, and ejection fraction about 35% [noted in transcript as ?atrial infarction 35%? ? wording unclear]. Denies missed doses of apixaban. No tobacco; alcohol previously 3?4 drinks/week, minimal in the past month; no illicit drugs. No known medication allergies. Review of Systems Const: Denies: fever(s), chills, body aches or malaise ENMT: Denies: throat pain Card: Reports: chest pain, palpitations, edema, swelling of feet/ankles, syncope, dyspnea on exertion and orthopnea Resp: Denies: dyspnea, productive cough, change in phlegm color or hemoptysis GI: Reports: melena; Denies: abdominal pain, nausea, vomiting, diarrhea, constipation or hematochezia : Denies: flank pain, difficulty urinating, urinary frequency or hematuria Musc: Denies: back pain, joint swelling or joint redness Skin/Breast: Denies: rash or new lesions Neuro: Denies: headache(s) or confusion Medications/Allergies Home Medications ?Medication ?Instructions ?Recorded ?Confirmed ?Last Taken ?Type apixaban 5 mg tablet (Eliquis) 5 mg PO BID #60 tabs 01/01/25 10/16/25 10/15/25 Rx blood-glucose sensor (Dexcom G7 #9 ea 01/20/25 10/16/25 Unknown Rx Sensor device) metoprolol succinate 25 mg 50 mg PO DAILY 03/14/25 10/16/25 10/15/25 History tablet,extended release 24 hr empagliflozin 10 mg tablet 10 mg PO DAILY #90 tabs 06/13/25 10/16/25 10/08/25 Rx (Jardiance) insulin degludec 100 unit/mL (3 22 unit SUBCUT DAILY 10/16/25 10/16/25 10/15/25 History mL) subcutaneous pen (Tresiba FlexTouch U-100 insulin) Allergies Allergy/AdvReac Type Severity Reaction Status Date / Time No Known Allergies Allergy Verified 03/13/25 14:18 PFSH Acute PFSH: Medical History Cervical spondylosis with radiculopathy Diabetes mellitus Surgical History History of cholecystectomy Family History Mother Obesity Father Diabetes Obesity Social History Smoking and tobacco/nicotine status: never used tobacco/nicotine Second hand smoke exposure: No Alcohol intake: current Alcohol intake frequency: holidays/special occasions only Substance/Drug Use: never Lives independently: Yes Household members: spouse Housing: House Marital status: service: No Current occupational status: employed Do you think of yourself as: Straight/Heterosexual Current gender identity: Male Vitals/I&O/Wt Last Vital Signs Temp 97.6 F 10/16/25 06:14 Pulse 78 10/16/25 08:46 Resp 18 10/16/25 08:46 BP 150/83 10/16/25 08:46 Pulse Ox 93 10/16/25 08:46 O2 Del Method Room Air 10/16/25 08:46 10/15/25 10/16/25 10/16/25 22:59 06:59 14:59 Intake Total 5.350 / 5.350 Balance 5.350 / 5.350 Weight last 48 hrs Weight 80.739 kg Physical Exam Narrative: Accompanied by his friend Const: COMMON NORMALS: patient oriented x3 and alert GENERAL APPEARANCE: cooperative ORIENTATION/CONSCIOUSNESS: Yes awake HENMT: COMMON NORMALS: oropharynx normal Neck/C-Spine: COMMON NORMALS: no JVD Resp: COMMON NORMALS: normal respiratory effort and clear to auscultation bilaterally AUSCULTATION: clear to auscultation bilaterally Cardio: COMMON NORMALS: no JVD, regular rhythm, S1 normal heart sound present, S2 normal heart sound present and No murmurs present (Cardio) RHYTHM: regular rhythm HEART SOUNDS: S1 normal heart sound present and S2 normal heart sound present GI: COMMON NORMALS: Normal to inspection, nondistended, normoactive bowel sounds present, Soft to palpation and non-tender PALPATION: Yes Soft to palpation Extremity: COMMON NORMALS: no joint enlargement and no pedal edema Neuro: COMMON NORMALS: patient oriented x3 and moves all extremities SENSORIUM/ORIENTATION: Yes alert Skin: COMMON NORMALS: no rashes or lesions noted GENERAL SKIN EXAM: no rashes or lesions noted Data 10/16/25 06:32 10/16/25 06:32 A&P Assessment and plan 1. Chest pain: Left-sided chest pain associated with dyspnea around time of syncopal event. Ischemia evaluation planned in coordination with cardiology. Reviewed vitals, CBC, CMP, troponin, NT proBNP, EKG, chest x-ray, ED provider note, discussed with ED provider. Received aspirin, Lovenox. Monitor for risk of bleeding. - Complete ECG and serial troponins for ischemia assessment. - Cardiology consultation to determine need for stress testing versus angiography (considering bleeding risk). Hypertensive in ED, started on nitro drip- Subsequently recurrence of severe substernal chest pain, rating to the back. Twelve-lead EKG obtained. Discussed consideration of stat CT angiogram to assess for possibility of aortic dissection. However, on considering risk, benefit, alternatives, he decided would forego pursuing CT angiogram with contrast anticipation of also likely coronary angiogram with risk to his kidneys, understanding potential life-threatening nature of undiagnosed/untreated dissection. Plain CT chest was ordered. He was urgently taken to [facility] with finding of over 90% blockage of LAD for which he underwent PTCA with stent placement. Subsequently with resolution of symptoms. Discussed with cardiology, without any obvious findings of dissection, although this was considered. For now as he is not symptomatic hold off on additional imaging, but in case of recurrence of pain re-consider evaluation again. Continue post angiogram care. Continue DAPT. As discussed, anticoagulation continued with heparin drip. Updated the surgeon. 2. Syncope: Collapsed overnight; reports preceding palpitations and dyspnea. Multiple similar episodes over ~4 weeks. Concern for cardiogenic vs orthostatic etiologies; anemia-related syncope thought less likely per discussion given slow blood loss. Evaluation planned alongside heart failure and ischemia workup. - Admit to cardiac step-down for continuous telemetry monitoring. - Obtain ECG and troponin series for cardiac evaluation. - Repeat transthoracic echocardiogram to reassess ventricular function and compare with prior. - Check orthostatic vitals to assess for positional BP changes. - Cardiology consultation requested (Dr. Mendez) for evaluation of syncope and cardiomyopathy. - Consider outpatient cardiac rhythm monitor after hospitalization to assess for intermittent arrhythmias. 3. Acute CHF: Acute heart failure with reduced ejection fraction (EF ~35%) : Prior echocardiogram reportedly showed EF about 35% with global LV hypokinesia and grade 3 diastolic dysfunction. Differential for new systolic dysfunction discussed: ischemia; tachycardia-induced cardiomyopathy; long-standing uncontrolled hypertension; viral myocarditis. Prior EF in 2022 reportedly ~60%, suggesting recent decline. No recent alcohol. - Repeat transthoracic echocardiogram to reassess EF and wall motion. - Compare with prior echocardiograms (2020, 2022, and February) to document change. - Cardiology to advise on ischemia workup (stress test vs diagnostic angiography) balancing bleeding risk given possible GI bleed. - Continue metoprolol; consider further guideline-directed medical therapy depending on cardiology recommendations and blood pressure. 4. Cardiomyopathy: As above. 5. Acute kidney injury superimposed on CKD: Creatinine 1.8, slightly higher than previous. In the past taking ibuprofen, but not recently. Recently with decompensated CHF. Received a dose of Lasix. Follow-up renal function, electrolytes. Monitor intake and output. Chronic kidney disease, stage 3A : Known CKD stage 3A. Limits use of iodinated contrast for CT angiography. - Avoid or minimize iodinated contrast studies; prefer VQ scan if PE evaluation needed. - Monitor renal function during hospitalization. 6. Diabetes mellitus: On long-acting insulin 22 units nightly. Add SSI. Monitor blood glucose. 7. Melena: Melena with iron-deficiency anemia, on anticoagulation : Recurrent dark, tarry stools for 6?7 weeks; prior Hgb 8.6 requiring iron infusion; current Hgb ~10.9. On apixaban for prior PE. Last dark stool on Monday; etiology unclear (iron vs ongoing slow GI blood loss). No hematemesis; nausea frequent; vomiting with cough. - Start pantoprazole (Protonix) twice daily, initially intravenous. - Recheck hemoglobin and monitor for ongoing blood loss. - Consider GI evaluation with endoscopy; general surgery contact discussed (Dr. Lee). - Coordinate cardiac testing choices with bleeding risk (if antiplatelet therapy might be needed). 8. Iron deficiency anemia: As above. Finished iron recently. Transiently Plan: History of pulmonary embolism on apixaban : Recurrent PE, started on apixaban after third event. Persistent cough and dyspnea raise question of recurrent small PEs despite anticoagulation, though large PE considered less likely; renal function limits contrast CT. - Consider ventilation?perfusion (VQ) scan to evaluate for possible recurrent PE (given CKD limiting contrast CT). - Continue apixaban as currently taken; confirm adherence. Labile hypertension : Long-standing uncontrolled hypertension with recent labile readings varying between very elevated and normal; improved partially on metoprolol. - Continue metoprolol; adjust antihypertensive regimen cautiously to avoid hypotension. - Monitor blood pressure closely on step-down unit. Sinus tachycardia (improved on metoprolol) : Previously persistent HR >100; improved into 80s on metoprolol. 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 - Continue metoprolol for rate control. - Telemetry monitoring for arrhythmias during hospitalization; consider extended cardiac monitoring post-discharge. Obstructive sleep apnea (untreated) : Severe JULIET diagnosed; CPAP intolerant; planning evaluation for procedural option after the new year. History of cerebrovascular accident (2022) : Prior CVA in 2022; no new focal neurological complaints reported today. Chronic cough : Persistent cough over 3?3.5 weeks, with episodes leading to prolonged coughing fits and post-tussive emesis; may be multifactorial. On benzonatate for symptom control. History of hepatic injury post-COVID/plasma reaction : History of liver complications following COVID plasma therapy with procedures performed; fatty liver noted; no current active hepatic complaints reported. PDMP PDMP Reviewed: Not Reviewed Attestations Medical Necessity Statement*: Admission of over 2 midnights is anticipated for assessment of management of syncope, chest pain, acute heart failure, cardiomyopathy, hypertension, and High MDM includes amount and/or complexity of data reviewed/ordered [ previous or external records, resulted lab(s)/test(s), ordered lab(s)/test(s), independent historian and other healthcare professional discussion] and described risk of complication, morbidity or mortality of management as documented Diagnoses Chest pain R07.9 Syncope R55 Acute CHF I50.9 Cardiomyopathy I42.9 Acute kidney injury superimposed on CKD N17.9; N18.9 Diabetes mellitus E11.9 Melena K92.1 Iron deficiency anemia D50.9
--- NOTE | 2025-10-16 09:51 | US_ITS ---
WS: [id number] RENAL ULTRASOUND HISTORY: MAURICIO on CKD COMPARISON: 06/25/2025 TECHNIQUE: 2-D and color Doppler imaging of the kidney submitted. Right kidney: 9.1 cm x 5.2 cm x 5.5 cm. Cortex: 1.0 cm Normal echogenicity with no hydronephrosis or mass. Left kidney: 9.8 cm x 5.8 cm x 5.0 cm. Cortex: 1.1 cm Normal echogenicity with no hydronephrosis or mass. Aorta: Normal. Urinary Bladder: Normal distention. US/US renal BI* [id number] IMPRESSION: Normal renal ultrasound.
--- NOTE | 2025-10-16 09:51 | USCV_ITS ---
Phi Perez Age: 55 Gender: M : 1970 Exam Date: 10/16/2025 11:00 Ordering Phys: Wilfred Mckeon MD Technologist: CHANTELL Exam Location: [facility] [place] Indication: CHF BP: 150 / 83 HR: Rhythm: Sinus Technical Quality: Adequate MEASUREMENTS (Male / Female) Normal Values 2D ECHO LV Diastolic Diameter PLAX 6.6 cm 4.2 - 5.9 / 3.9 - 5.3 cm IVS Diastolic Thickness 0.7 cm 0.6 - 1.0 / 0.6 - 0.9 cm IVS Systolic Thickness 0.9 cm LVPW Diastolic Thickness 0.9 cm 0.6 - 1.0 / 0.6 - 0.9 cm LVPW Systolic Thickness 0.9 cm LVOT Diameter 2.1 cm LV Ejection Fraction 2D Teich 1.9 % LV Ejection Fraction MOD 4C 38.8 % LV Ejection Fraction MOD 2C 25.3 % LV Ejection Fraction 2C AL 22.0 % LA Diameter 3.5 cm RA Systolic Volume 4C AL 31.6 ml RA Systolic Volume 4C MOD 30.5 ml LA Sys Volume AL 62.7 cm cubed LA Sys Volume Index AL 31.1 cm cubed/m squared Aorta at Sinotubular Diameter 2.3 cm IVC Diameter 1.4 cm M-MODE LA Ao Ratio MM 1.5 AV Cusp Separation MM 1.4 cm FINDINGS Left Ventricle Moderately increased left ventricular cavity size. Moderately decreased left ventricular systolic function. Left ventricular ejection fraction is estimated at 35-38 %. Global left ventricular hypokinesis. Right Ventricle Right Atrium Left Atrium IA Septum Mitral Valve Aortic Valve Tricuspid Valve Pulmonic Valve Pericardium Aorta IVC CONCLUSIONS Moderately increased left ventricular cavity size. Moderately decreased left ventricular systolic function. Left ventricular ejection fraction is estimated at 35-38 %. Global left ventricular hypokinesis. There is no pericardial effusion. Right atrial pressure is around 5 mm of mercury. Vinay Steward MD (Electronically Signed) Final Date: 17 October 2025 09:38 S
--- NOTE | 2025-10-16 11:02 | PM.CONSULT ---
Providers/Reason For Consult Consulting Physician/Specialty*: Dr. Mills general surgery Reason for Consult*: Melena Attending Physician: Josef Aguilera MD Primary Care Provider: Riley Flanagan MD History of Present Illness History of Present Illness Phi Perez is a 55 year old male with multiple comorbidities including heart disease who surgery was consulted for melena. Medicine and cardiology wanted to rule out an upper GI bleed since he may need for anticoagulation and dual antiplatelet therapy after Hotel [employer]. Medications/Allergies Home Medications ?Medication ?Instructions ?Recorded ?Confirmed ?Last Taken ?Type apixaban 5 mg tablet (Eliquis) 5 mg PO BID #60 tabs 01/01/25 10/16/25 10/15/25 Rx blood-glucose sensor (Dexcom G7 #9 ea 01/20/25 10/16/25 Unknown Rx Sensor device) metoprolol succinate 25 mg 50 mg PO DAILY 03/14/25 10/16/25 10/15/25 History tablet,extended release 24 hr empagliflozin 10 mg tablet 10 mg PO DAILY #90 tabs 06/13/25 10/16/25 10/08/25 Rx (Jardiance) insulin degludec 100 unit/mL (3 22 unit SUBCUT DAILY 10/16/25 10/16/25 10/15/25 History mL) subcutaneous pen (Tresiba FlexTouch U-100 insulin) Allergies Allergy/AdvReac Type Severity Reaction Status Date / Time No Known Allergies Allergy Verified 03/13/25 14:18 Current Medications Generic Name Dose Route Start Last Admin Trade Name Freq PRN Reason Stop Dose Admin Nitroglycerin/Dextrose 50 mg in 250 mls @ 0 mls/hr 10/16/25 06:45 10/16/25 08:46 Nitroglycerin Drip IV 15 mcg/min .Q0M NIKKI 4.5 mls/hr Protocol Titration Per Protocol PFSH Acute PFSH: Medical History (Updated 10/16/25 @ 13:47 by Wilfred Mckeon MD) Cervical spondylosis with radiculopathy Diabetes mellitus Surgical History History of cholecystectomy Family History Mother Obesity Father Diabetes Obesity Social History Smoking and tobacco/nicotine status: never used tobacco/nicotine Second hand smoke exposure: No Alcohol intake: current Alcohol intake frequency: holidays/special occasions only Substance/Drug Use: never Lives independently: Yes Household members: spouse Housing: House Marital status: service: No Current occupational status: employed Do you think of yourself as: Straight/Heterosexual Current gender identity: Male Vitals/I&O/Wt Last Vital Signs Temp 97.6 F 10/16/25 06:14 Pulse 78 10/16/25 09:51 Resp 18 10/16/25 08:46 BP 150/83 10/16/25 08:46 Pulse Ox 93 10/16/25 08:46 O2 Del Method Room Air 10/16/25 09:51 10/15/25 10/16/25 10/16/25 22:59 06:59 14:59 Intake Total 5.350 / 5.350 Balance 5.350 / 5.350 Weight last 48 hrs Weight 178 lb Weight 178 lb Physical Exam Narrative: Chest: Unlabored breathing room air. No lymphadenopathy. Heart: Regular rate and rhythm. Abdomen: Soft, nontender, nondistended. No masses or lymphadenopathy. Data 10/18/25 02:33 10/18/25 02:33 A&P Assessment and plan 1. Melena: Plan: 55-year-old male whom surgery was consulted for melena. Multiple comorbidities including heart disease. Cardiology and medicine want to rule out an upper GI bleed as he may need for anticoagulation and dual antiplatelet therapy after [employer]. Will wait 48 hours for Eliquis to wear off. PDMP PDMP Reviewed: Not Reviewed Coding Level of Care Code 04909 Diagnoses Melena K92.1
--- NOTE | 2025-10-16 11:59 | ECG_ITS ---
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
[2025-10-16] MEDS: morphine 4 mg/mL SDV 1 mL IVP ×2 (12:20→23:44)
[2025-10-16] MEDS: ondansetron 2 mg/ML SDV 2 mL 4 MG IVP (12:27)
--- NOTE | 2025-10-16 12:28 | ECG_ITS ---
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1970 Requested By: Wilfred Mckeon Order Number: [id number] Reading MD: RAVI RAMIREZ Measurements Intervals [place] Rate: 79 P: 33 SC: 147 QRS: -11 QRSD: 102 T: 56 QT: 393 QTc: 451 Interpretive Statements SINUS RHYTHM POSSIBLE LEFT ATRIAL ENLARGEMENT [-0.1mV P-WAVE IN V1/V2] MODERATE T-WAVE ABNORMALITY, CONSIDER LATERAL ISCHEMIA [-0.1+ mV T-WAVE IN I/aVL/V5/V6] INTERPRETATION BASED ON A DEFAULT AGE OF 40 YEARS Compared to ECG 10/16/2025 11:59:28 No significant changes Electronically Signed On 10-22-2025 21:08:06 SHOT CORE DRILL OPERATOR HELPER by RAVI RAMIREZ [email or web address]
[2025-10-16 12:38] LABS: Troponin 5 6HR 65.41 ng/L (0-15)
--- NOTE | 2025-10-16 12:41 | P.CONIM_ITS ---
<Statement entered by Jason Amaya M.D - 10/23/25 10:53> Patient was cared for in conjunction with an advanced practice practitioner.? I reviewed the chart and all pertinent data including imaging, telemetry, and laboratory results.? I discussed the patient in detail with the advanced practice practitioner.? Please see? their documentation for consult note, testing results and agreed upon plan of care for the patient. Providers/Reason For Consult 2 Consulting Physician/Specialty*: dr. Amaya Reason for Consult*: chest pain, new onset CHF Requesting Physician: Dr. Luis Attending Physician: Wilfred Mckeon Primary Care Provider: Riley Flanagan MD History of Present Illness History of Present Illness Phi Perez is a 55 year old male with history of diabetes, CVA in 2022, recurrent PE on chronic anticoagulation with Eliquis at home, CKD, obstructive sleep apnea, history of difficult COVID-19 course presented to the ER after he states he collapsed at his home. He states the past few weeks he developed progressive dry cough, shortness of breath, and a chest pain. He states that the chest pain was at the left side of the chest and oddly enough working out in the gym helped his symptoms. Reports orthopnea and states he cannot sleep lying flat. He also reports dark tarry stools beginning several weeks ago. He states his hemoglobin was low at another facility and he was treated with iron infusion. He states he has had intermittent dark stools. Blood pressure has been high. He had an echo in February that reportedly showed global hypokinesis with grade 3 diastolic dysfunction with an EF of 35%. He is chest pain-free at the time my exam and is also on a nitro drip. Creatinine was elevated at 1.8. Patient was given Lasix 40 mg in the ED for fluid volume overload. Chest x-ray showed small left pleural effusion with cardiomegaly. Troponins were elevated at 66?60 6.33?65.41. proBNP was elevated at 5610. EKG showed no acute ST elevation or T wave abnormalities. Q waves seen in anterior septal leads. Review of Systems 2 Narrative: Consitutional: denies fever, chills, body aches, or changes in appetite, denies abnormal weight loss Eyes: Denies changes in vision Card: Reports orthopnea, reports shortness of breath on exertion Resp: Reports orthopnea, reports dry cough GI: Reports dark tarry stools Medications/Allergies Home Medications ?Medication ?Instructions ?Recorded ?Confirmed ?Last Taken ?Type apixaban 5 mg tablet (Eliquis) 5 mg PO BID #60 tabs 10/16/25 10/15/25 Rx blood-glucose sensor (Dexcom G7 #9 ea 01/20/25 5 Unknown Rx Sensor device) metoprolol succinate 25 mg 50 mg PO DAILY 03/14/2510/15/25 History tablet,extended release 24 hr empagliflozin 10 mg tablet 10 mg PO DAILY #90 tabs 10/16/25 10/08/25 Rx (Jardiance) insulin degludec 100 unit/mL (3 22 unit SUBCUT DAILY 1 12/17/24 10/16/25 10/15/25 History mL) subcutaneous pen (Tresiba FlexTouch U-100 insulin) Allergies Allergy/AdvReac Type Severity Reaction Status Date / Time No Known Allergies Allergy Verified 03/13/25 14:18 Current Medications Generic Name Dose Route Start Last Admin Trade Name Freq PRN Reason Stop Dose Admin Nitroglycerin/Dextrose 50 mg in 250 mls @ 0 mls/hr 10/16/25 06:45 10/16/25 12:27 Nitroglycerin Drip IV 25 mcg/min .Q0M NIKKI 7.5 mls/hr Protocol Titration Per Protocol Morphine Sulfate 4 mg 10/16/25 12:11 10/16/25 12:20 Morphine 4 Mg/Ml Sdv 1 Ml IVP 4 mg Q4H PRN Administration SEVERE PAIN Ondansetron HCl 4 mg 10/16/25 12:12 10/16/25 12:27 Ondansetron 2 Mg/Ml Sdv 2 Ml IVP 4 mg Q4H PRN Administration NAUSEA AND VOMITING PFSH Acute 2 PFSH: Medical History (Updated 10/16/25 @ 13:47 by Wilfred Mckeon MD) Cervical spondylosis with radiculopathy Diabetes mellitus Surgical History History of cholecystectomy Family History Mother Obesity Father Diabetes Obesity Social History Smoking and tobacco/nicotine status: never used tobacco/nicotine Second hand smoke exposure: No Alcohol intake: current Alcohol intake frequency: holidays/special occasions only Substance/Drug Use: never Lives independently: Yes Household members: spouse Housing: House Marital status: service: No Current occupational status: employed Do you think of yourself as: Straight/Heterosexual Current gender identity: Male Vitals/I&O/Wt Last Vital Signs Temp 97.6 F 10/16/25 06:14 Pulse 78 10/16/25 09:51 Resp 18 10/16/25 12:20 BP 150/83 10/16/25 08:46 Pulse Ox 96 10/16/25 12:20 O2 Del Method Room Air 10/16/25 09:51 10/15/25 10/16/25 10/16/25 22:59 06:59 14:59 Intake Total 21.925 / 21.925 Balance 21.925 / 21.925 Weight last 48 hrs Weight 178 lb Weight 178 lb Physical Exam 2 Narrative: General: No apparent distress Muskuloskeletal: Full ROM Respiratory: Normal respiratory effort, fine crackles bilateral lower posterior lobes only on deep inspiration, no use of accessory muscles Cardio: No JVD, regular rate, regular rhythm, S1 S2 normal, no murmurs, peripheral pulses 2+ radial palpated bilaterally Extremities: Full ROM, normal, normal capillary refill, no cyanosis, trace edema bilateral lower extremities Neuro: Alert and oriented x4, no focal motor deficits Psych: Affect normal Skin: No rashes or lesions noted, no wounds Data 10/16/25 06:32 10/16/25 06:32 A&P Assessment and plan 1. Chest pain: 2. Cardiomyopathy: 3. Acute CHF: 4. History of pulmonary embolism: Plan: Patient developed acute chest pain despite being placed on nitro drip. He was taken to the produce laborer and a stent was placed in the LAD. Tonight, will be on Plavix and lovenox, eliquis will be held as patient may go for EGD in the AM. Will closely monitor H&H. Once euvolemic and renal function returns to baseline, will start GDMT. Will continue home metoprolol and wean off nitro drip to keep bp systolic less than 160. Limited echo was performed. Further recommendations after. Possible Livevest if EF is 35% or less. Thank you, Dr. Luis, for allowing us to care for this very pleasant 55 year old gentleman PDMP PDMP Reviewed: Not Reviewed Consult Attestations 2 Medical Necessity Statement: Deferred to primary Coding Level of Care Code Acute Code for [facility]g Fwd Diagnoses Chest pain R07.9 Cardiomyopathy I42.9 Acute CHF I50.9 History of pulmonary embolism Z86.711
--- NOTE | 2025-10-16 12:45 | W.PM.OPSUD ---
Surgery/Procedure H&P Update DATE OF PROCEDURE: October 16, 2025 DATE H&P PERFORMED: 10/16/25 H&P UPDATE INFORMATION: I have reviewed H&P completed within last 30 days, I have examined patient prior to procedure and Changes to prior documentation as noted here PREOP DIAGNOSIS: Unstable angina PRIMARY INDICATION FOR PROCEDURE: Unstable angina PLANNED PROCEDURE: Left heart cath with possible percutaneous coronary intervention PATIENT REASSESSED PRIOR TO SEDATION, WITH NO CHANGE NOTED: Yes PHYSICAL EXAM: alert, oriented x 3, clear to auscultation bilaterally and regular rate & rhythm AIRWAY EVAL/ANESTHESIA PLAN: normal airway, ASA III, Local Anesthesia, Risks, benefits & alternatives of sedation and/or procedure discussed and Patient agrees to continue as planned ADDITIONAL INFORMATION: Moderate sedation
[2025-10-16 12:52] LABS: Troponin 5 6HR Delta -0.59 ng/L (0-12)
--- NOTE | 2025-10-16 14:22 | PC.NURSE ---
Patient developed severe chest pain, physician notified orders to give morphine and zofran. Patient continued to have chest pain. Cardiology notified, ekg obtained. Patient went to catheter builder for intervention. Patient arrived back from catheter builder at 1352. Patient is alert and oriented. TR band to the right wrist clean dry and intact. No hematoma formation noted, no bleeding. Patient educated regarding activity restrictions. Nurse will continue to monitor.
--- NOTE | 2025-10-16 16:23 | P.PCN_ITS ---
Procedure Note: Date of procedure: 10/16/25 Pre-procedure diagnosis: Unstable angina Post-procedure diagnosis: other (Severe mid LAD stenosis s/p PCI with 1 stent) Procedure: Severe mid LAD stenosis s/p PCI with 1 stent Continue lovenox and plavix Performing Provider: Jason Amaya Complications: None Condition: stable Disposition: floor Coding Level of Care Code Acute Code for [facility]
[2025-10-16 18:47] LABS: Hemoglobin 10.00 g/dL (11.27-16.99)
[2025-10-16] MEDS: pantoprazole 40 mg SDV IVP (20:24)
[2025-10-16] MEDS: insulin glargine 100 units/1 mL 22 UNIT SUBCUT (22:16)
[2025-10-16] MEDS: heparin drip 25,000 UNIT/500 ML PREMIX 19.38 UNIT IV (22:17)
[2025-10-16] MEDS: heparin 5,000 unit/mL INJ 1 mL IVP (22:18)
--- NOTE | 2025-10-16 23:39 | ECG_ITS ---
[facility] Test Date: 2025-10-16 Pat Name: Phi Perez Department: Room: 108 Gender: Male Emergency Medical Tech: : 1970 Requested By: Wilfred Mckeon Order Number: [id number] Reading MD: RAVI RAMIREZ Measurements Intervals [place] Rate: 77 P: -6 DE: 129 QRS: -10 QRSD: 101 T: 234 QT: 369 QTc: 419 Interpretive Statements SINUS RHYTHM POSSIBLE LEFT ATRIAL ENLARGEMENT [-0.1mV P-WAVE IN V1/V2] MODERATE T-WAVE ABNORMALITY, CONSIDER ANTERIOR ISCHEMIA [-0.1+ mV T-WAVE IN V3/V4] Compared to ECG 10/16/2025 12:28:44 No significant changes Electronically Signed On 10-22-2025 20:22:54 MAKE UP WORKER by RAVI RAMIREZ [email or web address] [id number]
[2025-10-17] VITALS (16 sets, daily range): BP systolic 110–156; BP diastolic 60–105; PULSE 74–81; RESP 12–37; TEMP 36.6–36.8; O2SAT 90–98
[2025-10-17] MEDS: ondansetron 2 mg/ML SDV 2 mL 4 MG IVP ×2 (00:02→08:54)
--- NOTE | 2025-10-17 00:30 | ECG_ITS ---
[facility] Test Date: 2025-10-16 Pat Name: Phi Perez Department: Room: 108 Gender: Male Front Desk Receptionist: : 1970 Requested By: Jose R Shen Order Number: [id number] Reading MD: RAVI RAMIREZ Measurements Intervals [place] Rate: 77 P: 46 IN: 153 QRS: -13 QRSD: 102 T: 156 QT: 382 QTc: 432 Interpretive Statements SINUS RHYTHM NONSPECIFIC T-WAVE ABNORMALITY Compared to ECG 10/16/2025 23:46:31 Possible ischemia no longer present T-wave abnormality still present Electronically Signed On 10-22-2025 20:22:47 SILK SCREEN PRINTING RACKER by RAVI RAMIREZ [id number] [id number]
--- NOTE | 2025-10-17 00:34 | P.PN_ITS ---
Subjective 2 Subjective: 55-year-old male was brought t o my attention by his nurse who reports that the patient is having nausea chest pain and obvious discomfort. Patient has had nausea chest pressure heaviness increasing severity starting around 10:30 PM. He has some pounding in his back similar to prior to his stent. Patient states that with the stent is 7 to 8 over 10 chest pain pressure pounding in his back went completely away from 6 PM until 1030 then recurred and increased to 3/10 and now has not been improved with any other interventions. His EKG shows nonspecific ST-T wave changes cannot exclude anterior ischemia but looks similar to prestent EKG. Chest x-ray shows small left pleural effusion. Last CTA of the chest was 01/01/2025 looking for PE but the aortic arch looked okay then to my eye. Not specifically commented on by the radiologist Vitals/I&O/Wt Last Vital Signs Temp 98.0 F 10/16/25 19:36 Pulse 81 10/17/25 00:00 Resp 20 H 10/17/25 00:00 BP 156/94 10/17/25 00:00 Pulse Ox 97 10/17/25 00:00 O2 Del Method Nasal Cannula 10/17/25 00:00 10/16/25 10/16/25 10/17/25 14:59 22:59 06:59 Intake Total 21.925 / 21.925 480 / 501.925 91.125 / 593.050 Output Total 200 / 200 Balance 21.925 / 21.925 280 / 301.925 91.125 / 393.050 Weight last 48 hrs Weight 80.739 kg Weight 80.739 kg Physical Exam 2 Narrative: General well-developed well-nourished male obviously uncomfortable but not in severe distress CV regular rate and rhythm no loud murmur Lungs clear to auscultation bilaterally Anterior chest not painful to palpation no reproducible tenderness Abdomen positive bowel tones soft nontender Calves no tenderness cords pedal edema Mentation alert and oriented pleasant Data 10/16/25 18:08 10/16/25 06:32 A&P Assessment and plan 1. Chest pain: Patient had LAD mid LAD stent, dual antiplatelet therapy and is on heparin drip. He was pain-free post stent until 10:30 PM. EKG is unremarkable when compared to prestent EKG looks similar. Troponin and basic metabolic panel repeat is pending. I am going to give 5 mg of IV metoprolol. We are waiting troponin results before considering any further diagnosis of stent thrombosis or dissection. Dr. Amaya was contacted by me and he thinks the stent was fairly routine and not likely to have dissection. He is more concerned about possibility of aortic arch dissection. I have reviewed head and neck CTA 05/28/2023 as well as chest CTA from 01/01/2025 and there is no on those scans. 2. Syncope: See above similar concern regarding stent complications or aortic dissection. Notably the 05/28/2023 CTA showed less than 10% stenosis left common carotid artery and less than 20% on the right common carotid artery 3. Acute CHF: Acute heart failure with reduced ejection fraction (EF ~35%) : Prior echocardiogram reportedly showed EF about 35% with global LV hypokinesia and grade 3 diastolic dysfunction. Differential for new systolic dysfunction discussed: ischemia; tachycardia-induced cardiomyopathy; long-standing uncontrolled hypertension; viral myocarditis. Prior EF in 2022 reportedly ~60%, suggesting recent decline. No recent alcohol. - Repeat transthoracic echocardiogram to reassess EF and wall motion. - Compare with prior echocardiograms (2020, 2022, and February) to document change. - Cardiology to advise on ischemia workup (stress test vs diagnostic angiography) balancing bleeding risk given possible GI bleed. - Continue metoprolol; consider further guideline-directed medical therapy depending on cardiology recommendations and blood pressure. 4. Cardiomyopathy: As above. 5. Acute kidney injury superimposed on CKD: Creatinine 1.8, slightly higher than previous. In the past taking ibuprofen, but not recently. Recently with decompensated CHF. Received a dose of Lasix. Follow-up renal function, electrolytes. Monitor intake and output. Chronic kidney disease, stage 3A : Known CKD stage 3A. Limits use of iodinated contrast for CT angiography. - Avoid or minimize iodinated contrast studies; prefer VQ scan if PE evaluation needed. - Monitor renal function during hospitalization. Repeat BMP now and will counseling program leader patient following those results as well as troponin results after discussion of symptoms at that time regarding possibility of proceeding with CTA 6. Diabetes mellitus: On long-acting insulin 22 units nightly. Add SSI. Monitor blood glucose. PDMP PDMP Reviewed: Not Reviewed Attestations 2 Medical Necessity Statement*: Patient remains hospitalized for chest pain post stent and will require 1-2 additional midnights Coding Level of Care Code 85286 Diagnoses Chest pain R07.9 Syncope R55 Acute CHF I50.9 Cardiomyopathy I42.9 Acute kidney injury superimposed on CKD N17.9; N18.9 Diabetes mellitus E11.9 Diabetes mellitus complication status: with hyperglycemia Diabetes mellitus type: type 2 Time Spent (min) 55 Comment
[2025-10-17] MEDS: metoprolol tartrate 1 mg/1 mL SDV 5 mL 5 MG IVP (00:43)
--- NOTE | 2025-10-17 01:30 | PC.NURSE ---
Patient began complaining of chest pain 8/10. Titrated patients Nitroglycerin IV per protocol (see MAR ), gave PRN Morphine, and obtained EKG. Notified Dr. Clark. Dr. Clark gave order for a once time dose of Metoprolol 5mg IVP. Upon reassessment of pain, stated pain level was 5/10. Baseline Troponin was obtained, results were 106 and were called to Dr. Clark. Additional orders were placed by Dr. Clark for Lactated ringers 500ml ONCE, Sodium Chloride 4.5% + 20 K, Lasix 20mg IVP Once.
[2025-10-17 01:36] LABS: Anion Gap 11.5 (5-19); Blood Urea Nitrogen 21 mg/dL (6-20); Calcium 7.9 mg/dL (8.5-10.5); Carbon Dioxide 27 mmol/L (22-29); Chloride 104 mmol/L (98-107); Glucose 174 mg/dL (65-115); Osmolality Calculated 295 mOsm/kg (285-295); Potassium 3.5 mmol/L (3.5-5.1); Sodium 139 mmol/L (136-145)
[2025-10-17 01:37] LABS: Partial Thromboplastin Time 91.6 SECONDS (23.9-36.7); Troponin(5th) Baseline 106 ng/L (0-15)
[2025-10-17] MEDS: sodium chlor 0.45% +KCl 20 mEq 20 MEQ/1,000 ML BAG 100 MEQ IV (02:27)
[2025-10-17] MEDS: FUROsemide 10 mg/mL SDV 2mL 20 MG IVP (02:41)
--- NOTE | 2025-10-17 03:42 | ECG_ITS ---
[facility] Date: 2025-10-17 Pat Name: Phi Perez Department: Room: 108 Gender: Male News Clerk: : 1970 Requested By: Jose R Shen Order Number: [id number] Reading MD: RAVI RAMIREZ Measurements Intervals [place] Rate: 75 P: 49 OR: 163 QRS: -11 QRSD: 101 T: 34 QT: 399 QTc: 446 Interpretive Statements SINUS RHYTHM SEPTAL MYOCARDIAL INFARCTION , OF INDETERMINATE AGE [40+ ms Q WAVE IN V1/V2] MODERATE T-WAVE ABNORMALITY, CONSIDER LATERAL ISCHEMIA [-0.1+ mV T-WAVE IN I/aVL/V5/V6] Compared to ECG 10/16/2025 23:47:37 Myocardial infarct finding now present Possible ischemia now present T-wave abnormality still present Electronically Signed On 10-22-2025 21:03:00 SDET by RAVI RAMIREZ [id number] [id number]
[2025-10-17] MEDS: metoprolol succinate ER (24 HR) 25 mg Tablet 50 MG PO (04:26)
[2025-10-17] MEDS: lidocaine 2% viscous 15 ML, aluminum-mag hydrox-simethicon 30 ML, sucralfate oral liq 1 GM PO (04:26)
[2025-10-17 04:48] LABS: Hematocrit 29.4 % (37-53); Hemoglobin 9.60 g/dL (11.27-16.99); Mean Corpuscular HGB Conc 32.7 g/dL (30-55); Mean Corpuscular Hemoglobin 29.8 pg (27-33); Mean Corpuscular Volume 91.3 fl (82-101); Nucleated Red Blood Cells % 0 %; Platelet Count 230 10^3/cmm (157-399); Red Blood Count 3.22 10^6/uL (3.85-5.65); White Blood Count 9.87 10^3/uL (3.29-11.43)
[2025-10-17 05:09] LABS: Alanine Aminotransferase 16 U/L (0-41); Albumin Level 2.9 g/dL (3.5-5.2); Alkaline Phosphatase 49 U/L (40-130); Anion Gap 11.6 (5-19); Aspartate Amino Transferase 16 U/L (0-40); Blood Urea Nitrogen 19 mg/dL (6-20); Calcium 7.9 mg/dL (8.5-10.5); Carbon Dioxide 25 mmol/L (22-29); Chloride 104 mmol/L (98-107); Globulin 2.0 g/dL (1.3-4.6); Glucose 166 mg/dL (65-115); Osmolality Calculated 290 mOsm/kg (285-295); Potassium 3.6 mmol/L (3.5-5.1); Sodium 137 mmol/L (136-145); Total Protein 4.9 g/dL (6.6-8.7)
[2025-10-17 05:16] LABS: Estmated Average Glucose 166; Hemoglobin A1C 7.4 % (4.0-6.0)
[2025-10-17 05:43] LABS: Partial Thromboplastin Time 120.3 SECONDS (23.9-36.7)
--- NOTE | 2025-10-17 07:34 | ECG_ITS ---
[facility] Test Date: 2025-10-17 Pat Name: Phi Perez Department: Room: 108 Gender: Male Center Consultant: : 1970 Requested By: Jose R Shen Order Number: [id number] Reading MD: RAVI RAMIREZ Measurements Intervals [place] Rate: 76 P: 25 NV: 164 QRS: -19 QRSD: 102 T: 47 QT: 391 QTc: 440 Interpretive Statements SINUS RHYTHM NONSPECIFIC T-WAVE ABNORMALITY Compared to ECG 10/17/2025 03:42:45 Myocardial infarct finding no longer present Possible ischemia no longer present T-wave abnormality still present Electronically Signed On 10-22-2025 21:02:49 DENTAL MECHANIC by RAVI RAMIREZ [email or web address] [id number]
[2025-10-17 07:48] LABS: Troponin 5 6HR Delta 6.4 ng/L (0-12)
[2025-10-17 07:52] LABS: Troponin 5 6HR 112.4 ng/L (0-15)
--- NOTE | 2025-10-17 08:12 | PC.NURSE ---
Weight adjusted for heparin gtt. Per weight units/hr increased to 16 to reflect the weight change.
--- NOTE | 2025-10-17 08:13 | PC.NURSE ---
Patient had chest pain overnight. Cardiology and hospitalist are aware. Patient is on nitro gtt currently at 50, reports dull ache and rates this a 2/10 on the pain scale. Critical troponin reported. 6hr trop at 112.4 down from 114
[2025-10-17] MEDS: nitroglycerin drip 50 MG/250 ML PREMIX 15 MG IV (08:40)
[2025-10-17] MEDS: pantoprazole 40 mg SDV IVP ×2 (08:42→21:07)
--- NOTE | 2025-10-17 09:12 | CTR_ITS ---
PROCEDURE INFORMATION: Exam: CT Chest Without Contrast; Diagnostic Exam date and time: 10/17/2025 9:44 AM Age: 55 years old Clinical indication: Angina pectoris; Chest pain / cough; Additional info: Chest pain radiating to back, declines contrast TECHNIQUE: Imaging protocol: Diagnostic computed tomography of the chest without contrast. Radiation optimization: All CT scans at this facility use at least one of these dose optimization techniques: automated exposure control; mA and/or kV adjustment per patient size (includes targeted exams where dose is matched to clinical indication); or iterative reconstruction. COMPARISON: CT angio chest PE protcl [id number] 01/01/2025 9:05 AM RADIATION DOSE METRICS: Total DLP (mGy-cm): 470.62 FINDINGS: Lungs: Ill-defined area of consolidation in the left lung base. Ill-defined ground-glass opacities dependently in bilateral lower lobes. Pleural spaces: Moderate bilateral pleural effusions. Heart: Stable heart size. Trace pericardial fluid. Coronary arteries: Mild coronary artery calcifications most pronounced along the LAD. Lymph nodes: Unremarkable. No enlarged lymph nodes. Vasculature: Unremarkable. No aortic aneurysm. Gallbladder and biliary ducts: Status post cholecystectomy. Pneumobilia is again seen. Bones/joints: Unremarkable. No acute fracture. Soft tissues: Mild bilateral gynecomastia. CT/CT chest [facility] [id number] IMPRESSION: 1. Ill-defined consolidation in the left lung base may represent infiltrate in the correct clinical setting. 2. Ill-defined ground-glass opacities dependently in bilateral lower lobes favor atelectasis, though atypical infection is not excluded. 3. Moderate bilateral pleural effusions.
[2025-10-17] MEDS: metoclopramide 5 mg/mL SDV 2 mL IVP (11:11)
[2025-10-17 11:19] LABS: Partial Thromboplastin Time 70.0 SECONDS (23.9-36.7)
--- NOTE | 2025-10-17 13:07 | P.PN_ITS ---
<Statement entered by Jason Amaya M.D - 10/23/25 10:56> Patient was cared for in conjunction with an advanced practice practitioner.? I reviewed the chart and all pertinent data including imaging, telemetry, and laboratory results.? I discussed the patient in detail with the advanced practice practitioner.? Please see? their documentation for progress note, testing results and agreed upon plan of care for the patient. Subjective 2 Subjective: Patient having severe chest pain last night. He is currently on a nitro drip at 50. Currently getting Plavix and aspirin. Currently on a heparin drip. H&H low at 9.6 and 29.4. Denies any signs or symptoms of GI bleeds. He did get a fluid bolus last night. Creatinine is slightly worse at 2.2. Troponins were checked and were stable with delta negative. Patient had some nausea as well. He was given Reglan. This morning states he feels much better. Denies chest pain at this time. Blood pressure still slightly elevated. CT chest showed moderate pleural effusions bilaterally. Vitals/I&O/Wt Last Vital Signs Temp 98.0 F 10/17/25 12:00 Pulse 75 10/17/25 12:00 Resp 14 10/17/25 12:00 BP 129/71 10/17/25 12:00 Pulse Ox 96 10/17/25 12:00 O2 Del Method Nasal Cannula 10/17/25 12:00 10/16/25 10/17/25 10/17/25 22:59 06:59 14:59 Intake Total 480 / 014.105 3451.767 / 2239.692 157.896 / 157.896 Output Total 500 / 1000 100 / 1100 Balance -20 / -393.682 7594.767 / 1139.692 157.896 / 157.896 Weight last 48 hrs Weight 200 lb 9.93 oz Weight 178 lb Weight 178 lb Physical Exam 2 Narrative: General: No apparent distress Muskuloskeletal: Full ROM Respiratory: Normal respiratory effort, fine crackles bilateral lower posterior lobes only on deep inspiration, no use of accessory muscles Cardio: No JVD, regular rate, regular rhythm, S1 S2 normal, no murmurs, peripheral pulses 2+ radial palpated bilaterally Extremities: Full ROM, normal, normal capillary refill, no cyanosis, trace edema bilateral lower extremities Neuro: Alert and oriented x4, no focal motor deficits Psych: Affect normal Skin: No rashes or lesions noted, no wounds Data 10/17/25 03:54 10/17/25 03:54 A&P Assessment and plan 1. Chest pain: 2. Cardiomyopathy: 3. Acute CHF: 4. History of pulmonary embolism: Plan: Patient doing better. He did receive fluids. With moderate pleural effusions will shut off fluids for now and see how patient responds. Monitor for worsening shortness of breath. Continue to monitor strict I&O as well as renal function. Once renal function has improved, will start GDMT. Home metoprolol 50 mg started. Will start amlodipine 5 mg daily as well to try to wean off nitro drip. EKG reviewed. No acute ST or T wave abnormalities. Holding Eliquis for now. Patient on Heparin drip. PDMP PDMP Reviewed: Not Reviewed Attestations 2 Medical Necessity Statement*: deferred to primary Coding Level of Care Code Acute Code for [facility] Diagnoses Chest pain R07.9 Cardiomyopathy I42.9 Acute CHF I50.9 History of pulmonary embolism Z86.711
--- NOTE | 2025-10-17 13:13 | P.PN_ITS ---
Subjective 2 Subjective: Taken to Process Validation Engineer On heparin drip No episodes of melena recently Vitals/I&O/Wt Last Vital Signs Temp 98.0 F 10/17/25 12:00 Pulse 75 10/17/25 12:00 Resp 14 10/17/25 12:00 BP 129/71 10/17/25 12:00 Pulse Ox 96 10/17/25 12:00 O2 Del Method Nasal Cannula 10/17/25 12:00 10/16/25 10/17/25 10/17/25 22:59 06:59 14:59 Intake Total 480 / 314.428 1986.767 / 2239.692 157.896 / 157.896 Output Total 500 / 1000 100 / 1100 Balance -20 / -078.494 0896.767 / 1139.692 157.896 / 157.896 Weight last 48 hrs Weight 200 lb 9.93 oz Weight 178 lb Weight 178 lb Physical Exam 2 Narrative: Chest: Unlabored breathing room air. No lymphadenopathy. Heart: Regular rate and rhythm. Abdomen: Soft, nontender, nondistended. No masses or lymphadenopathy. Data 10/18/25 02:33 10/18/25 02:33 A&P Assessment and plan 1. Melena: Plan: 55-year-old male with multiple comorbidities status post Process Validation Engineer. Medicine and cardiology want to rule out an upper GI bleed. I have explained the risks and benefits of a diagnostic EGD with possible hemostasis and the patient agrees to proceed. The patient understands that he is at risk of [place], worsening GI bleed if I intervene, iatrogenic perforation, aspiration pneumonia. I emphasized the fact that he is higher risk for adverse outcomes given his heart disease and the patient and family agreed to proceed. PDMP PDMP Reviewed: Not Reviewed Attestations 2 Medical Necessity Statement*: N/A Coding Level of Care Code 67133 Diagnoses Melena K92.1
--- NOTE | 2025-10-17 16:02 | P.PN_ITS ---
Subjective 2 Subjective: Chest pressure is abating. Had nausea and episode of vomiting this morning. So far without recurrence. Vitals/I&O/Wt Last Vital Signs Temp 98.0 F 10/17/25 12:00 Pulse 75 10/17/25 12:00 Resp 14 10/17/25 12:00 BP 129/71 10/17/25 12:00 Pulse Ox 96 10/17/25 12:00 O2 Del Method Nasal Cannula 10/17/25 12:00 10/17/25 10/17/25 10/17/25 06:59 14:59 22:59 Intake Total 1737.767 / 2239.692 1180.146 / 1180.146 Output Total 100 / 1100 Balance 1637.767 / 0156.629 2200.146 / 1180.146 Weight last 48 hrs Weight 91 kg Weight 80.739 kg Weight 80.739 kg Physical Exam 2 Narrative: Accompanied by family Const: COMMON NORMALS: patient oriented x3 and alert GENERAL APPEARANCE: c ooperative ORIENTATION/CONSCIOUSNESS: Yes awake HENMT: COMMON NORMALS: oropharynx normal Neck/C-Spine: COMMON NORMALS: no JVD Resp: COMMON NORMALS: normal respiratory effort and clear to auscultation bilaterally AUSCULTATION: clear to auscultation bilaterally Cardio: COMMON NORMALS: no JVD, regular rhythm, S1 normal heart sound present, S2 normal heart sound present and No murmurs present (Cardio) RHYTHM: regular rhythm HEART SOUNDS: S1 normal heart sound present and S2 normal heart sound present GI: COMMON NORMALS: Normal to inspection, nondistended, normoactive bowel sounds present, Soft to palpation and non-tender PALPATION: Yes Soft to palpation Extremity: COMMON NORMALS: no joint enlargement and no pedal edema N ARRATIVE EXTREMITY EXAM: No issues with right wrist access site. Reports had requested to keep TR band on to help him remember to protect it. Neuro: COMMON NORMALS: patient oriented x3 and moves all extremities S ENSORIUM/ORIENTATION: Yes alert Skin: COMMON NORMALS: no rashes or lesions noted GENERAL SKIN EXAM: no rashes or lesions noted Data 10/17/25 03:54 10/17/25 03:54 A&P Assessment and plan 1. Chest pain: Additional recurrence of chest pain rating to the back this morning accompanied with nausea and vomiting episode. Troponins from this morning without significant rise. EKG repeated without signs of STEMI. Assessed by cardiology. Further discussed CT angiogram of the chest to assess for possibility of dissection, however, declined this study. Plain CT obtained with finding of left lower lobe consolidation, possible infiltrate, additionally atelectasis. I-S requested. Discussed with him, Reglan added for any recurrent nausea. He denies any symptoms of gastroparesis. Also noted pleural effusions, IVF were discontinued per cardiology. No obvious vascular abnormality on plain CT, but as discussed with him this study was not meant to exclude a dissection which he understands. Further options considered, SERA included. TTE with EF similar to prior, perhaps slightly improved. No right ventricular dysfunction. He has not missed any Eliquis. Additional PE less likely, VQ scan could be considered once imaging abnormalities are clearing up, but he is anticipated to continue on anticoagulation. Heparin to be held transiently for EGD planned for tomorrow. Further assessment of possible additional GI source of his symptoms, discussed with surgery and cardiology. Continue DAPT. Continue IV PPI. Started on amlodipine. 2. Syncope: Reviewed TTE. Reviewed CT chest. Reviewed blood counts. Continue to monitor on telemetry. 3. Acute CHF: E consult with MAURICIO on CKD, coronary angiogram. Further IV fluids held. Reassess fluid status chemistry. Consider diuresis. Acute heart failure with reduced ejection fraction (EF ~35%) : Prior echocardiogram reportedly showed EF about 35% with global LV hypokinesia and grade 3 diastolic dysfunction. Differential for new systolic dysfunction discussed: ischemia; tachycardia-induced cardiomyopathy; long-standing uncontrolled hypertension; viral myocarditis. Prior EF in 2022 reportedly ~60%, suggesting recent decline. No recent alcohol. - Reviewed repeat transthoracic echocardiogram to reassess EF and wall motion. - Continue post intervention care balancing bleeding risk given possible GI bleed. Monitor for risk of occurrence of bleeding. - Continue metoprolol; consider further guideline-directed medical therapy depending on cardiology recommendations and blood pressure. 4. Cardiomyopathy: As above. 5. Acute kidney injury superimposed on CKD: Reviewed chemistry, intake output. Has creatinine 2.3. This morning slightly better at 2.2. In the past taking ibuprofen, but not recently. Continue to avoid NSAIDs. Recently with decompensated CHF. Received a dose of Lasix. Follow-up renal function, electrolytes. Monitor intake and output. Chronic kidney disease, stage 3A : Known CKD stage 3A. Monitor intake and output. Reassess chemistry. 6. Diabetes mellitus: Reviewed A1c, currently diabetes well-controlled, A1c 7.4. Continue on long- acting insulin 22 units nightly. SSI. Monitor blood glucose. 7. Melena: Melena with iron-deficiency anemia, on anticoagulation : So far without recurrence. Risk of bleeding is discussed with DAPT, anticoagulation heparin drip. Anticoagulation to be held transiently for EGD. Reviewed blood counts, hemoglobin down to 9.6, discussed with him. Reassess blood counts. On apixaban for prior PE. Last dark stool on Monday; etiology unclear (iron vs ongoing slow GI blood loss). No hematemesis; nausea frequent; vomiting with cough. - Start pantoprazole (Protonix) twice daily, initially intravenous. - Recheck hemoglobin and monitor for ongoing blood loss. - GI evaluation with endoscopy; general surgery contact discussed (Dr. Lee). 8. Iron deficiency anemia: As above. Finished iron recently. Transiently on PPI for about a month in the past. Plan: History of pulmonary embolism on apixaban : Anticoagulation for now switched over to heparin drip as prescription to allow for rapid discontinuation in case of need. Monitor with risk of bleeding. Repeat hemoglobin tonight and follow-up CBC in the morning. - Consider ventilation?perfusion (VQ) scan to evaluate for possible recurrent PE (given CKD limiting contrast CT). However, with pulmonary changes on imaging, would need to clear up first. Anticipated to continue on anticoagulation. Labile hypertension : Long-standing uncontrolled hypertension with recent labile readings varying between very elevated and normal; improved partially on metoprolol. Continue to monitor blood pressures. Noted this morning. Started on amlodipine. - Continue metoprolol; adjust antihypertensive regimen cautiously to avoid hypotension. - Monitor blood pressure closely on step-down unit. Sinus tachycardia (improved on metoprolol) : Previously persistent HR >100; improved into 80s on metoprolol. 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 - Continue metoprolol for rate control. - Telemetry monitoring for arrhythmias during hospitalization; consider extended cardiac monitoring post-discharge. Obstructive sleep apnea (untreated) : Severe JULIET diagnosed; CPAP intolerant; planning evaluation for procedural option after the new year. History of cerebrovascular accident (2022) : Prior CVA in 2022 Chronic cough : Persistent cough over 3?3.5 weeks, with episodes leading to prolonged coughing fits and post-tussive emesis; may be multifactorial. On benzonatate for symptom control. History of hepatic injury post-COVID/plasma reaction : History of liver complications following COVID plasma therapy with procedures performed; fatty liver noted; no current active hepatic complaints reported. PDMP PDMP Reviewed: Not Reviewed Attestations 2 Medical Necessity Statement*: Continue admission for assessment and management following LAD revascularization of severe coronary stenosis, chronic blood loss anemia, with melanotic stool, with possible GI bleed, MAURICIO on CKD, additional medical problems as above. and High MDM includes amount and/or complexity of data reviewed/ordered [ resulted lab(s)/test(s), ordered lab(s)/test(s) and other healthcare professional discussion] and described risk of complication, morbidity or mortality of management as documented Diagnoses Chest pain R07.9 Syncope R55 Acute CHF I50.9 Cardiomyopathy I42.9 Acute kidney injury superimposed on CKD N17.9; N18.9 Diabetes mellitus E11.9 Diabetes mellitus complication status: with hyperglycemia Diabetes mellitus type: type 2 Melena K92.1 Iron deficiency anemia D50.9
[2025-10-17 18:03] LABS: Hemoglobin 10.00 g/dL (11.27-16.99)
[2025-10-17 18:21] LABS: Partial Thromboplastin Time 60.9 SECONDS (23.9-36.7)
--- NOTE | 2025-10-17 20:47 | PC.NURSE ---
Heparin gtt adjusted with Aneta RN due to weight not matching order. PTT ordered for 0001. Please see MAR for details.
[2025-10-17] MEDS: insulin glargine 100 units/1 mL 22 UNIT SUBCUT (21:07)
--- NOTE | 2025-10-17 22:36 | PC.NURSE ---
Per PROGRAM PARAPROFESSIONAL patient had disconnected IV line attempting to go to bathroom. This nurse educated patient to please not disconnect or mess with IV tubing, he was intructed to call for help with IV tubing.
[2025-10-18] VITALS (11 sets, daily range): BP systolic 130–160; BP diastolic 73–88; PULSE 72–87; RESP 11–20; TEMP 36.4–36.8; O2SAT 93–100
[2025-10-18 00:05] LABS: Partial Thromboplastin Time 70.9 SECONDS (23.9-36.7)
--- NOTE | 2025-10-18 01:24 | ANES.PREANE2 ---
Pre-Anesthetic Assessment Height/Weight: Height 5 ft 11 in Weight 200 lb 9.93 oz Temp Pulse Resp BP Pulse Ox O2 Del Method 98.0 F 78 20 H 133/74 95 Nasal Cannula 10/18/25 00:00 10/18/25 00:00 10/18/25 00:00 10/18/25 00:00 10/18/25 00:00 10/18/25 00:00 Preop Diagnosis: Unstable angina Operation Date: 10/16/25 13:00 Proposed Procedures p Cardiac Catheterization(Not Applicable) - Jason Amaya M.D Operation Date: 10/18/25 09:00 Proposed Procedures p EGD(Not Applicable) - Stu Mills MD Social Alcohol and No alcohol Alcohol on holidays/special occasions Exam alert, oriented x 3, clear to auscultation bilaterally and regular rate & rhythm Airway Submandibular: within normal limits Cervical ROM: within normal limits Mallampati: Class III Anesthetic Plan ASA status: 4 Anesthesia: MAC Other: Patient initially admitted 10/16/2025 after experiencing syncopal collapse and found to have scattered bilateral PEs Patient is currently on 3 L nasal cannula Patient's daughter at bedside Patient reportedly ate some chocolate around 9:30 PM, nothing since No issues with anesthesia Previously diagnosed severe JULIET, cannot tolerate mask History of IDDM Hypertension on metoprolol Patient underwent left heart cath and found to have severe mid LAD stenosis, s/p PCI with 1 stent Per hospitalist notes, patient has been complaining of reoccurrence of chest pain accompanied with nausea/vomiting episode yesterday morning. Troponins without significant rise. EKG without signs of STEMI Patient was offered CT angiogram to assess for possibility of dissection but he declined this. Vitals are currently stable Patient currently on heparin drip and will be held transiently for EGD Echo showing EF of 35% with LV hypokinesis, most likely secondary to LAD stenosis which has now been stented Labs reviewed from 10/17/2025, hemoglobin 10, NA 137, K+ 3.6, glucose 166 EKG sinus rhythm Patient is at elevated risk due to recent stent placement however patient has been receiving heparin since stent placement. Plan for MAC anesthesia Medications/Allergies Home Medications ?Medication ?Instructions ?Recorded ?Confirmed ?Last Taken ?Type apixaban 5 mg tablet (Eliquis) 5 mg PO BID #60 tabs 01/01/25 10/16/25 10/15/25 Rx blood-glucose sensor (Dexcom G7 #9 ea 01/20/25 10/16/25 Unknown Rx Sensor device) metoprolol succinate 25 mg 50 mg PO DAILY 03/14/25 10/16/25 10/15/25 History tablet,extended release 24 hr empagliflozin 10 mg tablet 10 mg PO DAILY #90 tabs 06/13/25 10/16/25 10/08/25 Rx (Jardiance) insulin degludec 100 unit/mL (3 22 unit SUBCUT DAILY 10/16/25 10/16/25 10/15/25 History mL) subcutaneous pen (Tresiba FlexTouch U-100 insulin) Allergies Allergy/AdvReac Type Severity Reaction Status Date / Time No Known Allergies Allergy Verified 03/13/25 14:18 Current Medications Generic Name Dose Route Start Last Admin Trade Name Freq PRN Reason Stop Dose Admin Amlodipine Besylate 5 mg 10/17/25 10:50 10/17/25 12:14 Amlodipine 5 Mg Tablet PO 5 mg DAILY NIKKI Administration Aspirin 81 mg 10/17/25 05:00 10/17/25 04:27 Aspirin 81 Mg Ec Tablet PO 81 mg DAILY NIKKI Administration Clopidogrel Bisulfate 75 mg 10/17/25 05:00 10/17/25 04:27 Clopidogrel 75 Mg Tablet PO 75 mg DAILY NIKKI Administration Nitroglycerin/Dextrose 50 mg in 250 mls @ 0 mls/hr 10/16/25 06:45 10/17/25 17:15 Nitroglycerin Drip IV 0 mcg/min .Q0M NIKKI 0 mls/hr Protocol Titration Per Protocol Heparin Sodium/Sodium Chloride 25,000 unit in 500 mls @ 21.84 mls/hr 10/16/25 22:00 10/18/25 00:58 Heparin Drip IV 9 unit/kg/hr CONT NIKKI 16.38 mls/hr Protocol Titration 12 UNIT/KG/HR Potassium Chloride/Sodium Chloride 20 meq in 1,000 mls @ 100 mls/hr 10/17/25 01:15 10/17/25 20:57 Sodium Chlor 0.45% +Kcl 20 Meq IV Not Given .Q10H NIKKI Insulin Glargine 22 unit 10/16/25 21:00 10/17/25 21:07 Insulin Glargine 100 Units/1 Ml SUBCUT 22 unit BEDTIME NIKKI Administration Insulin Human Lispro 0 unit 10/16/25 12:00 10/17/25 20:34 Insulin Lispro 100 Unit/1 Ml SUBCUT Not Given WM&BEDTIME NIKKI Protocol Metoclopramide HCl 5 mg 10/17/25 10:42 10/17/25 11:11 Metoclopramide 5 Mg/Ml Sdv 2 Ml IVP 10/19/25 10:41 5 mg Q6H PRN Administration NAUSEA AND VOMITING Metoprolol Succinate 50 mg 10/17/25 05:00 10/17/25 04:26 Metoprolol Succinate Er (24 Hr) 25 Mg Tablet PO 50 mg DAILY NIKKI Administration Morphine Sulfate 4 mg 10/16/25 12:11 10/16/25 23:44 Morphine 4 Mg/Ml Sdv 1 Ml IVP 4 mg Q4H PRN Administration SEVERE PAIN Ondansetron HCl 4 mg 10/16/25 12:12 10/17/25 08:54 Ondansetron 2 Mg/Ml Sdv 2 Ml IVP 4 mg Q4H PRN Administration NAUSEA AND VOMITING Pantoprazole Sodium 40 mg 10/16/25 19:00 10/17/25 21:07 Pantoprazole 40 Mg Sdv IVP 40 mg Q12H NIKKI Administration PFSH Anesthesia Medical History (Updated 10/16/25 @ 13:47 by Wilfred Mckeon MD) Cervical spondylosis with radiculopathy Diabetes mellitus Surgical History History of cholecystectomy Family History Mother Obesity Father Diabetes Obesity Social History Smoking and tobacco/nicotine status: never used tobacco/nicotine Second hand smoke exposure: No Alcohol intake: current Alcohol intake frequency: holidays/special occasions only Substance/Drug Use: never Lives independently: Yes Household members: spouse Housing: House Marital status: service: No Current occupational status: employed Do you think of yourself as: Straight/Heterosexual Current gender identity: Male Data Anesthesia 10/17/25 17:48 10/17/25 03:54 Short CBC 10/16/25 10/16/25 10/17/25 Range/Units 06:32 18:08 03:54 WBC 7.41 9.87 (3.29-11.43) 10^3/uL Hgb 10.90 L 10.00 L 9.60 L (11.27-16.99) g/dL Hct 33.5 L 29.4 L (37-53) % MCV 89.8 91.3 (82-101) fl Plt Count 278 230 (157-399) 10^3/cmm Neut % (Auto) 51.3 63.3 % Neut # (Auto) 3.80 6.25 (1.8-7.7) 10^3/uL 10/17/25 Range/Units 17:48 WBC (3.29-11.43) 10^3/uL Hgb 10.00 L (11.27-16.99) g/dL Hct (37-53) % MCV (82-101) fl Plt Count (157-399) 10^3/cmm Neut % (Auto) % Neut # (Auto) (1.8-7.7) 10^3/uL BMP 10/16/25 10/17/25 10/17/25 06:32 01:06 03:54 Sodium 141 139 137 Potassium 3.8 3.5 3.6 Chloride 105 104 104 Carbon Dioxide 28 27 25 BUN 19 21 H 19 Creatinine 1.8 H 2.3 H 2.2 H Glucose 197 H 174 H 166 H Calcium 8.7 7.9 L 7.9 L Cardiac Enzymes 10/16/25 10/16/25 10/16/25 Range/Units 06:32 07:26 12:13 Troponin T Baseline 66 H (0-15) ng/L Delta Troponin T 0.33 (0-10) ABS# Troponin T Hi Sens 6Hr 65.41 H (0-15) ng/L Troponin T Hi Sens 6Hr Delta -0.59 L (0-12) ng/L NT-Pro-B Natriuret Pep 5610 H (0-125) pg/mL 10/17/25 10/17/25 10/17/25 Range/Units 01:06 02:26 06:52 Troponin T Baseline 106 H* (0-15) ng/L Delta Troponin T 8.2 (0-10) ABS# Troponin T Hi Sens 6Hr 112.4 H (0-15) ng/L Troponin T Hi Sens 6Hr Delta 6.4 (0-12) ng/L NT-Pro-B Natriuret Pep (0-125) pg/mL Liver Function 10/16/25 10/17/25 Range/Units 06:32 03:54 Total Bilirubin 0.8 0.7 (0.15-1.2) mg/dL AST 14 16 (0-40) U/L ALT 20 16 (0-41) U/L Alkaline Phosphatase 58 49 (40-130) U/L Albumin 3.4 L 2.9 L (3.5-5.2) g/dL Coags 10/17/25 10/17/25 10/17/25 01:06 03:54 10:51 APTT 91.6 H 120.3 H 70.0 H 10/17/25 10/17/25 17:48 23:40 APTT 60.9 H 70.9 H Cardiac Studies: Echocardiogram 03/25/25 Echocardiogram Limited Views 10/16/25 Sestamibi Stress Test (Cardiology) 01/21/22 Cardiac Event Monitor 02/27/25
--- NOTE | 2025-10-18 03:00 | ECG_ITS ---
[employer] Test Date: 2025-10-18 Pat Name: Phi Perez Department: Room: 108 Gender: Male Operations Superintendent: : 1970 Requested By: Wilfred Mckeon Order Number: [id number] Reading MD: RAVI RAMIREZ Measurements Intervals [place] Rate: 74 P: 41 AK: 144 QRS: -16 QRSD: 107 T: 63 QT: 407 QTc: 452 Interpretive Statements SINUS RHYTHM POSSIBLE LEFT ATRIAL ENLARGEMENT [-0.1mV P-WAVE IN V1/V2] NONSPECIFIC T-WAVE ABNORMALITY Compared to ECG 10/17/2025 07:34:43 No significant changes Electronically Signed On 10-21-2025 12:07:31 EARTH OBSERVATIONS CHIEF SCIENTIST by RAVI RAMIREZ [email or web address]
[2025-10-18] MEDS: morphine 4 mg/mL SDV 1 mL 2 MG IVP (03:11)
[2025-10-18] MEDS: metoclopramide 5 mg/mL SDV 2 mL IVP (03:11)
[2025-10-18 03:26] LABS: Hematocrit 28.1 % (37-53); Hemoglobin 9.10 g/dL (11.27-16.99); Mean Corpuscular HGB Conc 32.4 g/dL (30-55); Mean Corpuscular Hemoglobin 29.4 pg (27-33); Mean Corpuscular Volume 90.9 fl (82-101); Nucleated Red Blood Cells % 0 %; Platelet Count 192 10^3/cmm (157-399); Red Blood Count 3.09 10^6/uL (3.85-5.65); White Blood Count 7.44 10^3/uL (3.29-11.43)
[2025-10-18 03:44] LABS: Alanine Aminotransferase 19 U/L (0-41); Albumin Level 2.9 g/dL (3.5-5.2); Alkaline Phosphatase 50 U/L (40-130); Anion Gap 10.3 (5-19); Aspartate Amino Transferase 18 U/L (0-40); Blood Urea Nitrogen 22 mg/dL (6-20); Calcium 7.9 mg/dL (8.5-10.5); Carbon Dioxide 27 mmol/L (22-29); Chloride 105 mmol/L (98-107); Globulin 2.2 g/dL (1.3-4.6); Glucose 66 mg/dL (65-115); Osmolality Calculated 290 mOsm/kg (285-295); Potassium 3.3 mmol/L (3.5-5.1); Sodium 139 mmol/L (136-145); Total Protein 5.1 g/dL (6.6-8.7)
[2025-10-18] MEDS: heparin drip 25,000 UNIT/500 ML PREMIX 16.38 UNIT IV (06:33)
--- NOTE | 2025-10-18 07:03 | PC.NURSE ---
Addendum entered by Bessie Freedman RN 10/18/25 07:58: Dr. Dean notified about 3.3 potassium this am as well as patient refusing medications and IVF. Per patient he did not want to get sick and feels fine . Patient educated that this nurse is worried about BG dropping and that IVF would help. At this time patient is wanting to readdress meds after EGD. Original Note: 0300- Nurse in room for rounding, patient stating he is hot and shaky. Patient BG checked resulting in 63 and was given IV D10 125 ml per protocol. While hanging bag of fluid patient stated he did not feel good and was starting to develop nausea with 3/10 chest pain. nurse to obtain EKG, give reglan, and morphine. Patient nausea subsided and chest pressure is 2/10. Dr. Clark notified and received orders to let cardiology know and can give GI cocktail. 0600- Verifyinh if patient is to receive scheduled plavix and aspirin since he has a GIB. Per Dr. Clark okay to give. Patient refusing all medications. Patient BG at this time is also 71. Dr. Clark notified and received orders for D51/2NS 20 kcl at 100cc. Patient also refusing this.
[2025-10-18 07:46] LABS: Partial Thromboplastin Time 88.3 SECONDS (23.9-36.7)
--- NOTE | 2025-10-18 09:17 | PM.PN ---
Subjective Subjective: No acute events overnight Heparin drip held 1 hour ago Vitals/I&O/Wt Last Vital Signs Temp 98.1 F 10/18/25 08:00 Pulse 79 10/18/25 08:00 Resp 12 10/18/25 08:00 BP 147/75 10/18/25 08:00 Pulse Ox 95 10/18/25 08:00 O2 Del Method Nasal Cannula 10/18/25 04:00 10/17/25 10/18/25 10/18/25 22:59 06:59 14:59 Intake Total 779.958 / 2003.904 246.079 / 2250.983 20.748 / 20.748 Balance 779.958 / 2003.904 246.079 / 2250.983 20.748 / 20.748 Weight last 48 hrs Weight 197 lb 14.4 oz Weight 200 lb 9.93 oz Weight 178 lb Physical Exam Narrative: Chest: Unlabored breathing room air. No lymphadenopathy. Heart: Regular rate and rhythm. Abdomen: Soft, nontender, nondistended. No masses or lymphadenopathy. Data 10/18/25 02:33 10/18/25 02:33 A&P Assessment and plan 1. Melena: Plan: 55-year-old male whom surgery was consulted for melena. 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 I have explained the risks and benefits of a diagnostic EGD with hemostasis and the patient agrees to proceed. PDMP PDMP Reviewed: Not Reviewed Attestations Medical Necessity Statement*: N/A Coding Level of Care Code 52369 Diagnoses Melena K92.1
--- NOTE | 2025-10-18 09:35 | PM.MISC ---
Miscellaneous Note Note: No bleeding on EGD. Recommend protonix BID indefinitely for gastritis. OK to resume anticoagulation. Rest of care per hospitalist.
[2025-10-18] MEDS: pantoprazole 40 mg SDV IVP ×2 (10:52→21:05)
[2025-10-18] MEDS: dextrose 5% + KCl 20 mEq 20 MEQ/1,000 ML BAG 75 MEQ IV (10:52)
--- NOTE | 2025-10-18 11:35 | P.PN_ITS ---
Subjective 2 Subjective: Patient feeling better. No chest pain. Had EGD not showing active bleeding. Vitals/I&O/Wt Last Vital Signs Temp 97.5 F L 10/18/25 09:32 Pulse 78 10/18/25 10:11 Resp 13 10/18/25 10:11 BP 135/73 10/18/25 10:11 Pulse Ox 95 10/18/25 10:11 O2 Del Method Room Air 10/18/25 09:55 O2 Flow Rate 10 10/18/25 09:32 10/17/25 10/18/25 10/18/25 22:59 06:59 14:59 Intake Total 779.958 / 2003.904 246.079 / 2250.983 363.486 / 363.486 Balance 779.958 / 2003.904 246.079 / 2250.983 363.486 / 363.486 Weight last 48 hrs Weight 197 lb 14.4 oz Weight 200 lb 9.93 oz Physical Exam 2 Narrative: GENERAL: Patient is alert, awake and oriented x3. [] NECK: No jugular vein distension. [] HEENT: No cyanosis. No icterus. No pallor. [] HEART: Regular S1 and S2. No murmur, rub or gallop. [] LUNGS: Clear to auscultate bilaterally. [] CENTRAL NERVOUS SYSTEM: Grossly nonfocal. [] EXTREMITIES: Lower extremities with 1+ edema bilaterally Data 10/19/25 05:42 10/19/25 05:42 A&P Assessment and plan 1. Chest pain: 2. Cardiomyopathy: 3. Acute CHF: 4. History of pulmonary embolism: 5. Unstable angina pectoris: 6. Acute kidney injury superimposed on CKD: Plan: Patient is chest pain free this morning. EGD did not showing active bleeding. Resume Eliquis. Continue Plavix. Can stop aspirin. Creatinine has stabilized. Will continue holding diuretics for today. Started on amlodipine. Uptitrate as needed. Continue metoprolol. Will start atorvastatin. EF is 35 to 40%. On beta-mayda. Will hold Entresto for now. As outpatient will start it. Thank you for involving us with care of this patient. Please call with questions PDMP PDMP Reviewed: Not Reviewed Attestations 2 Medical Necessity Statement*: Care expected to cross 2 midnights Coding Level of Care Code Acute Code for Chg Fwd Diagnoses Chest pain R07.9 Cardiomyopathy I42.9 Acute CHF I50.9 History of pulmonary embolism Z86.711 Unstable angina pectoris I20.0 Acute kidney injury superimposed on CKD N17.9; N18.9
--- NOTE | 2025-10-18 16:51 | P.PN_ITS ---
Subjective 2 Subjective: Underwent EGD. He is feeling well after the procedure. Tolerating lunch. No chest pain or pressure. Would like to get up and walk. Vitals/I&O/Wt Last Vital Signs Temp 97.5 F L 10/18/25 09:32 Pulse 80 10/18/25 15:12 Resp 11 L 10/18/25 15:12 BP 130/76 10/18/25 15:12 Pulse Ox 96 10/18/25 15:12 O2 Del Method Room Air 10/18/25 09:55 O2 Flow Rate 10 10/18/25 09:32 10/18/25 10/18/25 10/18/25 06:59 14:59 22:59 Intake Total 246.079 / 2250.983 2085.000 / 2085.000 Balance 246.079 / 2250.983 2085.000 / 2085.000 Weight last 48 hrs Weight 89.766 kg Weight 91 kg Physical Exam 2 Narrative: Accompanied by family on 1st and 2nd visit. Const: COMMON NORMALS: patient oriented x3 and alert GENERAL APPEARANCE: c ooperative ORIENTATION/CONSCIOUSNESS: Yes awake HENMT: COMMON NORMALS: oropharynx normal Neck/C-Spine: COMMON NORMALS: no JVD Resp: COMMON NORMALS: normal respiratory effort and clear to auscultation bilaterally AUSCULTATION: clear to auscultation bilaterally Cardio: COMMON NORMALS: no JVD, regular rhythm, S1 normal heart sound present, S2 normal heart sound present and No murmurs present (Cardio) RHYTHM: regular rhythm HEART SOUNDS: S1 normal heart sound present and S2 normal heart sound present GI: COMMON NORMALS: Normal to inspection, nondistended, normoactive bowel sounds present, Soft to palpation and non-tender PALPATION: Yes Soft to palpation Extremity: COMMON NORMALS: no joint enlargement and no pedal edema Neuro: COMMON NORMALS: patient oriented x3 and moves all extremities S ENSORIUM/ORIENTATION: Yes alert Skin: COMMON NORMALS: no rashes or lesions noted GENERAL SKIN EXAM: no rashes or lesions noted Data 10/18/25 02:33 10/18/25 02:33 A&P Assessment and plan 1. Chest pain: So far without recurrence. Found to have gastritis on EGD. Discussed with him. Discussed with him importance of continued aspirin and Plavix at current time. With continued anticoagulation one of the antiplatelets may be discontinued by cardiology. Please reinforce the recommended antiplatelets at the time of discharge. Plain CT obtained with finding of left lower lobe consolidation, possible infiltrate, additionally atelectasis. I-S requested. Discussed with him, Reglan added for any recurrent nausea. He denies any symptoms of gastroparesis. Also noted pleural effusions, IVF were discontinued per cardiology. No obvious vascular abnormality on plain CT, but as discussed with him this study was not meant to exclude a dissection which he understands. Further options considered, SERA included. TTE with EF similar to prior, perhaps slightly improved. No right ventricular dysfunction. He has not missed any Eliquis. Additional PE less likely, VQ scan could be considered once imaging abnormalities are clearing up, but he is anticipated to continue on anticoagulation. Started on amlodipine. Status post stent of 90% lesion of LAD. 2. Syncope: Reviewed TTE. Reviewed CT chest. Reviewed blood counts. Continue to monitor on telemetry. 3. Acute CHF: E consult with MAURICIO on CKD, coronary angiogram. Further IV fluids held. Reassess fluid status chemistry. Consider diuresis. Acute heart failure with reduced ejection fraction (EF ~35%) : Prior echocardiogram reportedly showed EF about 35% with global LV hypokinesia and grade 3 diastolic dysfunction. Differential for new systolic dysfunction discussed: ischemia; tachycardia-induced cardiomyopathy; long-standing uncontrolled hypertension; viral myocarditis. Prior EF in 2022 reportedly ~60%, suggesting recent decline. No recent alcohol. - Reviewed repeat transthoracic echocardiogram to reassess EF and wall motion. - Continue post intervention care balancing bleeding risk given possible GI bleed. Monitor for risk of occurrence of bleeding. - Continue metoprolol; consider further guideline-directed medical therapy depending on cardiology recommendations and blood pressure. 4. Cardiomyopathy: As above. 5. Gastritis: Status post EGD with finding of gastritis. Continue PPI. Follow-up with surgery. Avoid NSAIDs, any alcohol. I am not sure if biopsy admit thinking, if so add MARY ANN test. Obtain urea breath test, antibody and stool antigen. 6. Hypoglycemia: As per discussion with him D5 ordered for during EGD while NPO. Discontinued subsequently. Decrease Lantus to 5 units. Monitor blood glucose. Monitor for hyper/hypoglycemia. 7. Acute kidney injury superimposed on CKD: Reviewed chemistry, intake output. Has creatinine 2.4. This morning slightly better at 2.2. In the past taking ibuprofen, but not recently. Continue to avoid NSAIDs. Recently with decompensated CHF. Received a dose of Lasix. Follow-up renal function, electrolytes. Monitor intake and output. Chronic kidney disease, stage 3A : Known CKD stage 3A. Monitor intake and output. Reassess chemistry. 8. Diabetes mellitus: Reviewed A1c, currently diabetes well-controlled, A1c 7.4. Continue on long- acting insulin 22 units nightly. SSI. Monitor blood glucose. 9. Melena: Gastritis noted in the stomach. No active bleeding. Possible past bleeding, possibly some dark stools from iron as well. Hemoccult pending. So far without stools. Pantoprazole (Protonix) twice daily, initially intravenous. - Recheck hemoglobin and monitor for ongoing blood loss. 10. Iron deficiency anemia: As above. Finished iron recently. Transiently on PPI for about a month in the past. Plan: History of pulmonary embolism on apixaban : Discussed with cardiology, with starting Eliquis tonight. -Discussed with him ventilation?perfusion (VQ) scan to evaluate for possible recurrent PE (given CKD limiting contrast CT). However, with pulmonary changes on imaging, would need to clear up first. Anticipated to continue on anticoagulation. Labile hypertension : Blood pressure is doing better. Continue to optimize. Long-standing uncontrolled hypertension with recent labile readings varying between very elevated and normal; improved partially on metoprolol. Continue to monitor blood pressures. Noted this morning. Started on amlodipine. - Continue metoprolol; adjust antihypertensive regimen cautiously to avoid hypotension. - Monitor blood pressure closely on step-down unit. Sinus tachycardia (improved on metoprolol) : Previously persistent HR >100; improved into 80s on metoprolol. 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 - Continue metoprolol for rate control. - Telemetry monitoring for arrhythmias during hospitalization; consider extended cardiac monitoring post-discharge. Obstructive sleep apnea (untreated) : Severe JULIET diagnosed; CPAP intolerant; planning evaluation for procedural option after the new year. History of cerebrovascular accident (2022) : Prior CVA in 2022 Chronic cough : Persistent cough over 3?3.5 weeks, with episodes leading to prolonged coughing fits and post-tussive emesis; may be multifactorial. On benzonatate for symptom control. History of hepatic injury post-COVID/plasma reaction : History of liver complications following COVID plasma therapy with procedures performed; fatty liver noted; no current active hepatic complaints reported. PDMP PDMP Reviewed: Not Reviewed Attestations 2 Medical Necessity Statement*: Continue admission for assessment and management following LAD revascularization of severe coronary stenosis, chronic blood loss anemia, gastritis with melanotic stool, with possible GI bleed, MAURICIO on CKD, additional medical problems as above. and High MDM includes amount and/or complexity of data reviewed/ordered [ previous or external records, resulted lab(s)/test(s), ordered lab(s)/test(s) and other healthcare professional discussion] and described risk of complication, morbidity or mortality of management as documented Diagnoses Chest pain R07.9 Syncope R55 Acute CHF I50.21 Heart failure type: systolic Cardiomyopathy I42.9 Cardiomyopathy type: unspecified Gastritis K29.70 Hypoglycemia E16.2 Acute kidney injury superimposed on CKD N17.9; N18.9 Diabetes mellitus E11.9 Melena K92.1 Iron deficiency anemia D50.9
--- NOTE | 2025-10-18 18:27 | PC.NURSE ---
pt had 19 beat run v-tach.spontaneously converted.asymptomatic.dr pires notified.he ordered 40 meq of potassium chloride and magnesium iv.
[2025-10-19] VITALS (11 sets, daily range): BP systolic 149–164; BP diastolic 84–91; PULSE 77–86; RESP 14–25; TEMP 36.6–36.9; O2SAT 89–99
[2025-10-19] MEDS: metoprolol succinate ER (24 HR) 25 mg Tablet 50 MG PO (05:18)
[2025-10-19 06:02] LABS: Hematocrit 31.0 % (37-53); Hemoglobin 9.80 g/dL (11.27-16.99); Mean Corpuscular HGB Conc 31.6 g/dL (30-55); Mean Corpuscular Hemoglobin 29.9 pg (27-33); Mean Corpuscular Volume 94.5 fl (82-101); Nucleated Red Blood Cells % 0 %; Platelet Count 222 10^3/cmm (157-399); Red Blood Count 3.28 10^6/uL (3.85-5.65); White Blood Count 6.70 10^3/uL (3.29-11.43)
[2025-10-19 06:23] LABS: Alanine Aminotransferase 26 U/L (0-41); Albumin Level 3.0 g/dL (3.5-5.2); Alkaline Phosphatase 53 U/L (40-130); Anion Gap 12.1 (5-19); Aspartate Amino Transferase 24 U/L (0-40); Blood Urea Nitrogen 18 mg/dL (6-20); Calcium 8.0 mg/dL (8.5-10.5); Carbon Dioxide 24 mmol/L (22-29); Chloride 105 mmol/L (98-107); Globulin 2.3 g/dL (1.3-4.6); Glucose 141 mg/dL (65-115); Osmolality Calculated 288 mOsm/kg (285-295); Potassium 4.1 mmol/L (3.5-5.1); Sodium 137 mmol/L (136-145); Total Protein 5.3 g/dL (6.6-8.7)
[2025-10-19 06:25] LABS: Magnesium 1.8 mg/dL (1.7-2.3)
[2025-10-19] MEDS: pantoprazole 40 mg SDV IVP (08:52)
--- NOTE | 2025-10-19 09:57 | P.PN_ITS ---
Subjective 2 Subjective: Patient is doing well. No chest pain. Creatinine is improving Vitals/I&O/Wt Last Vital Signs Temp 98.3 F 10/19/25 07:46 Pulse 77 10/19/25 07:46 Resp 18 10/19/25 07:46 BP 164/91 10/19/25 07:46 Pulse Ox 99 10/19/25 07:46 O2 Del Method Room Air 10/19/25 05:43 O2 Flow Rate 2 10/19/25 00:37 10/18/25 10/19/25 10/19/25 22:59 06:59 14:59 Intake Total 480 / 2565.000 480 / 480 Balance 480 / 2565.000 480 / 480 Weight last 48 hrs Weight 200 lb 9.93 oz Weight 197 lb 14.4 oz Physical Exam 2 Narrative: GENERAL: Patient is alert, awake and oriented x3. [] NECK: No jugular vein distension. [] HEENT: No cyanosis. No icterus. No pallor. [] HEART: Regular S1 and S2. No murmur, rub or gallop. [] LUNGS: Clear to auscultate bilaterally. [] CENTRAL NERVOUS SYSTEM: Grossly nonfocal. [] EXTREMITIES: Lower extremities with 1+ edema bilaterally Data 10/19/25 05:42 10/19/25 05:42 A&P Assessment and plan 1. Chest pain: 2. Cardiomyopathy: 3. Acute CHF: 4. History of pulmonary embolism: 5. Unstable angina pectoris: 6. Acute kidney injury superimposed on CKD: Plan: Continue Eliquis and Plavix. Continue metoprolol. Amlodipine uptitrated to 10 mg daily. Contrast-induced nephropathy and MAURICIO on CKD is improving. Tomorrow can resume p.o. Lasix. Enteresto to be started as outpatient. Thank you for involving us with care of this patient. Please call with questions PDMP PDMP Reviewed: Not Reviewed Attestations 2 Medical Necessity Statement*: Care expected to cross 2 midnights. Coding Level of Care Code Acute Code for [facility] Fwd Diagnoses Chest pain R07.9 Cardiomyopathy I42.9 Acute CHF I50.9 History of pulmonary embolism Z86.711 Unstable angina pectoris I20.0 Acute kidney injury superimposed on CKD N17.9; N18.9
--- NOTE | 2025-10-19 12:13 | P.DS_ITS ---
Discharge Providers Date of Admission: 10/16/25 07:53 Date of Discharge: October 19, 2025 Attending Provider at Admission: Josef Aguilera MD Attending Provider at Discharge: Surjit Tejeda MD Primary Care Provider: Riley Flanagan MD Diagnoses at Discharge Discharge Diagnosis 1. Chest pain: 2. Cardiomyopathy: 3. Acute CHF: 4. History of pulmonary embolism: 5. Unstable angina pectoris: 6. Acute kidney injury superimposed on CKD: Reason for Visit Reason for Visit: SOB / chest pain Brief History: Phi Perez is a 55 year old male with history of diabetes, cerebrovascular accident in 2022, recurrent pulmonary embolism on anticoagulation, chronic kidney disease (stage 3A), severe obstructive sleep apnea (untreated), and prior difficult COVID-19 course presents after collapsing overnight with worsening shortness of breath. Over the past 3?3.5 weeks, reports progressive cough, nausea, weakness, and dyspnea that has become severe. Endorses exertional dyspnea, orthopnea, and paroxysmal nocturnal dyspnea; intermittent lower extremity edema. Left-sided chest pain associated with dyspnea occurred around the time of the syncopal event. Reports recurrent dark, tarry stools beginning ~6?7 weeks ago; hemoglobin previously 8.6 at an outside facility and received an iron infusion, then iron tablets (ran out ~1.5?2 weeks ago). Continues to note intermittent dark stools, last episode on Monday; no hematemesis or hemoptysis. Nausea is frequent; vomiting occurs after prolonged coughing fits; no hematuria or rashes. Blood pressure has been labile (historically very high, sometimes lower), and heart rate previously persistently >100 but improved into the 80s on metoprolol. Recently prescribed home oxygen for nocturnal use. Severe obstructive sleep apnea previously diagnosed; CPAP intolerant and planning consultation after the new year. Echo in February reportedly showed global left ventricular hypokinesis, grade 3 diastolic dysfunction, and ejection fraction about 35% [noted in transcript as ?atrial infarction 35%? ? wording unclear]. Denies missed doses of apixaban. No tobacco; alcohol previously 3?4 drinks/week, minimal in the past month; no illicit drugs. No known medication allergies. Hospital Course Hospital Course Patient originally came in for shortness of breath, severe chest pain radiating to the back. Was found to have stenosis of the LAD, successful LHC, initiated antiplatelet, Plavix, and anticoagulant, Eliquis 5 mg twice daily. Patient has a history of PE/DVT, patient did have recurrent chest pain following cardiac cath, that is now resolved and discharged. Declined CT a, reinitiated anticoagulation. Low likelihood of dissection according to cardiology, but may benefit from a repeat SERA/VQ scan on follow-up. Patient found to have a EF 35% due to ischemic cardiomyopathy, held off during hospitalization on GDMT due to elevated creatinine, possible contributed by CARI. With held Jardiance. Renal function plateaued and started stabilizing on discharge, resume Lasix 1 day a fter discharge. Follow-up with cardiology for further GDMT. Patient discharged in stable condition with follow-ups and education. Follow-up in 1 week with PCP for CMP to check kidney function. Patient did have mild anemia, some melena on arrival. Did receive EGD from surgery. Found to have diffuse gastritis, no signs of bleeding. Protonix 40 mg twice daily initiated indefinitely until he follows up with PCP. Recommend H. pylori studies Possible urea breath test if needed. Physical Exam Const: COMMON NORMALS: patient oriented x3 and alert GENERAL APPEARANCE: cooperative ORIENTATION/CONSCIOUSNESS: Yes awake HENMT: COMMON NORMALS: oropharynx normal Neck/C-Spine: COMMON NORMALS: no JVD Resp: COMMON NORMALS: normal respiratory effort and clear to auscultation bilaterally AUSCULTATION: clear to auscultation bilaterally Cardio: COMMON NORMALS: no JVD, regular rhythm, S1 normal heart sound present, S2 normal heart sound present and No murmurs present (Cardio) RHYTHM: regular rhythm HEART SOUNDS: S1 normal heart sound present and S2 normal heart sound present GI: COMMON NORMALS: Normal to inspection, nondistended, normoactive bowel sounds present, Soft to palpation and non-tender PALPATION: Yes Soft to palpation Extremity: COMMON NORMALS: no joint enlargement and no pedal edema Neuro: COMMON NORMALS: patient oriented x3 and moves all extremities SENSORIUM/ORIENTATION: Yes alert Skin: COMMON NORMALS: no rashes or lesions noted GENERAL SKIN EXAM: no rashes or lesions noted Discharge Data Studies Completed and Pending Completed Studies During Hospitalization Category Date Time Status CT chest wo con [id number] Stat Cat Scan 10/17/25 09:12 Completed XR chest 1V portable [id number] Stat Exams 10/16/25 06:52 Completed CV. echo limited [id number] Routine Ultrasound 10/16/25 09:51 Completed US renal BI* [id number] Routine Ultrasound 10/16/25 09:51 Completed Pending at discharge Category Date Time Status [employer] request for service Routine Exams 10/16/25 12:46 Taken Helicobacter Pylori AG Stool Routine Lab 10/19/25 05:45 Ordered Helicobacter Pylori Breath Routine Lab 10/18/25 23:12 Received Occult Blood Stool [Immunochemical Fecal OCB] Routine Lab 10/19/25 05:45 Ordered Radiology Impressions Chest X-Ray 10/16/25 06:52 IMPRESSION: 1. Small left-sided pleural effusion. 2. Cardiomegaly. Renal Ultrasound 10/16/25 09:51 IMPRESSION: Normal renal ultrasound. Chest CT 10/17/25 09:12 IMPRESSION: 1. Ill-defined consolidation in the left lung base may represent infiltrate in the correct clinical setting. 2. Ill-defined ground-glass opacities dependently in bilateral lower lobes favor atelectasis, though atypical infection is not excluded. 3. Moderate bilateral pleural effusions. Laboratory Results WBC 6.70 10^3/uL (3.29-11.43) 10/19/25 05:42 RBC 3.28 10^6/uL (3.85-5.65) L 10/19/25 05:42 Hgb 9.80 g/dL (11.27-16.99) L 10/19/25 05:42 Hct 31.0 % (37-53) L 10/19/25 05:42 MCV 94.5 fl (82-101) 10/19/25 05:42 MCH 29.9 pg (27-33) 10/19/25 05:42 MCHC 31.6 g/dL (30-55) 10/19/25 05:42 RDW 13.8 % (12.1-15.1) 10/19/25 05:42 Plt Count 222 10^3/cmm (157-399) 10/19/25 05:42 MPV 10.7 fL (7.4-10.4) H 10/19/25 05:42 Neut % (Auto) 59.1 % 10/19/25 05:42 Lymph % (Auto) 17.0 % 10/19/25 05:42 [place] % (Auto) 9.1 % 10/19/25 05:42 Eos % (Auto) 13.4 % 10/19/25 05:42 Baso % (Auto) 1.0 % 10/19/25 05:42 Neut # (Auto) 3.95 10^3/uL (1.8-7.7) 10/19/25 05:42 Lymph # (Auto) 1.1 10^3/uL (0.8-4.8) 10/19/25 05:42 [place] # (Auto) 0.6 10^3/uL (0.2-0.9) 10/19/25 05:42 Eos # (Auto) 0.9 10^3/uL (0.0-0.8) H 10/19/25 05:42 Baso # (Auto) 0.1 10^3/uL (0.0-0.1) 10/19/25 05:42 Nucleated RBC % (auto) 0 % 10/19/25 05:42 Nucleated RBCs # 0.0 /100WBC 10/19/25 05:42 APTT 88.3 SECONDS (23.9-36.7) H 10/18/25 07:01 Sodium 137 mmol/L (136-145) 10/19/25 05:42 Potassium 4.1 mmol/L (3.5-5.1) 10/19/25 05:42 Chloride 105 mmol/L (98-107) 10/19/25 05:42 Carbon Dioxide 24 mmol/L (22-29) 10/19/25 05:42 Anion Gap 12.1 (5-19) 10/19/25 05:42 BUN 18 mg/dL (6-20) 10/19/25 05:42 Creatinine 2.1 mg/dL (0.7-1.2) H 10/19/25 05:42 GFR Calculation 33.0 mL/min (90-130) L 10/19/25 05:42 Glucose 141 mg/dL (65-115) H 10/19/25 05:42 POC Glucose 158 mg/dL (70-110) H 10/19/25 10:21 Estimat Average Glucose 166 10/17/25 03:54 Hemoglobin A1c 7.4 % (4.0-6.0) H 10/17/25 03:54 Calculated Osmolality 288 mOsm/kg (285-295) 10/19/25 05:42 Calcium 8.0 mg/dL (8.5-10.5) L 10/19/25 05:42 Magnesium 1.8 mg/dL (1.7-2.3) 10/19/25 05:42 Total Bilirubin 0.6 mg/dL (0.15-1.2) 10/19/25 05:42 AST 24 U/L (0-40) 10/19/25 05:42 ALT 26 U/L (0-41) 10/19/25 05:42 Alkaline Phosphatase 53 U/L (40-130) 10/19/25 05:42 Troponin T Baseline 106 ng/L (0-15) H* 10/17/25 01:06 Troponin T 60 Minute 114.2 ng/L (0-15) H 10/17/25 02:26 Delta Troponin T 8.2 ABS# (0-10) 10/17/25 02:26 Troponin T Hi Sens 6Hr 112.4 ng/L (0-15) H 10/17/25 06:52 Troponin T Hi Sens 6Hr Delta 6.4 ng/L (0-12) 10/17/25 06:52 NT-Pro-B Natriuret Pep 5610 pg/mL (0-125) H 10/16/25 06:32 Total Protein 5.3 g/dL (6.6-8.7) L 10/19/25 05:42 Albumin 3.0 g/dL (3.5-5.2) L 10/19/25 05:42 Globulin 2.3 g/dL (1.3-4.6) 10/19/25 05:42 H. pylori IgG Antibody 10/18/25 02:33 Procedures Performed EGD on 10/18/2025?diffuse gastritis LHC on 10/16/2025?stent placed in LAD Vitals Last Vital Signs Temp 98.3 F 10/19/25 07:46 Pulse 86 10/19/25 11:55 Resp 16 10/19/25 11:55 BP 155/84 10/19/25 11:55 Pulse Ox 94 10/19/25 11:55 O2 Del Method Room Air 10/19/25 05:43 O2 Flow Rate 2 10/19/25 00:37 Discharge Plan Discharge Patient Disposition: Home Condition: Stable Prescriptions: New atorvastatin 40 mg Tablet 40 mg PO BEDTIME Qty: 90 0RF furosemide [Lasix] 40 mg tablet 40 mg PO DAILY Qty: 90 0RF clopidogrel 75 mg Tablet 75 mg PO DAILY Qty: 90 0RF amlodipine 10 mg tablet 10 mg PO DAILY Qty: 30 2RF pantoprazole 40 mg tablet,delayed release (DR/EC) 40 mg PO Q12H Qty: 90 0RF Continued (DME) Dexcom G7 Sensor Device See Rx Instructions .Route Qty: 9 1RF Rx Instructions: change sensor every 10 days insulin degludec [Tresiba FlexTouch U-100] 100 unit/mL (3 mL) insulin pen 22 unit SUBCUT DAILY Rx Instructions: follow Dr Pillai recommendation Eliquis 5 mg tablet 5 mg PO BID Qty: 60 0RF metoprolol succinate 25 mg tablet extended release 24 hr 50 mg PO DAILY 90 Days Qty: 180 0RF Discontinued Jardiance 10 mg tablet 10 mg PO DAILY Qty: 90 0RF Classified Ad Taker OK for DC: Cardiology and Surgery Other Ambulatory Orders: Comprehensive Metabolic Panel (Routine) Timeframe: 1 Week Facility: [facility] - Location: Lab - Main Lab Ordered By: Surjit Tejeda Referrals: Stu Mills MD [Physician, General Surgery] - 2 weeks Referral Note: We have notified your physician's clinic of the need for a follow-up appointment to be scheduled. If you have not heard from them within the next 2 business days, please call them directly. Riley Flanagan MD [Primary Care Provider, Family Practice] - 4-7 days Referral Note: Please call for an follow-up appointment within 4 to 7 days. Thank you Jason Amaya M.D [Physician, Cardiology] - 7-10 days Referral Note: Going home with modifications of medications, including increased amlodipine to 10 mg daily. According to cardiology inpatient evaluation, patient can start GDMT (Entresto) as outpatient on follow-up. Diuretics resumed. Discharge Diet: Cardiac and Diabetic Discharge Activity: Resume usual activity Patient Instructions: Furosemide (By mouth) (Lasix), Amlodipine (By mouth), Atorvastatin (By mouth) (Lipitor, Atorvaliq), Clopidogrel (By mouth) (Plavix), Pantoprazole (By mouth) (Protonix), Apixaban (By mouth) (Eliquis), Heart Attack (DC), Pulmonary Embolism (DC), GI Post Discharge Instructions w/ Anesthesia, Opioid Safety, Post Angiogram Home Care Instructions, Post Heart Attack Stoplight, Patient Portal & Kinza Instructions Activity Restrictions/Additional Instructions: You are admitted for acute myocardial infarction, with stenosis of your LAD artery, which was opened up by Dr. Amaya. In order to keep it open, continue taking Eliquis and the Plavix continuously daily, until you follow-up with your wildlife removal specialist and your primary care doctor. As for the gastritis, the stomach problems, I recommend that you follow-up with your primary care doctor for further testing if it continues, and you could follow-up with a general surgeon who performed the upper endoscopy as needed. They recommended that we give you the Protonix 40 mg twice daily for a time. Designated by your primary care doctor. We have also adjusted your blood pressure medication, amlodipine, and continued metoprolol and your diabetes management, you were doing well on your own. As far as you are kidney function, which was declined after the heart cath, possibly caused by the contrast which is not an uncommon complication, it appears to be improving, and you can resume the diuretic, Lasix 40 mg daily, for your swelling symptoms as long as you follow-up with your primary care doctor and get a new blood test in 1 week to measure your kidney function. Was a pleasure taking care of you, and I hope you do well. Discharge Attestations Time Spent in Discharge Care*: greater than 30 min Time Spent in Smoking Cessation: 3 to 10 minutes Quality Metrics Clinical Quality Measures [ Acute Myocardial Infaction { Clinical Trial Participant: No; Contraindication to aspirin: None; Aspirin prescribed; Contraindication to statin: None; Statin prescribed; Contraindication to PCI: None; PCI performed;}] Coding Level of Care Code 67270 Diagnoses Chest pain R07.9 Chest pain type: chest pain due to myocardial ischemia Cardiomyopathy I42.9 Cardiomyopathy type: unspecified Acute CHF I50.21 Heart failure type: systolic History of pulmonary embolism Z86.711 Unstable angina pectoris I20.0 Acute kidney injury superimposed on CKD N17.9; N18.9
--- NOTE | 2025-10-19 13:17 | PC.NURSE ---
discharge instructions given and explained.pt verb understanding of instructions.discharged ambulatory to exit at this time
== END 2025-10-19 13:17 | disposition home or self-care (01) | DRG 321 ==
LOC: ER 06:40 → CSU 08:26
PROVIDERS: Internal Medicine; Student in an Organized Health Care Education/Training Program; Admitting Provider Student in an Organized Health Care Education/Training Program; Emergency Provider Family Medicine; PCP Family Medicine; Visit Provider Internal Medicine
PROC: 027034Z Dilation of Coronary Artery, One Artery with Drug-eluting Intraluminal Device, Percutaneous Approach (ICD-10-PCS; principal; 2025-10-16 13:00)
PROC: 027034Z Dilation of Coronary Artery, One Artery with Drug-eluting Intraluminal Device, Percutaneous Approach (ICD-10-PCS; 2025-10-16 13:00)
PROC: 0DJ08ZZ Inspection of Upper Intestinal Tract, Via Natural or Artificial Opening Endoscopic (ICD-10-PCS; principal; 2025-10-18 09:00)
DX: I25.110 Atherosclerotic heart disease of native coronary artery with unstable angina pectoris (principal); I50.23 Acute on chronic systolic (congestive) heart failure; K29.51 Unspecified chronic gastritis with bleeding; I13.0 Hypertensive heart and chronic kidney disease with heart failure and stage 1 through stage 4 chronic kidney disease, or unspecified chronic kidney disease; N17.9 Acute kidney failure, unspecified; G47.33 Obstructive sleep apnea (adult) (pediatric); K76.0 Fatty (change of) liver, not elsewhere classified; R05.3 Chronic cough; E11.649 Type 2 diabetes mellitus with hypoglycemia without coma; N18.31 Chronic kidney disease, stage 3a; R55 Syncope and collapse; D50.0 Iron deficiency anemia secondary to blood loss (chronic); I42.9 Cardiomyopathy, unspecified; E11.22 Type 2 diabetes mellitus with diabetic chronic kidney disease; Z86.711 Personal history of pulmonary embolism; Z79.899 Other long term (current) drug therapy; Z79.4 Long term (current) use of insulin; Z79.01 Long term (current) use of anticoagulants; Z90.49 Acquired absence of other specified parts of digestive tract; Z86.16 Personal history of COVID-19; Z86.73 Personal history of transient ischemic attack (TIA), and cerebral infarction without residual deficits; Z86.718 Personal history of other venous thrombosis and embolism
CPT/HCPCS: 36415; 36416; 43235; 71045; 71250; 76770; 80048; 80053; 82962; 83013; 83036; 83735; 83880; 84484; 85018; 85025; 85347; 85730; 86677; 87077; 93005; 93308; 93454; 96372; 96374; 96375; 99152; 99153; 99285; C1725; C1769; C1874; C1887; C1894; C9600; J1644; J1650; J1815; J1938; J2250; J2270; J2405; J2470; J2704; J2765; J3010; J3480; J3490; J7030; J7120; J7799; J9999; Q9967